=== PATIENT | male | born 1975 | race Caucasian/White ===

== ENCOUNTER 2016-12-16 19:49 | Emergency (ER) | payer MEDICAID ==
[~2016-12-16] VITALS: Ht 177.8 cm; Wt 97.5 kg
[~2016-12-16 19:49] MED LIST: ALPR0.5T PO; ATEN50TA; BUTA1CAP17 PO; CEFU250T PO; CETI10TA17; CIPR500T78 PO; CYCL10TA9 PO; DOXY100C2 PO; DOXY100T2 PO; FLUT9.9S NS; GUAI5LIQ5 PO; HYDR-3812 PO; HYDR-3816 PO; HYOS0.1283 SL; LISI10TA2 PO; LORA10TA76 PO; METH4TAB PO; METH500T PO; METR500T PO; NAPR500T PO; ONDA4TAB11 PO; PANT40TA2 PO; PRD20T PO; RT-ALBUINH IH; TOPI50TA13; TRAM-42 PO; TRAM50TA2 PO; norflex PO
--- OUTSIDE RECORDS SUMMARY | 2016-12-16 19:55 | XMS REPORT | Continuity of Care Document ---
Author Author [facility] Organization [facility] Address Unknown Phone Unavailable Care Team Providers Care Line Appliance Assembler Name Role Phone Carly Patterson PCP [phone] Source Comments Some departments are not documenting in the electronic medical record. If you do not see the information that you expected, contact Release of Information in the Health Information Management department at [phone] for further assistance in locating additional records.[facility] Active Allergies and Adverse Reactions Allergen Noted Date Severity Reactions Comments Biaxin 04/19/2016 Low VOMITING Keppra 04/19/2016 Low SEE COMMENTS Hypertension and passing out Morphine 04/19/2016 Medium HIVES Sulfa (Sulfonamide 04/19/2016 Low VOMITING Antibiotics) Current Medications Prescription Sig. Disp. Refills Start End Date Status Date PROAIR HFA 90 Inhale 2 Puffs by mouth 02/04/20 Active mcg/actuation inhaler every 6 hours as needed. 16 ALPRAZolam (XANAX) 0.5 mg Take 0.5 mg by mouth 04/08/20 Active tablet daily as needed. 16 atenolol (TENORMIN) 50 mg Take 50 mg by mouth at 03/19/20 Active tablet bedtime daily. 16 cyclobenzaprine Take 10 mg by mouth at 04/05/20 Active (FLEXERIL) 10 mg tablet bedtime as needed. 16 ibuprofen (MOTRIN) 800 mg Take 800 mg by mouth 02/11/20 Active tablet daily as needed. 16 lisinopril (PRINIVIL; Take 10 mg by mouth 04/05/20 Active ZESTRIL) 20 mg tablet daily. 16 topiramate (TOPAMAX) 50 Take 100 mg by mouth 03/19/20 Active mg tablet twice daily. 16 oxyCODONE-acetaminophen(+ Take 1 Tab by mouth three Active ) (PERCOCET; ENDOCET) times daily as needed 7.5-325 mg tablet fluticasone (FLONASE) 50 Apply 1 [place] to each Active mcg/actuation nasal spray nostril as directed daily as needed. Active Problems Problem Noted Date Nonepileptic episode (HCC) 06/21/2016 Convulsions (HCC) 06/21/2016 Most Recent Encounters Date Type Specialty Providers Description 10/11/2016 Hospital Radiology Titus Jimenez MD Canceled (Error) Encounter 10/11/2016 Ancillary Pain Management Titus Jimenez MD Lumbar radiculopathy Orders (Primary Dx) 10/08/2016 Telephone Anesthesia Pain Titus Jimenez MD Post Procedure 10/04/2016 Hospital Radiology Titus Jimenez MD Encounter 10/04/2016 Procedure visit Anesthesia Pain Titus Jimenez MD Spondylosis of cervical region without myelopathy or radiculopathy (Primary Dx); Degeneration of cervical intervertebral disc 10/04/2016 Ancillary Radiology Titus Jimenez MD Cervical radiculopathy Orders (Primary Dx) 10/04/2016 Ancillary Pain Management Titus Jimenez MD Orders Social History Tobacco Use Types Packs/Day Years Used Date Current Every Day Smoker Tobacco Cessation: Ready to Quit: Yes; Counseling Given: No Comments: Last Filed Vital Signs Vital Sign Reading Time Taken Blood Pressure 128/80 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 Pulse 69 10/04/2016 10:36 AM 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 Temperature 36.5 C (97.7 F) 10/04/2016 10:36 AM 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 Respiratory Rate 18 10/04/2016 10:36 AM 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 Height 1.778 m (5' 10") 10/04/2016 10:36 AM 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
[2016-12-16] MEDS ORDERED: IBUP-1780 (20:09)
[2016-12-16 20:26] LABS: BILIRUBIN,URINE NEGATIVE (NEGATIVE); KETONES,URINE NEGATIVE (NEGATIVE); LEUKOCYTE ESTERASE ,URINE NEGATIVE (NEGATIVE); NITRITE,URINE NEGATIVE (NEGATIVE); PH,URINE 7 (5-9); PROTEIN,URINE NEGATIVE (NEGATIVE); UROBILINOGEN,URINE NORMAL (NORMAL)
[2016-12-16 20:35] LABS: WBC,URINE RARE /HPF
[2016-12-16 21:18] LABS: BASOPHILS % (AUTO) 0 % (0-10); EOSINOPHILS # (AUTO) 0.2 10^3/uL (0.0-0.3); EOSINOPHILS % (AUTO) 3 % (0-10); LYMPHOCYTES # (AUTO) 2.2 X 10^3 (1.0-4.0); LYMPHOCYTES % (AUTO) 30 % (12-44); MEAN CORPUSCULAR HEMOGLOBIN 32 PG (25-34); MEAN CORPUSCULAR HGB CONC 36 G/DL (32-36); MEAN CORPUSCULAR VOLUME 90 FL (80-99); MEAN PLATELET VOLUME 11.4 FL (7.4-10.4); MONOCYTES # (AUTO) 0.5 X 10^3 (0.0-1.0); MONOCYTES % (AUTO) 7 % (0-12); NEUTROPHILS # (AUTO) 4.4 X 10^3 (1.8-7.8); NEUTROPHILS % (AUTO) 60 % (42-75); PLATELET COUNT 170 10^3/uL (130-400); RED CELL DISTRIBUTION WIDTH 13.2 % (10.0-14.5); WHITE BLOOD COUNT 7.3 10^3/uL (4.3-11.0)
[2016-12-16 21:29] LABS: ALANINE AMINOTRANSFERASE 20 U/L (0-55); ALBUMIN 3.9 G/DL (3.2-4.5); ANION GAP 10 MMOL/L (5-14); ASPARTATE AMINO TRANSFERASE 15 U/L (5-34); BILIRUBIN,TOTAL 0.3 MG/DL (0.1-1.0); BLOOD UREA NITROGEN 17 MG/DL (7-18); BUN/CREATININE RATIO 16; CALCIUM 8.7 MG/DL (8.5-10.1); CARBON DIOXIDE 18 MMOL/L (21-32); CHLORIDE 112 MMOL/L (98-107); CREATININE SERUM 1.09 MG/DL (0.60-1.30); GFR ESTIMATED > 60; GLUCOSE 101 MG/DL (70-105); LIPASE 10 U/L (8-78); POTASSIUM 3.5 MMOL/L (3.6-5.0); SODIUM 140 MMOL/L (135-145); TOTAL PROTEIN 6.9 G/DL (6.4-8.2)
[2016-12-16] MEDS ORDERED: LIDOCAINE 2% VISCOUS 15 ML UDC PO ONE (21:30)
[2016-12-16] MEDS ORDERED: ONDANSETRON 4 MG/2 ML (SDV) Z0FRAN IVP ONE (21:30)
[2016-12-16] MEDS ORDERED: ANTACID SUSP 30 ML UDC (MYLANTA) PO ONE (21:30)
[2016-12-16] MEDS ORDERED: KETOROLAC 30 MG/ML VIAL IVP ONE (22:15)
--- NOTE | 2016-12-16 22:46 | ED Abdominal Pain ---
General Chief Complaint: Abdominal/GI Problems Stated Complaint: ABD PAIN Nursing Triage Note: States he has had an upper resp illness for the last week. States yesterday he began having left flank pain and luq abd pain to epigastric area. States he has had one episode of vomiting tonight. Denies diarrhea or fever. NO issues urinating Sepsis Screen: No Definite Risk Source of Information: Patient Exam Limitations: No Limitations History of Present Illness Time Seen By Provider: 20:05 Initial Comments This 41-year-old man presents to the emergency room with left flank pain, nausea , vomiting, and upper respiratory symptoms including cough and congestion. The abdominal symptoms started yesterday. The URI symptoms have been present for several days. He has some discomfort with inspiration. Last meal was at 18: 00. He continues to smoke. Allergies and Home Medications Allergies Coded Allergies: Sulfa (Sulfonamide Antibiotics) (Unverified Allergy, Unknown, 12/16/16) clarithromycin (Unverified Allergy, Unknown, 12/16/16) levetiracetam (Unverified Allergy, Unknown, 12/16/16) morphine (Unverified Allergy, Unknown, 12/16/16) Home Medications Alprazolam 0.5 Mg Tablet 0.5 MG PO TID (Reported) Atenolol 50 Mg Tablet #30 (Reported) Cetirizine HCl 10 Mg Tablet #30 (Reported) Doxycycline Hyclate 100 Mg Capsule #20 100 MG PO BID Prescribed by: FRED PENG on 05/26/16 2331 Fluticasone Propionate 9.9 Ml [place].susp Unknown Dose NS DAILY PRN PRN PRN ( Reported) Hydrocodone/Acetaminophen 1 Each Tablet 1 EACH PO BID PRN PRN PAIN (Reported) Ibuprofen 800 Mg Tablet #90 (Reported) Lisinopril 10 Mg Tablet 20 MG PO DAILY (Reported) Loratadine 10 Mg Tablet 10 MG PO DAILY (Reported) Methylprednisolone 4 Mg Tab.ds.pk #1 4 MG PO UD Prescribed by: TERRANCE JAEGER on 08/04/162042 Naproxen 500 Mg Tablet #20 500 MG PO BID Prescribed by: HAJA FLOR on 02/05/16 2251 Topiramate 50 Mg Tablet #60 (Reported) Review of Systems Constitutional: no symptoms reported EENTM: See HPI Respiratory: See HPI Cardiovascular: No Symptoms Reported Gastrointestinal: See HPI Genitourinary: No Symptoms Reported Musculoskeletal: no symptoms reported Skin: no symptoms reported Psychiatric/Neurological: No Symptoms Reported Endocrine: No Symptoms Reported Past Fhfbsum-Gzthlb-Njkukc Hx Patient Social History Alcohol Use: Denies Use Recreational Drug Use: No Smoking Status: Current Everyday Smoker Recent Foreign Travel: No Contact w/Someone Who Travel: No Recent Infectious Disease Expo: No Recent Hopitalizations: No Physical Abuse Screen: No Sexual Abuse: No Immunizations Up To Date Tetanus Booster (TDap): Unknown Seasonal Allergies Seasonal Allergies: No Surgeries HX Surgeries: Yes (LUMBAR SPINAL FUSION 2006, LUMBAR LAMINECTOMY AND DISCECTOMY) Surgeries: Gallbladder, Orthopedic (laminectomy) Respiratory Hx Respiratory Disorders: Yes (tobaccoism) Respiratory Disorders: Pneumonia Cardiovascular Hx Cardiac Disorders: Yes Cardiac Disorders: Hypertension Neurological Hx Neurological Disorders: Yes Neurological Disorders: Seizure Disorder Reproductive System Hx Reproductive Disorders: No Genitourinary Hx Genitourinary Disorders: Yes (URINARY INCONTINENCE SINCE BACK SURGERY IN 2006. RENAL COLIC) Genitourinary Disorders: Kidney Stones Gastrointestinal Hx Gastrointestinal Disorders: Yes (INCONTINENT OF STOOL SINCE BACK SURGERY) Gastrointestinal Disorders: Colitis, Diverticulosis Musculoskeletal Hx Musculoskeletal Disorders: Yes (chronic neck pain) Musculoskeletal Disorders: Degenerate Disk Disease, Arthritis, Chronic Back Pain Endocrine Hx Endocrine Disorders: No HEENT HX ENT Disorders: No Cancer Hx Cancer: No Psychosocial Hx Psychiatric Problems: Yes Behavioral Health Disorders: Anxiety Integumentary HX Skin/Integumentary Disorder: No Blood Transfusions Hx Blood Disorders: No Adverse Reaction to a Blood Tr: No Physical Exam Vital Signs VS - Last 72 Hours, by Label 12/16/16 12/16/16 20:00 23:05 Temp 97.5 98.0 Pulse 87 80 Resp 18 18 B/P 139/80 Pulse Ox 97 99 Capillary Refill : Less Than 3 Seconds General Appearance: WD/WN no apparent distress HEENT: PERRL/EOMI normal ENT inspection pharynx normal Neck: normal inspection Respiratory: lungs clear normal breath sounds no respiratory distress no accessory muscle use Cardiovascular: regular rate, rhythm no edema no murmur Gastrointestinal: normal bowel sounds soft tenderness (left upper quadrant) Extremities: normal inspection no pedal edema 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 no motor/sensory deficits alert normal mood/affect oriented x 3 Skin: normal color warm/dry Progress/Results/Core Measures Results/Orders Lab Results Laboratory Tests Test 12/16/16 19:57 1/19/17 20:25 Range/Units Urine Bacteria NEGATIVE /HPF Urine Bilirubin NEGATIVE NEGATIVE Urine Casts NONE /LPF Urine Clarity CLEAR Urine Color YELLOW Urine Crystals NONE /LPF Urine Culture Indicated NO Urine Glucose (UA) NEGATIVE NEGATIVE Urine Ketones NEGATIVE NEGATIVE Urine Leukocyte Esterase NEGATIVE NEGATIVE Urine Mucus NEGATIVE /LPF Urine Nitrite NEGATIVE NEGATIVE Urine Protein NEGATIVE NEGATIVE Urine RBC RARE /HPF Urine RBC (Auto) NEGATIVE NEGATIVE Urine Specific [place] 1.010 L 1.016-1.022 Urine Urobilinogen NORMAL NORMAL MG/DL Urine WBC RARE /HPF Urine pH 7 5-9 Alanine Aminotransferase (ALT/SGPT) 20 0-55 U/L Albumin 3.9 3.2-4.5 G/DL Alkaline Phosphatase 116 40-136 U/L Anion Gap 10 5-14 MMOL/L Aspartate Amino Transf (AST/SGOT) 15 5-34 U/L BUN/Creatinine Ratio 16 Basophils # (Auto) 0.0 0.0-0.1 10^3/uL Basophils (%) (Auto) 0 0-10 % Blood Urea Nitrogen 17 7-18 MG/DL C-Reactive Protein High Sensitivity 0.18 0.00-0.50 MG/DL Calcium Level 8.7 8.5-10.1 MG/DL Carbon Dioxide Level 18 L 21-32 MMOL/L Chloride Level 112 H 98-107 MMOL/L Creatinine 1.09 0.60-1.30 MG/DL Eosinophils # (Auto) 0.2 0.0-0.3 10^3/uL Eosinophils (%) (Auto) 3 0-10 % Estimat Glomerular Filtration Rate > 60 Glucose Level 101 70-105 MG/DL Hematocrit 45 40-54 % Hemoglobin 16.2 13.3-17.7 G/DL Lipase 10 8-78 U/L Lymphocytes # (Auto) 2.2 1.0-4.0 X 10^3 Lymphocytes (%) (Auto) 30 12-44 % Mean Corpuscular Hemoglobin 32 25-34 PG Mean Corpuscular Hemoglobin Concent 36 32-36 G/DL Mean Corpuscular Volume 90 80-99 FL Mean Platelet Volume 11.4 H 7.4-10.4 FL Monocytes # (Auto) 0.5 0.0-1.0 X 10^3 Monocytes (%) (Auto) 7 0-12 % Neutrophils # (Auto) 4.4 1.8-7.8 X 10^3 Neutrophils (%) (Auto) 60 42-75 % Platelet Count 170 130-400 10^3/uL Potassium Level 3.5 L 3.6-5.0 MMOL/L Red Blood Count 5.00 4.35-5.85 10^6/uL Red Cell Distribution Width 13.2 10.0-14.5 % Sodium Level 140 135-145 MMOL/L Total Bilirubin 0.3 0.1-1.0 MG/DL Total Protein 6.9 6.4-8.2 G/DL White Blood Count 7.3 4.3-11.0 10^3/uL My Orders Orders-FRED CAT MD Ua Culture If Indicated (12/16/16 20:04) Cbc With Automated Diff (12/16/16 21:11) Comprehensive Metabolic Panel (12/16/16 21:11) Lipase (12/16/16 21:11) Saline Lock/Iv-Start (12/16/16 21:11) Lidocaine 2% Viscous 15 Ml (Xylocaine Vi (12/16/16 21:30) Antacid Suspension (Mylanta Suspension (12/16/16 21:30) Ondansetron Injection (Zofran Injectio (12/16/16 21:30) Hs C Reactive Protein (12/16/16 21:53) Chest Pa/Lat (2 View) (12/16/16 22:11) Abdomen/Kub 1view (12/16/16 22:11) Ketorolac Injection (Toradol Injection) (12/16/16 22:15) Rx-Ondansetron Po (Rx-Zofran Po) (12/16/16 22:57) Medications Given in ED Current Medications Medications Dose Ordered Sig/Teri Route Start Time Stop Time Status Last Admin Dose Admin Al Hydrox/Mg Hydrox/Simethicone 30 ml ONCE ONCE PO 12/16/16 21:30 12/16/16 21:31 DC 12/16/16 21:46 30 ML Ketorolac Tromethamine 30 mg ONCE ONCE IVP 12/16/16 22:15 12/16/16 22:16 DC 12/16/16 22:19 30 MG Lidocaine HCl 15 ml ONCE ONCE PO 12/16/16 21:30 12/16/16 21:31 DC 12/16/16 21:46 15 ML Ondansetron HCl 8 mg ONCE ONCE IVP 12/16/16 21:30 12/16/16 21:31 DC 12/16/16 21:46 8 MG Vital Signs/I&O Vital Sign - Last 12Hours 12/16/16 12/16/16 20:00 23:05 Temp 97.5 98.0 Pulse 87 80 Resp 18 18 B/P 139/80 Pulse Ox 97 99 Blood Pressure Mean: 99 Progress Note : Progress Note Patient had mild improvement in pain after GI cocktail. X-rays of the chest and abdomen revealed no significant pathology. There is moderate amount of stool found on the abdominal x-ray. Constipation is within consideration. Patient was further treated with Toradol and dismissed home with a take-home packet of Zofran. Diagnostic Imaging Diagonstic Imaging: Xray Plain Films/CT/US/NM/MRI: chest Comments Two-view chest x-ray viewed by me and compared with prior. Report not yet available. No acute abnormalities when compared with prior. There are chronic findings that are unchanged from 2015. Diagonstic Imaging: Xray Plain Films/CT/US/NM/MRI: abdomen, pelvis Comments Abdominal x-ray viewed by me. Report not yet available. There is a moderate amount of stool in the colon. No other acute abnormalities appreciated. Departure Impression Impression: Primary Impression: Left upper quadrant pain Additional Impression: Nausea and vomiting Qualified Code: R11.2 - Nausea with vomiting, unspecified Disposition: 01 HOME, SELF-CARE Condition: Improved Departure-Patient Inst. Decision time for Depature: 22:46 Referrals: [facility] (PCP/Family) Primary Care Physician Patient Instructions: Acute Abdomen (Belly Pain), Adult (DC) Add. Discharge Instructions: Clear liquid diet until nausea and vomiting and pain improved. You may dissolve Zofran under the tongue every 4 hours as needed for nausea. You may take ibuprofen up to 800 mg every 8 hours as needed for pain. Add Tylenol to 1000 mg every 6 hours as needed for additional pain relief. I would recommend continuing with a clear liquid diet and telemetry produce a good bowel movement. You may use MiraLAX or generic polyethylene glycol one capful dissolved in 8 ounces of water or juice once or twice daily to treat constipation if needed. You may also benefit from temporary antacid medication such as omeprazole 20 mg daily or Pepcid (famotidine) 20 mg twice daily. Return to care if symptoms worsen. Follow-up with your primary care provider. All discharge instructions reviewed with patient and/or family. Voiced understanding. FRED CAT MD Dec 16, 2016 22:46
[2016-12-16] MEDS ORDERED: RX-ONDANSETRON 4 MG ODT (ZOFRAN) PPK #4 SL STA (22:57)
[2016-12-16 23:05] VITALS: BP 141/77
--- NOTE | 2016-12-17 07:59 | Diagnostic Imaging Report ---
INDICATION: Epigastric pain. FINDINGS: The lungs appear clear. The heart size is normal. No effusion or pneumothorax. The mediastinum and evelin appear unremarkable. Mild opacity near the cardiac apex is similar to 11/27/2015, and is likely related to prominent pericardial fat pad. IMPRESSION: No acute process. Dictated by: Dictated on workstation # [id number]
--- NOTE | 2016-12-17 08:01 | Diagnostic Imaging Report ---
Supine view of the abdomen. INDICATION: Epigastric pain. FINDINGS: There are small/ moderate amounts of fecal material in the colon. No dilated bowel loops. Surgical clips in the upper right abdomen seen and posterior fusion hardware is noted along L5-S1 with suggestion of disc cage at this level. No definite urinary tract stone identified. IMPRESSION: No definite abnormality. Dictated by: Dictated on workstation # [id number]
== END 2016-12-16 23:06 | disposition home or self-care (01) ==
LOC: EDUNIT# 19:49 → ER 19:51
DX: R10.12 Left upper quadrant pain (principal); R11.2 Nausea with vomiting, unspecified; I10 Essential (primary) hypertension; G40.909 Epilepsy, unspecified, not intractable, without status epilepticus; F17.210 Nicotine dependence, cigarettes, uncomplicated; Z98.1 Arthrodesis status; Z79.899 Other long term (current) drug therapy
CPT/HCPCS: 36415; 71020; 74000; 80053; 81000; 83690; 85025; 86141; 96374; 96375

== ENCOUNTER 2017-01-09 17:41 | Emergency (ER) | payer MEDICAID ==
[~2017-01-09] VITALS: Ht 177.8 cm; Wt 97.5 kg
[~2017-01-09 17:41] MED LIST changes: +IBUP-1780
--- OUTSIDE RECORDS SUMMARY | 2017-01-09 17:47 | XMS REPORT | Continuity of Care Document ---
Author Author [facility] Organization [facility] Address Unknown Phone Unavailable Care Team Providers Care Line And Frame Poler Name Role Phone Carly Patterson PCP [phone] Source Comments Some departments are not documenting in the electronic medical record. If you do not see the information that you expected, contact Release of Information in the Health Information Management department at [phone] for further assistance in locating additional records.[facility] Active Allergies and Adverse Reactions Allergen [...] mg tablet fluticasone (FLONASE) 50 Apply 1 [place] to each Active mcg/actuation nasal spray nostril as directed daily as needed. 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 Pulse 69 10/04/2016 10:36 AM CUTTER 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
--- NOTE | 2017-01-09 17:56 | ED Upper Extremity ---
General Chief Complaint: Laceration Stated Complaint: L FINGER LAC Source: patient Exam Limitations: no limitations History of Present Illness Time seen by provider: 17:53 Initial Comments Accidentally, patient stabbed himself to the base of the left middle finger using a butter knife to open a chicken breast package at home. Tetanus is not up-to-date Onset: just prior to arrival Severity: moderate Pain/Injury Location: left 3rd finger Method of Injury: unknown Modifying Factors: Improves With Movement Allergies and Home Medications Allergies Coded Allergies: Sulfa (Sulfonamide Antibiotics) (Unverified Allergy, Unknown, 12/16/16) clarithromycin (Unverified Allergy, Unknown, 12/16/16) levetiracetam (Unverified Allergy, Unknown, 12/16/16) morphine (Unverified Allergy, Unknown, 12/16/16) Home Medications Alprazolam 0.5 Mg Tablet 0.5 MG PO TID (Reported) Atenolol 50 Mg Tablet #30 (Reported) Cetirizine HCl 10 Mg Tablet #30 (Reported) Doxycycline Hyclate 100 Mg Capsule #20 100 MG PO BID Prescribed by: FRED PENG on 05/26/16 2331 Fluticasone Propionate 9.9 Ml [place].susp Unknown Dose NS DAILY PRN PRN PRN ( Reported) Hydrocodone/Acetaminophen 1 Each Tablet 1 EACH PO BID PRN PRN PAIN (Reported) Ibuprofen 800 Mg Tablet #90 (Reported) Lisinopril 10 Mg Tablet 20 MG PO DAILY (Reported) Loratadine 10 Mg Tablet 10 MG PO DAILY (Reported) Methylprednisolone 4 Mg Tab.ds.pk #1 4 MG PO UD Prescribed by: TERRANCE JAEGER on 08/04/16 2043 Naproxen 500 Mg Tablet #20 500 MG PO BID Prescribed by: HAJA FLOR on 02/05/16 2251 Topiramate 50 Mg Tablet #60 (Reported) Constitutional: see HPI EENTM: see HPI Respiratory: no symptoms reported Cardiovascular: no symptoms reported Genitourinary: no symptoms reported Musculoskeletal: no symptoms reported Skin: see HPI Psychiatric/Neurological: No Symptoms Reported Past Bdbvftk-Kesbja-Ftesqe Hx Patient Social History Alcohol Use: Denies Use Recreational Drug Use: No Smoking Status: Current Everyday Smoker 2nd Hand Smoke Exposure: Yes Recent Foreign Travel: No Contact w/Someone Who Travel: No Recent Hopitalizations: No Immunizations Up To Date Tetanus Booster (TDap): Unknown Seasonal Allergies Seasonal Allergies: No Surgeries HX Surgeries: Yes (LUMBAR SPINAL FUSION 2007, LUMBAR LAMINECTOMY AND DISCECTOMY) Surgeries: Gallbladder, Orthopedic Respiratory Hx Respiratory Disorders: Yes (tobaccoism) Respiratory Disorders: Pneumonia Cardiovascular Hx Cardiac Disorders: Yes Cardiac Disorders: Hypertension Neurological Hx Neurological Disorders: Yes Neurological Disorders: Seizure Disorder Reproductive System Hx Reproductive Disorders: No Genitourinary Hx Genitourinary Disorders: Yes (URINARY INCONTINENCE SINCE BACK SURGERY IN 2006. RENAL COLIC) Genitourinary Disorders: Kidney Stones Gastrointestinal Hx Gastrointestinal Disorders: Yes (INCONTINENT OF STOOL SINCE BACK SURGERY) Gastrointestinal Disorders: Colitis, Diverticulosis Musculoskeletal Hx Musculoskeletal Disorders: Yes (chronic neck pain) Musculoskeletal Disorders: Degenerate Disk Disease, Arthritis, Chronic Back Pain Endocrine Hx Endocrine Disorders: No HEENT HX ENT Disorders: No Cancer Hx Cancer: No Psychosocial Hx Psychiatric Problems: Yes Behavioral Health Disorders: Anxiety Integumentary HX Skin/Integumentary Disorder: No Blood Transfusions Hx Blood Disorders: No Adverse Reaction to a Blood Tr: No Physical Exam Vital Signs Vital Sign - Last 12Hours 01/09/17 17:50 Temp 98.0 Pulse 84 Resp 18 B/P 135/76 Pulse Ox 99 O2 Delivery Room Air Capillary Refill : General Appearance: WD/WN no apparent distress HEENT: PERRL/EOMI normal ENT inspection Neck: non-tender full range of motion Respiratory: no respiratory distress no accessory muscle use Gastrointestinal: normal bowel sounds non tender soft Shoulder: normal inspection non-tender Elbow/Forearm: normal inspection, non-tender, Right, Left Hand: Left, laceration (laceration to the base of the left middle finger palmar surface ulnar side. No evidence of flexor tendon injury as he is able to fully flex and extend the middle finger.) Neurologic/Tendon: normal sensation Neurologic/Psychiatric: alert normal mood/affect oriented x 3 Skin: normal color warm/dry Laceration Repair : Wound Location: Upper Extremities Wound Length (cm): 1 Wound's Depth, Shape: linear Wound Explored: clean Irrigated w/ Saline (ccs): 50 Betadine Prep?: Yes Anesthesia: 1% Lidocaine Volume Anesthetic (ccs): 2 Suture: Ethlion Suture Size: 5-0 Number of Sutures: 5 Layer Closure?: 1 Number Deep Layer Sutures: 0 Progress Area anesthetized with 2 mL of plain 2 percent lidocaine without epinephrine. Wound then scrubbed with waxing/saline solution then irrigated with 50 mL of the same. 4 simple interrupted sutures size 5-0 Ethilon were placed. Progress/Results/Core Measures Results/Orders My Orders Orders-TERRANCE JAEGER APRN Dipht,Pertuss(Acell),Tet Adult (Boostrix (01/09/17 18:00) Cephalexin Capsule (Keflex Capsule) (01/09/17 18:00) Lidocaine 2% Injection 20 Ml (Xylocaine (01/09/17 18:00) Medications Given in ED Current Medications Medications Dose Ordered Sig/Teri Route Start Time Stop Time Status Last Admin Dose Admin Cephalexin HCl 500 mg ONCE ONCE PO 01/09/17 18:00 01/09/17 18:01 DC 01/09/17 18:01 500 MG Diphtheria/ Tetanus/Acell Pertussis 0.5 ml ONCE ONCE IM 01/09/17 18:00 01/09/17 18:01 DC 01/09/17 18:00 0.5 ML Lidocaine HCl 2 ml ONCE ONCE INJ 01/09/17 18:00 01/09/17 18:01 DC 01/09/17 18:01 2 ML Vital Signs/I&O Vital Sign - Last 12Hours 01/09/17 01/09/17 01/09/17 17:50 18:00 18:01 Temp 98.0 98.0 98.0 Pulse 84 Resp 18 B/P 135/76 Pulse Ox 99 O2 Delivery Room Air Departure Impression Impression: Primary Impression: Hand laceration Qualified Code: S61.412A - Laceration without foreign body of left hand, initial encounter Disposition: HOME, SELF-CARE Condition: Stable Departure-Patient Inst. Decision time for Depature: 17:55 Referrals: [facility] (PCP/Family) Primary Care Physician Patient Instructions: Laceration Repair With Stitches (DC) Add. Discharge Instructions: 1. Keep the dressing on today. You may remove it tomorrow and place a simple Band-Aid over this. Alternatively, you may leave the Band-Aid off as long as this will be kept clean 2. Return to the emergency room in 7 days to have the stitches removed 3. Do not soak the hand in water such as a dish sink or bathtub or hot tub until stitches have been removed. However, starting tomorrow you may shower and let water run over this gently. All discharge instructions reviewed with patient and/or family. Voiced understanding. TERRANCE JAEGER APRN Jan 09, 2017 17:56
[2017-01-09] MEDS ORDERED: TETANUS,DIPTH,PERTUSS P/F (BOOSTRIX) 0.5 ML VIAL IM ONE (18:00)
[2017-01-09] MEDS ORDERED: LIDOCAINE 2% 20 ML (XYLOCAINE) VIAL INJ ONE (18:00)
[2017-01-09] MEDS ORDERED: CEPHALEXIN 250 MG (KEFLEX) CAP PO ONE (18:00)
[2017-01-09 18:38] VITALS: BP 135/76
== END 2017-01-09 18:38 | disposition home or self-care (01) ==
LOC: EDUNIT# 17:41 → ER 17:42
DX: S61.213A Laceration without foreign body of left middle finger without damage to nail, initial encounter (principal); Z23 Encounter for immunization; I10 Essential (primary) hypertension; F17.210 Nicotine dependence, cigarettes, uncomplicated; Z79.899 Other long term (current) drug therapy; W26.0XXA Contact with knife, initial encounter; Y93.G1 Activity, food preparation and clean up; Y92.010 Kitchen of single-family (private) house as the place of occurrence of the external cause; Y99.8 Other external cause status
CPT/HCPCS: 12001; 90471; 90715

== ENCOUNTER 2017-01-12 09:45 | Emergency (ER) | payer MEDICAID ==
[~2017-01-12] VITALS: Ht 177.8 cm; Wt 96.2 kg
--- NOTE | 2017-01-12 11:27 | ED Neck-Back Pain/Injury ---
General Chief Complaint: Head/Cervical Problems Stated Complaint: NECK PAIN Nursing Triage Note: PT CO OF NECK PAIN ON R SIDE Nursing Sepsis Screen: No Definite Risk Source of Information: Patient, Family Exam Limitations: No Limitations History of Present Illness Time Seen by Provider: 11:21 Initial Comments The patient is a 41-year-old white male who has had cervical disc problems for some time. He reports that he awakened this morning with pain in the neck and also along the medial border of the right scapula. He has not experienced that before. He has some tingling in his fingertips on occasion as well. He states that previously he was told that he had disc bulging at C5 6 and C6 7. He has no apparent reinjury issue. He reports that about one year ago he saw a commodity management specialist in [place] and ultimately had some nerve root injections. Location: [facility] Timing/Duration: 4-6 Hours Severity: Mild, Moderate Pain/Injury Location: Back, Neck Method of Injury: Unknown Allergies and Home Medications Allergies Coded Allergies: Sulfa (Sulfonamide Antibiotics) (Unverified Allergy, Unknown, 12/16/16) clarithromycin (Unverified Allergy, Unknown, 12/16/16) levetiracetam (Unverified Allergy, Unknown, 12/16/16) morphine (Unverified Allergy, Unknown, 12/16/16) Home Medications Alprazolam 0.5 Mg Tablet 0.5 MG PO TID (Reported) Atenolol 50 Mg Tablet #30 (Reported) Cetirizine HCl 10 Mg Tablet #30 (Reported) Doxycycline Hyclate 100 Mg Capsule #20 100 MG PO BID Prescribed by: FRED PENG on 05/26/16 2331 Fluticasone Propionate 9.9 Ml [place].susp Unknown Dose NS DAILY PRN PRN PRN ( Reported) Hydrocodone/Acetaminophen 1 Each Tablet 1 EACH PO BID PRN PRN PAIN (Reported) Ibuprofen 800 Mg Tablet #90 (Reported) Lisinopril 10 Mg Tablet 20 MG PO DAILY (Reported) Loratadine 10 Mg Tablet 10 MG PO DAILY (Reported) Methylprednisolone 4 Mg Tab.ds.pk #1 4 MG PO UD Prescribed by: TERRANCE JAEGER on 08/04/162042 Naproxen 500 Mg Tablet #20 500 MG PO BID Prescribed by: HAJA FLOR on 02/05/16 2251 Topiramate 50 Mg Tablet #60 (Reported) Constitutional: see HPI EENTM: no symptoms reported Respiratory: no symptoms reported Cardiovascular: no symptoms reported Gastrointestinal: no symptoms reported Genitourinary: no symptoms reported Musculoskeletal: no symptoms reported Skin: no symptoms reported Psychiatric/Neurological: No Symptoms Reported Past Uganhcf-Lljyvi-Gbxudl Hx Patient Social History Alcohol Use: Denies Use Recreational Drug Use: No Smoking Status: Current Everyday Smoker 2nd Hand Smoke Exposure: Yes Recent Foreign Travel: No Contact w/Someone Who Travel: No Recent Infectious Disease Expo: No Recent Hopitalizations: No Immunizations Up To Date Tetanus Booster (TDap): Unknown Seasonal Allergies Seasonal Allergies: No Surgeries HX Surgeries: Yes (LUMBAR SPINAL FUSION 2006, LUMBAR LAMINECTOMY AND DISCECTOMY) Surgeries: Gallbladder, Orthopedic Respiratory Hx Respiratory Disorders: Yes (tobaccoism) Respiratory Disorders: Pneumonia Cardiovascular Hx Cardiac Disorders: Yes Cardiac Disorders: Hypertension Neurological Hx Neurological Disorders: Yes Neurological Disorders: Seizure Disorder Reproductive System Hx Reproductive Disorders: No Genitourinary Hx Genitourinary Disorders: Yes (URINARY INCONTINENCE SINCE BACK SURGERY IN 2006. RENAL COLIC) Genitourinary Disorders: Kidney Stones Gastrointestinal Hx Gastrointestinal Disorders: Yes (INCONTINENT OF STOOL SINCE BACK SURGERY) Gastrointestinal Disorders: Colitis, Diverticulosis Musculoskeletal Hx Musculoskeletal Disorders: Yes (chronic neck pain) Musculoskeletal Disorders: Degenerate Disk Disease, Arthritis, Chronic Back Pain Endocrine Hx Endocrine Disorders: No HEENT HX ENT Disorders: No Cancer Hx Cancer: No Psychosocial Hx Psychiatric Problems: Yes Behavioral Health Disorders: Anxiety Integumentary HX Skin/Integumentary Disorder: No Blood Transfusions Hx Blood Disorders: No Adverse Reaction to a Blood Tr: No Physical Exam Vital Signs Vital Sign - Last 12Hours 01/12/17 09:50 Temp 97.0 Pulse 64 Resp 18 B/P 130/85 Pulse Ox 99 Capillary Refill : Less Than 3 Seconds General Appearance: No Apparent Distress WD/WN HEENT: Normal ENT Inspection Neck: Full Range of Motion Normal Inspection Non Tender Supple Cardiovascular: Regular Rate, Rhythm No Edema No Gallop No JVD No Murmur Normal Peripheral Pulses Respiratory: Chest Non Tender Lungs Clear Normal Breath Sounds No Accessory Muscle Use No Respiratory Distress Accessory Muscle Use Extremity: Normal Capillary Refill Normal Inspection Normal Range of Motion Non Tender No Calf Tenderness No Pedal Edema Calf Tenderness Comments There is some pain to rotation of the neck. There is no pain to palpation. 3D Modeler is 2+ and equal bilaterally. Triceps and biceps are 2+ and equally bilaterally. There is considerable pain to palpation along the medial border of the right scapula. There is no winging. Laceration Repair : Suture Size: 5-0 Progress/Results/Core Measures Results/Orders Vital Signs/I&O Vital Sign - Last 12Hours 01/12/17 09:50 Temp 97.0 Pulse 64 Resp 18 B/P 130/85 Pulse Ox 99 Blood Pressure Mean: 100 Departure Impression Impression: Primary Impression: Cervical neck pain with evidence of disc disease Disposition: HOME, SELF-CARE Condition: Stable/Unchanged Departure-Patient Inst. Referrals: [facility] (PCP/Family) Primary Care Physician Patient Instructions: Chronic Neck Pain (DC) Add. Discharge Instructions: All discharge instructions reviewed with patient and/or family. Voiced understanding. Make contact with your provider for any necessary additional diagnostic studies such as MRI. Consider a second appointment at the spine clinic for CHARLES CARRERA MD Jan 12, 2017 11:26
[2017-01-12 11:30] VITALS: BP 130/85
== END 2017-01-12 11:35 | disposition home or self-care (01) ==
LOC: EDUNIT# 09:45 → ER 09:47
DX: M50.30 Other cervical disc degeneration, unspecified cervical region (principal); I10 Essential (primary) hypertension; F17.210 Nicotine dependence, cigarettes, uncomplicated; Z79.899 Other long term (current) drug therapy
CPT/HCPCS: 99282

== ENCOUNTER 2017-01-15 18:45 | Emergency (ER) | payer MEDICAID ==
[~2017-01-15] VITALS: Ht 177.8 cm; Wt 96.2 kg
--- OUTSIDE RECORDS SUMMARY | 2017-01-15 18:50 | XMS REPORT | Continuity of Care Document ---
Author Author [facility] Organization [facility] Address Unknown Phone Unavailable Care Team Providers Care [employer] Driver Name Role Phone Carly Patterson PCP [phone] Source Comments Some departments are not documenting in the electronic medical record. If you do not see the information that you expected, contact Release of Information in the Health Information Management department at [phone] for further assistance in locating additional records.[facility] Active Allergies and Adverse Reactions Allergen [...] mg tablet fluticasone (FLONASE) 50 Apply 1 [place] to each Active mcg/actuation nasal spray nostril as directed daily as needed. Active Problems Problem Noted Date Nonepileptic episode ([facility]) 06/21/2016 Convulsions ([facility]) 06/21/2016 Social History Tobacco Use Types Packs/Day Years Used Date Current Every Day Smoker Tobacco Cessation: Ready to Quit: Yes; Counseling Given: No Comments: Last Filed Vital Signs Vital Sign Reading Time Taken Blood Pressure 128/80 10/04/2016 11:35 AM SLASHER HAND Pulse 69 10/04/2016 10:36 AM SLASHER HAND Temperature 36.5 C (97.7 F) 10/04/2016 10:36 AM SLASHER HAND Respiratory Rate 18 10/04/2016 10:36 AM SLASHER HAND Height 1.778 m (5' 10") 10/04/2016 10:36 AM SLASHER HAND Weight 98.431 kg (217 lb) 10/04/2016 10:36 AM SLASHER HAND Body Mass Index 31.14 10/04/2016 10:36 AM SLASHER HAND Oxygen Saturation 100% 10/04/2016 11:35 AM SLASHER HAND Plan of Care Health Maintenance Due Date Last Done Comments Physical (Comprehensive) 1984 Exam Pertussis Vaccine 1988 Tetanus Vaccine 1994 Influenza Vaccine 07/29/2016 Results from Last 3 Months Not on file
[2017-01-15 19:24] VITALS: BP 140/62
== END 2017-01-15 19:25 | disposition home or self-care (01) ==
LOC: EDUNIT# 18:45 → ER 18:46
DX: S61.211D Laceration without foreign body of left index finger without damage to nail, subsequent encounter (principal)

== ENCOUNTER 2017-04-21 19:19 | Emergency (ER) | payer OTHER, MEDICAID ==
[~2017-04-21] VITALS: Ht 177.8 cm; Wt 97.5 kg
[2017-04-21] MEDS ORDERED: NS IV 1000 ML 1,000 ML IV ONE (19:37)
--- NOTE | 2017-04-21 19:46 | ED General ---
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, AND ACCIDENTALLY TOUCHED A PRONG THAT HAD BROKEN OFF IN ELECTRICAL SOCKET, AND GOT A SHOCK TO HIS RIGHT MIDDLE FINGER WAS A NORMAL 120 V OUTLET DID NOT KNOCK HIM BACK OR HAVE LOSS OF CONSCIOUSNESS, JUST "BUZZED" HIM C/O PAIN AND TINGLING TO RIGHT MIDDLE FINGER AND HAND, RADIATING TO ANTERIOR FOREARM C/O HEADACHE NO MOTOR DEFICITS NO CHEST PAIN, PALPITATIONS OR SHORTNESS OF BREATH HAS NOT TAKEN ANYTHING FOR PAIN JUST TOLD HIS BOSS, WHO SENT HIM HERE MULTIPLE ER VISITS-MOST FOR VARIOUS PAIN COMPLAINTS PCP: [facility] Allergies and Home Medications Allergies Coded Allergies: Sulfa (Sulfonamide Antibiotics) (Unverified Allergy, Unknown, 12/16/16) clarithromycin (Unverified Allergy, Unknown, 12/16/16) levetiracetam (Unverified Allergy, Unknown, 12/16/16) morphine (Unverified Allergy, Unknown, 12/16/16) Home Medications Alprazolam 0.5 Mg Tablet, 0.5 MG PO TID, (Reported) Atenolol 50 Mg Tablet, #30 (Reported) Ibuprofen 800 Mg Tablet, #90 (Reported) Lisinopril 10 Mg Tablet, 20 MG PO DAILY, (Reported) Loratadine 10 Mg Tablet, 10 MG PO DAILY, (Reported) Oxycodone HCl/Acetaminophen 1 Each Tablet, #84 (Reported) Topiramate 50 Mg Tablet, #60 (Reported) Constitutional: no symptoms reported EENTM: no symptoms reported Respiratory: no symptoms reported Cardiovascular: no symptoms reported Gastrointestinal: no symptoms reported Genitourinary: no symptoms reported Musculoskeletal: see HPI Skin: no symptoms reported Psychiatric/Neurological: See HPI, Headache, Numbness, Paresthesia, Tingling Hematologic/Lymphatic: No Symptoms Reported Immunological/Allergic: no symptoms reported Past Aabslcv-Umywgv-Ipptnu Hx Patient Social History Alcohol Use: Denies Use Recreational Drug Use: No Smoking Status: Current Everyday Smoker (1/2 PPD) Type Used: Cigarettes 2nd Hand Smoke Exposure: Yes Recent Foreign Travel: No Contact w/Someone Who Travel: No Recent Hopitalizations: No Immunizations Up To Date Tetanus Booster (TDap): Unknown Seasonal Allergies Seasonal Allergies: No Surgeries HX Surgeries: Yes (LUMBAR SPINAL FUSION 2006, LUMBAR LAMINECTOMY AND DISCECTOMY; EXPLORATORY LAP--THOUGHT TOOK HIS APPENDIX, BUT LATER CT SCANS SHOW HE STILL HAS APPENDIX?) Surgeries: Abdominal, Gallbladder, Orthopedic Respiratory Hx Respiratory Disorders: Yes (tobaccoism) Respiratory Disorders: Pneumonia, COPD Cardiovascular Hx Cardiac Disorders: Yes Cardiac Disorders: High Cholesterol, Hypertension Neurological Hx Neurological Disorders: Yes Neurological Disorders: Seizure Disorder Reproductive System Hx Reproductive Disorders: No Genitourinary Hx Genitourinary Disorders: Yes (URINARY INCONTINENCE SINCE BACK SURGERY IN 2006. RENAL COLIC) Genitourinary Disorders: Kidney Stones, Neurogenic Bladder Gastrointestinal Hx Gastrointestinal Disorders: Yes (INCONTINENT OF STOOL SINCE BACK SURGERY) Gastrointestinal Disorders: Colitis, Gastroesophageal Reflux, Diverticulosis Musculoskeletal Hx Musculoskeletal Disorders: Yes (chronic neck pain) Musculoskeletal Disorders: Degenerate Disk Disease, Arthritis, Chronic Back Pain Endocrine Hx Endocrine Disorders: No HEENT HX ENT Disorders: No Cancer Hx Cancer: No Psychosocial Hx Psychiatric Problems: Yes Behavioral Health Disorders: Anxiety Integumentary HX Skin/Integumentary Disorder: No Blood Transfusions Hx Blood Disorders: No Adverse Reaction to a Blood Tr: No Physical Exam Vital Signs Vital Sign - Last 12Hours 04/21/ 19:25 Temp 98.4 Pulse 74 Resp 20 B/P (MAP) 126/84 Pulse Ox 96 O2 Delivery Room Air Capillary Refill : General Appearance: WD/WN HEENT: PERRL/EOMI Neck: Normal Inspection Respiratory: Normal Breath Sounds, No Accessory Muscle Use, No Respiratory Distress Cardiovascular: Regular Rate, Rhythm, No Edema, No JVD, No Murmur, Normal Peripheral Pulses Gastrointestinal: Normal Bowel Sounds, No Organomegaly, No Pulsatile Mass, Non Tender, Soft Extremity: Normal Capillary Refill, Normal Inspection, Normal Range of Motion, Non Tender, No Calf Tenderness, No Pedal Edema Neurologic/Psychiatric: Alert, Oriented x3, No Motor/Sensory Deficits, Normal Mood/Affect, abap developer II-XII Norm as Tested, Other (DTR'S PRESENT BUT MINIMAL IN LEGS ) Skin: Normal Color, Warm/Dry, Tattoos/Piercings (MULTIPLE TATTOOS), Other (NO EXTERNAL EVIDENCE OF TRAUMA) Laceration Repair : Suture Size: 5-0 Progress/Results/Core Measures Results/Orders Lab Results Laboratory Tests Test 04/21/17 19:37 Range/Units White Blood Count 7.3 4.3-11.0 10^3/uL Red Blood Count 5.30 4.35-5.85 10^6/uL Hemoglobin 17.1 13.3-17.7 G/DL Hematocrit 49 40-54 % Mean Corpuscular Volume 92 80-99 FL Mean Corpuscular Hemoglobin 32 25-34 PG Mean Corpuscular Hemoglobin Concent 35 32-36 G/DL Red Cell Distribution Width 13.0 10.0-14.5 % Platelet Count 173 130-400 10^3/uL Mean Platelet Volume 11.3 H 7.4-10.4 FL Neutrophils (%) (Auto) 69 42-75 % Lymphocytes (%) (Auto) 21 12-44 % Monocytes (%) (Auto) 8 0-12 % Eosinophils (%) (Auto) 2 0-10 % Basophils (%) (Auto) 0 0-10 % Neutrophils # (Auto) 5.0 1.8-7.8 X 10^3 Lymphocytes # (Auto) 1.5 1.0-4.0 X 10^3 Monocytes # (Auto) 0.6 0.0-1.0 X 10^3 Eosinophils # (Auto) 0.2 0.0-0.3 10^3/uL Basophils # (Auto) 0.0 0.0-0.1 10^3/uL Sodium Level 138 135-145 MMOL/L Potassium Level 3.7 3.6-5.0 MMOL/L Chloride Level 111 H 98-107 MMOL/L Carbon Dioxide Level 18 L 21-32 MMOL/L Anion Gap 9 5-14 MMOL/L Blood Urea Nitrogen 25 H 7-18 MG/DL Creatinine 0.98 0.60-1.30 MG/DL Estimat Glomerular Filtration Rate > 60 BUN/Creatinine Ratio 26 Glucose Level 88 70-105 MG/DL Calcium Level 9.4 8.5-10.1 MG/DL Total Bilirubin 0.5 0.1-1.0 MG/DL Aspartate Amino Transf (AST/SGOT) 13 5-34 U/L Alanine Aminotransferase (ALT/SGPT) 13 0-55 U/L Alkaline Phosphatase 96 40-136 U/L Total Creatine Kinase 45 30-200 U/L Troponin I < 0.30 <0.30 NG/ML Total Protein 7.6 6.4-8.2 G/DL Albumin 4.3 3.2-4.5 G/DL My Orders Orders - BHAVYA ESCOBAR DO Ekg Tracing (04/21/17 19:37) Monitor-Rhythm Ecg Trace Only (04/21/17 19:37) Cbc With Automated Diff (04/21/17 19:37) Comprehensive Metabolic Panel (04/21/17 19:37) Creatine Kinase (04/21/17 19:37) Troponin I (04/21/17 19:37) Saline Lock/Iv-Start (04/21/17 19:37) Ns Iv 1000 Ml (Sodium Chloride 0.9%) (04/21/17 19:37) Medications Given in ED Current Medications Medications Dose Ordered Sig/Teri Route Start Time Stop Time Status Last Admin Dose Admin Sodium Chloride 1,000 ml @ 0 mls/hr Q0M ONCE IV 04/21/17 19:37 04/21/17 19:38 DC 04/21/17 19:46 999 MLS/HR Vital Signs/I&O Vital Sign - Last 12Hours 04/21/17 19:25 Temp 98.4 Pulse 74 Resp 20 B/P (MAP) 126/84 Pulse Ox 96 O2 Delivery Room Air ECG Initial ECG Impression Time: 19:43 Initial ECG Rate: 67 Initial ECG Rhythm: Normal Sinus Initial ECG Comparisson: Unchanged Departure Impression Impression: Primary Impression: MINOR ELECTRIC SHOCK TO RIGHT MIDDLE FINGER Disposition: 01 HOME, SELF-CARE Condition: Stable Departure-Patient Inst. Referrals: [facility] (PCP/Family) Primary Care Physician Patient Instructions: Electrical Shock (DC) Add. Discharge Instructions: LOTS OF FLUIDS TAKE YOUR HOME MEDICATIONS FOR PAIN NEEDED FOLLOW UP WITH YOUR DR NEEDED All discharge instructions reviewed with patient and/or family. Voiced understanding. BHAVYA ESCOBAR DO April 21, 2017 19:45
[2017-04-21 20:02] LABS: BASOPHILS % (AUTO) 0 % (0-10); EOSINOPHILS # (AUTO) 0.2 10^3/uL (0.0-0.3); EOSINOPHILS % (AUTO) 2 % (0-10); LYMPHOCYTES # (AUTO) 1.5 X 10^3 (1.0-4.0); LYMPHOCYTES % (AUTO) 21 % (12-44); MEAN CORPUSCULAR HEMOGLOBIN 32 PG (25-34); MEAN CORPUSCULAR HGB CONC 35 G/DL (32-36); MEAN CORPUSCULAR VOLUME 92 FL (80-99); MEAN PLATELET VOLUME 11.3 FL (7.4-10.4); MONOCYTES # (AUTO) 0.6 X 10^3 (0.0-1.0); MONOCYTES % (AUTO) 8 % (0-12); NEUTROPHILS % (AUTO) 69 % (42-75); PLATELET COUNT 173 10^3/uL (130-400); WHITE BLOOD COUNT 7.3 10^3/uL (4.3-11.0)
[2017-04-21] MEDS ORDERED: OXYC-464 (20:05)
[2017-04-21 20:44] LABS: ALANINE AMINOTRANSFERASE 13 U/L (0-55); ALBUMIN 4.3 G/DL (3.2-4.5); ANION GAP 9 MMOL/L (5-14); ASPARTATE AMINO TRANSFERASE 13 U/L (5-34); BILIRUBIN,TOTAL 0.5 MG/DL (0.1-1.0); BLOOD UREA NITROGEN 25 MG/DL (7-18); BUN/CREATININE RATIO 26; CALCIUM 9.4 MG/DL (8.5-10.1); CARBON DIOXIDE 18 MMOL/L (21-32); CHLORIDE 111 MMOL/L (98-107); CREATINE KINASE 45 U/L (30-200); CREATININE SERUM 0.98 MG/DL (0.60-1.30); GFR ESTIMATED > 60; GLUCOSE 88 MG/DL (70-105); POTASSIUM 3.7 MMOL/L (3.6-5.0); SODIUM 138 MMOL/L (135-145); TOTAL PROTEIN 7.6 G/DL (6.4-8.2)
[2017-04-21 20:46] LABS: TROPONIN I < 0.30 NG/ML (<0.30)
[2017-04-21 21:16] VITALS: BP 116/69
== END 2017-04-21 21:16 | disposition home or self-care (01) ==
LOC: EDUNIT# 19:19 → ER 19:24
DX: T75.4XXA Electrocution, initial encounter (principal); I10 Essential (primary) hypertension; J44.9 Chronic obstructive pulmonary disease, unspecified; G40.909 Epilepsy, unspecified, not intractable, without status epilepticus; F17.210 Nicotine dependence, cigarettes, uncomplicated; Z79.899 Other long term (current) drug therapy
CPT/HCPCS: 36415; 80053; 82550; 84484; 85025; 93005; 93041

== ENCOUNTER 2017-04-24 01:09 | Emergency (ER) | payer MEDICAID, OTHER ==
[~2017-04-24] VITALS: Ht 177.8 cm; Wt 97.5 kg
[~2017-04-24 01:09] MED LIST changes: +OXYC-464
--- NOTE | 2017-04-24 02:08 | ED General ---
General Chief Complaint: Lower Extremity Stated Complaint: R ANKLE CALF PAIN Nursing Triage Note: Pt c/o right calf pain/tingling that began 1 week ago. No f/u with PCP. No injury. Nursing Sepsis Screen: No Definite Risk Source of Information: Patient Exam Limitations: No Limitations History of Present Illness Time Seen by Provider: 01:38 Initial Comments This 42 -year-old man presents with complaints of paresthesias and pain in the right calf 1 week. 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 He denies any injury. He had one brief episode of shortness of breath while walking across the parking lot today but otherwise denies any shortness of air or chest pain. He has not been taking any medications for his symptoms. There is no tachycardia or hypoxia. Allergies and Home Medications Allergies Coded Allergies: Sulfa (Sulfonamide Antibiotics) (Unverified Allergy, Unknown, 12/16/16) clarithromycin (Unverified Allergy, Unknown, 12/16/16) levetiracetam (Unverified Allergy, Unknown, 12/16/16) morphine (Unverified Allergy, Unknown, 12/16/16) Home Medications Alprazolam 0.5 Mg Tablet, 0.5 MG PO TID, (Reported) Atenolol 50 Mg Tablet, #30 (Reported) Ibuprofen 800 Mg Tablet, #90 (Reported) Lisinopril 10 Mg Tablet, 20 MG PO DAILY, (Reported) Oxycodone HCl/Acetaminophen 1 Each Tablet, #84 (Reported) Topiramate 50 Mg Tablet, #60 (Reported) Constitutional: no symptoms reported EENTM: no symptoms reported Respiratory: see HPI Cardiovascular: no symptoms reported Gastrointestinal: no symptoms reported Genitourinary: no symptoms reported Musculoskeletal: see HPI Skin: no symptoms reported Psychiatric/Neurological: See HPI Past Kmpxcqv-Obpwaj-Nyaolt Hx Patient Social History Alcohol Use: Denies Use Recreational Drug Use: No Smoking Status: Current Everyday Smoker Type Used: Cigarettes 2nd Hand Smoke Exposure: Yes Recent Foreign Travel: No Contact w/Someone Who Travel: No Recent Infectious Disease Expo: No Recent Hopitalizations: No Immunizations Up To Date Tetanus Booster (TDap): Less than 5yrs Seasonal Allergies Seasonal Allergies: No Surgeries HX Surgeries: Yes Surgeries: Abdominal, Gallbladder, Orthopedic Respiratory Hx Respiratory Disorders: Yes (tobaccoism) Respiratory Disorders: Pneumonia, COPD Cardiovascular Hx Cardiac Disorders: Yes Cardiac Disorders: High Cholesterol, Hypertension Neurological Hx Neurological Disorders: Yes Neurological Disorders: Seizure Disorder Reproductive System Hx Reproductive Disorders: No Genitourinary Hx Genitourinary Disorders: Yes (URINARY INCONTINENCE SINCE BACK SURGERY IN 2006. RENAL COLIC) Genitourinary Disorders: Kidney Stones, Neurogenic Bladder Gastrointestinal Hx Gastrointestinal Disorders: Yes (INCONTINENT OF STOOL SINCE BACK SURGERY) Gastrointestinal Disorders: Colitis, Gastroesophageal Reflux, Diverticulosis Musculoskeletal Hx Musculoskeletal Disorders: Yes (chronic neck pain) Musculoskeletal Disorders: Degenerate Disk Disease, Arthritis, Chronic Back Pain Endocrine Hx Endocrine Disorders: No HEENT HX ENT Disorders: No Cancer Hx Cancer: No Psychosocial Hx Psychiatric Problems: Yes Behavioral Health Disorders: Anxiety Integumentary HX Skin/Integumentary Disorder: No Blood Transfusions Hx Blood Disorders: No Adverse Reaction to a Blood Tr: No Physical Exam Vital Signs Vital Sign - Last 12Hours 04/24/17 01:19 Pulse 66 Resp 18 B/P (MAP) 130/86 Pulse Ox 99 O2 Delivery Room Air Capillary Refill : Less Than 3 Seconds General Appearance: No Apparent Distress, WD/WN HEENT: Normal ENT Inspection Neck: Normal Inspection Respiratory: Lungs Clear, Normal Breath Sounds, No Accessory Muscle Use, No Respiratory Distress Cardiovascular: Regular Rate, Rhythm, No Edema, No Murmur Extremity: Normal Inspection, No Pedal Edema, Other (Minor right sided calf tenderness with no heat, erythema, or swelling. Strong pedal pulse. 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 No evidence of DVT. Departure Impression Impression: Primary Impression: Right calf pain Disposition: 01 HOME, SELF-CARE Condition: Critical Departure-Patient Inst. Decision time for Depature: 02:07 Referrals: [facility] (PCP/Family) Primary Care Physician Patient Instructions: NO INSTRUCTIONS GIVEN Add. Discharge Instructions: Stretch your calves frequently while at work. Increase your ibuprofen usage to 800 mg 3 times daily through the weekend. Follow-up with your primary care provider early next week if not improving. Return to the ER if symptoms worsen. All discharge instructions reviewed with patient and/or family. Voiced understanding. FRED CAT MD April 24, 2017 02:08
[2017-04-24 02:25] VITALS: BP 128/78
--- NOTE | 2017-04-24 06:54 | Diagnostic Imaging Report ---
PROCEDURE: US right lower extremity venous. TECHNIQUE: Multiple real-time grayscale images were obtained over the right lower extremity in various projections. Additional duplex Doppler and color Doppler images were also obtained. Findings: The right common femoral, femoral and popliteal veins are patent without evidence of DVT. Visualized proximal aspects of the greater saphenous, deep femoral, posterior tibial and peroneal veins are also patent. All of the evaluated deep venous structures demonstrate normal compressibility and waveform augmentation where applicable. Impression: No right lower extremity deep venous thrombosis (DVT). Findings are in agreement with the preliminary report. Dictated by: Dictated on workstation # [id number]
== END 2017-04-24 02:25 | disposition home or self-care (01) ==
LOC: EDUNIT# 01:09 → ER 01:12
DX: M79.661 Pain in right lower leg (principal); I10 Essential (primary) hypertension; J44.9 Chronic obstructive pulmonary disease, unspecified; F17.210 Nicotine dependence, cigarettes, uncomplicated
CPT/HCPCS: 99283

== ENCOUNTER 2017-05-16 23:07 | Emergency (ER) | payer MEDICAID ==
[~2017-05-16] VITALS: Ht 177.8 cm; Wt 95.3 kg
[~2017-05-16 23:07] MED LIST changes: -ATEN50TA; +ATEN50TA PO; -IBUP-1780; +IBUP-1780 PO; -OXYC-464; +OXYC-464 PO; -TOPI50TA13; +TOPI50TA13 PO
[2017-05-16] MEDS ORDERED: LISI-552 PO (23:53)
[2017-05-16] MEDS ORDERED: ALPR0.254 PO (23:53)
[2017-05-17] MEDS ORDERED: NS 100 ML (IVPB) BAG IV ONE
[2017-05-17] MEDS ORDERED: IOHEXOL 350 MG/ML 100 ML (OMNIPAQUE 350) VIAL IV ONE
[2017-05-17 00:15] LABS: BASOPHILS % (AUTO) 0 % (0-10); EOSINOPHILS # (AUTO) 0.3 10^3/uL (0.0-0.3); EOSINOPHILS % (AUTO) 3 % (0-10); LYMPHOCYTES # (AUTO) 2.4 X 10^3 (1.0-4.0); LYMPHOCYTES % (AUTO) 31 % (12-44); MEAN CORPUSCULAR HEMOGLOBIN 32 PG (25-34); MEAN CORPUSCULAR HGB CONC 34 G/DL (32-36); MEAN CORPUSCULAR VOLUME 93 FL (80-99); MEAN PLATELET VOLUME 11.4 FL (7.4-10.4); MONOCYTES # (AUTO) 0.9 X 10^3 (0.0-1.0); MONOCYTES % (AUTO) 12 % (0-12); NEUTROPHILS # (AUTO) 4.3 X 10^3 (1.8-7.8); NEUTROPHILS % (AUTO) 54 % (42-75); PLATELET COUNT 159 10^3/uL (130-400); RED BLOOD COUNT 5.15 10^6/uL (4.35-5.85); RED CELL DISTRIBUTION WIDTH 13.2 % (10.0-14.5)
[2017-05-17 00:20] LABS: BILIRUBIN,URINE NEGATIVE (NEGATIVE); KETONES,URINE NEGATIVE (NEGATIVE); LEUKOCYTE ESTERASE ,URINE NEGATIVE (NEGATIVE); NITRITE,URINE NEGATIVE (NEGATIVE); PH,URINE 8 (5-9); PROTEIN,URINE NEGATIVE (NEGATIVE); UROBILINOGEN,URINE 1 MG/DL (NORMAL)
[2017-05-17 00:29] LABS: SQUAMOUS EPITHELIAL CELL,UR 0-2 /HPF
[2017-05-17 00:29] LABS: ALANINE AMINOTRANSFERASE 20 U/L (0-55); AMYLASE 46 U/L (25-125); ANION GAP 10 MMOL/L (5-14); ASPARTATE AMINO TRANSFERASE 16 U/L (5-34); BILIRUBIN,TOTAL 0.3 MG/DL (0.1-1.0); BLOOD UREA NITROGEN 24 MG/DL (7-18); BUN/CREATININE RATIO 21 (0-20); CALCIUM 9.2 MG/DL (8.5-10.1); CARBON DIOXIDE 17 MMOL/L (21-32); CHLORIDE 114 MMOL/L (98-107); CREATININE SERUM 1.13 MG/DL (0.60-1.30); GFR ESTIMATED > 60; GLUCOSE 91 MG/DL (70-105); HEMOLYSIS 19 (-100-29); ICTERUS 0.6 (-100-1.9); LIPASE 15 U/L (8-78); LIPEMIA 41 (-100-49); POTASSIUM 3.8 MMOL/L (3.6-5.0); SODIUM 141 MMOL/L (135-145); TOTAL PROTEIN 7.3 GM/DL (6.4-8.2)
[2017-05-17] MEDS ORDERED: ONDANSETRON 4 MG/2 ML (SDV) Z0FRAN IVP ONE (01:15)
[2017-05-17] MEDS ORDERED: RX-ONDANSETRON 4 MG ODT (ZOFRAN) PPK #4 PO STA (01:37)
[2017-05-17] MEDS ORDERED: RX-HYOSCYAMINE 0.125 MG SL (LEVSIN) PPK#6 SL STA (01:37)
[2017-05-17] MEDS ORDERED: LACT1CAP8 PO (01:41)
[2017-05-17] MEDS ORDERED: ONDA8TAB9 PO (01:41)
[2017-05-17] MEDS ORDERED: HYOS0.1283 SL (01:41)
[2017-05-17] MEDS ORDERED: CIPR-225 PO (01:41)
[2017-05-17] MEDS ORDERED: METR500T PO (01:41)
--- NOTE | 2017-05-17 01:41 | ED Abdominal Pain ---
General Chief Complaint: Abdominal/GI Problems Stated Complaint: ABD PAIN Nursing Triage Note: Abd pain developed yesterday that is worsening. Nothing reported to make it better or that worsens it. Pt has some nausea. Pt has incont of bladder since back surgery in his hx. Sepsis Screen: No Definite Risk Allergies and Home Medications Allergies Coded Allergies: Sulfa (Sulfonamide Antibiotics) (Unverified Allergy, Unknown, 12/16/16) clarithromycin (Unverified Allergy, Unknown, 12/16/16) levetiracetam (Unverified Allergy, Unknown, 12/16/16) morphine (Unverified Allergy, Unknown, 12/16/16) Home Medications Alprazolam 0.25 Mg Tablet, 0.25 MG PO BID, (Reported) Atenolol 50 Mg Tablet, 50 MG PO HS, #30 (Reported) Ibuprofen 800 Mg Tablet, 800 MG PO Q8H, #90 (Reported) Lisinopril 20 Mg Tablet, 20 MG PO DAILY, (Reported) Oxycodone HCl/Acetaminophen 1 Each Tablet, 1 TAB PO Q8H PRN for PAIN-MILD TO MODERATE, #84 (Reported) Topiramate 50 Mg Tablet, 100 MG PO BID, #60 (Reported) Past Msasckw-Dpelzj-Muxexz Hx Patient Social History Alcohol Use: Denies Use Recreational Drug Use: No Type Used: Cigarettes 2nd Hand Smoke Exposure: Yes Recent Foreign Travel: No Contact w/Someone Who Travel: No Recent Infectious Disease Expo: No Recent Hopitalizations: No Immunizations Up To Date Tetanus Booster (TDap): Less than 5yrs Seasonal Allergies Seasonal Allergies: No Surgeries HX Surgeries: Yes Surgeries: Abdominal, Gallbladder, Orthopedic Respiratory Hx Respiratory Disorders: Yes (tobaccoism) Respiratory Disorders: Pneumonia, COPD Cardiovascular Hx Cardiac Disorders: Yes Cardiac Disorders: High Cholesterol, Hypertension Neurological Hx Neurological Disorders: Yes Neurological Disorders: Seizure Disorder Reproductive System Hx Reproductive Disorders: No Genitourinary Hx Genitourinary Disorders: Yes (URINARY INCONTINENCE SINCE BACK SURGERY IN 2006. RENAL COLIC) Genitourinary Disorders: Kidney Stones, Neurogenic Bladder Gastrointestinal Hx Gastrointestinal Disorders: Yes (INCONTINENT OF STOOL SINCE BACK SURGERY) Gastrointestinal Disorders: Colitis, Gastroesophageal Reflux, Diverticulosis Musculoskeletal Hx Musculoskeletal Disorders: Yes (chronic neck pain) Musculoskeletal Disorders: Degenerate Disk Disease, Arthritis, Chronic Back Pain Endocrine Hx Endocrine Disorders: No HEENT HX ENT Disorders: No Cancer Hx Cancer: No Psychosocial Hx Psychiatric Problems: Yes Behavioral Health Disorders: Anxiety Integumentary HX Skin/Integumentary Disorder: No Blood Transfusions Hx Blood Disorders: No Adverse Reaction to a Blood Tr: No Physical Exam Vital Signs VS - Last 72 Hours, by Label 05/16/17 23:41 Temp 98.2 Pulse 75 Resp 20 B/P (MAP) 146/90 Pulse Ox 98 O2 Delivery Room Air Capillary Refill : Less Than 3 Seconds Laceration Repair : Suture Size: 5-0 Progress/Results/Core Measures Results/Orders Lab Results Laboratory Tests Test 05/16/17 23:57 05/17/17 00:13 Range/Units White Blood Count 8.0 4.3-11.0 10^3/uL Red Blood Count 5.15 4.35-5.85 10^6/uL Hemoglobin 16.2 13.3-17.7 G/DL Hematocrit 48 40-54 % Mean Corpuscular Volume 93 80-99 FL Mean Corpuscular Hemoglobin 32 25-34 PG Mean Corpuscular Hemoglobin Concent 34 32-36 G/DL Red Cell Distribution Width 13.2 10.0-14.5 % Platelet Count 159 130-400 10^3/uL Mean Platelet Volume 11.4 H 7.4-10.4 FL Neutrophils (%) (Auto) 54 42-75 % Lymphocytes (%) (Auto) 31 12-44 % Monocytes (%) (Auto) 12 0-12 % Eosinophils (%) (Auto) 3 0-10 % Basophils (%) (Auto) 0 0-10 % Neutrophils # (Auto) 4.3 1.8-7.8 X 10^3 Lymphocytes # (Auto) 2.4 1.0-4.0 X 10^3 Monocytes # (Auto) 0.9 0.0-1.0 X 10^3 Eosinophils # (Auto) 0.3 0.0-0.3 10^3/uL Basophils # (Auto) 0.0 0.0-0.1 10^3/uL Sodium Level 141 135-145 MMOL/L Potassium Level 3.8 3.6-5.0 MMOL/L Chloride Level 114 H 98-107 MMOL/L Carbon Dioxide Level 17 L 21-32 MMOL/L Anion Gap 10 5-14 MMOL/L Blood Urea Nitrogen 24 H 7-18 MG/DL Creatinine 1.13 0.60-1.30 MG/DL Estimat Glomerular Filtration Rate > 60 BUN/Creatinine Ratio 21 H 0-20 Glucose Level 91 70-105 MG/DL Calcium Level 9.2 8.5-10.1 MG/DL Total Bilirubin 0.3 0.1-1.0 MG/DL Aspartate Amino Transf (AST/SGOT) 16 5-34 U/L Alanine Aminotransferase (ALT/SGPT) 20 0-55 U/L Alkaline Phosphatase 113 40-136 U/L Total Protein 7.3 6.4-8.2 GM/DL Albumin 4.0 3.2-4.5 GM/DL Amylase Level 46 25-125 U/L Lipase 15 8-78 U/L Urine Color YELLOW Urine Clarity CLEAR Urine pH 8 5-9 Urine Specific [place] 1.015 L 1.016-1.022 Urine Protein NEGATIVE NEGATIVE Urine Glucose (UA) NEGATIVE NEGATIVE Urine Ketones NEGATIVE NEGATIVE Urine Nitrite NEGATIVE NEGATIVE Urine Bilirubin NEGATIVE NEGATIVE Urine Urobilinogen 1 NORMAL MG/DL Urine Leukocyte Esterase NEGATIVE NEGATIVE Urine RBC (Auto) 2+ H NEGATIVE Urine RBC 2-5 H /HPF Urine WBC NONE /HPF Urine Squamous Epithelial Cells 0-2 /HPF Urine Crystals NONE /LPF Urine Amorphous Sediment MOD ROSELINE PHOSPHATE H /LPF Urine Bacteria TRACE /HPF Urine Casts PRESENT /LPF Urine Granular Casts 2-5 H /LPF Urine Mucus NEGATIVE /LPF Urine Culture Indicated NO My Orders Orders - BHAVYA ESCOBAR DO Saline Lock/Iv-Start (05/16/17 23:48) Amylase (05/16/17 23:48) Cbc With Automated Diff (05/16/17 23:48) Comprehensive Metabolic Panel (05/16/17 23:48) Lipase (05/16/17 23:48) Ua Culture If Indicated (05/16/17 23:48) Iohexol Injection (Omnipaque 350 Mg/Ml 1 (05/17/17 00:00) Ns (Ivpb) (Sodium Chloride 0.9% Ivpb Bag (05/17/17 00:00) Ct Abd/Pelv W (Appendicitis) (05/17/17 00:01) Acute Abd Series (05/17/17 00:01) Ondansetron Injection (Zofran Injectio (05/17/17 01:15) Rx-Hyoscyamine Tab (Rx-Levsin Sl) (05/17/17 01:37) Rx-Ondansetron Po (Rx-Zofran Po) (05/17/17 01:37) Levofloxacin Tablet (Levaquin Tablet) (05/17/17 01:45) Metronidazole Tablet (Flagyl Tablet) (05/17/17 01:45) Ketorolac Injection (Toradol Injection) (05/17/17 01:45) Medications Given in ED Current Medications Medications Dose Ordered Sig/Teri Route Start Time Stop Time Status Last Admin Dose Admin Iohexol 100 ml ONCE ONCE IV 05/17/17 00:00 05/17/17 00:01 UNV 05/17/17 00:25 100 ML Ondansetron HCl 4 mg ONCE ONCE IVP 05/17/17 01:15 05/17/17 01:16 DC 05/17/17 01:13 4 MG Sodium Chloride 80 ml ONCE ONCE IV 05/17/17 00:00 05/17/17 00:01 UNV 05/17/17 00:25 80 ML Vital Signs/I&O Vital Sign - Last 12Hours 05/16/17 23:41 Temp 98.2 Pulse 75 Resp 20 B/P (MAP) 146/90 Pulse Ox 98 O2 Delivery Room Air Blood Pressure Mean: 108 Departure Impression Impression: Primary Impression: Abdominal pain Additional Impression: Microscopic hematuria Disposition: HOME, SELF-CARE Condition: Stable Departure-Patient Inst. Referrals: [facility] (PCP/Family) Primary Care Physician Patient Instructions: Acute Abdomen (Belly Pain), Adult (DC), Blood in the Urine (Hematuria), Adult (DC) Add. Discharge Instructions: CLEAR LIQUIDS--WATER, BROTH, JELLO, GATORADE NO FOOD UNTIL YOU ARE RECHECKED AND CLEARED BY YOUR DR FOLLOW UP WITH YOUR DR IN 2-3 DAYS FOR FURTHER CARE All discharge instructions reviewed with patient and/or family. Voiced understanding. Scripts Ondansetron (Zofran Odt) 8 Mg Tab.rapdis 8 MG PO Q4H for Nausea/Vomiting, #14 TAB Prov: BHAVYA ESCOBAR DO 05/17/17 Hyoscyamine Sulfate (Levsin-Sl) 0.125 Mg Tab.subl 1-2 TAB SL Q4H for Abdominal Pain, #10 TAB Prov: BHAVYA ESCOBAR K DO 05/17/17 Metronidazole (Flagyl) 500 Mg Tablet 500 MG PO QID for FOR INFECTION, #40 TAB Prov: BHAVYA ESCOBAR DO 05/17/17 Ciprofloxacin HCl (Cipro) 500 Mg Tablet 500 MG PO BID, #20 TAB Prov: BHAVYA ESCOBAR DO 05/17/17 Lactobacillus Acidophilus (Acidophilus) 1 Each Capsule 2 EACH PO QID, #80 CAP Prov: BHAVYA ESCOBAR DO 05/17/17 BHAVYA ESCOBAR DO May 17, 2017 01:41
[2017-05-17] MEDS ORDERED: metroNIDAZOLE 500 MG (FLAGYL) TAB PO ONE (01:45)
[2017-05-17] MEDS ORDERED: KETOROLAC 30 MG/ML VIAL IVP ONE (01:45)
[2017-05-17] MEDS ORDERED: LEVOFLOXACIN 500 MG TAB (LEVAQUIN) PO ONE (01:45)
[2017-05-17] MEDS ORDERED: KETOROLAC 60 MG/2 ML VIAL IM ONE ×2 (02:05→02:15)
[2017-05-17 02:20] VITALS: BP 156/89
--- NOTE | 2017-05-17 07:13 | Diagnostic Imaging Report ---
INDICATION: Nausea FINDINGS: No focal consolidation, failure, effusion or pneumothorax. Bowel gas pattern unremarkable. No pneumatosis or free air. No pathological fecal loading. IMPRESSION: No acute finding. Dictated by: Dictated on workstation # [id number]
--- NOTE | 2017-05-17 08:35 | Diagnostic Imaging Report ---
PROCEDURE: CT abdomen and pelvis with contrast, rule out appendicitis. TECHNIQUE: Multiple contiguous axial images were obtained through the abdomen and pelvis after the administration of intravenous contrast. INDICATION: Midline lower abdominal pain accompanied by nausea. Exam compared to 03/14/2016. There is lack of distention of the mid to lower third of the sigmoid colon. Its wall is mildly thickened. This may merely reflect its incomplete distention. Inflammatory changes however could not be confidently excluded. Apparent previous appendectomy. There is no ascites, abscess, hematoma or other fluid collection. There are no findings of a bowel obstruction or fecal impaction. The liver, spleen, adrenals, pancreas and biliary ducts unremarkable post cholecystectomy. The spleen, adrenals and pancreas unremarkable. The unobstructed kidneys appeared normal. No mesenteric or retroperitoneal adenopathy. IMPRESSION: No obstructive features or convincing evidence for an acute inflammatory process. Suggestion of some thickening of the cruz of the mid to distal sigmoid colon may merely reflect its lack of distention. However mild inflammatory change could not be excluded. No obstruction, perforation or abscess. Unobstructed urinary tracts. Previous appendectomy otherwise negative. I agree with the preliminary. Dictated by: Dictated on workstation # [id number]
--- OUTSIDE RECORDS SUMMARY | 2017-05-19 13:53 | XMS REPORT | Continuity of Care Document ---
Author Author [facility] Organization [facility] Address Unknown Phone Unavailable Care Team Providers Care Fiberglass Product Tester Name Role Phone Carly Patterson PCP [phone] Source Comments Some departments are not documenting in the electronic medical record. If you do not see the information that you expected, contact Release of Information in the Health Information Management department at [phone] for further assistance in locating additional records.[facility] Active Allergies and Adverse Reactions Allergen [...] mg tablet fluticasone (FLONASE) 50 Apply 1 [place] to each Active mcg/actuation nasal spray nostril as directed daily as needed. Active Problems Problem Noted Date Nonepileptic episode ([facility]) 06/21/2016 Convulsions ([facility]) 06/21/2016 Social History Tobacco Use Types Packs/Day Years Used Date Current Every Day Smoker Tobacco Cessation: Ready to Quit: Yes; Counseling Given: No Comments: Last Filed Vital Signs Vital Sign Reading Time Taken Blood Pressure 128/80 10/04/2016 11:35 AM [employer] Pulse 69 10/04/2016 10:36 AM [employer] Temperature 36.5 C (97.7 F) 10/04/2016 10:36 AM [employer] Respiratory Rate 18 10/04/2016 10:36 AM [employer] MECH[employer] Height 1.778 m (5' 10") 10/04/2016 10:36 AM [employer] Weight 98.431 kg (217 lb) 10/04/2016 10:36 AM [employer] Body Mass Index 31.14 10/04/2016 10:36 AM [employer] Oxygen Saturation 100% 10/04/2016 11:35 AM [employer]CH[employer] Plan of Care Health Maintenance Due Date Last Done Comments Physical (Comprehensive) 1984 Exam Pertussis Vaccine 1988 Tetanus Vaccine 1994 Influenza Vaccine 07/29/2017 Results from Last 3 Months Not on file
--- OUTSIDE RECORDS SUMMARY | 2017-05-19 13:57 | XMS REPORT | Continuity of Care Document ---
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 automated test strip (mass/volume) 1 mg/dL NORMAL Urine leukocyte esterase detection by dipstick NEGATIVE NEGATIVE Automated urine sediment erythrocyte count by microscopy (number/high power field) [HPF] NRG Automated urine sediment leukocyte count by microscopy (number/high power field ) NONE NRG Bacteria detection in urine sediment by light microscopy TRACE NRG Squamous epithelial cells detection in urine sediment by light microscopy 0-2 NRG Crystals detection in urine sediment by light microscopy NONE NRG Casts detection in urine sediment by light microscopy PRESENT NRG Mucus detection in urine sediment by light microscopy NEGATIVE NRG Complete urinalysis with reflex to culture NO NRG Amorphous sediment detection in urine sediment by light microscopy MOD ROSELINE PHOSPHATE NRG Granular casts detection in urine sediment by light microscopy 2-5 NRG Encounters ACCT No. Visit Date/Time Discharge Status Pt. Type Provider Facility Loc./Unit Complaint [id number] 05/16/2017 23:09:00 2016 02:20:00 DIS Emergency BHAVYA ESCOBAR DO [facility] ER ABD PAIN [id number] 04/24/2017 01:12:00 2016 02:25:00 DIS Emergency EMORY BYRD, FRED Blackman [facility] ER R ANKLE CALF PAIN [id number] 04/21/2017 19:24:00 2016 21:16:00 DIS Emergency BHAVYA ESCOBAR DO [facility] ER SHOCKED [id number] 04/19/2017 13:30:00 2016 13:30:00 CAN Preadmit DENA WOO DO [facility] PREOP DYSPHAGIA [id number] 01/15/2017 18:46:00 2016 19:25:00 DIS Emergency FRED CAT MD [facility] ER STITCHES REMOVAL [id number] 01/12/2017 09:47:00 2016 11:35:00 DIS Emergency DEANDRE BYRD, CHARLES Deshpande [facility] ER NECK PAIN [id number] 01/09/2017 17:42:00 2016 18:38:00 DIS Emergency TERRANCE JAEGER APRN [facility] ER L FINGER LAC [id number] 12/16/2016 19:51:00 2016 23:06:00 DIS Emergency FRED CAT MD [facility] ER ABD PAIN [id number] 10/05/2016 15:34:00 2015 17:05:00 DIS Emergency FRED CAT MD [facility] ER R LEG CALF PAIN [id number] 08/04/2016 20:21:00 2015 20:55:00 DIS Emergency TERRANCE JAEGER APRN [facility] ER HEAD ACHE AND JAW PAIN [id number] 05/26/2016 21:43:00 2015 23:50:00 DIS Emergency FRED CAT MD [facility] ER TESTICULAR PAIN [id number] 04/06/2016 12:56:00 2015 13:50:00 DIS Outpatient ROBYN VALLE [facility] REHAB PAIN IN LUMBAR SPINE [id number] 03/14/2016 19:59:00 2015 22:10:00 DIS Emergency TERRANCE JAEGER APRN [facility] ER ABD PAIN BLOOD IN STOOL [id number] 02/10/2016 18:13:00 2015 20:11:00 DIS Emergency TERRANCE JAEGER DRAFTER ASSISTANT [facility] ER L SHOULDER/ARM PAIN [id number] 02/05/2016 19:53:00 2015 23:12:00 DIS Emergency HAJA CHAPA [facility] ER NECK,BACK PAIN [id number] 01/28/2016 15:56:00 2015 18:32:00 DIS Emergency TERRANCE JAEGER DRAFTER ASSISTANT [facility] ER STOMACH PAIN;SHOULDER AND NECK PAIN [id number] 12/25/2015 08:23:00 2015 14:04:00 DIS Outpatient KURTIS SOTO DRAFTER ASSISTANT [facility] RAD DJYuki L/SP [id number] 11/26/2015 23:58:00 2014 01:55:00 DIS Emergency FRED CAT MD [facility] ER HIGH BLOOD PRESSURE [id number] 11/07/2015 21:15:00 2014 23:33:00 DIS Emergency SABRINA RAYMUNDO MD [facility] ER HIGH BLOOD PRESSURE [id number] 10/31/2015 21:21:00 2014 23:58:00 DIS Emergency BHAVYA ESCOBAR DO [facility] ER CP [id number] 10/06/2015 11:09:00 2014 13:17:00 DIS Emergency TERRANCE JAEGER DRAFTER ASSISTANT [facility] ER NECK/SHOULDER PAIN [id number] 09/09/2015 11:51:00 2014 14:45:00 DIS Emergency HAJA CHAPA [facility] ER FEVER/COUGH [id number] 08/31/2015 23:17:00 2014 00:37:00 DIS Emergency MIKI PAZ MD [facility] ER MIGRAINE [id number] 08/23/2015 12:20:00 2014 14:56:00 DIS Emergency HAJA CHAPA [facility] ER STOMACH/BACK PAIN [id number] 08/22/2015 14:36:00 2014 23:59:59 CLS Outpatient KURTIS SOTO DRAFTER ASSISTANT [facility] RAD LUMBAGO [id number] 08/11/2015 15:59:00 2014 18:54:00 DIS Emergency HAJA CHAPA [facility] ER HEADACHE,NECK PAIN,NAUSEA [id number] 07/30/2015 11:19:00 2014 23:59:59 CLS Outpatient KURTIS SOTO DRAFTER ASSISTANT [facility] RAD NODULE OF RT LOWER NECK [id number] 07/25/2015 22:42:00 2014 23:47:00 DIS Emergency SABRINA RAYMUNDO MD [facility] ER R FOOT INJ-DROPPED FRIG ON FOOT [id number] 07/20/2015 05:21:00 2014 07:00:00 DIS Emergency SABRINA RAYMUNDO MD [facility] ER LIGHTHEADED,NECK PAIN [id number] 07/18/2015 17:25:00 2014 20:58:00 DIS Emergency LUZ DOBHAVYA K [facility] ER FELL, BACK PAIN [id number] 06/30/2015 21:56:00 2014 00:35:00 DIS Emergency FRED CAT MD [facility] ER L SIDE WAIST PAIN [id number] 06/02/2015 21:56:00 2014 00:55:00 DIS Emergency SABRINA RAYMUNDO MD [facility] ER ABD PAIN [id number] 04/05/2015 14:27:00 2014 17:39:00 DIS Emergency HAJA CHAPA [facility] ER ABDOMINAL KIDNEY PAIN [id number] 04/21/2017 13:45:00 PEN Preadmit DENA WOO DO [facility] ENDO DYSPHAGIA
--- OUTSIDE RECORDS SUMMARY | 2017-05-19 13:58 | XMS REPORT | Continuity of Care Document ---
Author Author [facility] Organization [facility] Address Unknown Phone Unavailable Allergies Active Description Code Type Severity Reaction Onset Reported/Identified Relationship to Patient Clinical Status Yes clarithromycin [id number] Drug Allergy Unknown N/A 12/16/2016 Yes levetiracetam [id number] Drug Allergy Unknown N/A 12/16/2016 Yes morphine [id number] Drug Allergy Unknown N/A 12/16/2016 Yes Sulfa (Sulfonamide Antibiotics) [id number] Drug Allergy Unknown N/A 12/16/2016 Medications Problems [...] STRUCK BY OBJ/PERSON NEC 08/11/2015 KURTIS SOTO HOOKER UP Ot 784.2 08/11/2015 HAJA CHAPA Ot 307.81 TENSION HEADACHE 08/11/2015 HAJA CHAPA Ot 784.0 HEADACHE 08/21/2015 KURTIS SOTO APRN Ot 784.2 08/23/2015 HAJA CHAPA Ot 724.5 BACKACHE NOS 08/23/2015 HAJA CHAPA Ot 789.09 ABDOMINAL PAIN, OTHER SPECIFIED SITE 09/01/2015 JACKSON BYRD, MIKI Qiu Ot G40.909 EPILEPSY, UNSP, NOT INTRACTABLE, WITHOUT 09/01/2015 MIKI PAZ MD Ot R51 HEADACHE 09/04/2015 KURTIS SOTO HOOKER UP Ot 721.8 09/04/2015 KURTIS SOTO APRN Ot [...] MUSC/FASC/TEND AT LDR/UP ARM 10/06/2015 TERRANCE JAEGER HOOKER UP Ot X58.XXXA EXPOSURE TO OTHER SPECIFIED FACTORS, INI 10/06/2015 TERRANCE JAEGER HOOKER UP Ot Y99.8 OTHER EXTERNAL CAUSE STATUS 10/31/2015 BHAVYA ESCOBAR DO Ot F17.210 NICOTINE DEPENDENCE, CIGARETTES, UNCOMPL 10/31/2015 LUZBHAVYA Crews DO Ot I10 ESSENTIAL (PRIMARY) HYPERTENSION 10/31/2015 BHAVYA ESCOBAR DO Ot J98.4 OTHER DISORDERS OF LUNG 10/31/2015 LUZ BHAVYA ZENG Ot R07.89 OTHER CHEST PAIN 11/01/2015 KURTIS SOTO HOOKER UP Ot 784.2 11/01/2015 KURTIS SOTO HOOKER UP Ot 721.8 11/01/2015 KURTIS SOTO HOOKER UP Ot 724.02 11/07/2015 SABRINA RAYMUNDO MD Ot I10 ESSENTIAL (PRIMARY) HYPERTENSION 11/07/2015 SABRINA RAYMUNDO MD Ot Z79.899 OTHER CORRECTION (CURRENT) DRUG THERAPY 11/27/2015 EMORY BYRD, FRED Blackman Ot F17.210 NICOTINE DEPENDENCE, CIGARETTES, UNCOMPL 11/27/2015 FRED CAT MD Ot F41.9 ANXIETY DISORDER, UNSPECIFIED 11/27/2015 FRED CAT MD Ot I10 ESSENTIAL (PRIMARY) HYPERTENSION 11/27/2015 FRED CAT MD Ot R07.89 OTHER CHEST PAIN 11/27/2015 FRED CAT MD Ot R42 DIZZINESS AND GIDDINESS 11/27/2015 FRED CAT MD Ot Z79.899 OTHER CORRECTION (CURRENT) DRUG THERAPY 12/25/2015 KURTIS SOTO HOOKER UP Ot 784.2 12/25/2015 KURTIS SOTO HOOKER UP Ot 721.8 12/25/2015 KURTIS SOTO HOOKER UP Ot 724.02 12/25/2015 KURTIS SOTO HOOKER UP Ot M47.816 SPONDYLOSIS W/O MYELOPATHY OR RADICULOPA 01/16/2016 KURTIS SOTO HOOKER UP Ot 784.2 01/16/2016 BRITTANYKURTIS HOOKER UP Ot 721.8 01/16/2016 KURTIS SOTO HOOKER UP Ot 724.02 01/28/2016 ROBYN VALLE BRAKE REPAIR SUPERVISOR Ot M54.5 01/28/2016 TERRANCE JAEGER APRN Ot F17.210 NICOTINE DEPENDENCE, CIGARETTES, UNCOMPL 01/28/2016 TERRANCE JAEGER HOOKER UP Ot K52.9 NONINFECTIVE GASTROENTERITIS AND COLITIS 01/28/2016 TERRANCE JAEGER HOOKER UP Ot R10.30 LOWER ABDOMINAL PAIN, UNSPECIFIED 01/28/2016 TERRANCE JAEGER HOOKER UP Ot S46.912A STRAIN UNSP MUSC/FASC/TEND AT SHLDR/UP A 02/05/2016 HAJA CHAPA Ot F17.210 NICOTINE DEPENDENCE, CIGARETTES, UNCOMPL 02/05/2016 HAJA CHAPA Ot M50.32 OTHER CERVICAL DISC DEGENERATION, MID- CE 02/06/2016 HAJA CHAPA Ot F17.210 02/06/2016 HAJA CHAPA Ot M50.32 02/10/2016 TERRANCE JAEGER APRN Ot M54.12 RADICULOPATHY, CERVICAL REGION 02/10/2016 TERRANCE JAEGER HOOKER UP Ot Z98.1 ARTHRODESIS STATUS 02/11/2016 TERRANCE JAEGER HOOKER UP Ot M54.12 02/11/2016 TERRANCE JAEGER APRN Ot Z98.1 02/24/2016 ROBYN VALLE BRAKE REPAIR SUPERVISOR Ot M54.5 03/03/2016 TERRANCE JAEGER APRN Ot M54.12 03/03/2016 TERRANCE JAEGER HOOKER UP Ot Z98.1 2016 ROBYN VALLE BRAKE REPAIR SUPERVISOR Ot M54.5 LOW BACK PAIN 03/14/2016 TERRANCE JAEGER APRN Ot F17.210 NICOTINE DEPENDENCE, CIGARETTES, UNCOMPL 03/14/2016 TERRANCE JAEGER HOOKER UP Ot R10.33 PERIUMBILICAL PAIN 03/16/2016 TERRANCE JAEGER HOOKER UP Ot F17.210 NICOTINE DEPENDENCE, CIGARETTES, UNCOMPL 03/16/2016 TERRANCE JAEGER HOOKER UP Ot R10.33 PERIUMBILICAL PAIN 03/23/2016 VALLEROBYN GO Lazarus BRAKE REPAIR SUPERVISOR Ot M54.5 LOW BACK PAIN 04/15/2016 ROBYN VALLE BRAKE REPAIR SUPERVISOR Ot M54.5 LOW BACK PAIN 05/26/2016 EMORY [...] SPECIFIED DISORDERS OF PENIS 08/04/2016 TERRANCE JAEGER HOOKER UP Ot I10 ESSENTIAL (PRIMARY) HYPERTENSION 08/04/2016 TERRANCE JAEGER HOOKER UP Ot M26.62 ARTHRALGIA OF TEMPOROMANDIBULAR JOINT 08/04/2016 TERRANCE JAEGER HOOKER UP Ot R68.84 JAW PAIN 08/04/2016 TERRANCE JAEGER HOOKER UP Ot Z79.899 OTHER FIREFIGHTER MARINE (CURRENT) DRUG THERAPY 08/06/2016 TERRANCE JAEGER HOOKER UP Ot I10 ESSENTIAL (PRIMARY) HYPERTENSION 08/06/2016 TERRANCE JAEGER HOOKER UP Ot M26.62 ARTHRALGIA OF TEMPOROMANDIBULAR JOINT 08/06/2016 TERRANCE JAEGER HOOKER UP Ot R68.84 JAW PAIN 08/06/2016 TERRANCE JAEGER HOOKER UP Ot Z79.899 OTHER FIREFIGHTER MARINE (CURRENT) DRUG THERAPY 10/05/2016 KURTIS SOTO HOOKER UP Ot 784.2 SWELLING IN HEAD NECK 10/05/2016 KURTIS SOTO HOOKER UP Ot 721.8 SPINAL DISORDERS NEC 10/05/2016 KURTIS SOTO HOOKER UP Ot 724.02 SPINAL STENOSIS, LUMBAR REG, W/OUT NEURO 10/05/2016 FRED CAT MD Ot F17.210 NICOTINE DEPENDENCE, CIGARETTES, UNCOMPL 10/05/2016 FRED CAT MD T Ot I10 ESSENTIAL (PRIMARY) HYPERTENSION 10/05/2016 FRED CAT MD T Ot M79.661 PAIN IN RIGHT LOWER LEG 10/05/2016 FRED CAT MD T Ot Z79.899 OTHER FIREFIGHTER MARINE (CURRENT) DRUG THERAPY 12/16/2016 FRED CAT MD Ot F17.210 NICOTINE DEPENDENCE, CIGARETTES, UNCOMPL 12/16/2016 FRED CAT MD Ot G40.909 EPILEPSY, UNSP, NOT INTRACTABLE, WITHOUT 12/16/2016 FRED CAT MD Ot I10 ESSENTIAL (PRIMARY) HYPERTENSION 12/16/2016 FRED CAT MD Ot R10.12 LEFT UPPER QUADRANT PAIN 12/16/2016 FRED CAT MD T Ot R11.2 NAUSEA WITH VOMITING, UNSPECIFIED 12/16/2016 FRED CAT MD Ot Z79.899 OTHER CORRECTION (CURRENT) DRUG THERAPY 12/16/2016 FRED CAT MD [...] 12/17/2016 FRED CAT MD Ot Z79.899 OTHER CORRECTION (CURRENT) DRUG THERAPY 12/17/2016 FRED CAT MD T Ot Z98.1 ARTHRODESIS STATUS 01/09/2017 TERRANCE JAEGER APRN Ot F17.210 NICOTINE DEPENDENCE, CIGARETTES, UNCOMPL 01/09/2017 TERRANCE JAEGER HOOKER UP Ot I10 ESSENTIAL (PRIMARY) HYPERTENSION 01/09/2017 TERRANCE [...] 01/09/2017 TERRANCE JAEGER APRN Ot Z79.899 OTHER FIREFIGHTER MARINE (CURRENT) DRUG THERAPY 01/10/2017 TERRANCE JAEGER APRN [...] 01/10/2017 TERRANCE JAEGER APRN Ot Z79.899 OTHER FIREFIGHTER MARINE (CURRENT) DRUG THERAPY 01/12/2017 KURTIS SOTO HOOKER UP Ot 784.2 SWELLING IN HEAD NECK 01/12/2017 KURTIS SOTO HOOKER UP Ot 721.8 SPINAL DISORDERS NEC 01/12/2017 KURTIS SOTO HOOKER UP Ot 724.02 SPINAL STENOSIS, LUMBAR REG, W/OUT NEURO 01/12/2017 CHARLES CARRERA MD Ot F17.210 NICOTINE DEPENDENCE, CIGARETTES, UNCOMPL 01/12/2017 CHARLES CARRERA MD Ot I10 ESSENTIAL (PRIMARY) HYPERTENSION 01/12/2017 CHARLES CARRERA MD Ot M50.30 OTHER CERVICAL DISC DEGENERATION, UNSP C 01/12/2017 CHARLES CARRERA MD Ot M54.2 CERVICALGIA 01/12/2017 CHARLES CARRERA MD Ot Z79.899 OTHER FIREFIGHTER MARINE (CURRENT) DRUG THERAPY 01/13/2017 CHARLES CARRERA MD Ot F17.210 NICOTINE DEPENDENCE, CIGARETTES, UNCOMPL 01/13/2017 CHARLES CARRERA MD Ot I10 ESSENTIAL (PRIMARY) HYPERTENSION 01/13/2017 CHARLES CARRERA MD Ot M50.30 OTHER CERVICAL DISC DEGENERATION, UNSP C 01/13/2017 CHARLES CARRERA MD Ot M54.2 CERVICALGIA 01/13/2017 CHARLES CARRERA MD Ot Z79.899 OTHER CORRECTION (CURRENT) DRUG THERAPY 01/15/2017 EMORY BYRD, FRED Blackman Ot S61.211D LACERATION W/O FB OF L IDX FNGR W/ O SAM 01/18/2017 FRED CAT MD Ot S61.211D LACERATION W/O FB OF L IDX FNGR W/ O SAM 04/20/2017 KURTIS SOTO HOOKER UP Ot 784.2 SWELLING IN HEAD NECK 04/20/2017 KURTIS SOTO HOOKER UP Ot 721.8 SPINAL DISORDERS NEC 04/20/2017 KURTIS SOTO HOOKER UP Ot 724.02 SPINAL STENOSIS, LUMBAR REG, W/OUT NEURO 04/21/2017 KURTIS SOTO HOOKER UP Ot 784.2 SWELLING IN HEAD NECK 04/21/2017 KURTIS SOTO HOOKER UP Ot 721.8 SPINAL DISORDERS NEC 04/21/2017 KURTIS SOTO HOOKER UP Ot 724.02 SPINAL STENOSIS, LUMBAR REG, W/OUT [...] 04/21/2017 BHAVYA ESCOBAR DO Ot Z79.899 OTHER CORRECTION (CURRENT) DRUG THERAPY 04/21/2017 KURTIS SOTO HOOKER UP Ot 784.2 SWELLING IN HEAD NECK 04/21/2017 KURTIS SOTO HOOKER UP Ot 721.8 SPINAL DISORDERS NEC 04/21/2017 KURTIS SOTO HOOKER UP Ot 724.02 SPINAL STENOSIS, LUMBAR REG, W/OUT NEURO 04/22/2017 KURTIS SOTO HOOKER UP Ot 784.2 SWELLING IN HEAD NECK 04/22/2017 KURTIS SOTO HOOKER UP Ot 721.8 SPINAL DISORDERS NEC 04/22/2017 KURTIS SOTO HOOKER UP Ot 724.02 SPINAL STENOSIS, LUMBAR REG, W/OUT NEURO 04/22/2017 KURTIS SOTO HOOKER UP Ot 784.2 SWELLING IN HEAD NECK 04/22/2017 KURTIS SOTO HOOKER UP Ot 721.8 SPINAL DISORDERS NEC 04/22/2017 KURTIS SOTO HOOKER UP Ot 724.02 SPINAL STENOSIS, LUMBAR REG, W/OUT [...] Status Pt. Type Provider Facility Loc./Unit Complaint [id number] 05/16/2017 23:09:00 2016 02:20:00 DIS Emergency BHAVYA ESCOBAR DO [facility] ER ABD PAIN [id number] 04/24/2017 01:12:00 2016 02:25:00 DIS Emergency EMORY BYRD, FRED Blackman [facility] ER R ANKLE CALF PAIN [id number] 04/21/2017 19:24:00 2016 21:16:00 DIS Emergency BHAVYA ESCOBAR DO [facility] ER SHOCKED [id number] 04/19/2017 13:30:00 2016 13:30:00 CAN Preadmit DENA WOO DO [facility] PREOP DYSPHAGIA [id number] 01/15/2017 18:46:00 2016 19:25:00 DIS Emergency FRED CAT MD [facility] ER STITCHES REMOVAL [id number] 01/12/2017 09:47:00 2016 11:35:00 DIS Emergency DEANDRE BYRD, CHARLES Deshpande [facility] ER NECK PAIN [id number] 01/09/2017 17:42:00 2016 18:38:00 DIS Emergency TERRANCE JAEGER APRN [facility] ER L FINGER LAC [id number] 12/16/2016 19:51:00 2016 23:06:00 DIS Emergency FRED CAT MD [facility] ER ABD PAIN [id number] 10/05/2016 15:34:00 2015 17:05:00 DIS Emergency FRED CAT MD [facility] ER R LEG CALF PAIN [id number] 08/04/2016 20:21:00 2015 20:55:00 DIS Emergency TERRANCE JAEGER APRN [facility] ER HEAD ACHE AND JAW PAIN [id number] 05/26/2016 21:43:00 2015 23:50:00 DIS Emergency FRED CAT MD [facility] ER TESTICULAR PAIN [id number] 04/06/2016 12:56:00 2015 13:50:00 DIS Outpatient ROBYN VALLE [facility] REHAB PAIN IN LUMBAR SPINE [id number] 03/14/2016 19:59:00 2015 22:10:00 DIS Emergency TERRANCE JAEGER APRN [facility] ER ABD PAIN BLOOD IN STOOL [id number] 02/10/2016 18:13:00 2015 20:11:00 DIS Emergency TERRANCE JAEGER HOOKER UP [facility] ER L SHOULDER/ARM PAIN [id number] 02/05/2016 19:53:00 2015 23:12:00 DIS Emergency HAJA CHAPA [facility] ER NECK,BACK PAIN [id number] 01/28/2016 15:56:00 2015 18:32:00 DIS Emergency TERRANCE JAEGER HOOKER UP [facility] ER STOMACH PAIN;SHOULDER AND NECK PAIN [id number] 12/25/2015 08:23:00 2015 14:04:00 DIS Outpatient KURTIS SOTO HOOKER UP [facility] RAD DJYuki L/SP [id number] 11/26/2015 23:58:00 2014 01:55:00 DIS Emergency FRED CAT MD [facility] ER HIGH BLOOD PRESSURE [id number] 11/07/2015 21:15:00 2014 23:33:00 DIS Emergency SABRINA RAYMUNDO MD [facility] ER HIGH BLOOD PRESSURE [id number] 10/31/2015 21:21:00 2014 23:58:00 DIS Emergency BHAVYA ESCOBAR DO [facility] ER CP [id number] 10/06/2015 11:09:00 2014 13:17:00 DIS Emergency TERRANCE JAEGER HOOKER UP [facility] ER NECK/SHOULDER PAIN [id number] 09/09/2015 11:51:00 2014 14:45:00 DIS Emergency HAJA CHAPA [facility] ER FEVER/COUGH [id number] 08/31/2015 23:17:00 2014 00:37:00 DIS Emergency MIKI PAZ MD [facility] ER MIGRAINE [id number] 08/23/2015 12:20:00 2014 14:56:00 DIS Emergency HAJA CHAPA [facility] ER STOMACH/BACK PAIN [id number] 08/22/2015 14:36:00 2014 23:59:59 CLS Outpatient KURTIS SOTO HOOKER UP [facility] RAD LUMBAGO [id number] 08/11/2015 15:59:00 2014 18:54:00 DIS Emergency HAJA CHAPA [facility] ER HEADACHE,NECK PAIN,NAUSEA [id number] 07/30/2015 11:19:00 2014 23:59:59 CLS Outpatient KURTIS SOTO HOOKER UP [facility] RAD NODULE OF RT LOWER NECK [id number] 07/25/2015 22:42:00 2014 23:47:00 DIS Emergency SABRINA RAYMUNDO MD [facility] ER R FOOT INJ-DROPPED FRIG ON FOOT [id number] 07/20/2015 05:21:00 2014 07:00:00 DIS Emergency SABRINA RAYMUNDO MD [facility] ER LIGHTHEADED,NECK PAIN [id number] 07/18/2015 17:25:00 2014 20:58:00 DIS Emergency LUZ DOBHAVYA K [facility] ER FELL, BACK PAIN [id number] 06/30/2015 21:56:00 2014 00:35:00 DIS Emergency FRED CAT MD [facility] ER L SIDE WAIST PAIN [id number] 06/02/2015 21:56:00 2014 00:55:00 DIS Emergency ASBRINA RAYMUNDO MD [facility] ER ABD PAIN [id number] 04/05/2015 14:27:00 2014 17:39:00 DIS Emergency HAJA CHAPA [facility] ER ABDOMINAL KIDNEY PAIN [id number] 04/21/2017 13:45:00 PEN Preadmit DENA WOO DO [facility] ENDO DYSPHAGIA
== END 2017-05-17 02:20 | disposition home or self-care (01) ==
LOC: EDUNIT# 23:07 → ER 23:09
DX: R31.21 Asymptomatic microscopic hematuria (principal); R10.9 Unspecified abdominal pain; J44.9 Chronic obstructive pulmonary disease, unspecified; I10 Essential (primary) hypertension; F41.9 Anxiety disorder, unspecified; E78.00 Pure hypercholesterolemia, unspecified; G43.909 Migraine, unspecified, not intractable, without status migrainosus; F17.210 Nicotine dependence, cigarettes, uncomplicated; Z87.442 Personal history of urinary calculi; Z87.19 Personal history of other diseases of the digestive system
CPT/HCPCS: 36415; 51701; 74022; 74177; 80053; 81000; 82150; 83690; 85025

== ENCOUNTER 2017-06-02 18:49 | Emergency (ER) | payer MEDICAID ==
[~2017-06-02] VITALS: Ht 177.8 cm; Wt 95.3 kg
[~2017-06-02 18:49] MED LIST changes: +ALPR0.254 PO; +CIPR-225 PO; +LACT1CAP8 PO; +LISI-552 PO; +ONDA8TAB9 PO
[2017-06-02] MEDS ORDERED: BUDE10.2 (19:08)
[2017-06-02] MEDS ORDERED: RT-ALBUINH (19:08)
[2017-06-02] MEDS ORDERED: PRD20T (19:08)
--- NOTE | 2017-06-02 19:20 | ED GI ---
General Chief Complaint: Abdominal/GI Problems Stated Complaint: ABD PAIN Nursing Triage Note: c/o diarrhea x 3 days, denies taking medication for it or seeing pcp Sepsis Screen: No Definite Risk History of Present Illness Time Seen By Provider: 19:20 Initial Comments Evaluation for abdominal pain and diarrhea 3 days. Patient reports 3-4 episodes of diarrhea today. He has been eating normal mils and increasing his fluid intake. His last meal was approximately 2 hours included fried chicken strips and italian fries. Timing/Duration: 3-4 Days Severity/Quality: Mild Location: Generalized Abdomen Radiation: No Radiation Activities at Onset: None Modifying Factors: Improves With Defecating, Improves With Resting Associated Symptoms: Denies Symptoms He also reports a rash in his groin and lower abdomen. Allergies and Home Medications Allergies Coded Allergies: Sulfa (Sulfonamide Antibiotics) (Unverified Allergy, Unknown, 12/16/16) clarithromycin (Unverified Allergy, Unknown, 12/16/16) levetiracetam (Unverified Allergy, Unknown, 12/16/16) morphine (Unverified Allergy, Unknown, 12/16/16) Home Medications Albuterol Sulfate 1 Puff Puff, #85 (Reported) Alprazolam 0.25 Mg Tablet, 0.25 MG PO BID, (Reported) Atenolol 50 Mg Tablet, 50 MG PO HS, #30 (Reported) Budesonide/Formoterol Fumarate 10.2 Gm Hfa.aer.ad, #102 (Reported) Diphenoxylate HCl/Atropine 1 Each Tablet, 1 EACH PO Q4H PRN for DIARRHEA, #8 Ref 0 Prescribed by: LAMAR ANSARI on 06/02/172124 Ibuprofen 800 Mg Tablet, 800 MG PO Q8H, #90 (Reported) Lisinopril 20 Mg Tablet, 20 MG PO DAILY, (Reported) Oxycodone HCl/Acetaminophen 1 Each Tablet, 1 TAB PO Q8H PRN for PAIN-MILD TO MODERATE, #84 (Reported) Prednisone 20 Mg Tab, #10 (Reported) Topiramate 50 Mg Tablet, 100 MG PO BID, #60 (Reported) Review of Systems Constitutional: no symptoms reported, see HPI EENTM: No Symptoms Reported, See HPI Respiratory: No Symptoms Reported Cardiovascular: No Symptoms Reported, See HPI Gastrointestinal: See HPI, Diarrhea Genitourinary: No Symptoms Reported, See HPI Musculoskeletal: no symptoms reported, see HPI Skin: see HPI, rash (bilateral groin and upper legs, with pruritus) Psychiatric/Neurological: No Symptoms Reported, See HPI Endocrine: No Symptoms Reported, See HPI Hematologic/Lymphatic: No Symptoms Reported, See HPI All Other Systems Reviewed Negative Unless Noted: Yes Past Jhbdzzc-Vtqezz-Mfzald Hx Patient Social History Alcohol Use: Denies Use Recreational Drug Use: No Smoking Status: Current Everyday Smoker Type Used: Cigarettes 2nd Hand Smoke Exposure: Yes Recent Foreign Travel: No Contact w/Someone Who Travel: No Recent Infectious Disease Expo: No Recent Hopitalizations: No Immunizations Up To Date Tetanus Booster (TDap): Less than 5yrs Seasonal Allergies Seasonal Allergies: No Surgeries HX Surgeries: Yes (BACK SURGERY) Surgeries: Abdominal, Appendectomy, Gallbladder, Orthopedic Respiratory Hx Respiratory Disorders: Yes (tobaccoism) Respiratory Disorders: Pneumonia, COPD Cardiovascular Hx Cardiac Disorders: Yes Cardiac Disorders: High Cholesterol, Hypertension Neurological Hx Neurological Disorders: Yes (BACK SURGERY WITH NERVE DAMAGE--BOWEL/BLADDER INCONTINENCE. ) Neurological Disorders: Seizure Disorder Reproductive System Hx Reproductive Disorders: No Genitourinary Hx Genitourinary Disorders: Yes (URINARY INCONTINENCE SINCE BACK SURGERY IN 2006. RENAL COLIC) Genitourinary Disorders: Kidney Stones, Neurogenic Bladder Gastrointestinal Hx Gastrointestinal Disorders: Yes (INCONTINENT OF STOOL SINCE BACK SURGERY) Gastrointestinal Disorders: Colitis, Gastroesophageal Reflux, Diverticulosis Musculoskeletal Hx Musculoskeletal Disorders: Yes (CHRONIC NECK PAIN) Musculoskeletal Disorders: Degenerate Disk Disease, Arthritis, Chronic Back Pain Endocrine Hx Endocrine Disorders: No HEENT HX ENT Disorders: No Cancer Hx Cancer: No Psychosocial Hx Psychiatric Problems: Yes Behavioral Health Disorders: Anxiety Integumentary HX Skin/Integumentary Disorder: No Blood Transfusions Hx Blood Disorders: No Adverse Reaction to a Blood Tr: No Reviewed Nursing Assessment Reviewed/Agree w Nursing PMH: Yes Physical Exam Vital Signs VS - Last 72 Hours, by Label 06/02/17 06/02/17 06/02/17 19:00 21:10 21:31 Temp 98.8 98.8 Pulse 74 98 Resp 18 18 B/P (MAP) 145/98 Pulse Ox 99 99 O2 Delivery Room Air Capillary Refill : Less Than 3 Seconds General Appearance: WD/WN, no apparent distress HEENT: PERRL/EOMI, normal ENT inspection, TMs normal, pharynx normal Neck: non-tender, full range of motion, supple, normal inspection Respiratory: chest non-tender, lungs clear, normal breath sounds Cardiovascular: normal peripheral pulses, regular rate, rhythm Gastrointestinal: normal bowel sounds, non tender, soft, No distended, No guarding, No rebound Extremities: normal range of motion, non-tender, normal inspection, normal capillary refill Back: normal inspection, no CVA tenderness, no vertebral tenderness Skin: normal color, warm/dry, other (insect bites noted to bilateral groins and upper legs, trace erythema and mild puritus. ) Lymphatic: no adenopathy Laceration Repair : Suture Size: 5-0 Progress/Results/Core Measures Results/Orders Lab Results Laboratory Tests Test 06/02/17 19:37 06/02/17 19:50 Range/Units White Blood Count 7.4 4.3-11.0 10^3/uL Red Blood Count 4.95 4.35-5.85 10^6/uL Hemoglobin 16.0 13.3-17.7 G/DL Hematocrit 46 40-54 % Mean Corpuscular Volume 92 80-99 FL Mean Corpuscular Hemoglobin 32 25-34 PG Mean Corpuscular Hemoglobin Concent 35 32-36 G/DL Red Cell Distribution Width 13.5 10.0-14.5 % Platelet Count 170 130-400 10^3/uL Mean Platelet Volume 10.7 H 7.4-10.4 FL Neutrophils (%) (Auto) 60 42-75 % Lymphocytes (%) (Auto) 21 12-44 % Monocytes (%) (Auto) 15 H 0-12 % Eosinophils (%) (Auto) 4 0-10 % Basophils (%) (Auto) 0 0-10 % Neutrophils # (Auto) 4.5 1.8-7.8 X 10^3 Lymphocytes # (Auto) 1.6 1.0-4.0 X 10^3 Monocytes # (Auto) 1.1 H 0.0-1.0 X 10^3 Eosinophils # (Auto) 0.3 0.0-0.3 10^3/uL Basophils # (Auto) 0.0 0.0-0.1 10^3/uL Sodium Level 141 135-145 MMOL/L Potassium Level 3.3 L 3.6-5.0 MMOL/L Chloride Level 111 H 98-107 MMOL/L Carbon Dioxide Level 21 21-32 MMOL/L Anion Gap 9 5-14 MMOL/L Blood Urea Nitrogen 18 7-18 MG/DL Creatinine 1.05 0.60-1.30 MG/DL Estimat Glomerular Filtration Rate > 60 BUN/Creatinine Ratio 17 Glucose Level 96 70-105 MG/DL Calcium Level 9.1 8.5-10.1 MG/DL Total Bilirubin 0.5 0.1-1.0 MG/DL Aspartate Amino Transf (AST/SGOT) 13 5-34 U/L Alanine Aminotransferase (ALT/SGPT) 15 0-55 U/L Alkaline Phosphatase 109 40-136 U/L Total Protein 6.8 6.4-8.2 GM/DL Albumin 3.9 3.2-4.5 GM/DL Urine Color YELLOW Urine Clarity CLEAR Urine pH 7 5-9 Urine Specific [place] 1.005 L 1.016-1.022 Urine Protein NEGATIVE NEGATIVE Urine Glucose (UA) NEGATIVE NEGATIVE Urine Ketones NEGATIVE NEGATIVE Urine Nitrite NEGATIVE NEGATIVE Urine Bilirubin NEGATIVE NEGATIVE Urine Urobilinogen NORMAL NORMAL MG/DL Urine Leukocyte Esterase NEGATIVE NEGATIVE Urine RBC (Auto) NEGATIVE NEGATIVE Urine RBC NONE /HPF Urine WBC RARE /HPF Urine Crystals NONE /LPF Urine Bacteria NEGATIVE /HPF Urine Casts NONE /LPF Urine Mucus NEGATIVE /LPF Urine Culture Indicated NO My Orders Orders - LAMAR ANSARI Cbc With Automated Diff (06/02/17 19:32) Comprehensive Metabolic Panel (06/02/17 19:32) Ua Culture If Indicated (06/02/17 19:32) Diphenoxylate/Atropine Tablet (Lomotil T (06/02/17 19:45) Hyoscyamine Sl Tablet (Levsin Sl Tablet) (06/02/17 21:00) Acetaminophen Tablet/Caplet (Tylenol T (06/02/17 21:00) Diphenhydramine Injection (Benadryl Inje (06/02/17 21:30) Rx-Diphenoxylate/Atropine (Rx-Lomotil 2. (06/02/17 21:25) Rx-Diphenoxylate/Atropine (Rx-Lomotil 2. (06/02/17 21:22) Diphenhydramine Injection (Benadryl Inje (06/02/17 21:22) Medications Given in ED Current Medications Medications Dose Ordered Sig/Teri Route Start Time Stop Time Status Last Admin Dose Admin Diphenhydramine HCl 50 mg ONCE ONCE IM 06/02/17 21:30 06/02/17 21:31 DC 06/02/17 21:30 50 MG Hyoscyamine Sulfate 0.125 mg ONCE ONCE SL 06/02/17 21:00 06/02/17 21:01 DC 06/02/17 21:10 0.125 MG Vital Signs/I&O Vital Sign - Last 12Hours 06/02/17 06/02/17 06/02/17 19:00 21:10 21:31 Temp 98.8 98.8 Pulse 74 98 Resp 18 18 B/P (MAP) 145/98 Pulse Ox 99 99 O2 Delivery Room Air Blood Pressure Mean: 114 Departure Impression Impression: Primary Impression: Diarrhea Qualified Codes: R19.7 - Diarrhea, unspecified Additional Impressions: Abdominal pain Qualified Codes: R10.84 - Generalized abdominal pain Insect bite Qualified Codes: W57.XXXA - Bitten or stung by nonvenomous insect and other nonvenomous arthropods, initial encounter Disposition: HOME, SELF-CARE Condition: Stable Departure-Patient Inst. Decision time for Depature: 22:30 Referrals: [facility] (PCP/Family) Primary Care Physician Patient Instructions: Diarrhea in Adolescents and Adults Add. Discharge Instructions: There liquids diet for 4 hours. He 1 cup of yogurt daily. Probiotics 1 pill daily. Apply calamine lotion or hydrocortisone cream to the insect bites. Benadryl 25 mg every 8 hours. Use the Lomotil prescription for continued diarrhea. Return to emergency department for increased abdominal pain, fever, difficulty breathing, or new problems. All discharge instructions reviewed with patient and/or family. Voiced understanding. Scripts Diphenoxylate HCl/Atropine (Lomotil 2.5-0.025 mg Tablet) 1 Each Tablet 1 EACH PO Q4H Y for DIARRHEA, #8 TAB 0 Refills Prov: LAMAR ANSARI 06/02/17 LAMAR ANSARI Jun 02, 2017 19:20
[2017-06-02] MEDS: DIPHENOXYLATE/ATROPINE 2.5MG/0.025MG (LOMOTIL) TAB PO SCH (19:43)
[2017-06-02 19:50] LABS: BASOPHILS % (AUTO) 0 % (0-10); EOSINOPHILS # (AUTO) 0.3 10^3/uL (0.0-0.3); EOSINOPHILS % (AUTO) 4 % (0-10); LYMPHOCYTES # (AUTO) 1.6 X 10^3 (1.0-4.0); LYMPHOCYTES % (AUTO) 21 % (12-44); MEAN CORPUSCULAR HEMOGLOBIN 32 PG (25-34); MEAN CORPUSCULAR HGB CONC 35 G/DL (32-36); MEAN CORPUSCULAR VOLUME 92 FL (80-99); MEAN PLATELET VOLUME 10.7 FL (7.4-10.4); MONOCYTES # (AUTO) 1.1 X 10^3 (0.0-1.0); MONOCYTES % (AUTO) 15 % (0-12); NEUTROPHILS # (AUTO) 4.5 X 10^3 (1.8-7.8); NEUTROPHILS % (AUTO) 60 % (42-75); PLATELET COUNT 170 10^3/uL (130-400); RED BLOOD COUNT 4.95 10^6/uL (4.35-5.85); RED CELL DISTRIBUTION WIDTH 13.5 % (10.0-14.5); WHITE BLOOD COUNT 7.4 10^3/uL (4.3-11.0)
[2017-06-02 20:06] LABS: ALANINE AMINOTRANSFERASE 15 U/L (0-55); ALBUMIN 3.9 GM/DL (3.2-4.5); ANION GAP 9 MMOL/L (5-14); ASPARTATE AMINO TRANSFERASE 13 U/L (5-34); BILIRUBIN,TOTAL 0.5 MG/DL (0.1-1.0); BLOOD UREA NITROGEN 18 MG/DL (7-18); BUN/CREATININE RATIO 17; CALCIUM 9.1 MG/DL (8.5-10.1); CARBON DIOXIDE 21 MMOL/L (21-32); CHLORIDE 111 MMOL/L (98-107); CREATININE SERUM 1.05 MG/DL (0.60-1.30); GFR ESTIMATED > 60; GLUCOSE 96 MG/DL (70-105); POTASSIUM 3.3 MMOL/L (3.6-5.0); SODIUM 141 MMOL/L (135-145); TOTAL PROTEIN 6.8 GM/DL (6.4-8.2)
[2017-06-02 20:11] LABS: BILIRUBIN,URINE NEGATIVE (NEGATIVE); KETONES,URINE NEGATIVE (NEGATIVE); LEUKOCYTE ESTERASE ,URINE NEGATIVE (NEGATIVE); NITRITE,URINE NEGATIVE (NEGATIVE); PH,URINE 7 (5-9); PROTEIN,URINE NEGATIVE (NEGATIVE); UROBILINOGEN,URINE NORMAL (NORMAL)
[2017-06-02 20:12] LABS: WBC,URINE RARE /HPF
[2017-06-02] MEDS: ACETAMINOPHEN 325 MG TABLET/CAPLET (TYLENOL) PO STA (21:10)
[2017-06-02] MEDS: HYOSCYAMINE 0.125 MG (LEVSIN) TAB SL ONE (21:10)
[2017-06-02] MEDS ORDERED: diphenhydrAMINE 50 MG/ML INJ (BENADRYL) ONE (21:22)
[2017-06-02] MEDS ORDERED: DIPH1TAB PO (21:25)
[2017-06-02] MEDS: diphenhydrAMINE 50 MG/ML INJ (BENADRYL) IM ONE (21:30)
[2017-06-02] MEDS: RX-DIPHENO./ATROP. 2.5/0.25 MG (LOMOTIL) TAB PPK#4 PO STA (21:30)
[2017-06-02 21:31] VITALS: BP 142/89
[2017-06-02] MEDS: RX-DIPHENO./ATROP. 2.5/0.25 MG (LOMOTIL) TAB PPK#4 PO ONE (21:31)
== END 2017-06-02 21:31 | disposition home or self-care (01) ==
LOC: EDUNIT# 18:49 → ER 18:50
DX: S30.861A Insect bite (nonvenomous) of abdominal wall, initial encounter (principal); S70.361A Insect bite (nonvenomous), right thigh, initial encounter; S70.362A Insect bite (nonvenomous), left thigh, initial encounter; R19.7 Diarrhea, unspecified; R10.84 Generalized abdominal pain; F41.9 Anxiety disorder, unspecified; M47.9 Spondylosis, unspecified; K21.9 Gastro-esophageal reflux disease without esophagitis; G40.909 Epilepsy, unspecified, not intractable, without status epilepticus; E78.00 Pure hypercholesterolemia, unspecified; I10 Essential (primary) hypertension; J44.9 Chronic obstructive pulmonary disease, unspecified; Z87.442 Personal history of urinary calculi; Z90.49 Acquired absence of other specified parts of digestive tract; W57.XXXA Bitten or stung by nonvenomous insect and other nonvenomous arthropods, initial encounter
CPT/HCPCS: 36415; 80053; 81000; 85025; 96372; 99284

== ENCOUNTER 2017-06-24 05:50 | Outpatient (CLI) | payer MEDICAID ==
[~2017-06-24] VITALS: Ht 177.8 cm; Wt 95.3 kg
[~2017-06-24 05:50] MED LIST changes: +BUDE10.2 IH; +DIPH1TAB PO; +PRD20T
== END 2017-06-24 12:40 ==
LOC: PREOP 05:50
PROVIDERS: ATTEND Surgery
DX: Z01.818 Encounter for other preprocedural examination (principal); Z12.11 Encounter for screening for malignant neoplasm of colon; R13.10 Dysphagia, unspecified; Z86.010 Personal history of colon polyps

== ENCOUNTER 2017-06-28 12:04 | Observation (INO) | payer MEDICAID ==
[2017-06-28] VITALS (9 sets, daily range): BP systolic 99–134; BP diastolic 55–86
[~2017-06-28] VITALS: Ht 177.8 cm; Wt 95.3 kg
[2017-06-28] MEDS ORDERED: LACTATED RINGERS 1,000 ML IV STA (12:10)
[2017-06-28] MEDS ORDERED: HURRICAINE EXT TUBE (BENZOCAINE) XX ONE (12:45)
[2017-06-28] MEDS ORDERED: PROPOFOL INJECTION 50 ML IV ONE ×2 (12:55→14:04)
[2017-06-28] MEDS ORDERED: MIDAZOLAM 2 MG/2 ML (VERSED) VIAL ONE ×2 (12:56→15:10)
--- NOTE | 2017-06-28 13:20 | Progress Note-Pre Operative ---
Pre-Operative Progress Note H&P Reviewed The H&P was reviewed, patient examined and no changes noted. Date Seen by Provider: Jun 28, 2017 Time Seen by Provider: 13:20 Date H&P Reviewed: Jun 28, 2017 Time H&P Reviewed: 13:20 Pre-Operative Diagnosis: dysphagia, hx colon polyps DENA WOO DO Jun 28, 2017 13:20
[2017-06-28] MEDS ORDERED: PHENYLEPHRINE INJ 10 MG/ML (NEO-SYNEPHRINE 1%) ONE (14:24)
[2017-06-28] MEDS ORDERED: PANT40TA2 PO (14:43)
[2017-06-28] MEDS ORDERED: MEBE100T12 PO (14:50)
--- NOTE | 2017-06-28 14:55 | Discharge Inst-Simple/Standard ---
Discharge Inst-Standard Discharge Medications New, Converted or Re-Newed RX: RX on Chart Patient Instructions/Follow Up Plan of Care/Instructions/FU: Take medication as directed. Follow up with PCP to have family/ current house hold members treated for Pinworms/hookworm as soon as possible Follow up with Dr. Brown in 2-3 weeks. Follow up with PCP as soon as possible to discuss seizures. No driving or operating heavy machinery till cleared by PCP. Activity as Tolerated: No (NO driving or operating heavy machinery till cleared by PCP.) Discharge Diet: No Restrictions SANDRA BARRIENTOS APRN Jun 28, 2017 14:55
[2017-06-28] MEDS ORDERED: LACTATED RINGERS 1,000 ML IV ONE (15:06)
[2017-06-28] MEDS: LACTATED RINGERS 1,000 ML IV SCH (15:10)
[2017-06-28] MEDS ORDERED: MIDAZOLAM 5 MG/5 ML (VERSED) VIAL ONE (15:11)
--- NOTE | 2017-06-28 15:35 | Progress Note-Post Operative ---
Post-Operative Progess Note Surgeon (s)/Layer Out Plate Glass (s) Surgeon DENA WOO DO Layer Out Plate Glass: na Pre-Operative Diagnosis dysphagia, hx colon polyps Post-Operative Diagnosis gastritis, colonic parasite Procedure & Operative Findings Date of Procedure 06/28/17 Procedure Performed/Findings egd c biopsies, colonoscopy Anesthesia Type per glazier metal furniture Estimated Blood Loss Estimated blood loss (mL): minimal Specimens/Packing Specimens Removed colonic parasite DENA WOO DO Jun 28, 2017 15:35
--- NOTE | 2017-06-28 15:42 | History & Physical-Surgical ---
History of Present Illness History of Present Illness Reason for visit/HPI Patient came in outpatient for EGD and Colonoscopy. He developed post procedural seizure during recovery. He was noted to have had 2 seizures and was given versed to control seizure. Dr. Woo admitted patient to ICU for seizure precaution. Dr. Villarreal was contacted for Pulmonary and ICU management. Dr. Pan was contacted for Medical management. Date of Admission 06/28/17 Time Seen by Provider: 15:30 I consulted on this patient on 06/28/17 15:36 Attending Physician Dena Woo DO Admitting Physician [place],[facility] Consult Allergies and Home Medications Allergies Coded Allergies: Sulfa (Sulfonamide Antibiotics) (Verified Allergy, Unknown, 06/28/17) clarithromycin (Verified Allergy, Unknown, 06/28/17) levetiracetam (Verified Allergy, Unknown, 06/28/17) morphine (Verified Allergy, Unknown, 06/28/17) Home Medications Albuterol Sulfate 1 Puff Puff, 2 PUFF IH Q4H PRN for SHORTNESS OF BREATH, ( Reported) Alprazolam 0.25 Mg Tablet, 0.25 MG PO BID, (Reported) Atenolol 50 Mg Tablet, 50 MG PO HS, (Reported) Budesonide/Formoterol Fumarate 10.2 Gm Hfa.aer.ad, 2 PUFF IH BID PRN for SHORTNESS OF BREATH, (Reported) Ibuprofen 800 Mg Tablet, 800 MG PO Q8H PRN for PAIN-MILD, (Reported) Lisinopril 20 Mg Tablet, 20 MG PO DAILY, (Reported) Mebendazole 100 Mg Tab.chew, 100 MG PO BID, #6 Ref 1 march repeat prescription in 3 weeks. Prescribed by: SANDRA ANDERSON on 06/28/17 1450 Oxycodone HCl/Acetaminophen 1 Each Tablet, 1 TAB PO Q8H PRN for PAIN-MODERATE, ( Reported) Pantoprazole Sodium 40 Mg Tablet.dr, 40 MG PO DAILY, #60 Ref 3 Prescribed by: SANDRA ANDERSON on 06/28/17 1443 Topiramate 50 Mg Tablet, 100 MG PO BID, (Reported) TAKES 2 (50MG) TABLETS Past Vlmsitk-Mcdlsd-Vmjzmc Hx Patient Social History Alcohol Use: Denies Use Recreational Drug Use: No Smoking Status: Current Everyday Smoker Type Used: Cigarettes 2nd Hand Smoke Exposure: Yes Recent Foreign Travel: No Contact w/Someone Who Travel: No Recent Infectious Disease Expo: No Recent Hopitalizations: No Immunizations Up To Date Tetanus Booster (TDap): Less than 5yrs Seasonal Allergies Seasonal Allergies: Yes Surgeries HX Surgeries: Yes (BACK SURGERY) Surgeries: Abdominal, Appendectomy, Gallbladder, Orthopedic, Vasectomy Respiratory Hx Respiratory Disorders: Yes Respiratory Disorders: COPD Cardiovascular Hx Cardiac Disorders: Yes Cardiac Disorders: High Cholesterol, Hypertension Neurological Hx Neurological Disorders: Yes (BACK SURGERY WITH NERVE DAMAGE--BOWEL/BLADDER INCONTINENCE. ) Neurological Disorders: Seizure Disorder Reproductive System Hx Reproductive Disorders: No Genitourinary Hx Genitourinary Disorders: Yes (URINARY INCONTINENCE SINCE BACK SURGERY IN 2006. RENAL COLIC) Genitourinary Disorders: Kidney Stones, Neurogenic Bladder Gastrointestinal Hx Gastrointestinal Disorders: Yes (Incontinent of stool from back surgery) Gastrointestinal Disorders: Colitis, Gastroesophageal Reflux, Diverticulosis, Polyps Musculoskeletal Hx Musculoskeletal Disorders: Yes (CHRONIC NECK PAIN) Musculoskeletal Disorders: Degenerate Disk Disease, Arthritis, Chronic Back Pain Endocrine Hx Endocrine Disorders: No HEENT HX ENT Disorders: No Cancer Hx Cancer: No Psychosocial Hx Psychiatric Problems: Yes Behavioral Health Disorders: Anxiety Integumentary HX Skin/Integumentary Disorder: No Blood Transfusions Hx Blood Disorders: No Adverse Reaction to a Blood Tr: No Family Medical History Significant Family History: No Pertinent Family Hx Constitutional: no symptoms reported EENTM: no symptoms reported Respiratory: no symptoms reported Cardiovascular: no symptoms reported Gastrointestinal: no symptoms reported Genitourinary: no symptoms reported Musculoskeletal: no symptoms reported Skin: no symptoms reported Psychiatric/Neurological: Seizure (Post procedural seizure) Physical Exam Vital Signs Vital Sign - Last 12Hours 06/28/17 15:11 Temp 97.6 Capillary Refill : General Appearance: No Apparent Distress, Other (seizures- post procedures) Neck: Normal Inspection, Non Tender Respiratory: No Accessory Muscle Use, No Respiratory Distress Cardiovascular: Regular Rate, Rhythm Gastrointestinal: Non Tender, Soft Extremity: Non Tender, No Calf Tenderness, No Pedal Edema Neurologic/Psychiatric: Alert, Oriented x3 Skin: Normal Color, Warm/Dry Assessment/Plan Assessment/Plan Assessment/Plan Post Procedural Seizures- ICU for seizure precaution. Dr. Villarreal Consulted for ICU and pulmonology and Dr. Pan consulted for medical management NPO. IV NS 125ml/hr Gastritis. Patient to be treated out patient with Protonix 40 mg PO Pin worm infection. Mebendazole 100mg bid x 3 day. We will continue to monitor patient for now. Stephanie- Patient with history of seizures post procedures per family. Patient post procedure having 2 seizures first seizure lasting around 5 minutes. Was able to get seizure controlled with 5mg Versed. Patient post-ictal. Not able to answer any questions. discussed with Dr. Pan and Dr. Villarreal. Admitting to ICU. Patient vss stable general laying in be, not answering any questions. heart reg lungs nonlabored abdomen soft no organomegaly ext no signs of deformity assessment and plan as above SANDRA BARRIENTOS APRN Jun 28, 2017 3:42 pm DENA WOO DO Jun 28, 2017 4:42 pm
[2017-06-28] MEDS ORDERED: HURRICAINE EXT TUBE (BENZOCAINE) ONE (15:43)
[2017-06-28] MEDS ORDERED: MIDAZOLAM 5 MG/5 ML (VERSED) VIAL IVP ONE (15:45)
[2017-06-28] MEDS ORDERED: MIDAZOLAM 2 MG/2 ML (VERSED) VIAL IM ONE (15:45)
--- NOTE | 2017-06-28 15:49 | Progress Note-Standard ---
Standard Progress Note Progress Notes/Assess & Plan Date Seen by Provider: Jun 28, 2017 Time Seen by Provider: 15:05 Progress/Assessment & Plan Called to ENDO for patient having an apparent seizure. Upon arrival to the endo suite, pt was sedate, eyes rolled up and not responding to painful or verbal stimuli. Airway intact. O2 sat 99% on 2l/NC. Approx. 5 min after arrival patient started having another seizure. 5mg Versed given. Airway maintained. Seizure stopped. Transported to ICU with full monitors and oxygen at 2l/NC. Report to FLOORWORKER LASTING by Endo RN. Care Assumed by FLOORWORKER LASTING. VSS. GIORGI GROVES CRNA Jun 28, 2017 15:49
--- NOTE | 2017-06-28 17:01 | History & Physicial (CHS) ---
SOUTH BRASHER MED STUDENT 06/28/17 5:01pm: HPI History of Present Illness: Patient is a 42 year old male with history of epilepsy who was admitted to the ICU after he experienced a seizure during recovery from an EGD and colonoscopy. Patient has a life long history of seizures for which he takes Topiramate. Patient had not taken Topiramate since 2 days prior to the procedure. His states that the seizures have never been under control and are nocturnal [place] Mal in nature. He sees a neurologist in [place] on a regular basis. Patient is alert and aware of his surroundings and also aware of his condition. Source: patient, spouse Date seen by provider: Jun 28, 2017 Time Seen by Provider: 16:45 Attending Physician Malorie Pan MD PCP [facility] Consult Date of Admission Jun 28, 2017 at 13:50 Home Medications Home Medications Reviewed patient Home Medication Reconciliation Form Allergies Coded Allergies: Sulfa (Sulfonamide Antibiotics) (Verified Allergy, Unknown, 06/28/17) clarithromycin (Verified Allergy, Unknown, 06/28/17) levetiracetam (Verified Allergy, Unknown, 06/28/17) morphine (Verified Allergy, Unknown, 06/28/17) FTH-Vparwj-Mvpllo Hx Patient Social History Marrital Status: Alcohol Use: Denies Use Recreational Drug Use: No Smoking Status: Current Everyday Smoker Type Used: Cigarettes 2nd Hand Smoke Exposure: Yes Recent Foreign Travel: No Contact w/other who traveled: No Recent Hopitalizations: No Recent Infectious Disease Expo: No Immunizations Up To Date Tetanus Booster (TDap): Less than 5yrs Past Medical History PMHx: Epilepsy Urinary incontinence Surg Hx: cholecystecomy appendectomy Back Surgery Family Medical History Significant Family History: No Pertinent Family Hx Review of Systems (CHC) Constitutional: no symptoms reported EENTM: no symptoms reported Respiratory: no symptoms reported Cardiovascular: no symptoms reported Gastrointestinal: no symptoms reported Genitourinary: incontinence Musculoskeletal: no symptoms reported Skin: no symptoms reported Psychiatric/Neurological: See HPI, Seizure Physical Exam-(CHC) Physical Exam Vital Signs VS - Last 72 Hours, by Label 06/28/17 15:11 Temp 97.6 Capillary Refill : General Appearance: no apparent distress Eyes: Bilateral Eye Normal Inspection Respiratory: lungs clear, normal breath sounds, no respiratory distress Cardiovascular: regular rate, rhythm, no edema, no murmur 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 MALORIE PAN MD 06/28/17 9:36pm: Home Medications Allergies Coded Allergies: Sulfa (Sulfonamide Antibiotics) (Verified Allergy, Unknown, 06/28/17) clarithromycin (Verified Allergy, Unknown, 06/28/17) levetiracetam (Verified Allergy, Unknown, 06/28/17) morphine (Verified Allergy, Unknown, 06/28/17) Physical Exam-(CHC) Physical Exam Vital Signs VS - Last 72 Hours, by Label 06/28/17 06/28/17 06/28/17 06/28/17 15:11 15:45 15:45 16:45 Temp 97.6 97.3 97.3 Pulse 57 57 56 Resp 10 10 16 B/P (MAP) 99/55 99/55 101/60 Pulse Ox 100 100 98 O2 Delivery Room Air Room Air Room Air 06/28/17 06/28/17 06/28/17 06/28/17 17:45 18:00 19:00 19:00 Pulse 57 62 73 73 Resp 7 15 35 B/P (MAP) 121/80 117/75 123/83 Pulse Ox 100 99 O2 Delivery Room Air Room Air Room Air 06/28/17 06/28/17 20:00 20:56 Temp 97.3 Pulse 93 Resp 20 B/P (MAP) 126/86 O2 Delivery Room Air HEENT: PERRL/EOMI Gastrointestinal: normal bowel sounds, non tender, soft Neurologic/Psychiatric: No motor weakness Skin: normal color, warm/dry Supervisory-Addendum Brief Supervisory Addendum Patient seen and examined with TD Brasher, agree with documentation unless otherwise noted. Suspect seizure due to missing medications in combination with benzodiazepine being metabolized out of system post-procedure. He notes he has tried "every" seizure medication and specifically endorses using depakote and Keppra and has never had good seizure control, has seizures at least once per week. He sees Neurology approximately every 6 months and they did recently increase his topiramate dose about a month ago. SOU[employer] BRASHER STUDENT Jun 28, 2017 5:01 pm MALORIE PAN MD Jun 28, 2017 9:36 pm
[2017-06-28] MEDS: NS IV 1000 ML 1,000 ML IV SCH ×2 (17:41→18:37)
[2017-06-28] MEDS: toPIRamate 100 MG (TOPAMAX) TAB PO SCH (20:56)
[2017-06-28] MEDS ORDERED: ACETAMINOPHEN 500 MG TAB (TYLENOL) PO PRN (21:00)
[2017-06-28 22:07] LABS: BASOPHILS % (AUTO) 0 % (0-10); EOSINOPHILS # (AUTO) 0.2 10^3/uL (0.0-0.3); EOSINOPHILS % (AUTO) 2 % (0-10); LYMPHOCYTES # (AUTO) 1.4 X 10^3 (1.0-4.0); LYMPHOCYTES % (AUTO) 18 % (12-44); MEAN CORPUSCULAR HEMOGLOBIN 32 PG (25-34); MEAN CORPUSCULAR HGB CONC 35 G/DL (32-36); MEAN CORPUSCULAR VOLUME 92 FL (80-99); MEAN PLATELET VOLUME 10.4 FL (7.4-10.4); MONOCYTES # (AUTO) 0.9 X 10^3 (0.0-1.0); MONOCYTES % (AUTO) 12 % (0-12); NEUTROPHILS % (AUTO) 67 % (42-75); PLATELET COUNT 176 10^3/uL (130-400); RED BLOOD COUNT 5.21 10^6/uL (4.35-5.85); WHITE BLOOD COUNT 7.5 10^3/uL (4.3-11.0)
[2017-06-28 22:29] LABS: ALANINE AMINOTRANSFERASE 15 U/L (0-55); ALBUMIN 3.8 GM/DL (3.2-4.5); ANION GAP 10 MMOL/L (5-14); ASPARTATE AMINO TRANSFERASE 11 U/L (5-34); BILIRUBIN,TOTAL 0.7 MG/DL (0.1-1.0); BLOOD UREA NITROGEN 14 MG/DL (7-18); BUN/CREATININE RATIO 13; CARBON DIOXIDE 21 MMOL/L (21-32); CHLORIDE 110 MMOL/L (98-107); CREATININE SERUM 1.09 MG/DL (0.60-1.30); GFR ESTIMATED > 60; GLUCOSE 77 MG/DL (70-105); POTASSIUM 3.2 MMOL/L (3.6-5.0); SODIUM 141 MMOL/L (135-145); TOTAL PROTEIN 6.8 GM/DL (6.4-8.2)
[2017-06-28] MEDS: LORazepam INJ 2 MG/ML (ATIVAN) VIAL IVP PRN (23:54)
[2017-06-29] VITALS: BP 99/58
[2017-06-29] MEDS: POTASSIUM CL 10MEQ/50ML IVPB 50 ML IV SCH ×4 (00:37→03:55)
[2017-06-29 01:00] VITALS: BP 109/75
[2017-06-29] MEDS: LORazepam INJ 2 MG/ML (ATIVAN) VIAL IVP PRN (02:45)
[2017-06-29] MEDS: NS IV 1000 ML 1,000 ML IV SCH (02:46)
[2017-06-29 03:00] VITALS: BP 100/59
[2017-06-29 04:21] LABS: BASOPHILS % (AUTO) 0 % (0-10); EOSINOPHILS # (AUTO) 0.2 10^3/uL (0.0-0.3); EOSINOPHILS % (AUTO) 4 % (0-10); LYMPHOCYTES # (AUTO) 1.6 X 10^3 (1.0-4.0); LYMPHOCYTES % (AUTO) 25 % (12-44); MEAN CORPUSCULAR HEMOGLOBIN 31 PG (25-34); MEAN CORPUSCULAR HGB CONC 34 G/DL (32-36); MEAN CORPUSCULAR VOLUME 92 FL (80-99); MEAN PLATELET VOLUME 10.7 FL (7.4-10.4); MONOCYTES # (AUTO) 0.7 X 10^3 (0.0-1.0); MONOCYTES % (AUTO) 11 % (0-12); NEUTROPHILS # (AUTO) 3.8 X 10^3 (1.8-7.8); NEUTROPHILS % (AUTO) 61 % (42-75); PLATELET COUNT 170 10^3/uL (130-400); RED BLOOD COUNT 4.96 10^6/uL (4.35-5.85); WHITE BLOOD COUNT 6.3 10^3/uL (4.3-11.0)
[2017-06-29 04:47] LABS: ALANINE AMINOTRANSFERASE 13 U/L (0-55); ALBUMIN 3.4 GM/DL (3.2-4.5); ANION GAP 9 MMOL/L (5-14); ASPARTATE AMINO TRANSFERASE 10 U/L (5-34); BILIRUBIN,TOTAL 0.4 MG/DL (0.1-1.0); BLOOD UREA NITROGEN 16 MG/DL (7-18); BUN/CREATININE RATIO 15; CALCIUM 8.7 MG/DL (8.5-10.1); CARBON DIOXIDE 19 MMOL/L (21-32); CHLORIDE 114 MMOL/L (98-107); CREATININE SERUM 1.05 MG/DL (0.60-1.30); GFR ESTIMATED > 60; GLUCOSE 108 MG/DL (70-105); PHOSPHORUS 2.8 MG/DL (2.3-4.7); POTASSIUM 3.8 MMOL/L (3.6-5.0); SODIUM 142 MMOL/L (135-145); TOTAL PROTEIN 5.9 GM/DL (6.4-8.2)
[2017-06-29 04:54] LABS: DIGOXIN < 0.30 NG/ML (0.80-2.00)
[2017-06-29] MEDS ORDERED: KCL 20 MEQ TAB (K-DUR) PO SCH (06:00)
[2017-06-29] MEDS ORDERED: POTASSIUM CL 10MEQ/50ML IVPB 50 ML IV SCH (06:00)
[2017-06-29] MEDS ORDERED: MAGNESIUM 1 GM/100 ML IVPB 100 ML IV SCH (06:00)
[2017-06-29] MEDS: LACTATED RINGERS 1,000 ML IV SCH (08:13)
[2017-06-29] MEDS: toPIRamate 100 MG (TOPAMAX) TAB PO SCH (08:13)
--- NOTE | 2017-06-29 09:10 | Progress Note ---
Subjective Date Seen by Provider: Jun 29, 2017 Time Seen by Provider: 08:25 Subjective/Events-last exam Patient resting in bed. Even respirations. No distress. Patient shaking in bed. SO reports he has been doing that for several years. She reports that his shaking was normal for him. Objective Exam Vital Signs Date Time Temp Pulse Resp B/P (MAP) Pulse Ox O2 Delivery O2 Flow Rate FiO2 06/29/17 08:00 90 97 Room Air 06/29/17 07:00 97 96 Room Air 06/29/17 06:00 83 93 Room Air 06/29/17 05:00 84 97 Room Air 06/29/17 04:00 75 20 94 Room Air 06/29/17 03:00 93 25 100/59 95 Room Air 06/29/17 02:00 75 17 92 Room Air 06/29/17 01:00 107 06/29/17 01:00 107 12 109/75 95 Room Air 06/29/17 00:00 110 15 99/58 94 Room Air 06/28/17 23:00 107 16 109/72 Room Air 06/28/17 22:00 90 18 130/84 Room Air 06/28/17 21:00 101 12 134/85 Room Air 06/28/17 20:56 97.3 06/28/17 20:00 93 20 126/86 Room Air 06/28/17 19:00 73 35 123/83 99 Room Air 06/28/17 19:00 73 06/28/17 18:00 62 15 117/75 Room Air 06/28/17 17:45 57 7 121/80 100 Room Air 06/28/17 16:45 56 16 101/60 98 Room Air 06/28/17 15:45 97.3 57 10 99/55 100 Room Air 06/28/17 15:45 97.3 57 10 99/55 100 Room Air 06/28/17 15:11 97.6 I & O 06/29/17 07:00 Intake Total 1940 ml Output Total 1 ml Balance 1939 ml Capillary Refill : General Appearance: No Apparent Distress, Other (seizures- post procedures) Neck: Normal Inspection, Non Tender Respiratory: No Accessory Muscle Use, No Respiratory Distress Cardiovascular: Regular Rate, Rhythm Gastrointestinal: normal bowel sounds, non tender, soft Extremity: Non Tender, No Calf Tenderness, No Pedal Edema Neurologic/Psychiatric: Alert, Oriented x3 Skin: Normal Color, Warm/Dry Results Lab Laboratory Tests Test 06/28/17 22:00 06/29/17 04:07 Range/Units White Blood Count 7.5 6.3 4.3-11.0 10^3/uL Red Blood Count 5.21 4.96 4.35-5.85 10^6/uL Hemoglobin 16.6 15.4 13.3-17.7 G/DL Hematocrit 48 46 40-54 % Mean Corpuscular Volume 92 92 80-99 FL Mean Corpuscular Hemoglobin 32 31 25-34 PG Mean Corpuscular Hemoglobin Concent 35 34 32-36 G/DL Red Cell Distribution Width 13.0 13.0 10.0-14.5 % Platelet Count 176 170 130-400 10^3/uL Mean Platelet Volume 10.4 10.7 H 7.4-10.4 FL Neutrophils (%) (Auto) 67 61 42-75 % Lymphocytes (%) (Auto) 18 25 12-44 % Monocytes (%) (Auto) 12 11 0-12 % Eosinophils (%) (Auto) 2 4 0-10 % Basophils (%) (Auto) 0 0 0-10 % Neutrophils # (Auto) 5.0 3.8 1.8-7.8 X 10^3 Lymphocytes # (Auto) 1.4 1.6 1.0-4.0 X 10^3 Monocytes # (Auto) 0.9 0.7 0.0-1.0 X 10^3 Eosinophils # (Auto) 0.2 0.2 0.0-0.3 10^3/uL Basophils # (Auto) 0.0 0.0 0.0-0.1 10^3/uL Sodium Level 141 142 135-145 MMOL/L Potassium Level 3.2 L 3.8 3.6-5.0 MMOL/L Chloride Level 110 H 114 H 98-107 MMOL/L Carbon Dioxide Level 21 19 L 21-32 MMOL/L Anion Gap 10 9 5-14 MMOL/L Blood Urea Nitrogen 14 16 7-18 MG/DL Creatinine 1.09 1.05 0.60-1.30 MG/DL Estimat Glomerular Filtration Rate > 60 > 60 BUN/Creatinine Ratio 13 15 Glucose Level 77 108 H 70-105 MG/DL Calcium Level 9.0 8.7 8.5-10.1 MG/DL Total Bilirubin 0.7 0.4 0.1-1.0 MG/DL Aspartate Amino Transf (AST/SGOT) 11 10 5-34 U/L Alanine Aminotransferase (ALT/SGPT) 15 13 0-55 U/L Alkaline Phosphatase 108 102 40-136 U/L Total Protein 6.8 5.9 L 6.4-8.2 GM/DL Albumin 3.8 3.4 3.2-4.5 GM/DL Phosphorus Level 2.8 2.3-4.7 MG/DL Magnesium Level 2.0 1.8-2.4 MG/DL Digoxin Level < 0.30 L 0.80-2.00 NG/ML Laboratory Tests 06/28/17 22:00: White Blood Count 7.5, Red Blood Count 5.21, Hemoglobin 16.6, Hematocrit 48, Mean Corpuscular Volume 92, Mean Corpuscular Hemoglobin 32, Mean Corpuscular Hemoglobin Concent 35, Red Cell Distribution Width 13.0, Platelet Count 176, Mean Platelet Volume 10.4, Neutrophils (%) (Auto) 67, Lymphocytes (%) (Auto) 18 , Monocytes (%) (Auto) 12, Eosinophils (%) (Auto) 2, Basophils (%) (Auto) 0, Neutrophils # (Auto) 5.0, Lymphocytes # (Auto) 1.4, Monocytes # (Auto) 0.9, Eosinophils # (Auto) 0.2, Basophils # (Auto) 0.0, Sodium Level 141, Potassium Level 3.2L, Chloride Level 110H, Carbon Dioxide Level 21, Anion Gap 10, Blood Urea Nitrogen 14, Creatinine 1.09, Estimat Glomerular Filtration Rate > 60, BUN/ Creatinine Ratio 13, Glucose Level 77, Calcium Level 9.0, Total Bilirubin 0.7, Aspartate Amino Transf (AST/SGOT) 11, Alanine Aminotransferase (ALT/SGPT) 15, Alkaline Phosphatase 108, Total Protein 6.8, Albumin 3.8 06/29/17 04:07: White Blood Count 6.3, Red Blood Count 4.96, Hemoglobin 15.4, Hematocrit 46, Mean Corpuscular Volume 92, Mean Corpuscular Hemoglobin 31, Mean Corpuscular Hemoglobin Concent 34, Red Cell Distribution Width 13.0, Platelet Count 170, Mean Platelet Volume 10.7H, Neutrophils (%) (Auto) 61, Lymphocytes (%) (Auto) 25 , Monocytes (%) (Auto) 11, Eosinophils (%) (Auto) 4, Basophils (%) (Auto) 0, Neutrophils # (Auto) 3.8, Lymphocytes # (Auto) 1.6, Monocytes # (Auto) 0.7, Eosinophils # (Auto) 0.2, Basophils # (Auto) 0.0, Sodium Level 142, Potassium Level 3.8, Chloride Level 114H, Carbon Dioxide Level 19L, Anion Gap 9, Blood Urea Nitrogen 16, Creatinine 1.05, Estimat Glomerular Filtration Rate > 60, BUN/ Creatinine Ratio 15, Glucose Level 108H, Calcium Level 8.7, Total Bilirubin 0.4 , Aspartate Amino Transf (AST/SGOT) 10, Alanine Aminotransferase (ALT/SGPT) 13, Alkaline Phosphatase 102, Total Protein 5.9L, Albumin 3.4, Phosphorus Level 2.8 , Magnesium Level 2.0, Digoxin Level < 0.30L Assessment/Plan Assessment/Plan Assessment/Plan 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 Follow up with Dr. Pan in 1 week Gastritis. Patient to be treated out patient with Protonix 40 mg PO Pin worm infection. Mebendazole 100mg bid x 3 day. Follow up with Dr. Brown in 2 weeks Stephanie- Patient states feeling okay but just slightly off. He is alert and oriented. Patient with family at bedside. No seizure overnight, but just slightly shaky. Denies n/v fever sweats chills shortness of breath or chest pain. Wanting to go home. General no acute distress heart reg lungs nonlabored abdomen soft nontender no organomegaly ext nontender alert and oriented to person place time assessment and plan as above discussed with him and his that need follow up with pcp within 1 week, and would likely need neurology follow up. Diagnosis/Problems Diagnosis/Problems (1) Post procedural seizure Assessment & Plan: Restart Topiramate and observe overnight. Clinical Quality Measures DVT/VTE Risk/Contraindication: Risk Factor Score Per Nursin RFS Level Per Nursing on Admit: 3=High SANDRA BARRIENTOS APRN Jun 29, 2017 9:10 am DENA BROWN DO Jun 29, 2017 9:43 am
[2017-06-29] MEDS ORDERED: DIAZEPAM 2 MG (VALIUM) TAB PO ONE (09:43)
[2017-06-29 10:15] VITALS: BP 100/59
--- NOTE | 2017-06-29 10:41 | OPERATIVE REPORT ---
PROCEDURE PHYSICIAN: DENA WOO DATE OF PROCEDURE: 06/28/2017 PREOPERATIVE DIAGNOSIS: Dysphagia, history of colon polyps. POSTOPERATIVE DIAGNOSES: 1. Gastritis. 2. Colonic parasite. PROCEDURE: 1. EGD with biopsies. 2. Colonoscopy. ANESTHESIA: Per HEATING OPERATORS ENGINEER. SURGEON: Stephanie. ESTIMATED BLOOD LOSS: None. COMPLICATIONS: Postoperative seizure. SPECIMEN: Colonic parasite. INDICATIONS: The patient is a 42-year-old male who has a history of colon polyps and been having some dysphagia recently. He understands the risks and benefits of EGD and colonoscopy. He wished to proceed with the procedure. Consent was signed on chart. PROCEDURE: The patient was taken to the endoscopy suite, placed in left lateral recumbent position. Timeout was performed. The scope was then inserted in the mouth, down the esophagus, stomach and into the duodenum without difficulty. There were no polyps, masses, ulcerations within the duodenum. The scope was slowly retracted back into the stomach which was further insufflated . Some slight erythematous changes present; one in the antrum. Biopsy of antrum was obtained. The scope was then also retroflexed noting no other pathology. The scope was returned its normal position slowly withdrawn in the distal esophagus, which had no polyps, masses or ulcerations. The scope was slowly retracted back until removed noting no other pathology. COLONOSCOPY: Digital rectal exam was performed. There were no palpable polyps, masses, or ulcerations. The scope was inserted in the rectum and within the rectal area a small parasite present appears to be a pinworm possibly. This was suctioned up and sent for specimen. The scope was then continued to be advanced all way to the cecum with minimal difficulty. Prep was adequate with irrigation and suction. The scope was then slowly retracted back. There were no polyps, masses ulceration in the cecum, ascending, transverse, descending, sigmoid colon and rectum. Once in the rectum, the scope was also retroflexed noting no other pathology. The scope was returned to its normal position slowly withdrawn until completely removed. The patient was treated with mebendazole 100 mg p.o. b.i.d. for 3 days. The patient will also be started on Protonix 40 mg daily. The patient was also recommended to have family call the primary care provider to be treated as well with the mebendazole. Postoperative the patient had two seizures. The patient is being admitted to the ICU for continued observation and treatment. Dr. Pan and Dr. Villarreal were both contacted. The patient was placed on seizure precautions. The patient is being admitted for seizure post procedure for medical management. Job ID: [id number] Dictated Date: 06/28/2017 15:35:25 Senior Program Analyst Date: 06/29/2017 10:29:15 / mino
== END 2017-06-29 10:15 | disposition home or self-care (01) ==
LOC: ENDO 12:04 → ICU 13:50 → ENPENDDIS 06-29 11:00
PROVIDERS: ADMIT Surgery; ATTEND Family Medicine
DX: G40.909 Epilepsy, unspecified, not intractable, without status epilepticus (principal); K29.70 Gastritis, unspecified, without bleeding; B80 Enterobiasis; E78.00 Pure hypercholesterolemia, unspecified; I10 Essential (primary) hypertension; N31.9 Neuromuscular dysfunction of bladder, unspecified; F41.9 Anxiety disorder, unspecified; F17.210 Nicotine dependence, cigarettes, uncomplicated; Z79.899 Other long term (current) drug therapy; Z86.010 Personal history of colon polyps
CPT/HCPCS: 36415; 80053; 80162; 83735; 84100; 85025; 87081; 88305; 99211; G0378

== ENCOUNTER 2018-06-20 17:20 | Emergency (ER) | payer MEDICAID ==
[~2018-06-20] VITALS: Ht 177.8 cm; Wt 88.5 kg
[~2018-06-20 17:20] MED LIST changes: +ACHD5005 PO; -HYDR-3812 PO; +MEBE100T12 PO; +NAPR-1071 PO; -NAPR500T PO
--- OUTSIDE RECORDS SUMMARY | 2018-06-20 17:26 | XMS REPORT ---
Author Author [facility] Medical Staff Organization [facility] Address [address] [place], [place] [address] Phone [phone] Summary purpose CCDA Sent to [facility] Chief Complaint and Reason for Visit Admit Diagnosis 1 right sided groin pain Problem list No authorized problems tracked for continuity of care are available for this visit. Encounters No authorized problems tracked for encounter diagnoses are available for this visit. Medications No medications recorded for this patient visit Allergies, adverse reactions, alerts No allergy information is available for this patient. Immunizations No immunizations recorded for this patient visit Relevant diagnostic tests and/or laboratory data No authorized results are available for this patient visit History of procedures Procedure Code Code Type Description Date Performed Performing Physician 71971 CPT-4 COMPREHEN METABOLIC PANEL 07-28-2017 JEYSON KAHN 89237 CPT-4 COMPLETE CBC W/AUTO DIFF WBC 07-28-2017 JEYSON KAHN J1885 CPT-4 KETOROLAC TROMETHAMINE INJ 07-28-2017 JEYSON KAHN J7030 CPT-4 INFUSION, NS, 1000 CC 07-28-2017 JEYSON KAHN 14936 CPT-4 CT ABD & PELVIS W/O CONTRAST 07-28-2017 JEYSON KAHN 07434 CPT-4 URINALYSIS, AUTO W/SCOPE 07-28-2017 JEYSON KAHN 91600 CPT-4 DRUG TEST PRSMV DIR OPT OBS 07-28-2017 JEYSON KAHN 96219 CPT-4 US EXAM, SCROTUM 07-28-2017 JEYSON KAHN J0696 CPT-4 CEFTRIAXONE SODIUM INJECTION 07-28-2017 JEYSON KAHN J7050 CPT-4 NS SOLUTION 250 CC INFUSION 07-28-2017 JEYSON KAHN 11343 CPT-4 THER/PROPH/DIAG IV INF, INIT 07-28-2017 JEYSON KAHN 57612 CPT-4 EMERGENCY DEPT VISIT 07-28-2017 JEYSON KAHN 43462 CPT-4 TX/PRO/DX INJ NEW DRUG ADDON 07-28-2017 JEYSON KAHN 66746 CPT-4 CHYLMD TRACH, DNA, AMP PROBE 07-28-2017 JEYSON KAHN 89997 CPT-4 N.GONORRHOEAE, DNA, AMP PROB 07-28-2017 JEYSON KAHN Functional status No functional or cognitive status observations are available for this visit. Vital signs No authorized vital signs are available for this visit. Social history No Social History or smoking status observations were recorded for this visit. ( Unknown if ever smoked.) Treatment Plan No treatment plan text is available for this visit. Hospital discharge instructions No discharge instruction text is available for this visit.
--- OUTSIDE RECORDS SUMMARY | 2018-06-20 17:26 | XMS REPORT ---
Author Author [facility] Medical Staff Organization [facility] Address [address] [id number] Phone [phone] Care Team Providers Care Registered Associate Name Role Phone JEYSON ALEGRIA PP [phone] Summary purpose CCDA Sent to [facility] Chief Complaint and Reason for Visit No authorized Reason for Visit (Admitting Diagnosis) is available for this visit. Problem list No authorized problems tracked for [...] Code Type Description Date Performed Performing Physician 40119 CPT-4 EMERGENCY DEPT VISIT 08-11-2017 JEAN MARIE HAYES Functional status No functional or cognitive status [...]
--- OUTSIDE RECORDS SUMMARY | 2018-06-20 17:26 | XMS REPORT ---
Author Author [facility] Medical Staff Organization [facility] Address [address] [place] [id number] Phone [phone] Care Team Providers Care Licensing Court Magistrate Name Role Phone FEMI NOÉ JEYSON PP [phone] Summary purpose CCDA Sent to [facility] Chief Complaint and Reason for Visit Admit Diagnosis 1 neck pain Problem list No authorized problems tracked [...] Code Type Description Date Performed Performing Physician 35136 CPT-4 X-RAY EXAM OF NECK SPINE 08-23-2017 JEYSON KAHN 84936 CPT-4 EMERGENCY DEPT VISIT 08-23-2017 JEYSON KAHN Functional status No functional or [...]
--- OUTSIDE RECORDS SUMMARY | 2018-06-20 17:26 | XMS REPORT | Clinical Summary ---
Author Author [facility] Organization [facility] Address Unknown Phone Unavailable Care Team Providers Care Java Jsf Developer Name Role Phone PattersonCarly renee NOÉ PCP Melissa López MD Unavailable Ashley Grant MD Unavailable Aguila Gray RN Unavailable Unavailable Source Comments Some departments are not documenting in the electronic medical record. If you do not see the information that you expected, contact Release of Information in the Health Information Management department at [phone] for further assistance in locating additional records.[facility] Allergies Active Allergy Reactions Severity Noted Date Comments Clarithromycin VOMITING Low 04/19/2016 Levetiracetam SEE COMMENTS Low 04/19/2016 Hypertension and passing out Morphine HIVES Medium 04/19/2016 Sulfa (Sulfonamide VOMITING Low 04/19/2016 Antibiotics) Current Medications Prescription Sig. Disp. Refills [...] mg tablet fluticasone (FLONASE) 50 Apply 1 Bigler to each Active mcg/actuation nasal spray nostril as directed daily as needed. Active Problems Problem Noted Date Nonepileptic episode ([facility]) 06/21/2016 Convulsions ([facility]) 06/21/2016 Family History Relation Name Status Comments Father Mother Social History Tobacco Use Types Packs/Day Years Used Date Current Every Day Smoker Tobacco Cessation: Ready to Quit: Yes; Counseling Given: No Sex Assigned at Date Recorded Not on file Last Filed Vital Signs Vital Sign Reading Time Taken Blood Pressure 128/80 10/04/2016 11:35 AM [employer] Pulse 69 10/04/2016 10:36 AM [employer] [employer] Temperature 36.5 C (97.7 F) 10/04/2016 10:36 AM [employer] [employer] Respiratory Rate 18 10/04/2016 10:36 AM [employer] [employer] Oxygen Saturation 100% 10/04/2016 11:35 AM MANA[facility] [employer] Inhaled Oxygen - - Concentration Weight 98.4 kg (217 lb) 10/04/2016 10:36 AM MANA[facility] [employer] Height 177.8 cm (5' 10") 10/04/2016 10:36 AM MANA[facility] [employer] Body Mass Index 31.14 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
--- OUTSIDE RECORDS SUMMARY | 2018-06-20 17:26 | XMS REPORT ---
Author Author [facility] Medical Staff Organization [facility] Address [address] [place] [id number] Phone [phone] Summary purpose CCDA Sent to [facility] Chief Complaint and Reason for Visit No [...] Code Type Description Date Performed Performing Physician 50121 CPT-4 EMERGENCY DEPT VISIT 07-28-2017 JEYSON KAHN Functional status No functional [...]
--- OUTSIDE RECORDS SUMMARY | 2018-06-20 17:27 | XMS REPORT ---
Author Author ANN GARY Organization [facility] [place] Address [address] [place] [address] Care Team Providers Care Gear Nicker Name Role Phone GARYVALERIANO HaywoodELE Unavailable PROBLEMS Type Condition ICD9-CM Code CNC82-CZ Code Onset Dates Condition Status SNOMED Code Problem Anxiety F41.9 Active 80359656 Problem Epilepsy G40.909 Active 78743109 Problem 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 Active 246143512 Problem Dyslipidemia (high LDL; low HDL) E78.5 Active 328227585 Problem COPD (chronic obstructive pulmonary disease) J44.9 Active 36799319 Problem HTN (hypertension) I10 Active 76778267 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 452244144 Problem Tobacco abuse counseling Z71.6 Active 044200630 Problem Protrusion of cervical intervertebral disc M50.20 Active 901221041 Problem Chronic pain G89.29 Active 04752477 Problem Tobacco abuse Z72.0 Active 460917989 Problem Overweight (BMI 25.0-29.9) E66.3 Active 826522894 ALLERGIES No Information ENCOUNTERS Encounter Location Date Diagnosis [facility] [place] [address] [place] [address] 06583- 8504 March, Adverse effect of drug, subsequent encounter T88.7XXD ; HTN (hypertension) I10 ; Dyslipidemia (high LDL; low HDL) E78.5 ; Chronic pain G89.29 ; Anxiety F41.9 and 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 [facility] [place] [address] [place] [address] 74635- 9399 March, 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 [facility] [place] [address] [place] [address] 15805- 9869 March, [facility] [place] [id number] [place] [address] 98160- 4371 Feb, [place] [id number] [place] [address] 26975- 4952 Feb, HTN (hypertension) I10 ; COPD (chronic obstructive pulmonary disease) J44.9 ; Overweight (BMI 25.0-29.9) E66.3 and Epilepsy G40.909 [place] [address] 91279- 3035 Feb, HTN (hypertension) I10 ; COPD (chronic obstructive pulmonary disease) J44.9 ; Anxiety F41.9 ; Overweight (BMI 25.0-29.9) E66.3 ; Epilepsy G40.909 ; 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 ; Protrusion of cervical intervertebral disc M50.20 ; Tobacco abuse counseling Z71.6 and Tobacco abuse Z72.0 [place] [address] 33930- 5657 Feb, Chronic pain G89.29 [place] [address] 93427- 9116 Jan, Chronic pain G89.29 [place] [address] 52481- 5264 Dec, Epilepsy G40.909 [place] [address] 02388- 7976 05 Dec, 2017 Chronic pain G89.29 [place] [address] 83598- 6274 Nov, [place] [address] [id number] [place] [address] 72917- 2582 Nov, Anxiety F41.9 [place] [address] 55678- 0319 Oct, HTN (hypertension) I10 ; COPD (chronic obstructive pulmonary disease) J44.9 ; Epilepsy G40.909 ; Chronic pain G89.29 ; Anxiety F41.9 ; Overweight (BMI 25.0-29.9) E66.3 ; Tobacco abuse Z72.0 ; Tobacco abuse counseling Z71.6 ; High risk medication use Z79.899 and Controlled substance agreement signed Z79.899 [place] [address] 71277- 1059 Oct, 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 [place] [address] 84011- 5041 Oct, 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 [place] [address] 88619- 3468 Sep, [place] [address] 775602- 1614 Sep, [place] [address] 64736- 1621 Aug, 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 [place] [address] 56736- 3818 Jul, 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 and Anxiety F41.9 [place] [address] 59438- 2806 Jun, 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 and Anxiety F41.9 [place] [address] 75116- 8471 Jun, 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 [facility] [address] 22834 -5612 Jun, Acute swimmers ear of right side H60.331 [place] [address] 68594- 9061 Jun, 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 and Anxiety F41.9 [place] [address] 34956- 3441 May, 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 and Anxiety F41.9 [facility] [id number] [place] [address] 42982 -5525 May, COPD exacerbation J44.1 [place] [address] 62073- 2918 May, 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 [facility] [place] [address] 49499- 1297 Apr, [facility] [place] [address] 68419- 1607 Apr, [place] [address] 02925- 3487 Apr, 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 and Anxiety F41.9 [place] [address] 51918- 0364 March, Anxiety F41.9 and 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 [place] [address] 35154- 0171 March, HTN (hypertension) I10 ; Anxiety F41.9 ; 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 ; 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 ; Neck pain M54.2 ; Globus sensation F45.8 and COPD (chronic obstructive pulmonary disease) J44.9 [place] [id number] [place] [address] 19038- 5742 Feb, [facility] [place] [address] 55369- 2634 Feb, HTN (hypertension) I10 [facility] [address] 77843 -1888 13 Feb, 2017 Acute nasopharyngitis (common cold) J00 [facility] [place] [address] 01179- 5023 11 Feb, 2017 Anxiety F41.9 and 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 [facility] [place] [address] 99783- 3820 04 Feb, 2017 Bronchitis J40 [facility] [place] [id number] [place] [address] 75916- 2161 13 Jan, 2017 Anxiety F41.9 and 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 [facility] [place] [address] 58086- 8703 09 Jan, 2017 Anxiety F41.9 [facility] [address] 97140 -3029 20 Dec, 2016 Viral pharyngitis J02.9 [facility] [place] [address] 57765- 1665 15 Dec, 2016 HTN (hypertension) I10 [facility] [place] [address] 59393- 2764 14 Dec, 2016 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 and HTN (hypertension) I10 [facility] [address] 51172 -3107 10 Dec, 2016 Abscess L02.91 [place] [address] 31629- 6069 08 Dec, 2016 Anxiety F41.9 and 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 [place] [address] 74700- 7743 Nov, Incontinence R32 [place] [address] 77672- 0796 Nov, Anxiety F41.9 and 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 [place] [address] 72685- 5913 Nov, Incontinence R32 [place] [address] 78227- 5366 09 Nov, 2016 Excessive thirst R63.1 [place] [address] 43845- 1047 05 Ramsey, 2017 Excessive thirst R63.1 [place] [address] [id number] [place] [address] 70177- 5143 Nov, HTN (hypertension) I10 ; Anxiety F41.9 ; COPD (chronic obstructive pulmonary disease) J44.9 ; 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 ; Epilepsy G40.909 ; 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 ; Neck pain M54.2 ; Other viral agents as the cause of diseases classified elsewhere B97.89 ; Acute upper respiratory infection, unspecified J06.9 ; Chronic intractable headache, unspecified headache type R51 and Hypercholesterolemia E78.00 [place] [address] 11851- 6098 Oct, [place] [address] 19233- 4282 Oct, [place] [address] 76951- 3721 Sep, [place] [address] 31202- 7356 Sep, [facility] [address] [place] [id number] [place] [address] 77714 -1283 Sep, Cough R05 ; Wheezing R06.2 ; Oropharyngeal dysphagia R13.12 and Exposure to strep throat Z20.818 [place] [id number] [place] [address] 95419- 9754 Sep, [place] [address] 53526- 6211 Sep, [place] [address] [id number] [place] [address] 85212- 2881 Aug, [place] [address] 76202- 6993 Aug, [place] [address] [id number] [place] [address] 13289- 0772 16 Jul, 2016 [facility] [address] [place] [address] -8277 14 Jul, 2016 Bronchitis J40 [place] [address] 35477- 3903 06 Jul, 2016 [place] [address] 07241- 4592 Jun, HTN (hypertension) I10 ; Anxiety F41.9 ; Epilepsy G40.909 ; COPD (chronic obstructive pulmonary disease) J44.9 ; 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 and 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 [place] [address] [id number] [place] [address] 93657- 4095 Jun, [place] [address] 04120- 9986 Jun, HTN (hypertension) I10 ; Anxiety F41.9 ; Epilepsy G40.909 ; COPD (chronic obstructive pulmonary disease) J44.9 ; 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 and 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 [place] [address] 28258- 1758 May, [place] [address] 79769- 0139 Apr, Anxiety disorder, unspecified F41.9 and Shoulder pain, left M25.512 [place] [address] [id number] [place] [address] 62206- 0942 March, Anxiety disorder, unspecified F41.9 and Degenerative joint disease (DJD) of lumbar spine M47.816 [place] [address] [place] [id number] [place] [address] 99156- 6962 March, Sore throat in the morning J02.9 [place] [address] [id number] [place] [address] 58558- 1565 14 Feb, 2016 [facility] [id number] [place] [address] 56925 -1695 Feb, Right foot injury, initial encounter S99.921A and Oral nayan B37.0 [facility] [place] [address] 34287- 7333 05 Feb, 2016 [place] [address] 96391- 0090 Jan, HTN (hypertension) I10 ; COPD (chronic obstructive pulmonary disease) J44.9 ; Chronic pain G89.29 and Epilepsy G40.909 [facility] [address] 43204 -6746 Jan, Sore throat J02.9 and Thrush B37.0 [place] [address] 52259- 5712 16 Jan, 2016 Chronic pain G89.29 ; HTN (hypertension) I10 ; Anxiety F41.9 ; 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 ; Protrusion of cervical intervertebral disc M50.20 and Shoulder pain, left M25.512 [place] [address] 05224- 5560 Jan, [place] [address] 25077- 3254 Jan, [place] [address] 57498- 8180 Jan, HTN (hypertension) I10 ; Anxiety F41.9 ; COPD (chronic obstructive pulmonary disease) J44.9 ; 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 ; Incontinence R32 ; Epilepsy G40.909 ; 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 and Neck pain M54.2 [place] [address] 30213- 1615 Jan, Anxiety F41.9 [place] [address] 41455- 9732 Dec, HTN (hypertension) I10 ; Epilepsy G40.909 and 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 [place] [address] 10407- 9233 Dec, [facility] [place] [address] [address]- 4347 Dec, Anxiety F41.9 ; HTN (hypertension) I10 ; COPD (chronic obstructive pulmonary disease) J44.9 ; 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 and Incontinence R32 [facility] [place] [address] [address]- 4640 Dec, [id number] [address] Dec [facility] [place] [id number] [place] [address] 17210- 6843 Nov, [facility] [place] [id number] [place] [address] 14715- 2090 Nov, [facility] [place] [id number] [place] [address] 63827- 8218 Nov, [facility] [address] [place] [address] 92934 -1632 Nov, Pharyngitis J02.9 and Allergic rhinitis J30.9 [facility] [place] [id number] [place] [address] 68818- 4121 Nov, Degenerative joint disease (DJD) of lumbar spine M47.816 ; Cervicalgia M54.2 ; Lumbago 724.2 and Lumbago of lumbar region with sciatica M54.5 [place] [address] [place] [address] 18944- 7385 Nov, Degenerative joint disease (DJD) of lumbar spine M47.816 [facility] [place] [id number] [place] [address] 77902- 5585 Oct, Generalized anxiety disorder F41.1 [facility] [place] [address] [place] [address] 55098- 0151 Oct, Cervicalgia M54.2 ; Degenerative joint disease (DJD) of lumbar spine M47.816 and Hypertension I10 [facility] [place] [id number] [place] [address] 57428- 0497 Oct, [facility] [id number] [place] [address] 91197 -4862 Oct, Essential (primary) hypertension I10 [facility] [place] [id number] [place] [address] 21981- 7781 Oct, [facility] [place] [id number] [place] [address] 31790- 3287 Sep, Allergic rhinitis J30.9 ; Generalized anxiety disorder F41.1 and Shoulder pain, left M25.512 [facility] [place] [id number] [place] [address] 25383- 7594 Sep, [facility] [place] [id number] [place] [address] 09213- 5681 Aug, Cough R05 [facility] [place] [id number] [place] [address] 64773- 2211 Aug, Generalized anxiety disorder F41.1 [facility] [place] [id number] [place] [address] 69499- 9194 Aug, Cough R05 [facility] [place] [id number] [place] [address] 39447- 3443 Aug, [facility] [place] [id number] [place] [address] 44812- 9485 Aug, [facility] [place] [id number] [place] [address] 92278- 3923 Aug, Lumbago of lumbar region with sciatica M54.5 [facility] [place] [id number] [place] [address] 02725- 2189 Jul, Lumbago 724.2 [facility] [place] [id number] [place] [address] 54646- 2044 Jul, [facility] [place] [address] [address]- 3614 16 Jul, 2015 Anxiety 300.00 and Hypertension 401.9 [facility] [place] [address] [address]- 7315 11 Jul, 2015 Generalized anxiety disorder 300.02 [facility] [place] [address] [address]- 4715 09 Jul, 2015 Nodule of neck 784.2 [place] [id number] [place] [address] 18090- 5210 Jun, Nodule of neck 784.2 [place] [address] [place] [address] 94895- 1498 Jun, [place] [address] [place] [address] 59807- 8136 Jun, Routine adult health maintenance V70.0 [place] [address] [place] [address] 77027- 8859 Jun, Routine adult health maintenance V70.0 ; Anxiety 300.00 ; Epilepsy 345.90 ; Hypertension 401.9 and Urinary incontinence 788.30 IMMUNIZATIONS No Known Immunizations SOCIAL HISTORY Never Assessed REASON FOR VISIT Requesting refill. PLAN OF CARE VITAL SIGNS MEDICATIONS Medication Instructions Dosage Frequency Start Date End Date Duration Status Topamax 50 mg Orally Twice a day 2 tablet 12h 90 days Active RESULTS No Results PROCEDURES No Known procedures INSTRUCTIONS MEDICATIONS ADMINISTERED No Known Medications MEDICAL (GENERAL) HISTORY Type Description Date Medical History epilepsy Medical History hypertension Medical History anxiety Medical History bladder incontinence Medical History Pneumonia, unspecified organism Medical History slipped discs in back Medical History Pseudoseizures Medical History Incontinence Surgical History discectomy--L5-S1 2006 Surgical History laminectomy--L5-S1 2005 Surgical History spinal fusion--L5-S1 2006 Surgical History cholecystectomy 2008 Surgical History exploratory laparoscopy 2007 Hospitalization History Pneumonia 08/2015 Hospitalization History after colonscopy had seizures- ICU x2 days 06/2017
--- OUTSIDE RECORDS SUMMARY | 2018-06-20 17:27 | XMS REPORT ---
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 Name Role Phone GARYVALERIANO HaywoodELE Unavailable PROBLEMS Type Condition ICD9-CM Code PSU99-MQ Code Onset Dates Condition Status SNOMED Code Problem Anxiety F41.9 Active 61722900 Problem Epilepsy G40.909 Active 37585848 Problem 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 Active 868196799 Problem Dyslipidemia (high LDL; low HDL) E78.5 Active 286158349 Problem COPD (chronic obstructive pulmonary disease) J44.9 Active 50577590 Problem HTN (hypertension) I10 Active 50899282 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 453581844 Problem Tobacco abuse counseling Z71.6 Active 656680952 Problem Protrusion of cervical intervertebral disc M50.20 Active 402484393 Problem Chronic pain G89.29 Active 69502697 Problem Tobacco abuse Z72.0 Active 126568900 Problem Overweight (BMI 25.0-29.9) E66.3 Active 280541730 ALLERGIES No Information ENCOUNTERS Encounter Location Date Diagnosis [place] [id number] [place] [address] 03060- 6484 Jun, [facility] [address] [id number] [place] [address] 75004- 9261 May, Chronic pain G89.29 [facility] [id number] [place] [address] 98444- 0852 March, Adverse effect of drug, subsequent encounter T88.7XXD ; HTN (hypertension) I10 ; Dyslipidemia (high LDL; low HDL) E78.5 ; Chronic pain G89.29 ; Anxiety F41.9 and 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 [facility] [id number] [place] [address] 54944- 3077 March, 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 [facility] [id number] [place] [address] 89254- 3179 March, [facility] [id number] [place] [address] 38252- 7715 Feb, [facility] [id number] [place] [address] 92685- 8178 Feb, HTN (hypertension) I10 ; COPD (chronic obstructive pulmonary disease) J44.9 ; Overweight (BMI 25.0-29.9) E66.3 and Epilepsy G40.909 [facility] [id number] [place] [address] 09849- 7714 Feb, HTN (hypertension) I10 ; COPD (chronic obstructive pulmonary disease) J44.9 ; Anxiety F41.9 ; Overweight (BMI 25.0-29.9) E66.3 ; Epilepsy G40.909 ; 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 ; Protrusion of cervical intervertebral disc M50.20 ; Tobacco abuse counseling Z71.6 and Tobacco abuse Z72.0 [facility] [id number] [place] [address] 92849- 0642 Feb, Chronic pain G89.29 [facility] [id number] [place] [address] 07414- 4506 Jan, Chronic pain G89.29 [facility] [id number] [place] [address] 79760- 4026 Dec, Epilepsy G40.909 [facility] [id number] [place] [address] 01188- 7818 05 Dec, 2017 Chronic pain G89.29 [facility] [id number] [place] [address] 64784- 9453 Nov, [facility] [id number] [place] [address] 83599- 1665 Nov, Anxiety F41.9 [facility] [address] 04393- 1116 Oct, HTN (hypertension) I10 ; COPD (chronic obstructive pulmonary disease) J44.9 ; Epilepsy G40.909 ; Chronic pain G89.29 ; Anxiety F41.9 ; Overweight (BMI 25.0-29.9) E66.3 ; Tobacco abuse Z72.0 ; Tobacco abuse counseling Z71.6 ; High risk medication use Z79.899 and Controlled substance agreement signed Z79.899 [place] [address] 82501- 5980 Oct, 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 [place] [address] 15287- 1106 Oct, 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 [place] [address] 97173- 5547 Sep, [place] [address] 39001- 8048 Sep, [place] [address] 38432- 2584 Aug, 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 [place] [address] 10659- 5719 Jul, 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 and Anxiety F41.9 [place] [address] 90932- 6669 Jun, 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 and Anxiety F41.9 [place] [address] 94762- 9942 Jun, 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 [facility] [address] 11173 -9835 Jun, Acute swimmers ear of right side H60.331 [place] [address] 44353- 6902 Jun, 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 and Anxiety F41.9 [facility] [id number] [place] [address] 02975- 6304 May, 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 and Anxiety F41.9 [facility] [id number] [place] [address] 01557 -1748 May, COPD exacerbation J44.1 [facility] [address] 52343- 0226 May, 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 [place] [address] [id number] [place] [address] 35910- 8581 Apr, [place] [address] 54130- 7337 Apr, [place] [address] 86332- 3372 Apr, 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 and Anxiety F41.9 [facility] [id number] [place] [address] 02204- 7723 March, Anxiety F41.9 and 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 [place] [address] [id number] [place] [address] 27862- 7345 March, HTN (hypertension) I10 ; Anxiety F41.9 ; 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 ; 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 ; Neck pain M54.2 ; Globus sensation F45.8 and COPD (chronic obstructive pulmonary disease) J44.9 [facility] [id number] [place] [address] 71240- 3010 Feb, [facility] [address] 56695- 0619 Feb, HTN (hypertension) I10 [facility] [id number] [place] [address] 36650 -3549 Feb, Acute nasopharyngitis (common cold) J00 [facility] [address] 10276- 4582 11 Feb, 2017 Anxiety F41.9 and 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 [facility] [address] 23556- 0164 04 Feb, 2017 Bronchitis J40 [facility] [address] 18728- 5911 13 Jan, 2017 Anxiety F41.9 and 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 [place] [address] 70332- 4373 09 Jan, 2017 Anxiety F41.9 [facility] [address] 38702 -8100 20 Dec, 2016 Viral pharyngitis J02.9 [place] [address] 16351- 2114 15 Dec, 2016 HTN (hypertension) I10 [facility] [address] 25664- 2707 14 Dec, 2016 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 and HTN (hypertension) I10 [facility] [address] 48870 -8037 10 Dec, 2016 Abscess L02.91 [place] [address] 12054- 5812 08 Dec, 2016 Anxiety F41.9 and 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 [facility] [address] 00577- 3983 16 Nov, 2016 Incontinence R32 [place] [address] 25563- 1944 Nov, Anxiety F41.9 and 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 [facility] [address] 32452- 3855 Nov, Incontinence R32 [place] [address] [id number] [place] [address] 26376- 1499 Nov, Excessive thirst R63.1 [facility] [address] 13283- 1974 Nov, Excessive thirst R63.1 [place] [address] [id number] [place] [address] 64027- 2134 Nov, HTN (hypertension) I10 ; Anxiety F41.9 ; COPD (chronic obstructive pulmonary disease) J44.9 ; 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 ; Epilepsy G40.909 ; 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 ; Neck pain M54.2 ; Other viral agents as the cause of diseases classified elsewhere B97.89 ; Acute upper respiratory infection, unspecified J06.9 ; Chronic intractable headache, unspecified headache type R51 and Hypercholesterolemia E78.00 [place] [address] [id number] [place] [address] 31528- 2287 Oct, [facility] [address] 40262- 3941 Oct, [place] [address] 21815- 7402 Sep, [place] [address] [id number] [place] [address] 84782- 1829 Sep, [facility] [id number] [place] [address] 42313 -1626 Sep, Cough R05 ; Wheezing R06.2 ; Oropharyngeal dysphagia R13.12 and Exposure to strep throat Z20.818 [facility] [address] [id number] [place] [address] 54329- 1360 Sep, [facility] [address] [id number] [place] [address] 71622- 3911 Sep, [facility] [address] [id number] [place] [address] 33397- 7340 Aug, [facility] [address] [id number] [place] [address] 74345- 3379 18 Aug, 2016 [facility] [id number] [place] [address] 22819- 4312 16 Jul, 2016 [facility] [id number] [place] [address] 43937 -0981 14 Jul, 2016 Bronchitis J40 [place] [address] 12691- 4022 06 Jul, 2016 [facility] [address] [id number] [place] [address] 06151- 4480 Jun, HTN (hypertension) I10 ; Anxiety F41.9 ; Epilepsy G40.909 ; COPD (chronic obstructive pulmonary disease) J44.9 ; 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 and 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 [place] [address] [id number] [place] [address] 56332- 6265 Jun, [place] [address] [place] [id number] [place] [address] 15905- 1788 Jun, HTN (hypertension) I10 ; Anxiety F41.9 ; Epilepsy G40.909 ; COPD (chronic obstructive pulmonary disease) J44.9 ; 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 and 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 [place] [address] [id number] [place] [address] 10947- 7904 May, [place] [address] [id number] [place] [address] 57550- 6953 Apr, Anxiety disorder, unspecified F41.9 and Shoulder pain, left M25.512 [place] [address] [id number] [place] [address] 21361- 3183 March, Anxiety disorder, unspecified F41.9 and Degenerative joint disease (DJD) of lumbar spine M47.816 [place] [address] [id number] [place] [address] 94730- 7632 March, Sore throat in the morning J02.9 [place] [address] [id number] [place] [address] 15923- 0123 14 Feb, 2016 [facility] [place] [address] 22533 -2460 13 Feb, 2016 Right foot injury, initial encounter S99.921A and Oral nayan B37.0 [place] [address] 16368- 6156 05 Feb, 2016 [place] [address] 45314- 0200 22 Jan, 2016 HTN (hypertension) I10 ; COPD (chronic obstructive pulmonary disease) J44.9 ; Chronic pain G89.29 and Epilepsy G40.909 [facility] [place] [address] 15769 -1978 Jan, Sore throat J02.9 and Thrush B37.0 [place] [address] 57549- 7692 16 Jan, 2016 Chronic pain G89.29 ; HTN (hypertension) I10 ; Anxiety F41.9 ; 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 ; Protrusion of cervical intervertebral disc M50.20 and Shoulder pain, left M25.512 [place] [address] [place] [id number] [place] [address] 57006- 2449 15 Jan, 2016 [place] [address] 03732- 2603 Jan, [place] [address] 47792- 4444 09 Jan, 2016 HTN (hypertension) I10 ; Anxiety F41.9 ; COPD (chronic obstructive pulmonary disease) J44.9 ; 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 ; Incontinence R32 ; Epilepsy G40.909 ; 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 and Neck pain M54.2 [place] [address] [id number] [place] [address] 72772- 5645 Jan, Anxiety F41.9 [place] [address] [place] [address] 89073- 2503 24 Dec, 2015 HTN (hypertension) I10 ; Epilepsy G40.909 and 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 [facility] [id number] [place] [address] 07229- 8567 18 Dec, 2015 [facility] [id number] [place] [address] 77765- 7463 Dec, Anxiety F41.9 ; HTN (hypertension) I10 ; COPD (chronic obstructive pulmonary disease) J44.9 ; 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 and Incontinence R32 [place] [address] [place] [id number] [place] [address] 33428- 4981 Dec, [place] [id number] [address] Dec [facility] [id number] [place] [address] 13453- 1349 Nov, [facility] [id number] [place] [address] 00920- 8663 Nov, [place] [address] [id number] [place] [address] 50363- 6063 Nov, [facility] [id number] [place] [address] 88352 -7407 Nov, Pharyngitis J02.9 and Allergic rhinitis J30.9 [facility] [address] [place] [address] 59993- 8594 Nov, Degenerative joint disease (DJD) of lumbar spine M47.816 ; Cervicalgia M54.2 ; Lumbago 724.2 and Lumbago of lumbar region with sciatica M54.5 [facility] [address] [place] [address] 23866- 6196 06 Nov, 2015 Degenerative joint disease (DJD) of lumbar spine M47.816 [facility] [address] [place] [id number] [place] [address] 57963- 4978 Oct, Generalized anxiety disorder F41.1 [facility] [id number] [place] [address] 94262- 3477 Oct, Cervicalgia M54.2 ; Degenerative joint disease (DJD) of lumbar spine M47.816 and Hypertension I10 [facility] [id number] [place] [address] 36282- 5520 Oct, [facility] [address] 28350 -6355 Oct, Essential (primary) hypertension I10 [facility] [address] 81089- 6007 Oct, [facility] [id number] [place] [address] 43462- 0059 Sep, Allergic rhinitis J30.9 ; Generalized anxiety disorder F41.1 and Shoulder pain, left M25.512 [facility] [id number] [place] [address] 71965- 1266 Sep, [facility] [address] 46320- 5127 Aug, Cough R05 [facility] [id number] [place] [address] 21193- 5878 Aug, Generalized anxiety disorder F41.1 [facility] [id number] [place] [address] 25402- 0592 Aug, Cough R05 [facility] [id number] [place] [address] 56280- 2301 Aug, [facility] [address] 31143- 0786 Aug, [facility] [id number] [place] [address] 72096- 9041 Aug, Lumbago of lumbar region with sciatica M54.5 [facility] [address] [place] [address]- 6048 Jul, Lumbago 724.2 [place] [id number] [place] [address] 22590- 5799 Jul, [facility] [id number] [place] [address] 60450- 5677 16 Jul, 2015 Anxiety 300.00 and Hypertension 401.9 [place] [address] [id number] [place] [address] 68690- 5663 11 Jul, 2015 Generalized anxiety disorder 300.02 [place] [address] [id number] [place] [address] 02721- 3866 09 Jul, 2015 Nodule of neck 784.2 [place] [address] [id number] [place] [address] 73417- 6693 Jun, Nodule of neck 784.2 [place] [address] [place] [id number] [place] [address] 92435- 0654 Jun, [place] [address] [id number] [place] [address] 31585- 7863 Jun, Routine adult health maintenance V70.0 [place] [id number] [place] [address] 68038- 7649 Jun, Routine adult health maintenance V70.0 ; Anxiety 300.00 ; Epilepsy 345.90 ; Hypertension 401.9 and Urinary incontinence 788.30 IMMUNIZATIONS No Known Immunizations SOCIAL HISTORY Never Assessed REASON FOR VISIT Controlled Med Refill PLAN OF CARE VITAL SIGNS MEDICATIONS Medication Instructions Dosage Frequency Start Date End Date Duration Status Oxycodone-Acetaminophen 7.5-325 MG Orally 2 times a day 1 tablet as needed 12h Jan, 28 days Active RESULTS No Results PROCEDURES No Known procedures INSTRUCTIONS MEDICATIONS ADMINISTERED No Known Medications MEDICAL (GENERAL) HISTORY Type Description Date Medical History epilepsy Medical History hypertension Medical History anxiety Medical History bladder incontinence Medical History Pneumonia, unspecified organism Medical History slipped discs in back Medical History Pseudoseizures Medical History Incontinence Surgical History discectomy--L5-S1 2005 Surgical History laminectomy--L5-S1 2005 Surgical History spinal fusion--L5-S1 2007 Surgical History cholecystectomy 2008 Surgical History exploratory laparoscopy 2007 Hospitalization History Pneumonia 08/2015 Hospitalization History after colonscopy had seizures- ICU x2 days 06/2017
--- OUTSIDE RECORDS SUMMARY | 2018-06-20 17:27 | XMS REPORT ---
Author Author GARYVALERIANO HaywoodELE Organization [facility] Address [address] [place] [address] Care Team Providers Care Supervisor [employer] Name Role Phone GARYANN Haywood Unavailable PROBLEMS Type Condition ICD9-CM Code IFM03-WH Code Onset Dates Condition Status SNOMED Code Problem Anxiety F41.9 Active 46443686 Problem Epilepsy G40.909 Active 75106863 Problem 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 Active 171537349 Problem Dyslipidemia (high LDL; low HDL) E78.5 Active 693375118 Problem COPD (chronic obstructive pulmonary disease) J44.9 Active 57584932 Problem HTN (hypertension) I10 Active 96656007 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 celexa ed Non Drug Allergy Oct, Active lyrica unknown Non Drug Allergy Oct, Active ENCOUNTERS Encounter Location Date Diagnosis [facility] [address] [facility] [id number] [address] March, Adverse effect of drug, subsequent encounter T88.7XXD ; HTN (hypertension) I10 ; Dyslipidemia (high LDL; low HDL) E78.5 ; Chronic pain G89.29 ; Anxiety F41.9 and 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 [facility] [address] [place] [id number] [place] [address]66[address] 9497 March, 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 [facility] [address] [address] March, [facility] [address] [address] Feb, [facility] [address] [address] Feb, HTN (hypertension) I10 ; COPD (chronic obstructive pulmonary disease) J44.9 ; Overweight (BMI 25.0-29.9) E66.3 and Epilepsy G40.909 [place] [address] [address] Feb, HTN (hypertension) I10 ; COPD (chronic obstructive pulmonary disease) J44.9 ; Anxiety F41.9 ; Overweight (BMI 25.0-29.9) E66.3 ; Epilepsy G40.909 ; 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 ; Protrusion of cervical intervertebral disc M50.20 ; Tobacco abuse counseling Z71.6 and Tobacco abuse Z72.0 [facility] [address] [address] Feb, Chronic pain G89.29 [facility] [id number] [place] [address]44- 9697 Jan, Chronic pain G89.29 [facility] [address] [id number] [place] [address] 93023- 9396 Dec, Epilepsy G40.909 [facility] [id number] [place] [address] 43346- 7791 05 Dec, 2017 Chronic pain G89.29 [facility] [address] 24[address]- [address] Nov, [facility] [address] 25[address]- 2404 Nov, Anxiety F41.9 [facility] [address] 00[address]- 4863 Oct, HTN (hypertension) I10 ; COPD (chronic obstructive pulmonary disease) J44.9 ; Epilepsy G40.909 ; Chronic pain G89.29 ; Anxiety F41.9 ; Overweight (BMI 25.0-29.9) E66.3 ; Tobacco abuse Z72.0 ; Tobacco abuse counseling Z71.6 ; High risk medication use Z79.899 and Controlled substance agreement signed Z79.899 [place] [address] [address] Oct, 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 [place] [address] 36340- 3274 Oct, 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 [place] [address] 18738- 4193 Sep, [place] [address] [address]76- 2690 Sep, [place] [address] 54558- 8907 Aug, 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 [place] [address] 52554- 0464 Jul, 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 and Anxiety F41.9 [place] [address] 35588- 9842 Jun, 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 and Anxiety F41.9 [place] [address] 16062- 8836 Jun, 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 [facility] [address] [address]27[address] 09 Jun, 2017 Acute swimmers ear of right side H60.331 [place] [address] 67254- 9626 Jun, 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 and Anxiety F41.9 [facility] [id number] [place] [address] 58849- 4371 May, 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 and Anxiety F41.9 [facility] [id number] [place] [address]32 May, COPD exacerbation J44.1 [facility] [address] 0[address]28- 5759 May, 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 [place] [address] 49831- 3843 Apr, [place] [address] 01010- 5601 Apr, [place] [address] 60038- 0210 Apr, 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 and Anxiety F41.9 [place] [address] [place] [id number] [place] [address] 14244- 0427 March, Anxiety F41.9 and 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 [place] [address] [place] [id number] [place] [address] 13462- 2882 March, HTN (hypertension) I10 ; Anxiety F41.9 ; 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 ; 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 ; Neck pain M54.2 ; Globus sensation F45.8 and COPD (chronic obstructive pulmonary disease) J44.9 [place] [id number] [place] [address] 01265- 3551 Feb, [place] [address] 38327- 2426 Feb, HTN (hypertension) I10 [facility] [id number] [place] [address] 01496 [address]0709 Feb, Acute nasopharyngitis (common cold) J00 [facility] [id number] [place] [address] 28708- 8397 11 Feb, 2017 Anxiety F41.9 and 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 [place] [address] 97904- 7035 04 Feb, 2017 Bronchitis J40 [facility] [address] 099[address]- 8968 13 Jan, 2017 Anxiety F41.9 and 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 [place] [address] 53539- 3467 09 Jan, 2017 Anxiety F41.9 [facility] [address] [address] 20 Dec, 2016 Viral pharyngitis J02.9 [place] [address] 35853- 3115 15 Dec, 2016 HTN (hypertension) I10 [place] [address] 23159- 1195 14 Dec, 2016 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 and HTN (hypertension) I10 [facility] [address] [address] 10 Dec, 2016 Abscess L02.91 [place] [address] 64256- 2803 08 Dec, 2016 Anxiety F41.9 and 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 [place] [address] 78852- 3059 16 Nov, 2016 Incontinence R32 [place] [address] 45696- 5549 11 Nov, 2016 Anxiety F41.9 and 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 [place] [address] 62432- 3705 Nov, Incontinence R32 [facility] [address] 50877- 1468 Nov, Excessive thirst R63.1 [place] [address] 44503- 0526 Nov, Excessive thirst R63.1 [place] [address] 92852- 1299 Nov, HTN (hypertension) I10 ; Anxiety F41.9 ; COPD (chronic obstructive pulmonary disease) J44.9 ; 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 ; Epilepsy G40.909 ; 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 ; Neck pain M54.2 ; Other viral agents as the cause of diseases classified elsewhere B97.89 ; Acute upper respiratory infection, unspecified J06.9 ; Chronic intractable headache, unspecified headache type R51 and Hypercholesterolemia E78.00 [place] [address] 49290- 2379 Oct, [facility] [address] 45637- 5876 Oct, [place] [address] 10128- 4335 Sep, [facility] [address] 8[address]41- 9913 Sep, [facility] [address] 01207 [address] Sep, Cough R05 ; Wheezing R06.2 ; Oropharyngeal dysphagia R13.12 and Exposure to strep throat Z20.818 [facility] [address] 11295- 7664 Sep, [facility] [address] 88308- 7579 Sep, [facility] [address] 89322- 1167 Aug, [facility] [address] [place] [id number] [place] [address] 00769- 7626 Aug, [facility] [address] [place] [id number] [place] [address] 77855- 6688 16 Jul, 2016 [facility] [id number] [place] [address] 15091 -5039 14 Jul, 2016 Bronchitis J40 [facility] [address] 93864- 2637 06 Jul, 2016 [place] [address] [id number] [place] [address] 49709- 4664 Jun, HTN (hypertension) I10 ; Anxiety F41.9 ; Epilepsy G40.909 ; COPD (chronic obstructive pulmonary disease) J44.9 ; 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 and 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 [place] [id number] [place] [address] 25656- 5377 Jun, [place] [id number] [place] [address] 00948- 6648 Jun, HTN (hypertension) I10 ; Anxiety F41.9 ; Epilepsy G40.909 ; COPD (chronic obstructive pulmonary disease) J44.9 ; 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 and 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 [place] [id number] [place] [address] 00631- 2159 May, [place] [id number] [place] [address] 49492- 0066 Apr, Anxiety disorder, unspecified F41.9 and Shoulder pain, left M25.512 [place] [address] 78561- 5087 March, Anxiety disorder, unspecified F41.9 and Degenerative joint disease (DJD) of lumbar spine M47.816 [place] [id number] [place] [address] 52207- 3044 March, Sore throat in the morning J02.9 [place] [address] 56335- 6422 Feb, [facility] [place] [address] [address]26[address] -7835 Feb, Right foot injury, initial encounter S99.921A and Oral nayan B37.0 [place] [address] 82933- 8718 Feb, [place] [address] 81747- 5050 Jan, HTN (hypertension) I10 ; COPD (chronic obstructive pulmonary disease) J44.9 ; Chronic pain G89.29 and Epilepsy G40.909 [facility] [place] [address] 27522 -7964 Jan, Sore throat J02.9 and Thrush B37.0 [place] [address] 83043- 9471 Jan, Chronic pain G89.29 ; HTN (hypertension) I10 ; Anxiety F41.9 ; 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 ; Protrusion of cervical intervertebral disc M50.20 and Shoulder pain, left M25.512 [place] [address] 06514- 6056 Jan, [place] [address] 88144- 7209 Jan, [place] [address] 84111- 9275 Jan, HTN (hypertension) I10 ; Anxiety F41.9 ; COPD (chronic obstructive pulmonary disease) J44.9 ; 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 ; Incontinence R32 ; Epilepsy G40.909 ; 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 and Neck pain M54.2 [place] [address] 39538- 0752 Jan, Anxiety F41.9 [facility] [address] [place] [address] 07230- 2754 24 Dec, 2015 HTN (hypertension) I10 ; Epilepsy G40.909 and 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 [facility] [id number] [place] [address] 86942- 6951 18 Dec, 2015 [facility] [address] 15314- 0313 Dec, Anxiety F41.9 ; HTN (hypertension) I10 ; COPD (chronic obstructive pulmonary disease) J44.9 ; 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 and Incontinence R32 [place] [id number] [place] [address] 98372- 3501 Dec, [address] [address] Dec [facility] [id number] [place] [address] 43120- 5775 Nov, [facility] [id number] [place] [address] 04982- 6402 Nov, [place] [id number] [place] [address] 76216- 4853 Nov, [facility] [id number] [place] [address] 45154 -2877 Nov, Pharyngitis J02.9 and Allergic rhinitis J30.9 [facility] [address] [id number] [place] [address] 19767- 7383 12 Nov, 2015 Degenerative joint disease (DJD) of lumbar spine M47.816 ; Cervicalgia M54.2 ; Lumbago 724.2 and Lumbago of lumbar region with sciatica M54.5 [facility] [id number] [place] [address] 49695- 9571 Nov, Degenerative joint disease (DJD) of lumbar spine M47.816 [facility] [id number] [place] [address] 06591- 7337 Oct, Generalized anxiety disorder F41.1 [facility] [address] 95809- 5602 Oct, Cervicalgia M54.2 ; Degenerative joint disease (DJD) of lumbar spine M47.816 and Hypertension I10 [facility] [address] 43538- 0705 Oct, [facility] [id number] [place] [address] 12612 -8548 Oct, Essential (primary) hypertension I10 [facility] [address] 88265- 4819 Oct, [facility] [address] 23209- 8382 Sep, Allergic rhinitis J30.9 ; Generalized anxiety disorder F41.1 and Shoulder pain, left M25.512 [facility] [id number] [place] [address] 56144- 9025 Sep, [facility] [address] 79158- 4599 Aug, Cough R05 [facility] [address] [id number] [place] [address] 86824- 0871 Aug, Generalized anxiety disorder F41.1 [facility] [id number] [place] [address] 36546- 0149 Aug, Cough R05 [facility] [id number] [place] [address] 56097- 8963 Aug, [facility] [address] 74540- 2669 Aug, [facility] [id number] [place] [address] 02235- 1176 Aug, Lumbago of lumbar region with sciatica M54.5 [facility] [address] [place] [address] 68597- 9898 Jul, Lumbago 724.2 [place] [id number] [place] [address] 11454- 0380 Jul, [facility] [address] 91817- 7032 16 Jul, 2015 Anxiety 300.00 and Hypertension 401.9 [place] [address] 15149- 2255 11 Jul, 2015 Generalized anxiety disorder 300.02 [place] [address] 370756- 8826 09 Jul, 2015 Nodule of neck 784.2 [place] [address] 22787- 0752 Jun, Nodule of neck 784.2 [place] [address] 40200- 3391 Jun, [place] [address] 04458- 9247 Jun, Routine adult health maintenance V70.0 [place] [address] [id number] [place] [address] 34977- 1240 Jun, Routine adult health maintenance V70.0 ; Anxiety 300.00 ; Epilepsy 345.90 ; Hypertension 401.9 and Urinary incontinence 788.30 IMMUNIZATIONS No Known Immunizations SOCIAL HISTORY Never Assessed REASON FOR VISIT Transition of Care., States he has a PCP in [place] who is managing all medications except oxycodone and xanax. States his current PCP does not prescribe oxycodone or xanax. -JERRY Sanders PLAN OF CARE Activity Details Follow Up 3 Months Reason:CHM VITAL SIGNS Height 70 in 2017-11-25 Weight 203.8 lbs 2017-11-25 Temperature 98 degrees Fahrenheit 2017-11-25 Heart Rate 86 bpm 2017-11-25 Respiratory Rate 18 2017-11-25 BMI 29.24 kg/m2 2017-11-25 Blood pressure systolic 110 mmHg 2017-11-25 Blood pressure diastolic 70 mmHg 2017-11-25 MEDICATIONS Medication Instructions Dosage Frequency Start Date End Date Duration Status Albuterol Sulfate HFA cfc free 90 mcg/inh Inhalation every 4 hrs 2 puffs as needed 4h 16 Sep, 2015 30 days Active Lisinopril 20 mg Orally Once a day TAKE ONE TABLET BY MOUTH ONCE DAILY 24h 90 days Active Atenolol 50 mg Orally Once a day TAKE ONE TABLET BY MOUTH ONCE DAILY AT NIGHT 24h 90 days Active Xanax 0.25 MG Orally Twice a day take 1 tab bid for one week then one tab daily for three days then stop 12h 17 days Active Topamax 50 mg Orally Twice a day 2 tablet 12h 90 days Active Oxycodone-Acetaminophen 7.5-325 MG Orally 2 times a day 1 tablet as needed 12h 19 Oct, 2017 Nov, 28 days Active Cortisporin 3.5-32617-8 Otic Three times a day 4 drops into affected ear 8h Jun, 07 days Not-Taking Ibuprofen 800 MG TAKE ONE TABLET BY MOUTH THREE TIMES DAILY 30 Active Paxil 20 mg Orally Once a day 1 tablet in the morning 24h Oct, 30 day(s) Active RESULTS Name Result Date Reference Range [employer]ITOX 2017-11-25 PROCEDURES Procedure Date Ordered Result Body Site No Charge Nov 25, 2017 INSTRUCTIONS MEDICATIONS ADMINISTERED No Known Medications MEDICAL (GENERAL) HISTORY Type Description Date Medical History epilepsy Medical History hypertension Medical History anxiety Medical History bladder incontinence Medical History Pneumonia, unspecified organism Medical History slipped discs in back Medical History Pseudoseizures Medical History Incontinence Surgical History discectomy--L5-S1 2005 Surgical History laminectomy--L5-S1 2005 Surgical History spinal fusion--L5-S1 2006 Surgical History cholecystectomy 2009 Surgical History exploratory laparoscopy 2007 Hospitalization History Pneumonia 08/2015 Hospitalization History after colonscopy had seizures- ICU x2 days 06/2017
--- OUTSIDE RECORDS SUMMARY | 2018-06-20 17:28 | XMS REPORT ---
Author Author ROBYN VALLE Organization [facility] Address [address] [place] [address] Care Team Providers Care Laborer Mine Name Role Phone ZULLY VALLENETTE Unavailable PROBLEMS Type Condition ICD9-CM Code FRY14-IN Code Onset Dates Condition Status SNOMED Code 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 657644083 Problem Neck pain M54.2 Active 06587384 Problem Epilepsy G40.909 Active 61526304 Problem Globus sensation F45.8 Active 24152897 Problem Excessive thirst R63.1 Active 48170973 Problem Protrusion of cervical intervertebral disc M50.20 Active 659701163 Problem Shoulder pain, left M25.512 Active 69696749 Problem Oropharyngeal dysphagia R13.12 Active 58585533 Problem Chronic pain G89.29 Active 64832278 Problem 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 Active 797044528 Problem COPD (chronic obstructive pulmonary disease) J44.9 Active 39624054 Problem Anxiety F41.9 Active 39752470 Problem Incontinence R32 Active 01832834 Problem HTN (hypertension) I10 Active 18868493 ALLERGIES Unknown Allergies SOCIAL HISTORY No smoking Hx information available PLAN OF CARE VITAL SIGNS MEDICATIONS Medication Instructions Dosage Frequency Start Date End Date Duration Status Atenolol 50 mg Orally Once a day at night MUST KEEP APPT 11/12/16 FOR REFILL 1 tablet Dec, 30 days Active Lisinopril 20 mg Orally Once a day TAKE ONE TABLET BY MOUTH ONCE DAILY 24h 30 Active RESULTS No Results PROCEDURES No Known procedures IMMUNIZATIONS No Known Immunizations
--- OUTSIDE RECORDS SUMMARY | 2018-06-20 17:28 | XMS REPORT ---
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 639586152 Problem Neck pain M54.2 Active 38513148 Problem Epilepsy G40.909 Active 08829880 Problem Globus sensation F45.8 Active 13706583 Problem Excessive thirst R63.1 Active 43070997 Problem Protrusion of cervical intervertebral disc M50.20 Active 401582819 Problem Shoulder pain, left M25.512 Active 59898219 Problem Oropharyngeal dysphagia R13.12 Active 90453108 Problem Chronic pain G89.29 Active 26120384 Problem 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 Active 574427864 Problem COPD (chronic obstructive pulmonary disease) J44.9 Active 02496541 Problem Anxiety F41.9 Active 21927958 Problem Incontinence R32 Active 12403522 Problem HTN (hypertension) I10 Active 95555653 ALLERGIES Unknown Allergies SOCIAL HISTORY No smoking Hx information available PLAN OF CARE VITAL SIGNS MEDICATIONS Medication Instructions Dosage Frequency Start Date End Date Duration Status Xanax 0.25 MG Orally Twice a day NEEDED 1 tablet Sep, 28 days Active Oxycodone-Acetaminophen 7.5-325 MG TAKE ONE TABLET BY MOUTH THREE TIMES DAILY NEEDED Sep, 28 Active RESULTS No Results PROCEDURES No Known procedures IMMUNIZATIONS No Known Immunizations
--- OUTSIDE RECORDS SUMMARY | 2018-06-20 17:28 | XMS REPORT ---
Author Author KELLIE AUGUSTIN Organization [facility] Address [address] [place] [address] Care Team Providers Care Insole Beveler Name Role Phone KELLIE AUGUSTIN Unavailable PROBLEMS Type Condition ICD9-CM Code RFL15-CX Code Onset Dates Condition Status SNOMED Code Problem Epilepsy G40.909 Active 45174657 Problem Neck pain M54.2 Active 89535963 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 374173872 Problem Globus sensation F45.8 Active 00989171 Problem Excessive thirst R63.1 Active 73324314 Problem Chronic pain G89.29 Active 20207499 Problem Shoulder pain, left M25.512 Active 30385918 Problem Oropharyngeal dysphagia R13.12 Active 67928351 Problem Protrusion of cervical intervertebral disc M50.20 Active 123886685 Problem COPD (chronic obstructive pulmonary disease) J44.9 Active 02463183 Problem HTN (hypertension) I10 Active 35982080 Problem Anxiety F41.9 Active 28545369 Problem Incontinence R32 Active 93438508 Problem 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 Active 197329303 ALLERGIES Substance Reaction Event Type Date Status Sulfamethoxazole-Trimethoprim nausea Drug Allergy Dec, Active Morphine Sulfate hives Drug Allergy Dec, Active Keppra elevated blood pressure Drug Allergy Dec, Active Biaxin nausea Drug Allergy Dec, Active ssi meds i.e. celexa ed Non Drug Allergy Dec, Active lyrica unknown Non Drug Allergy Dec, Active SOCIAL HISTORY Never Assessed PLAN OF CARE Activity Details Follow Up prn Reason: VITAL SIGNS Height 70 in 2017-01-17 Weight 213.4 lbs 2017-01-17 Temperature 97.7 degrees Fahrenheit 2017-01-17 Heart Rate 72 bpm 2017-01-17 Respiratory Rate 20 2017-01-17 BMI 30.62 kg/m2 2017-01-17 Blood pressure systolic 126 mmHg 2017-01-17 Blood pressure diastolic 80 mmHg 2017-01-17 MEDICATIONS Medication Instructions Dosage Frequency Start Date End Date Duration Status Topamax 50 mg Orally Twice a day 1 tablet 12h Dec, Active Albuterol Sulfate HFA 108 (90 Base) MCG/ACT Inhalation every 4 hrs 2 puffs as needed 4h 16 Sep, 2015 Active Symbicort 160-4.5 MCG/ACT Inhalation Twice a day 2 puffs 12h 21 Sep, 2016 Active Atenolol 50 mg Orally Once a day at night MUST KEEP APPT 11/12/16 FOR REFILL 1 tablet Dec, 30 days Active Ibuprofen 800 MG Orally Three times a day 1 tablet 8h 30 Active Xanax 0.25 MG Orally Twice a day NEEDED 1 tablet Sep, 28 days Active Doxycycline Hyclate 100 MG Orally every 12 hrs 1 capsule 12h Dec, Dec, 10 days Active Oxycodone-Acetaminophen 7.5-325 MG Orally 3 times a day 1 tablet 8h 14 Dec 28 days Active Lisinopril 20 mg Orally Once a day TAKE ONE TABLET BY MOUTH ONCE DAILY 24h 30 Active RESULTS No Results PROCEDURES No Known procedures IMMUNIZATIONS No Known Immunizations MEDICAL (GENERAL) HISTORY Type Description Date Medical History epilepsy Medical History hypertension Medical History anxiety Medical History bladder incontinence Medical History Pneumonia, unspecified organism Surgical History discectomy--L5-S1 2005 Surgical History laminectomy--L5-S1 2005 Surgical History spinal fusion--L5-S1 2006 Surgical History cholecystectomy 2008 Surgical History exploratory laparoscopy 2007 Hospitalization History Pneumonia 08/2015 Hospitalization History after colonscopy had seizures- ICU x2 days 06/2017
--- OUTSIDE RECORDS SUMMARY | 2018-06-20 17:28 | XMS REPORT ---
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 413897003 Problem Globus sensation F45.8 Active 30288671 Problem Excessive thirst R63.1 Active 85207007 Problem Chronic pain G89.29 Active 93119564 Problem Shoulder pain, left M25.512 Active 71717894 Problem Oropharyngeal dysphagia R13.12 Active 66161476 Problem Protrusion of cervical intervertebral disc M50.20 Active 479735576 Problem COPD (chronic obstructive pulmonary disease) J44.9 Active 43575366 Problem HTN (hypertension) I10 Active 72431562 Problem Anxiety F41.9 Active 46296651 Problem Incontinence R32 Active 39280639 Problem 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 Active 282755274 ALLERGIES Substance Reaction Event Type Date Status Sulfamethoxazole-Trimethoprim nausea Drug Allergy Nov, Active Morphine Sulfate hives Drug Allergy Nov, Active Keppra elevated blood pressure Drug Allergy Nov, Active Biaxin nausea Drug Allergy Nov, Active ssi meds i.e. celexa ed Non Drug Allergy Nov, Active gabapenting/llyrica unknown Non Drug Allergy Nov, Active SOCIAL HISTORY No smoking Hx information available PLAN OF CARE Activity Details Follow Up 3 Months Reason: VITAL SIGNS Height 70 in 2016-12-01 Weight 215 lbs 2016-12-01 Temperature 98.1 degrees Fahrenheit 2016-12-01 Heart Rate 80 bpm 2016-12-01 Respiratory Rate 22 2016-12-01 BMI 30.85 kg/m2 2016-12-01 Blood pressure systolic 130 mmHg 2016-12-01 Blood pressure diastolic 90 mmHg 2016-12-01 MEDICATIONS Medication Instructions Dosage Frequency Start Date End Date Duration Status Topamax 50 mg Orally Twice a day 1 tablet 12h Dec, Active Atenolol 50 mg Orally Once a day at night MUST KEEP APPT 11/12/16 FOR REFILL 1 tablet Dec, 30 days Active Symbicort 160-4.5 MCG/ACT Inhalation Twice a day 2 puffs 12h Sep, Active Ibuprofen 800 MG Orally Three times a day 1 tablet 8h 30 Active Albuterol Sulfate HFA 108 (90 Base) MCG/ACT Inhalation every 4 hrs 2 puffs as needed 4h Sep, Active Cyclobenzaprine HCl 10 MG TAKE ONE TABLET BY MOUTH ONCE DAILY BEFORE BED NEEDED 30 Active Xanax 0.25 MG Orally Twice a day NEEDED 1 tablet 30 Sep, 2016 Active Oxycodone-Acetaminophen 7.5-325 MG TAKE ONE TABLET BY MOUTH THREE TIMES DAILY NEEDED Sep, 28 Active Lisinopril 20 mg Orally Once a day TAKE ONE TABLET BY MOUTH ONCE DAILY 24h 30 Active RESULTS Name Result Date Reference Range CBC 2016-12-01 WBC 6.0 3.4-10.8 RBC 5.02 4.14-5.80 Hemoglobin 16.0 12.6-17.7 Hematocrit 46.5 37.5-51.0 MCV 93 79-97 MCH 31.9 26.6-33.0 MCHC 34.4 31.5-35.7 RDW 13.8 12.3-15.4 Platelets 207 150-379 Neutrophils 56 Lymphs 30 Monocytes 10 Eos 4 Basos 0 Immature Cells Neutrophils (Absolute) 3.3 1.4-7.0 Lymphs (Absolute) 1.8 0.7-3.1 Monocytes(Absolute) 0.6 0.1-0.9 Eos (Absolute) 0.3 0.0-0.4 Baso (Absolute) 0.0 0.0-0.2 Immature Granulocytes 0 Immature Grans (Abs) 0.0 0.0-0.1 NRBC Hematology Comments: LIPID PANEL 2016-12-01 Cholesterol, Total 166 100-199 Triglycerides 191 0-149 HDL Cholesterol 25 >39 VLDL Cholesterol Shahbaz 38 5-40 LDL Cholesterol Calc 103 0-99 CMP 2016-12-01 Glucose, Serum 43 65-99 BUN 18 6-20 Creatinine, Serum 1.03 0.76-1.27 eGFR If NonAfricn Am 91 >59 eGFR If Africn Am 105 >59 BUN/Creatinine Ratio 17 8-19 Sodium, Serum 142 134-144 Potassium, Serum 4.1 3.5-5.2 Chloride, Serum 107 96-106 Carbon Dioxide, Total 19 18-29 Calcium, Serum 8.9 8.7-10.2 Protein, Total, Serum 6.7 6.0-8.5 Albumin, Serum 3.8 3.5-5.5 Globulin, Total 2.9 1.5-4.5 A/G Ratio 1.3 1.1-2.5 Bilirubin, Total <0.2 0.0-1.2 Alkaline Phosphatase, S 129 39-117 AST (SGOT) 13 0-40 ALT (SGPT) 19 0-44 AMERITOX 2016-12-01 PROCEDURES Procedure Date Ordered Related Diagnosis Body Site LAB [facility] Dec 01, 2016 Office Visit, Est Pt., Level 4 Dec 01, 2016 VENIPUNCT, ROUTINE* Dec 01, 2016 No Charge Dec 01, 2016 IMMUNIZATIONS No Known Immunizations
--- OUTSIDE RECORDS SUMMARY | 2018-06-20 17:28 | XMS REPORT ---
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 394679492 Problem Globus sensation F45.8 Active 15049859 Problem Excessive thirst R63.1 Active 75698207 Problem Chronic pain G89.29 Active 66984884 Problem Shoulder pain, left M25.512 Active 76483381 Problem Oropharyngeal dysphagia R13.12 Active 04509774 Problem Protrusion of cervical intervertebral disc M50.20 Active 281954163 Problem COPD (chronic obstructive pulmonary disease) J44.9 Active 99647383 Problem HTN (hypertension) I10 Active 49505363 Problem Anxiety F41.9 Active 23797595 Problem Incontinence R32 Active 03968228 Problem 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 Active 585191206 ALLERGIES Unknown Allergies SOCIAL HISTORY No smoking Hx information available PLAN OF CARE VITAL SIGNS MEDICATIONS Unknown Medications RESULTS No Results PROCEDURES No Known procedures IMMUNIZATIONS No Known Immunizations
--- OUTSIDE RECORDS SUMMARY | 2018-06-20 17:28 | XMS REPORT ---
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 435492002 Problem Globus sensation F45.8 Active 69496971 Problem Excessive thirst R63.1 Active 82704829 Problem Chronic pain G89.29 Active 18474355 Problem Shoulder pain, left M25.512 Active 24687833 Problem Oropharyngeal dysphagia R13.12 Active 52442824 Problem Protrusion of cervical intervertebral disc M50.20 Active 850924437 Problem COPD (chronic obstructive pulmonary disease) J44.9 Active 56895204 Problem HTN (hypertension) I10 Active 47778788 Problem Anxiety F41.9 Active 45951167 Problem Incontinence R32 Active 58080090 Problem 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 Active 879716494 ALLERGIES Substance Reaction Event Type Date Status Sulfamethoxazole-Trimethoprim nausea Drug Allergy March, Active Morphine Sulfate hives Drug Allergy March, Active Keppra elevated blood pressure Drug Allergy March, Active Biaxin nausea Drug Allergy March, Active ssi meds i.e. celexa ed Non Drug Allergy March, Active lyrica unknown Non Drug Allergy March, Active SOCIAL HISTORY Never Assessed PLAN OF CARE Activity Details Follow Up 3 Months Reason:htn VITAL SIGNS Height 70 in 2017-03-29 Weight 209.1 lbs 2017-03-29 Temperature 98.1 degrees Fahrenheit 2017-03-29 Heart Rate 68 bpm 2017-03-29 Respiratory Rate 20 2017-03-29 BMI 30.00 kg/m2 2017-03-29 Blood pressure systolic 120 mmHg 2017-03-29 Blood pressure diastolic 71 mmHg 2017-03-29 MEDICATIONS Medication Instructions Dosage Frequency Start Date End Date Duration Status Oxycodone-Acetaminophen 7.5-325 MG Orally 3 times a day 1 tablet 8h Feb Active Atenolol 50 mg Orally Once a day at night MUST KEEP APPT 11/12/16 FOR REFILL 1 tablet Dec, Active Topamax 50 mg Orally Twice a day 1 tablet 12h Dec, Active Albuterol Sulfate HFA 108 (90 Base) MCG/ACT Inhalation every 4 hrs 2 puffs as needed 4h 16 Sep, 2015 Active Xanax 0.25 MG Orally Twice a day NEEDED 1 tablet Sep, Active Lisinopril 20 mg Orally Once a day TAKE ONE TABLET BY MOUTH ONCE DAILY 24h 30 Active Symbicort 160-4.5 MCG/ACT Inhalation Twice a day 2 puffs 12h Sep, Active Ibuprofen 800 MG Orally Three times a day 1 tablet 8h Active RESULTS No Results PROCEDURES No Known procedures IMMUNIZATIONS No Known Immunizations MEDICAL (GENERAL) HISTORY Type Description Date Medical History epilepsy Medical History hypertension Medical History anxiety Medical History bladder incontinence Medical History Pneumonia, unspecified organism Surgical History discectomy--L5-S1 2006 Surgical History laminectomy--L5-S1 2005 Surgical History spinal fusion--L5-S1 2007 Surgical History cholecystectomy 2008 Surgical History exploratory laparoscopy 2008 Hospitalization History Pneumonia 08/2015 Hospitalization History after colonscopy had seizures- ICU x2 days 06/2017
--- OUTSIDE RECORDS SUMMARY | 2018-06-20 17:28 | XMS REPORT ---
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 455703766 Problem Globus sensation F45.8 Active 51933264 Problem Excessive thirst R63.1 Active 81390274 Problem Chronic pain G89.29 Active 93585840 Problem Shoulder pain, left M25.512 Active 00350401 Problem Oropharyngeal dysphagia R13.12 Active 76929699 Problem Protrusion of cervical intervertebral disc M50.20 Active 053135925 Problem COPD (chronic obstructive pulmonary disease) J44.9 Active 15862023 Problem HTN (hypertension) I10 Active 83983650 Problem Anxiety F41.9 Active 76376566 Problem Incontinence R32 Active 59893970 Problem 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 Active 043977897 ALLERGIES No Information SOCIAL HISTORY Never Assessed PLAN OF CARE VITAL SIGNS MEDICATIONS Medication Instructions Dosage Frequency Start Date End Date Duration Status Atenolol 50 mg Orally Once a day at night MUST KEEP APPT 11/12/16 FOR REFILL 1 tablet Dec, 30 days Active RESULTS No Results PROCEDURES No Known procedures IMMUNIZATIONS No Known Immunizations MEDICAL (GENERAL) HISTORY Type Description Date Medical History epilepsy Medical History hypertension Medical History anxiety Medical History bladder incontinence Medical History Pneumonia, unspecified organism Surgical History discectomy--L5-S1 2006 Surgical History laminectomy--L5-S1 2006 Surgical History spinal fusion--L5-S1 2007 Surgical History cholecystectomy 2009 Surgical History exploratory laparoscopy 2008 Hospitalization History Pneumonia 08/2015 Hospitalization History after colonscopy had seizures- ICU x2 days 06/2017
--- OUTSIDE RECORDS SUMMARY | 2018-06-20 17:29 | XMS REPORT ---
Author Author ROBYN VALLE Organization 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 247104019 Problem Globus sensation F45.8 Active 11037771 Problem Excessive thirst R63.1 Active 87312979 Problem Chronic pain G89.29 Active 94846886 Problem Shoulder pain, left M25.512 Active 30213591 Problem Oropharyngeal dysphagia R13.12 Active 35458658 Problem Protrusion of cervical intervertebral disc M50.20 Active 624260328 Problem COPD (chronic obstructive pulmonary disease) J44.9 Active 56748620 Problem HTN (hypertension) I10 Active 05509642 Problem Anxiety F41.9 Active 83777198 Problem Incontinence R32 Active 89267406 Problem 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 Active 494708704 ALLERGIES Unknown Allergies SOCIAL HISTORY No smoking Hx information available PLAN OF CARE VITAL SIGNS MEDICATIONS Unknown Medications RESULTS Name Result Date Reference Range A1C 2016-12-06 Hemoglobin A1c 5.5 4.8-5.6 GLUCOSE MENA 2 HOUR 2016-12-06 Glucose, Fasting 96 65-91 Glucose, 1 hour TNP Glucose, 2 hour 67 65-152 PROCEDURES Procedure Date Ordered Related Diagnosis Body Site GLYCATED HEMOGLOBIN TEST Dec 06, 2016 LAB NOT BILLED BY [facility] Dec 06, 2016 VENIPUNCT, ROUTINE* Dec 06, 2016 IMMUNIZATIONS No Known Immunizations
--- OUTSIDE RECORDS SUMMARY | 2018-06-20 17:29 | XMS REPORT ---
Author Author DARVIN PRAKASH [facility] Address [address] [place] [address] Care Team Providers Care Windows Application Packager Name Role Phone DARVIN PRAKASH Unavailable PROBLEMS Type Condition ICD9-CM Code ZNN31-FP Code Onset Dates Condition Status SNOMED Code Problem Anxiety F41.9 Active 14240260 Problem Epilepsy G40.909 Active 18817382 Problem 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 Active 883335878 Problem Dyslipidemia (high LDL; low HDL) E78.5 Active 284062204 Problem COPD (chronic obstructive pulmonary disease) J44.9 Active 41269958 Problem HTN (hypertension) I10 Active 46551551 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29 ; Anxiety F41.9 and 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 [facility] [id number] [place] [address] 58863- 6874 March, 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 [facility] [id number] [place] [address] 87255- 0608 March, [facility] [id number] [place] [address] 08476- 4259 Feb, [facility] [id number] [place] [address] 98023- 9446 Feb, HTN (hypertension) I10 ; COPD (chronic obstructive pulmonary disease) J44.9 ; Overweight (BMI 25.0-29.9) E66.3 and Epilepsy G40.909 [facility] [address] 59786- 3655 Feb, HTN (hypertension) I10 ; COPD (chronic obstructive pulmonary disease) J44.9 ; Anxiety F41.9 ; Overweight (BMI 25.0-29.9) E66.3 ; Epilepsy G40.909 ; 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 ; Protrusion of cervical intervertebral disc M50.20 ; Tobacco abuse counseling Z71.6 and Tobacco abuse Z72.0 [facility] [address] 31459- 4616 Feb, Chronic pain G89.29 [facility] [address] 17220- 3304 Jan, Chronic pain G89.29 [facility] [address] 88805- 3483 Dec, Epilepsy G40.909 [facility] [address] 96466- 2155 05 Dec, 2017 Chronic pain G89.29 [facility] [address] 34976- 9210 Nov, [facility] [id number] [place] [address] 21676- 2797 Nov, Anxiety F41.9 [facility] [address] 01283- 7666 Oct, HTN (hypertension) I10 ; COPD (chronic obstructive pulmonary disease) J44.9 ; Epilepsy G40.909 ; Chronic pain G89.29 ; Anxiety F41.9 ; Overweight (BMI 25.0-29.9) E66.3 ; Tobacco abuse Z72.0 ; Tobacco abuse counseling Z71.6 ; High risk medication use Z79.899 and Controlled substance agreement signed Z79.899 [facility] [address] 74753- 9790 Oct, 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 [facility] [address] 20536- 1544 Oct, 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 [facility] [address] 07899- 5882 Sep, [facility] [address] 652139- 4974 Sep, [facility] [address] 88585- 5763 Aug, 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 [facility] [address] 18998- 1652 Jul, 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 and Anxiety F41.9 [facility] [address] 08157- 2194 Jun, 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 and Anxiety F41.9 [facility] [address] 21225- 3494 Jun, 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 [facility] [address] 40425 -0096 Jun, Acute swimmers ear of right side H60.331 [place] [address] 95661- 0341 Jun, 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 and Anxiety F41.9 [facility] [address] 03198- 2054 May, 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 and Anxiety F41.9 [facility] [id number] [place] [address] 11272 -8469 May, COPD exacerbation J44.1 [facility] [address] 07117- 7045 May, 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 [facility] [address] 05388- 2674 Apr, [facility] [address] 36891- 3786 Apr, [place] [address] 13079- 1241 Apr, 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 and Anxiety F41.9 [facility] [address] 23159- 2937 March, Anxiety F41.9 and 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 [facility] [address] 01398- 8655 March, HTN (hypertension) I10 ; Anxiety F41.9 ; 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 ; 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 ; Neck pain M54.2 ; Globus sensation F45.8 and COPD (chronic obstructive pulmonary disease) J44.9 [facility] [id number] [place] [address] 90553- 1866 Feb, [facility] [address] 24393- 3455 Feb, HTN (hypertension) I10 [facility] [address] 05869 -3576 13 Feb, 2017 Acute nasopharyngitis (common cold) J00 [facility] [address] 54505- 1063 11 Feb, 2017 Anxiety F41.9 and 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 [facility] [address] 12554- 7089 04 Feb, 2017 Bronchitis J40 [facility] [id number] [place] [address] 83605- 8948 13 Jan, 2017 Anxiety F41.9 and 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 [facility] [address] 57847- 9185 09 Jan, 2017 Anxiety F41.9 [facility] [address] 34339 -6929 20 Dec, 2016 Viral pharyngitis J02.9 [facility] [address] 89276- 1250 15 Dec, 2016 HTN (hypertension) I10 [facility] [address] 75410- 4560 14 Dec, 2016 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 and HTN (hypertension) I10 [facility] [address] 51894 -7307 10 Dec, 2016 Abscess L02.91 [facility] [place] [address] 59264- 0579 08 Dec, 2016 Anxiety F41.9 and 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 [facility] [address] 65753- 7428 Nov, Incontinence R32 [facility] [address] 45261- 4582 Nov, Anxiety F41.9 and 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 [facility] [address] 69922- 6718 Nov, Incontinence R32 [facility] [address] 41084- 8795 09 Nov, 2016 Excessive thirst R63.1 [facility] [address] 26760- 6920 05 Ramsey, 2017 Excessive thirst R63.1 [facility] [id number] [place] [address] 57721- 2833 Nov, HTN (hypertension) I10 ; Anxiety F41.9 ; COPD (chronic obstructive pulmonary disease) J44.9 ; 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 ; Epilepsy G40.909 ; 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 ; Neck pain M54.2 ; Other viral agents as the cause of diseases classified elsewhere B97.89 ; Acute upper respiratory infection, unspecified J06.9 ; Chronic intractable headache, unspecified headache type R51 and Hypercholesterolemia E78.00 [facility] [place] [address] 08715- 7914 Oct, [facility] [place] [address] 91223- 5231 Oct, [facility] [place] [address] 72430- 5940 Sep, [place] [address] 06859- 8237 Sep, [facility] [address] [place] [id number] [place] [address] 75287 -2437 Sep, Cough R05 ; Wheezing R06.2 ; Oropharyngeal dysphagia R13.12 and Exposure to strep throat Z20.818 [place] [id number] [place] [address] 44224- 2881 Sep, [facility] [address] 70095- 1292 Sep, [facility] [id number] [place] [address] 18814- 8872 Aug, [facility] [address] 81507- 5071 Aug, [facility] [id number] [place] [address] 75462- 2274 16 Jul, 2016 [facility] [address] [place] [address] -8884 14 Jul, 2016 Bronchitis J40 [place] [address] 06941- 0363 06 Jul, 2016 [place] [address] 89726- 5382 Jun, HTN (hypertension) I10 ; Anxiety F41.9 ; Epilepsy G40.909 ; COPD (chronic obstructive pulmonary disease) J44.9 ; 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 and 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 [facility] [id number] [place] [address] 37612- 1036 Jun, [facility] [address] 71311- 0409 Jun, HTN (hypertension) I10 ; Anxiety F41.9 ; Epilepsy G40.909 ; COPD (chronic obstructive pulmonary disease) J44.9 ; 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 and 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 [facility] [place] [address] 17633- 9810 May, [place] [address] 95970- 7505 Apr, Anxiety disorder, unspecified F41.9 and Shoulder pain, left M25.512 [facility] [id number] [place] [address] 86854- 0429 March, Anxiety disorder, unspecified F41.9 and Degenerative joint disease (DJD) of lumbar spine M47.816 [facility] [id number] [place] [address] 72952- 3200 March, Sore throat in the morning J02.9 [facility] [id number] [place] [address] 37626- 0302 14 Feb, 2016 [facility] [id number] [place] [address] 84161 -2703 Feb, Right foot injury, initial encounter S99.921A and Oral nayan B37.0 [facility] [address] 82892- 7201 05 Feb, 2016 [place] [address] 04152- 1270 Jan, HTN (hypertension) I10 ; COPD (chronic obstructive pulmonary disease) J44.9 ; Chronic pain G89.29 and Epilepsy G40.909 [facility] [address] 14262 -5301 Jan, Sore throat J02.9 and Thrush B37.0 [place] [address] 65139- 2201 16 Jan, 2016 Chronic pain G89.29 ; HTN (hypertension) I10 ; Anxiety F41.9 ; 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 ; Protrusion of cervical intervertebral disc M50.20 and Shoulder pain, left M25.512 [place] [address] 90508- 7817 Jan, [place] [address] 08830- 3809 Jan, [place] [address] 05459- 1807 Jan, HTN (hypertension) I10 ; Anxiety F41.9 ; COPD (chronic obstructive pulmonary disease) J44.9 ; 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 ; Incontinence R32 ; Epilepsy G40.909 ; 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 and Neck pain M54.2 [place] [address] 78281- 4167 Jan, Anxiety F41.9 [place] [address] 23606- 3119 Dec, HTN (hypertension) I10 ; Epilepsy G40.909 and 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 [place] [address] 44480- 0380 Dec, [facility] [address] [address]- 7617 Dec, Anxiety F41.9 ; HTN (hypertension) I10 ; COPD (chronic obstructive pulmonary disease) J44.9 ; 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 and Incontinence R32 [facility] [address] [address]- 3133 Dec, [address] [id number] [address] Dec [facility] [id number] [place] [address] 55630- 6835 Nov, [facility] [id number] [place] [address] 64107- 6366 Nov, [facility] [id number] [place] [address] 57699- 4596 Nov, [facility] [id number] [place] [address] 37015 -7777 Nov, Pharyngitis J02.9 and Allergic rhinitis J30.9 [facility] [id number] [place] [address] 04649- 4308 Nov, Degenerative joint disease (DJD) of lumbar spine M47.816 ; Cervicalgia M54.2 ; Lumbago 724.2 and Lumbago of lumbar region with sciatica M54.5 [facility] [place] [address] [place] [address] 20446- 3602 Nov, Degenerative joint disease (DJD) of lumbar spine M47.816 [facility] [id number] [place] [address] 64102- 1533 Oct, Generalized anxiety disorder F41.1 [facility] [address] [place] [address] 43661- 0000 Oct, Cervicalgia M54.2 ; Degenerative joint disease (DJD) of lumbar spine M47.816 and Hypertension I10 [facility] [id number] [place] [address] 69428- 3903 Oct, [facility] [id number] [place] [address] 98387 -2321 Oct, Essential (primary) hypertension I10 [facility] [id number] [place] [address] 25737- 9341 Oct, [facility] [id number] [place] [address] 94124- 3121 Sep, Allergic rhinitis J30.9 ; Generalized anxiety disorder F41.1 and Shoulder pain, left M25.512 [facility] [id number] [place] [address] 17567- 6855 Sep, [facility] [id number] [place] [address] 96313- 4374 Aug, Cough R05 [facility] [id number] [place] [address] 59300- 8204 Aug, Generalized anxiety disorder F41.1 [facility] [id number] [place] [address] 48477- 5446 Aug, Cough R05 [facility] [id number] [place] [address] 80770- 8642 Aug, [facility] [id number] [place] [address] 23062- 0426 Aug, [facility] [id number] [place] [address] 02125- 2324 Aug, Lumbago of lumbar region with sciatica M54.5 [facility] [id number] [place] [address] 81945- 6251 Jul, Lumbago 724.2 [facility] [id number] [place] [address] 59322- 4835 Jul, [facility] [id number] [address]- 2784 16 Jul, 2015 Anxiety 300.00 and Hypertension 401.9 [facility] [address] [address]- 5217 11 Jul, 2015 Generalized anxiety disorder 300.02 [facility] [address] [address]- 4213 09 Jul, 2015 Nodule of neck 784.2 [place] [place] [id number] [place] [address] 20602- 2167 Jun, Nodule of neck 784.2 [place] [id number] [place] [address] 97879- 1523 Jun, [place] [id number] [place] [address] 62752- 1040 Jun, Routine adult health maintenance V70.0 [place] [id number] [place] [address] 58514- 0133 Jun, Routine adult health maintenance V70.0 ; Anxiety 300.00 ; Epilepsy 345.90 ; Hypertension 401.9 and Urinary incontinence 788.30 IMMUNIZATIONS No Known Immunizations SOCIAL HISTORY Never Assessed REASON FOR VISIT Alprazolam and Oxycodone 11/15 PLAN OF CARE VITAL SIGNS MEDICATIONS Medication Instructions Dosage Frequency Start Date End Date Duration Status Xanax 0.25 MG Orally Twice a day 1 tablet 12h 28 Active Oxycodone-Acetaminophen 7.5-325 MG Orally 3 times a day 1 tablet as needed 8h Oct, 28 days Active RESULTS No Results PROCEDURES [...]
--- OUTSIDE RECORDS SUMMARY | 2018-06-20 17:30 | XMS REPORT ---
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 789621837 Problem Globus sensation F45.8 Active 97663845 Problem Excessive thirst R63.1 Active 93766944 Problem Chronic pain G89.29 Active 94372754 Problem Shoulder pain, left M25.512 Active 86791838 Problem Oropharyngeal dysphagia R13.12 Active 02394815 Problem Protrusion of cervical intervertebral disc M50.20 Active 906868364 Problem COPD (chronic obstructive pulmonary disease) J44.9 Active 35603800 Problem HTN (hypertension) I10 Active 41906874 Problem Anxiety F41.9 Active 03175046 Problem Incontinence R32 Active 66644341 Problem 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 Active 043188906 ALLERGIES No Information ENCOUNTERS Encounter Location Date Diagnosis [facility] [id number] [place] [address] 37629- 2379 Feb, [facility] [address] [place] [address] 56207- 4191 Jan, Chronic pain G89.29 [facility] [address] [place] [address] 63189- 9443 Dec, Epilepsy G40.909 [facility] [id number] [address] 05 Dec, 2017 Chronic pain G89.29 [facility] [id number] [place] [address] 86698- 1723 Nov, [facility] [id number] [place] [address] 93125- 6164 Nov, Anxiety F41.9 [facility] [id number] [place] [address] 45124- 5882 Oct, HTN (hypertension) I10 ; COPD (chronic obstructive pulmonary disease) J44.9 ; Epilepsy G40.909 ; Chronic pain G89.29 ; Anxiety F41.9 ; Overweight (BMI 25.0-29.9) E66.3 ; Tobacco abuse Z72.0 ; Tobacco abuse counseling Z71.6 ; High risk medication use Z79.899 and Controlled substance agreement signed Z79.899 [facility] [id number] [place] [address] 22707- 3757 Oct, 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 [place] [address] 29041- 3814 Oct, 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 [facility] [address] 45991- 2287 Sep, [facility] [address] 71054- 1129 Sep, [facility] [id number] [place] [address] 27155- 2833 Aug, 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 [facility] [address] 10114- 7461 Jul, 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 and Anxiety F41.9 [facility] [address] 77636- 4174 Jun, 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 and Anxiety F41.9 [facility] [id number] [place] [address] 84653- 4536 Jun, 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 [facility] [id number] [place] [address] 39638 -3569 Jun, Acute swimmers ear of right side H60.331 [place] [address] 78052- 7850 Jun, 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 and Anxiety F41.9 [facility] [address] 46071- 8804 May, 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 and Anxiety F41.9 [facility] [address] 07214 -8214 May, COPD exacerbation J44.1 [place] [address] 84859- 5381 May, 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 [place] [address] 84947- 0102 Apr, [place] [address] 96627- 9591 Apr, [place] [address] 26337- 1310 Apr, 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 and Anxiety F41.9 [place] [address] 96046- 6691 March, Anxiety F41.9 and 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 [place] [address] 94876- 3600 March, HTN (hypertension) I10 ; Anxiety F41.9 ; 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 ; 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 ; Neck pain M54.2 ; Globus sensation F45.8 and COPD (chronic obstructive pulmonary disease) J44.9 [facility] [id number] [place] [address] 40642- 1456 Feb, [facility] [address] 27172- 8241 17 Feb, 2017 HTN (hypertension) I10 [facility] [address] 84702 -6705 13 Feb, 2017 Acute nasopharyngitis (common cold) J00 [facility] [address] 16971- 2670 11 Feb, 2017 Anxiety F41.9 and 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 [facility] [address] 07043- 3879 04 Feb, 2017 Bronchitis J40 [place] [address] 98308- 9431 13 Jan, 2017 Anxiety F41.9 and 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 [place] [address] 59352- 3227 09 Jan, 2017 Anxiety F41.9 [facility] [address] 34941 -0187 20 Dec, 2016 Viral pharyngitis J02.9 [facility] [address] 48383- 9607 15 Dec, 2016 HTN (hypertension) I10 [facility] [address] 24620- 9933 14 Dec, 2016 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 and HTN (hypertension) I10 [facility] [address] 62330 -6468 10 Dec, 2016 Abscess L02.91 [facility] [address] 08718- 8919 08 Dec, 2016 Anxiety F41.9 and 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 [facility] [address] 49641- 1901 16 Nov, 2016 Incontinence R32 [facility] [address] 65630- 3930 Nov, Anxiety F41.9 and 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 [place] [address] 22801- 0581 Nov, Incontinence R32 [facility] [address] 88977- 2112 Nov, Excessive thirst R63.1 [place] [address] 86567- 8364 Nov, Excessive thirst R63.1 [place] [address] 36267- 3623 Nov, HTN (hypertension) I10 ; Anxiety F41.9 ; COPD (chronic obstructive pulmonary disease) J44.9 ; 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 ; Epilepsy G40.909 ; 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 ; Neck pain M54.2 ; Other viral agents as the cause of diseases classified elsewhere B97.89 ; Acute upper respiratory infection, unspecified J06.9 ; Chronic intractable headache, unspecified headache type R51 and Hypercholesterolemia E78.00 [place] [address] 27747- 7347 Oct, [facility] [address] 23723- 7742 Oct, [place] [id number] [place] [address] 27873- 0981 Sep, [facility] [address] 57227- 8686 Sep, [facility] [address] 36539 -3353 Sep, Cough R05 ; Wheezing R06.2 ; Oropharyngeal dysphagia R13.12 and Exposure to strep throat Z20.818 [place] [address] 08066- 4856 Sep, [place] [address] [place] [address]- 8124 Sep, [facility] [address] [place] [address] 51711- 9089 Aug, [facility] [address] [place] [address] 97552- 1071 Aug, [facility] [address] [place] [address] 63466- 0691 16 Jul, 2016 [facility] [address] [place] [address] 98087 -7720 14 Jul, 2016 Bronchitis J40 [facility] [id number] [place] [address] 76097- 8936 Jul, [facility] [id number] [place] [address] 03341- 9803 Jun, HTN (hypertension) I10 ; Anxiety F41.9 ; Epilepsy G40.909 ; COPD (chronic obstructive pulmonary disease) J44.9 ; 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 and 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 [facility] [id number] [place] [address] 33974- 7497 Jun, [facility] [id number] [place] [address] 01789- 6671 Jun, HTN (hypertension) I10 ; Anxiety F41.9 ; Epilepsy G40.909 ; COPD (chronic obstructive pulmonary disease) J44.9 ; 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 and 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 [facility] [address] [place] [address] 66849- 5824 May, [facility] [id number] [place] [address] 17271- 9027 Apr, Anxiety disorder, unspecified F41.9 and Shoulder pain, left M25.512 [facility] [id number] [place] [address] 28339- 6213 March, Anxiety disorder, unspecified F41.9 and Degenerative joint disease (DJD) of lumbar spine M47.816 [place] [id number] [place] [address] 56665- 9960 March, Sore throat in the morning J02.9 [place] [address] 76559- 8142 Feb, [facility] [place] [address] 57947 -8752 Feb, Right foot injury, initial encounter S99.921A and Oral nayan B37.0 [place] [address] 32191- 4889 Feb, [place] [address] 29230- 7561 Jan, HTN (hypertension) I10 ; COPD (chronic obstructive pulmonary disease) J44.9 ; Chronic pain G89.29 and Epilepsy G40.909 [facility] [place] [id number] [place] [address] 36155 -7333 Jan, Sore throat J02.9 and Thrush B37.0 [place] [address] 68528- 3944 16 Jan, 2016 Chronic pain G89.29 ; HTN (hypertension) I10 ; Anxiety F41.9 ; 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 ; Protrusion of cervical intervertebral disc M50.20 and Shoulder pain, left M25.512 [place] [id number] [place] [address] 78128- 3539 15 Jan, 2016 [place] [address] 75245- 1725 Jan, [place] [address] 37602- 7341 Jan, HTN (hypertension) I10 ; Anxiety F41.9 ; COPD (chronic obstructive pulmonary disease) J44.9 ; 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 ; Incontinence R32 ; Epilepsy G40.909 ; 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 and Neck pain M54.2 [place] [id number] [place] [address] 63883- 2954 09 Jan, 2016 Anxiety F41.9 [place] [id number] [place] [address] 33127- 5897 24 Dec, 2015 HTN (hypertension) I10 ; Epilepsy G40.909 and 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 [place] [id number] [place] [address] 47359- 7722 18 Dec, 2015 [place] [address] 15955- 6308 Dec, Anxiety F41.9 ; HTN (hypertension) I10 ; COPD (chronic obstructive pulmonary disease) J44.9 ; 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 and Incontinence R32 [place] [id number] [place] [address] 09962- 4552 Dec, [address] [id number] [place] [address] Dec [facility] [id number] [place] [address] 53887- 5052 Nov, [place] [id number] [place] [address] 44963- 8416 Nov, [facility] [id number] [place] [address] 67359- 9719 Nov, [facility] [address] [place] [address] 87240 -8357 Nov, Pharyngitis J02.9 and Allergic rhinitis J30.9 [place] [id number] [place] [address] 91866- 9074 12 Nov, 2015 Degenerative joint disease (DJD) of lumbar spine M47.816 ; Cervicalgia M54.2 ; Lumbago 724.2 and Lumbago of lumbar region with sciatica M54.5 [place] [address] [place] [address] 91091- 6295 Nov, Degenerative joint disease (DJD) of lumbar spine M47.816 [facility] [id number] [place] [address] 68834- 3506 Oct, Generalized anxiety disorder F41.1 [facility] [id number] [place] [address] 20475- 5780 Oct, Cervicalgia M54.2 ; Degenerative joint disease (DJD) of lumbar spine M47.816 and Hypertension I10 [facility] [id number] [place] [address] 60509- 9455 Oct, [facility] [id number] [place] [address] 88637 -6207 Oct, Essential (primary) hypertension I10 [facility] [address] 55909- 8363 Oct, [facility] [id number] [place] [address] 36656- 2677 Sep, Allergic rhinitis J30.9 ; Generalized anxiety disorder F41.1 and Shoulder pain, left M25.512 [facility] [id number] [place] [address] 24748- 0869 Sep, [facility] [id number] [place] [address] 62731- 1811 Aug, Cough R05 [facility] [id number] [place] [address] 34056- 6474 Aug, Generalized anxiety disorder F41.1 [facility] [id number] [place] [address] 92503- 1017 Aug, Cough R05 [facility] [id number] [place] [address] 37685- 3001 Aug, [facility] [id number] [place] [address] 25231- 0143 Aug, [facility] [address] [place] [address] 37602- 0539 Aug, Lumbago of lumbar region with sciatica M54.5 [facility] [address] [place] [address] 34037- 0434 Jul, Lumbago 724.2 [place] [id number] [place] [address] 88785- 8949 Jul, [place] [id number] [place] [address] 40425- 3199 16 Jul, 2015 Anxiety 300.00 and Hypertension 401.9 [place] [id number] [place] [address] 26594- 8906 Jul, Generalized anxiety disorder 300.02 [place] [id number] [place] [address] 57135- 0924 Jul, Nodule of neck 784.2 [place] [id number] [place] [address] 73385- 3883 Jun, Nodule of neck 784.2 [place] [id number] [place] [address] 84066- 2724 Jun, [place] [id number] [place] [address] 11151- 6935 Jun, Routine adult health maintenance V70.0 [place] [id number] [place] [address] 27513- 7582 Jun, Routine adult health maintenance V70.0 ; Anxiety 300.00 ; Epilepsy 345.90 ; Hypertension 401.9 and Urinary incontinence 788.30 IMMUNIZATIONS No Known Immunizations SOCIAL HISTORY Never Assessed REASON FOR VISIT Controlled Med Refill 05/31/2017 PLAN OF CARE VITAL SIGNS MEDICATIONS Medication Instructions Dosage Frequency Start Date End Date Duration Status Oxycodone-Acetaminophen 7.5-325 MG Orally 3 times a day 1 tablet 8h May 28 days Active RESULTS No Results PROCEDURES No Known procedures INSTRUCTIONS MEDICATIONS ADMINISTERED No Known Medications MEDICAL (GENERAL) HISTORY Type Description Date Medical History epilepsy Medical History hypertension Medical History anxiety Medical History bladder incontinence Medical History Pneumonia, unspecified organism Medical History slipped discs in back Surgical History discectomy--L5-S1 2006 Surgical History laminectomy--L5-S1 2005 Surgical History spinal fusion--L5-S1 2006 Surgical History cholecystectomy 2008 Surgical History exploratory laparoscopy 2007 Hospitalization History Pneumonia 08/2015 Hospitalization History after colonscopy had seizures- ICU x2 days 06/2017
--- OUTSIDE RECORDS SUMMARY | 2018-06-20 17:30 | XMS REPORT ---
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 654336489 Problem Globus sensation F45.8 Active 19872740 Problem Excessive thirst R63.1 Active 37127997 Problem Chronic pain G89.29 Active 88513758 Problem Shoulder pain, left M25.512 Active 79213143 Problem Oropharyngeal dysphagia R13.12 Active 51921065 Problem Protrusion of cervical intervertebral disc M50.20 Active 828970951 Problem COPD (chronic obstructive pulmonary disease) J44.9 Active 50893500 Problem HTN (hypertension) I10 Active 79531461 Problem Anxiety F41.9 Active 25760360 Problem Incontinence R32 Active 86932919 Problem 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 Active 027721455 ALLERGIES Substance Reaction Event Type Date Status Sulfamethoxazole-Trimethoprim nausea Drug Allergy Dec, Active Morphine Sulfate hives Drug Allergy Dec, Active Keppra elevated blood pressure Drug Allergy Dec, Active Biaxin nausea Drug Allergy Dec, Active ssi meds i.e. celexa ed Non Drug Allergy Dec, Active gabapenting/llyrica unknown Non Drug Allergy Dec, Active SOCIAL HISTORY Never Assessed PLAN OF CARE Activity Details Follow Up prn Reason: VITAL SIGNS Height 70 in 2017-01-07 Weight 212.0 lbs 2017-01-07 Temperature 98.8 degrees Fahrenheit 2017-01-07 Heart Rate 78 bpm 2017-01-07 Respiratory Rate 20 2017-01-07 BMI 30.42 kg/m2 2017-01-07 Blood pressure systolic 130 mmHg 2017-01-07 Blood pressure diastolic 90 mmHg 2017-01-07 MEDICATIONS Medication Instructions Dosage Frequency Start Date End Date Duration Status Atenolol 50 mg Orally Once a day at night MUST KEEP APPT 11/12/16 FOR REFILL 1 tablet Dec, 30 days Active Topamax 50 mg Orally Twice a day 1 tablet 12h 24 Dec, 2015 Active Symbicort 160-4.5 MCG/ACT Inhalation Twice a day 2 puffs 12h 21 Sep, 2016 Active Ibuprofen 800 MG Orally Three times a day 1 tablet 8h 30 Active Lisinopril 20 mg Orally Once a day TAKE ONE TABLET BY MOUTH ONCE DAILY 24h 30 Active Albuterol Sulfate HFA 108 (90 Base) MCG/ACT Inhalation every 4 hrs 2 puffs as needed 4h 16 Sep, 2015 Active Xanax 0.25 MG Orally Twice a day NEEDED 1 tablet 30 Sep, 2016 28 days Active Doxycycline Hyclate 100 MG Orally every 12 hrs 1 capsule 12h Dec, Dec, 10 days Active Oxycodone-Acetaminophen 7.5-325 MG Orally 3 times a day 1 tablet 8h Nov 28 days Active Cyclobenzaprine HCl 10 MG TAKE ONE TABLET BY MOUTH ONCE DAILY BEFORE BED NEEDED 30 Active RESULTS No Results PROCEDURES No [...]
--- OUTSIDE RECORDS SUMMARY | 2018-06-20 17:31 | XMS REPORT ---
Author Author DARVIN PRAKASH [facility] Address [address] [place] [address] Care Team Providers Care Nutritional Assistant Name Role Phone DARVIN PRAKASH Unavailable PROBLEMS Type Condition ICD9-CM Code XDU02-[place] Code Onset Dates Condition Status SNOMED Code Problem HTN (hypertension) I10 Active 10823496 Problem 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 Active 751729041 Problem Anxiety F41.9 Active 86743862 Problem COPD (chronic obstructive pulmonary disease) J44.9 Active 54239101 Problem Tobacco abuse counseling Z71.6 Active 370533488 Problem Tobacco abuse Z72.0 Active 187891871 Problem Protrusion of cervical intervertebral disc M50.20 Active 194581891 Problem Epilepsy G40.909 Active 79902136 Problem Overweight (BMI 25.0-29.9) E66.3 Active 332639332 Problem Chronic pain G89.29 Active 59513736 ALLERGIES No Information ENCOUNTERS Encounter Location Date Diagnosis [place] [address] [address] Feb, HTN (hypertension) I10 ; COPD (chronic obstructive pulmonary disease) J44.9 ; Overweight (BMI 25.0-29.9) E66.3 and Epilepsy G40.[address] [place] [id number] [place] [address] 88541- 4780 Feb, HTN (hypertension) I10 ; COPD (chronic obstructive pulmonary disease) J44.9 ; Anxiety F41.9 ; Overweight (BMI 25.0-29.9) E66.3 ; Epilepsy G40.909 ; 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 ; Protrusion of cervical intervertebral disc M50.20 ; Tobacco abuse counseling Z71.6 and Tobacco abuse Z72.0 [place] [address] 35687- 6608 Feb, Chronic pain G89.29 [facility] [address] [place] [id number] [place] [address] 96639- 7972 Jan, Chronic pain G89.29 [facility] [address] [place] [id number] [place] [address] 07046- 2171 28 Dec, 2017 Epilepsy G40.909 [facility] [address] [place] [id number] [place] [address] 15264- 6760 05 Dec, 2017 Chronic pain G89.29 [facility] [address] [place] [id number] [place] [address] 56947- 6154 Nov, [facility] [address] 84769- 3704 Nov, Anxiety F41.9 [place] [address] [place] [id number] [place] [address] 81641- 6780 Oct, HTN (hypertension) I10 ; COPD (chronic obstructive pulmonary disease) J44.9 ; Epilepsy G40.909 ; Chronic pain G89.29 ; Anxiety F41.9 ; Overweight (BMI 25.0-29.9) E66.3 ; Tobacco abuse Z72.0 ; Tobacco abuse counseling Z71.6 ; High risk medication use Z79.899 and Controlled substance agreement signed Z79.899 [place] [address] [place] [id number] [place] [address] 30542- 2857 Oct, 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 [place] [address] [place] [id number] [place] [address] 82260- 9172 Oct, 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 [place] [address] [place] [id number] [place] [address] 97302- 8026 Sep, [place] [address] 45755- 4168 Sep, [facility] [address] [place] [id number] [place] [address] 40529- 2302 Aug, 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 [place] [address] 53367- 6389 Jul, 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 and Anxiety F41.9 [place] [address] 89673- 8131 Jun, 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 and Anxiety F41.9 [facility] [address] 77335- 6513 Jun, 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 [facility] [address] 87712 -3218 Jun, Acute swimmers ear of right side H60.331 [place] [address] 81662- 8181 Jun, 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 and Anxiety F41.9 [place] [address] 36271- 7647 May, 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 and Anxiety F41.9 [facility] [address] 59286 -1612 May, COPD exacerbation J44.1 [place] [address] 17954- 6510 May, 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 [place] [address] 56233- 8108 Apr, [place] [address] 57083- 9820 Apr, [place] [address] 11157- 0201 Apr, 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 and Anxiety F41.9 [facility] [address] 92479- 7041 March, Anxiety F41.9 and 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 [place] [address] 41577- 4633 March, HTN (hypertension) I10 ; Anxiety F41.9 ; 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 ; 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 ; Neck pain M54.2 ; Globus sensation F45.8 and COPD (chronic obstructive pulmonary disease) J44.9 [place] [address] 02460- 6002 Feb, [place] [address] 89454- 7079 Feb, HTN (hypertension) I10 [facility] [place] [address] 64723 -7831 Feb, Acute nasopharyngitis (common cold) J00 [place] [address] 17172- 2050 Feb, Anxiety F41.9 and 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 [place] [address] 66243- 3398 Feb, Bronchitis J40 [place] [address] 99047- 5519 Jan, Anxiety F41.9 and 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 [place] [address] 84991- 3995 Jan, Anxiety F41.9 [facility] [address] 19348 -9927 20 Dec, 2016 Viral pharyngitis J02.9 [place] [address] 84391- 9057 15 Dec, 2016 HTN (hypertension) I10 [place] [address] 85036- 4501 14 Dec, 2016 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 and HTN (hypertension) I10 [facility] [address] [place] [id number] [place] [address] 01832 -2043 10 Dec, 2016 Abscess L02.91 [place] [address] 46311- 7360 08 Dec, 2016 Anxiety F41.9 and 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 [place] [address] 56921- 1038 Nov, Incontinence R32 [place] [address] 90980- 0597 Nov, Anxiety F41.9 and 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 [place] [address] 50769- 7980 Nov, Incontinence R32 [place] [address] 80908- 0628 Nov, Excessive thirst R63.1 [place] [address] 33899- 8190 Nov, Excessive thirst R63.1 [place] [address] 35977- 2555 Nov, HTN (hypertension) I10 ; Anxiety F41.9 ; COPD (chronic obstructive pulmonary disease) J44.9 ; 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 ; Epilepsy G40.909 ; 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 ; Neck pain M54.2 ; Other viral agents as the cause of diseases classified elsewhere B97.89 ; Acute upper respiratory infection, unspecified J06.9 ; Chronic intractable headache, unspecified headache type R51 and Hypercholesterolemia E78.00 [place] [address] [place] [id number] [place] [address] 86962- 9470 Oct, [place] [address] 88009- 2987 Oct, [facility] [address] 28058- 4320 Sep, [facility] [address] [place] [id number] [place] [address] 48282- 3130 Sep, [facility] [address] 34692 -3995 Sep, Cough R05 ; Wheezing R06.2 ; Oropharyngeal dysphagia R13.12 and Exposure to strep throat Z20.818 [facility] [address] 49390- 0833 Sep, [facility] [address] 76993- 9685 Sep, [facility] [address] 29640- 7139 Aug, [facility] [address] 91248- 4788 Aug, [facility] [address] 71326- 9616 16 Jul, 2016 [facility] [address] [place] [id number] [place] [address] 24761 -0284 14 Jul, 2016 Bronchitis J40 [facility] [address] 31493- 1846 06 Jul, 2016 [facility] [address] [place] [id number] [place] [address] 68667- 1513 Jun, HTN (hypertension) I10 ; Anxiety F41.9 ; Epilepsy G40.909 ; COPD (chronic obstructive pulmonary disease) J44.9 ; 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 and 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 [facility] [address] 52116- 2879 Jun, [facility] [address] [place] [id number] [place] [address] 03743- 9431 Jun, HTN (hypertension) I10 ; Anxiety F41.9 ; Epilepsy G40.909 ; COPD (chronic obstructive pulmonary disease) J44.9 ; 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 and 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 [place] [address] 45836- 3540 May, [place] [address] 31544- 3301 Apr, Anxiety disorder, unspecified F41.9 and Shoulder pain, left M25.512 [place] [address] 45895- 3596 March, Anxiety disorder, unspecified F41.9 and Degenerative joint disease (DJD) of lumbar spine M47.816 [place] [address] 87230- 2708 March, Sore throat in the morning J02.9 [place] [address] 81678- 2716 Feb, [facility] [place] [address] 61184 -8404 Feb, Right foot injury, initial encounter S99.921A and Oral nayan B37.0 [place] [address] 32050- 3659 Feb, [place] [address] 70828- 6681 Jan, HTN (hypertension) I10 ; COPD (chronic obstructive pulmonary disease) J44.9 ; Chronic pain G89.29 and Epilepsy G40.909 [facility] [address] [place] [address] 38837 -6319 Jan, Sore throat J02.9 and Thrush B37.0 [place] [address] 29876- 6283 16 Jan, 2016 Chronic pain G89.29 ; HTN (hypertension) I10 ; Anxiety F41.9 ; 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 ; Protrusion of cervical intervertebral disc M50.20 and Shoulder pain, left M25.512 [facility] [id number] [place] [address] 84578- 2124 Jan, [facility] [address] [place] [id number] [place] [address] 03115- 6478 Jan, [facility] [address] [place] [id number] [place] [address] 00520- 5282 Jan, HTN (hypertension) I10 ; Anxiety F41.9 ; COPD (chronic obstructive pulmonary disease) J44.9 ; 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 ; Incontinence R32 ; Epilepsy G40.909 ; 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 and Neck pain M54.2 [place] [address] [place] [id number] [place] [address] 00252- 7109 Jan, Anxiety F41.9 [place] [address] [place] [id number] [place] [address] 79180- 6593 Dec, HTN (hypertension) I10 ; Epilepsy G40.909 and 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 [place] [id number] [place] [address] 52599- 0107 Dec, [facility] [address] [place] [id number] [place] [address] 77346- 0235 Dec, Anxiety F41.9 ; HTN (hypertension) I10 ; COPD (chronic obstructive pulmonary disease) J44.9 ; 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 and Incontinence R32 [facility] [id number] [place] [address] 35852- 3205 Dec, [facility] [address] [id number] [place] [address] Dec [facility] [id number] [place] [address] 38199- 9044 Nov, [facility] [id number] [place] [address] 58477- 2174 Nov, [facility] [address] [place] [address]- 2673 15 Nov, 2015 [facility] [address] [place] [id number] [place] [address] 87860 -8551 Nov, Pharyngitis J02.9 and Allergic rhinitis J30.9 [facility] [address] [place] [id number] [place] [address] 87005- 3372 Nov, Degenerative joint disease (DJD) of lumbar spine M47.816 ; Cervicalgia M54.2 ; Lumbago 724.2 and Lumbago of lumbar region with sciatica M54.5 [place] [address] 92320- 6735 Nov, Degenerative joint disease (DJD) of lumbar spine M47.816 [place] [address] 88371- 9752 Oct, Generalized anxiety disorder F41.1 [place] [address] 41955- 9982 Oct, Cervicalgia M54.2 ; Degenerative joint disease (DJD) of lumbar spine M47.816 and Hypertension I10 [place] [address] 61027- 8449 14 Oct, 2015 [facility] [address] [place] [id number] [place] [address] 31914 -8656 Oct, Essential (primary) hypertension I10 [facility] [address] [place] [id number] [place] [address] 24887- 3275 Oct, [facility] [address] [place] [id number] [place] [address] 34114- 8557 Sep, Allergic rhinitis J30.9 ; Generalized anxiety disorder F41.1 and Shoulder pain, left M25.512 [facility] [address] 84478- 2933 Sep, [facility] [address] 08508- 2977 Aug, Cough R05 [facility] [id number] [place] [address] 90606- 6439 Aug, Generalized anxiety disorder F41.1 [facility] [address] [place] [id number] [place] [address] 08486- 8691 Aug, Cough R05 [facility] [address] [place] [id number] [place] [address] 99683- 5931 Aug, [facility] [address] [place] [id number] [place] [address] 64520- 6530 Aug, [facility] [address] 51666- 5158 Aug, Lumbago of lumbar region with sciatica M54.5 [facility] [address] [place] [id number] [place] [address] 19502- 1585 Jul, Lumbago 724.2 [facility] [address] [place] [id number] [place] [address] 98245- 7662 Jul, [facility] [address] [place] [id number] [place] [address] 89106- 4548 16 Jul, 2015 Anxiety 300.00 and Hypertension 401.9 [facility] [address] [place] [id number] [place] [address] 97293- 8043 11 Jul, 2014 Generalized anxiety disorder 300.02 [facility] [address] [place] [id number] [place] [address] 59827- 7330 09 Jul, 2015 Nodule of neck 784.2 [facility] [address] [place] [address] 20797- 7792 Jun, Nodule of neck 784.2 [facility] [address] [place] [id number] [place] [address] 25315- 3899 Jun, [facility] [address] [place] [id number] [place] [address] 82859- 6589 Jun, Routine adult health maintenance V70.0 [facility] [address] [facility] [id number] [address]- 3713 Jun, Routine adult health maintenance V70.0 ; Anxiety 300.00 ; Epilepsy 345.90 ; Hypertension 401.9 and Urinary incontinence 788.30 IMMUNIZATIONS No Known Immunizations SOCIAL HISTORY Never Assessed REASON FOR VISIT Oxycodone- 07/26 PLAN OF CARE VITAL SIGNS MEDICATIONS Medication Instructions Dosage Frequency Start Date End Date Duration Status Oxycodone-Acetaminophen 7.5-325 MG Orally 3 times a day 1 tablet 8h 29 Jun 28 days Active Xanax 0.25 MG Orally Twice a day 1 tablet 12h Sep, 28 days Active RESULTS No Results PROCEDURES [...]
--- OUTSIDE RECORDS SUMMARY | 2018-06-20 17:31 | XMS REPORT ---
Author Author DARVIN PRAKASH [facility] Address [address] [place] [address] Care Team Providers Care Supercharge Repair Supervisor Name Role Phone DARVIN PRAKASH Unavailable PROBLEMS Type Condition ICD9-CM Code TSV46-ML Code Onset Dates Condition Status SNOMED Code Problem Anxiety F41.9 Active 11698016 Problem Epilepsy G40.909 Active 07924605 Problem 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 Active 875741706 Problem Dyslipidemia (high LDL; low HDL) E78.5 Active 296041214 Problem COPD (chronic obstructive pulmonary disease) J44.9 Active 62488233 Problem HTN (hypertension) I10 Active 44308831 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 417037459 Problem Tobacco abuse counseling Z71.6 Active 541125937 Problem Protrusion of cervical intervertebral disc M50.20 Active 155836178 Problem Chronic pain G89.29 Active 48586728 Problem Tobacco abuse Z72.0 Active 920468231 Problem Overweight (BMI 25.0-29.9) E66.3 Active 381896830 ALLERGIES No Information ENCOUNTERS Encounter Location Date Diagnosis [facility] [id number] [place] [address] 52258- 4780 March, Adverse effect of drug, subsequent encounter T88.7XXD ; HTN (hypertension) I10 ; Dyslipidemia (high LDL; low HDL) E78.5 ; Chronic pain G89.29 ; Anxiety F41.9 and 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 [facility] [address] [place] [address] 87611- 7663 March, 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 [facility] [address] [place] [address] 73301- 6233 March, [facility] [id number] [place] [address] 17191- 1042 Feb, [place] [id number] [place] [address] 42823- 4140 Feb, HTN (hypertension) I10 ; COPD (chronic obstructive pulmonary disease) J44.9 ; Overweight (BMI 25.0-29.9) E66.3 and Epilepsy G40.909 [place] [address] 94629- 0449 Feb, HTN (hypertension) I10 ; COPD (chronic obstructive pulmonary disease) J44.9 ; Anxiety F41.9 ; Overweight (BMI 25.0-29.9) E66.3 ; Epilepsy G40.909 ; 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 ; Protrusion of cervical intervertebral disc M50.20 ; Tobacco abuse counseling Z71.6 and Tobacco abuse Z72.0 [place] [address] 22135- 4256 Feb, Chronic pain G89.29 [place] [address] 97991- 4150 Jan, Chronic pain G89.29 [place] [address] 60918- 1349 Dec, Epilepsy G40.909 [place] [address] 72043- 5808 05 Dec, 2017 Chronic pain G89.29 [place] [address] 04095- 8179 Nov, [place] [address] [id number] [place] [address] 24726- 7397 Nov, Anxiety F41.9 [place] [address] 96999- 5569 Oct, HTN (hypertension) I10 ; COPD (chronic obstructive pulmonary disease) J44.9 ; Epilepsy G40.909 ; Chronic pain G89.29 ; Anxiety F41.9 ; Overweight (BMI 25.0-29.9) E66.3 ; Tobacco abuse Z72.0 ; Tobacco abuse counseling Z71.6 ; High risk medication use Z79.899 and Controlled substance agreement signed Z79.899 [place] [address] 01639- 2053 Oct, 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 [place] [address] 05269- 6341 Oct, 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 [place] [address] 09609- 9146 Sep, [place] [address] 479704- 5543 Sep, [place] [address] 09288- 7575 Aug, 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 [place] [address] 80537- 8829 Jul, 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 and Anxiety F41.9 [place] [address] 56636- 5574 Jun, 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 and Anxiety F41.9 [place] [address] 61817- 9427 Jun, 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 [facility] [address] 89968 -7292 Jun, Acute swimmers ear of right side H60.331 [place] [address] 20251- 1103 Jun, 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 and Anxiety F41.9 [place] [address] 57659- 5921 May, 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 and Anxiety F41.9 [facility] [id number] [place] [address] 13543 -9718 May, COPD exacerbation J44.1 [place] [address] 60369- 2914 May, 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 [facility] [address] 07153- 9246 Apr, [facility] [address] 76814- 7113 Apr, [place] [address] 31145- 0963 Apr, 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 and Anxiety F41.9 [place] [address] 22394- 0965 March, Anxiety F41.9 and 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 [place] [address] 89231- 9438 March, HTN (hypertension) I10 ; Anxiety F41.9 ; 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 ; 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 ; Neck pain M54.2 ; Globus sensation F45.8 and COPD (chronic obstructive pulmonary disease) J44.9 [place] [address] [id number] [place] [address] 73012- 7413 Feb, [facility] [address] 77631- 5082 Feb, HTN (hypertension) I10 [facility] [address] 24538 -6000 13 Feb, 2017 Acute nasopharyngitis (common cold) J00 [facility] [address] 90989- 7790 11 Feb, 2017 Anxiety F41.9 and 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 [facility] [address] 28598- 7750 04 Feb, 2017 Bronchitis J40 [facility] [id number] [place] [address] 15492- 6270 13 Jan, 2017 Anxiety F41.9 and 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 [facility] [address] 79061- 6235 09 Jan, 2017 Anxiety F41.9 [facility] [address] 07325 -9934 20 Dec, 2016 Viral pharyngitis J02.9 [facility] [address] 60712- 9329 15 Dec, 2016 HTN (hypertension) I10 [facility] [address] 22050- 4109 14 Dec, 2016 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 and HTN (hypertension) I10 [facility] [address] 87124 -2828 10 Dec, 2016 Abscess L02.91 [place] [address] 60197- 0981 08 Dec, 2016 Anxiety F41.9 and 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 [place] [address] 07213- 7994 Nov, Incontinence R32 [place] [address] 51391- 0366 Nov, Anxiety F41.9 and 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 [place] [address] 96498- 1460 Nov, Incontinence R32 [place] [address] 68067- 0955 09 Nov, 2016 Excessive thirst R63.1 [place] [address] 76316- 5982 05 Ramsey, 2017 Excessive thirst R63.1 [place] [address] [address] [id number] [place] [address] 24024- 6151 Nov, HTN (hypertension) I10 ; Anxiety F41.9 ; COPD (chronic obstructive pulmonary disease) J44.9 ; 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 ; Epilepsy G40.909 ; 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 ; Neck pain M54.2 ; Other viral agents as the cause of diseases classified elsewhere B97.89 ; Acute upper respiratory infection, unspecified J06.9 ; Chronic intractable headache, unspecified headache type R51 and Hypercholesterolemia E78.00 [place] [address] 34817- 7574 Oct, [place] [address] 87784- 1026 Oct, [place] [address] 15227- 2075 Sep, [place] [address] 57322- 7226 Sep, [facility] [address] [place] [id number] [place] [address] 25534 -0166 Sep, Cough R05 ; Wheezing R06.2 ; Oropharyngeal dysphagia R13.12 and Exposure to strep throat Z20.818 [place] [id number] [place] [address] 69000- 4271 Sep, [place] [address] 49119- 7710 Sep, [place] [address] [place] [id number] [place] [address] 80871- 1170 Aug, [place] [address] 81371- 0394 Aug, [place] [address] [place] [id number] [place] [address] 09633- 4843 16 Jul, 2016 [facility] [address] [place] [address]7 14 Jul, 2016 Bronchitis J40 [place] [address] 37288- 7017 06 Jul, 2016 [place] [address] 70594- 8950 Jun, HTN (hypertension) I10 ; Anxiety F41.9 ; Epilepsy G40.909 ; COPD (chronic obstructive pulmonary disease) J44.9 ; 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 and 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 [place] [address] [address] [id number] [place] [address] 42621- 7196 Jun, [place] [address] 60954- 4478 Jun, HTN (hypertension) I10 ; Anxiety F41.9 ; Epilepsy G40.909 ; COPD (chronic obstructive pulmonary disease) J44.9 ; 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 and 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 [place] [address] 91123- 9385 May, [place] [address] 70915- 0396 Apr, Anxiety disorder, unspecified F41.9 and Shoulder pain, left M25.512 [place] [address] [id number] [place] [address] 05424- 7897 March, Anxiety disorder, unspecified F41.9 and Degenerative joint disease (DJD) of lumbar spine M47.816 [place] [address] [address] [id number] [place] [address] 51605- 8139 March, Sore throat in the morning J02.9 [place] [address] [place] [id number] [place] [address] 82518- 6095 14 Feb, 2016 [facility] [id number] [place] [address] 86130 -2868 Feb, Right foot injury, initial encounter S99.921A and Oral nayan B37.0 [facility] [address] 14135- 4524 05 Feb, 2016 [place] [address] 50711- 4087 Jan, HTN (hypertension) I10 ; COPD (chronic obstructive pulmonary disease) J44.9 ; Chronic pain G89.29 and Epilepsy G40.909 [facility] [address] 00750 -5121 Jan, Sore throat J02.9 and Thrush B37.0 [place] [address] 10626- 5729 16 Jan, 2016 Chronic pain G89.29 ; HTN (hypertension) I10 ; Anxiety F41.9 ; 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 ; Protrusion of cervical intervertebral disc M50.20 and Shoulder pain, left M25.512 [place] [address] 16721- 0579 Jan, [place] [address] 70215- 7082 Jan, [place] [address] 99583- 5304 Jan, HTN (hypertension) I10 ; Anxiety F41.9 ; COPD (chronic obstructive pulmonary disease) J44.9 ; 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 ; Incontinence R32 ; Epilepsy G40.909 ; 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 and Neck pain M54.2 [place] [address] 31333- 2910 Jan, Anxiety F41.9 [place] [address] 09695- 5342 Dec, HTN (hypertension) I10 ; Epilepsy G40.909 and 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 [place] [address] 29201- 4845 Dec, [facility] [address] [address]- 9867 Dec, Anxiety F41.9 ; HTN (hypertension) I10 ; COPD (chronic obstructive pulmonary disease) J44.9 ; 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 and Incontinence R32 [facility] [address] [address] 9930 Dec, [id number] [place] [address] Dec [facility] [id number] [place] [address] 86849- 4898 Nov, [facility] [address] [id number] [place] [address] 93338- 8530 Nov, [facility] [id number] [place] [address] 69383- 8184 Nov, [facility] [address] [place] [address] 71579 -7201 Nov, Pharyngitis J02.9 and Allergic rhinitis J30.9 [facility] [address] [id number] [place] [address] 27942- 7024 Nov, Degenerative joint disease (DJD) of lumbar spine M47.816 ; Cervicalgia M54.2 ; Lumbago 724.2 and Lumbago of lumbar region with sciatica M54.5 [place] [address] [place] [address] 28237- 0532 Nov, Degenerative joint disease (DJD) of lumbar spine M47.816 [facility] [id number] [place] [address] 87539- 1098 Oct, Generalized anxiety disorder F41.1 [facility] [address] [place] [address] 75771- 6574 Oct, Cervicalgia M54.2 ; Degenerative joint disease (DJD) of lumbar spine M47.816 and Hypertension I10 [facility] [id number] [place] [address] 47950- 4526 Oct, [facility] [id number] [place] [address] 93573 -9167 Oct, Essential (primary) hypertension I10 [facility] [id number] [place] [address] 88047- 3307 Oct, [facility] [id number] [place] [address] 18289- 8598 Sep, Allergic rhinitis J30.9 ; Generalized anxiety disorder F41.1 and Shoulder pain, left M25.512 [facility] [id number] [place] [address] 88364- 1333 Sep, [facility] [id number] [place] [address] 32961- 8569 Aug, Cough R05 [facility] [id number] [place] [address] 95483- 5609 Aug, Generalized anxiety disorder F41.1 [facility] [id number] [place] [address] 91666- 8891 Aug, Cough R05 [facility] [id number] [place] [address] 22578- 1894 Aug, [facility] [id number] [place] [address] 19580- 5555 Aug, [facility] [id number] [place] [address] 73005- 1751 Aug, Lumbago of lumbar region with sciatica M54.5 [facility] [id number] [place] [address] 86610- 5944 Jul, Lumbago 724.2 [facility] [id number] [place] [address] 71358- 6002 Jul, [facility] [id number] [address]- 9941 16 Jul, 2015 Anxiety 300.00 and Hypertension 401.9 [facility] [address] [address]- 5737 11 Jul, 2015 Generalized anxiety disorder 300.02 [facility] [address] [address]- 7908 09 Jul, 2015 Nodule of neck 784.2 [place] [address] [id number] [place] [address] 13468- 8982 Jun, Nodule of neck 784.2 [place] [address] [place] [address] 03595- 7892 Jun, [place] [address] [place] [address] 46990- 1288 Jun, Routine adult health maintenance V70.0 [place] [address] [place] [address] 41437- 7460 Jun, Routine adult health maintenance V70.0 ; Anxiety 300.00 ; Epilepsy 345.90 ; Hypertension 401.9 and Urinary incontinence 788.30 IMMUNIZATIONS No Known Immunizations SOCIAL HISTORY Never Assessed REASON FOR VISIT Percocet PLAN OF CARE VITAL SIGNS MEDICATIONS Medication Instructions Dosage Frequency Start Date End Date Duration Status Oxycodone-Acetaminophen 7.5-325 MG Orally 3 times a day 1 tablet as needed 8h Oct, Nov, 28 days Active Ibuprofen 800 MG TAKE ONE TABLET BY MOUTH THREE TIMES DAILY 30 Active RESULTS No Results PROCEDURES No [...]
--- OUTSIDE RECORDS SUMMARY | 2018-06-20 17:31 | XMS REPORT ---
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 951563854 Problem Globus sensation F45.8 Active 03273048 Problem Excessive thirst R63.1 Active 67525877 Problem Chronic pain G89.29 Active 58222428 Problem Shoulder pain, left M25.512 Active 72118820 Problem Oropharyngeal dysphagia R13.12 Active 83936700 Problem Protrusion of cervical intervertebral disc M50.20 Active 846493581 Problem COPD (chronic obstructive pulmonary disease) J44.9 Active 38014874 Problem HTN (hypertension) I10 Active 04718453 Problem Anxiety F41.9 Active 94926169 Problem Incontinence R32 Active 08579404 Problem 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
--- OUTSIDE RECORDS SUMMARY | 2018-06-20 17:31 | XMS REPORT ---
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 098718261 Problem Globus sensation F45.8 Active 78482811 Problem Excessive thirst R63.1 Active 41666730 Problem Chronic pain G89.29 Active 02855136 Problem Shoulder pain, left M25.512 Active 83285460 Problem Oropharyngeal dysphagia R13.12 Active 66517980 Problem Protrusion of cervical intervertebral disc M50.20 Active 540342680 Problem COPD (chronic obstructive pulmonary disease) J44.9 Active 96407905 Problem HTN (hypertension) I10 Active 28801895 Problem Anxiety F41.9 Active 84399022 Problem Incontinence R32 Active 61588213 Problem 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 Active 481980772 ALLERGIES Unknown Allergies SOCIAL HISTORY No smoking Hx information available PLAN OF CARE VITAL SIGNS MEDICATIONS Unknown Medications RESULTS Name Result Date Reference Range UA LONG DIP (IN HOUSE) Lot # Exp date Clarity Color Odor GLU JACKSON KET SG BLO pH Protein URO NIT ANDERS Lot # Exp date PROCEDURES Procedure Date Ordered Related Diagnosis Body Site URINALYSIS, AUTO, W/O SCOPE Dec 08, 2016 IMMUNIZATIONS No Known Immunizations
--- OUTSIDE RECORDS SUMMARY | 2018-06-20 17:31 | XMS REPORT ---
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 195099451 Problem Globus sensation F45.8 Active 43790769 Problem Excessive thirst R63.1 Active 25592814 Problem Chronic pain G89.29 Active 57423864 Problem Shoulder pain, left M25.512 Active 25882125 Problem Oropharyngeal dysphagia R13.12 Active 64801213 Problem Protrusion of cervical intervertebral disc M50.20 Active 281284392 Problem COPD (chronic obstructive pulmonary disease) J44.9 Active 42218307 Problem HTN (hypertension) I10 Active 32885120 Problem Anxiety F41.9 Active 17274169 Problem Incontinence R32 Active 64391391 Problem 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
--- OUTSIDE RECORDS SUMMARY | 2018-06-20 17:32 | XMS REPORT ---
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 649387603 Problem Globus sensation F45.8 Active 77466725 Problem Excessive thirst R63.1 Active 54029915 Problem Chronic pain G89.29 Active 92302641 Problem Shoulder pain, left M25.512 Active 04654781 Problem Oropharyngeal dysphagia R13.12 Active 68403596 Problem Protrusion of cervical intervertebral disc M50.20 Active 965010622 Problem COPD (chronic obstructive pulmonary disease) J44.9 Active 11615782 Problem HTN (hypertension) I10 Active 98106653 Problem Anxiety F41.9 Active 38465635 Problem Incontinence R32 Active 07567872 Problem 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 Active 939133800 ALLERGIES No Information SOCIAL HISTORY Never Assessed PLAN OF CARE VITAL SIGNS MEDICATIONS Medication Instructions Dosage Frequency Start Date End Date Duration Status Xanax 0.25 MG Orally Twice a day NEEDED 1 tablet Sep, 05 days Active RESULTS No Results PROCEDURES No [...]
--- OUTSIDE RECORDS SUMMARY | 2018-06-20 17:32 | XMS REPORT ---
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 763447251 Problem Globus sensation F45.8 Active 84005789 Problem Excessive thirst R63.1 Active 28002804 Problem Chronic pain G89.29 Active 30382023 Problem Shoulder pain, left M25.512 Active 44133795 Problem Oropharyngeal dysphagia R13.12 Active 86771441 Problem Protrusion of cervical intervertebral disc M50.20 Active 309695811 Problem COPD (chronic obstructive pulmonary disease) J44.9 Active 76901928 Problem HTN (hypertension) I10 Active 49610584 Problem Anxiety F41.9 Active 39938432 Problem Incontinence R32 Active 83961258 Problem 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 Active 370435257 ALLERGIES No Information SOCIAL HISTORY Never Assessed PLAN OF CARE VITAL SIGNS MEDICATIONS Medication Instructions Dosage Frequency Start Date End Date Duration Status Oxycodone-Acetaminophen 7.5-325 MG Orally 3 times a day 1 tablet 8h 12 Nov 28 days Active Xanax 0.25 MG Orally [...]
--- OUTSIDE RECORDS SUMMARY | 2018-06-20 17:32 | XMS REPORT ---
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 493125470 Problem Globus sensation F45.8 Active 12958751 Problem Excessive thirst R63.1 Active 94656635 Problem Chronic pain G89.29 Active 41802201 Problem Shoulder pain, left M25.512 Active 12448232 Problem Oropharyngeal dysphagia R13.12 Active 74076466 Problem Protrusion of cervical intervertebral disc M50.20 Active 512152764 Problem COPD (chronic obstructive pulmonary disease) J44.9 Active 87316092 Problem HTN (hypertension) I10 Active 83847083 Problem Anxiety F41.9 Active 41269214 Problem Incontinence R32 Active 52577802 Problem 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
--- OUTSIDE RECORDS SUMMARY | 2018-06-20 17:32 | XMS REPORT ---
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 029687562 Problem Globus sensation F45.8 Active 92766470 Problem Excessive thirst R63.1 Active 97404161 Problem Chronic pain G89.29 Active 41707966 Problem Shoulder pain, left M25.512 Active 40205053 Problem Oropharyngeal dysphagia R13.12 Active 01419835 Problem Protrusion of cervical intervertebral disc M50.20 Active 320281173 Problem COPD (chronic obstructive pulmonary disease) J44.9 Active 44011601 Problem HTN (hypertension) I10 Active 41883467 Problem Anxiety F41.9 Active 83969468 Problem Incontinence R32 Active 09932725 Problem 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
--- OUTSIDE RECORDS SUMMARY | 2018-06-20 17:32 | XMS REPORT ---
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 946708647 Problem Globus sensation F45.8 Active 85227575 Problem Excessive thirst R63.1 Active 43746863 Problem Chronic pain G89.29 Active 87987372 Problem Shoulder pain, left M25.512 Active 14995975 Problem Oropharyngeal dysphagia R13.12 Active 55678699 Problem Protrusion of cervical intervertebral disc M50.20 Active 481614787 Problem COPD (chronic obstructive pulmonary disease) J44.9 Active 50111106 Problem HTN (hypertension) I10 Active 46710267 Problem Anxiety F41.9 Active 51278065 Problem Incontinence R32 Active 13948045 Problem 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 Active 682455824 ALLERGIES No Information ENCOUNTERS Encounter Location Date Diagnosis [facility] [id number] [place] [address] 89472- 5433 Feb, [facility] [address] [place] [place] [id number] [place] [address] 39346- 5272 Jan, Chronic pain G89.29 [facility] [id number] [place] [address] 45529- 8904 Dec, Epilepsy G40.909 [facility] [id number] [place] [address] 81948- 8339 05 Dec, 2017 Chronic pain G89.29 [facility] [id number] [place] [address] 73646- 0435 Nov, [facility] [address] 76903- 2294 Nov, Anxiety F41.9 [place] [address] 70767- 4284 Oct, HTN (hypertension) I10 ; COPD (chronic obstructive pulmonary disease) J44.9 ; Epilepsy G40.909 ; Chronic pain G89.29 ; Anxiety F41.9 ; Overweight (BMI 25.0-29.9) E66.3 ; Tobacco abuse Z72.0 ; Tobacco abuse counseling Z71.6 ; High risk medication use Z79.899 and Controlled substance agreement signed Z79.899 [place] [address] 17631- 3619 Oct, 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 [place] [address] 82229- 4282 Oct, 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 [place] [address] 33237- 9475 Sep, [place] [address] 15805- 7994 Sep, [facility] [address] 00378- 7931 Aug, 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 [place] [address] 62530- 4816 Jul, 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 and Anxiety F41.9 [place] [address] 90168- 3505 Jun, 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 and Anxiety F41.9 [place] [address] 51448- 9296 Jun, 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 [facility] [address] 33124 -9960 Jun, Acute swimmers ear of right side H60.331 [facility] [id number] [place] [address] 27624- 0970 Jun, 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 and Anxiety F41.9 [facility] [id number] [place] [address] 63285- 5570 May, 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 and Anxiety F41.9 [facility] [address] 53337 -2375 May, COPD exacerbation J44.1 [facility] [address] 56990- 2074 May, 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 [facility] [id number] [place] [address] 38871- 9498 Apr, [facility] [address] 96890- 2868 Apr, [facility] [id number] [place] [address] 79052- 2654 Apr, 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 and Anxiety F41.9 [facility] [id number] [place] [address] 68208- 1751 March, Anxiety F41.9 and 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 [facility] [id number] [place] [address] 51450- 6382 March, HTN (hypertension) I10 ; Anxiety F41.9 ; 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 ; 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 ; Neck pain M54.2 ; Globus sensation F45.8 and COPD (chronic obstructive pulmonary disease) J44.9 [facility] [id number] [place] [address] 17842- 1480 Feb, [facility] [id number] [place] [address] 42169- 2027 Feb, HTN (hypertension) I10 [facility] [address] 36810 -9735 13 Feb, 2017 Acute nasopharyngitis (common cold) J00 [facility] [address] 65143- 2224 11 Feb, 2017 Anxiety F41.9 and Bulging lumbar disc M51.26 [facility] [address] 42273- 2596 04 Feb, 2017 Bronchitis J40 [place] [address] 90189- 8538 13 Jan, 2017 Anxiety F41.9 and Bulging lumbar disc M51.26 [place] [address] 29284- 8478 09 Jan, 2017 Anxiety F41.9 [facility] [address] 63336 -3512 20 Dec, 2016 Viral pharyngitis J02.9 [place] [address] 53594- 5202 15 Dec, 2016 HTN (hypertension) I10 [place] [address] 20857- 6287 14 Dec, 2016 Bulging lumbar disc M51.26 and HTN (hypertension) I10 [facility] [address] 43522 -7215 10 Dec, 2016 Abscess L02.91 [place] [address] 71890- 1500 08 Dec, 2016 Anxiety F41.9 and Bulging lumbar disc M51.26 [place] [address] 06229- 2702 16 Nov, 2016 Incontinence R32 [place] [address] 73376- 6010 11 Nov, 2016 Anxiety F41.9 and Bulging lumbar disc M51.26 [place] [address] [place] [id number] [place] [address] 76406- 0455 Nov, Incontinence R32 [place] [address] [place] [id number] [place] [address] 46450- 8000 Nov, Excessive thirst R63.1 [place] [address] 19949- 3394 Nov, Excessive thirst R63.1 [place] [address] 46389- 9788 Nov, HTN (hypertension) I10 ; Anxiety F41.9 ; COPD (chronic obstructive pulmonary disease) J44.9 ; Bulging lumbar disc M51.26 ; Epilepsy G40.909 ; 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 ; Neck pain M54.2 ; Other viral agents as the cause of diseases classified elsewhere B97.89 ; Acute upper respiratory infection, unspecified J06.9 ; Chronic intractable headache, unspecified headache type R51 and Hypercholesterolemia E78.00 [place] [address] 14154- 8251 Oct, [place] [address] 36741- 4067 Oct, [facility] [address] 19343- 8966 Sep, [facility] [address] 95321- 6672 Sep, [facility] [id number] [place] [address] 47962 -3191 Sep, Cough R05 ; Wheezing R06.2 ; Oropharyngeal dysphagia R13.12 and Exposure to strep throat Z20.818 [place] [address] [id number] [place] [address] 04598- 7471 Sep, [place] [address] 58857- 6096 Sep, [facility] [address] [address] 9212 Aug, [facility] [id number] [place] [address] 34699- 6583 18 Aug, 2016 [facility] [id number] [place] [address] 09055- 0969 16 Jul, 2016 [facility] [id number] [place] [address] 27316 -3614 14 Jul, 2016 Bronchitis J40 [facility] [id number] [place] [address] 70690- 5281 06 Jul, 2016 [facility] [id number] [place] [address] 36410- 4635 Jun, HTN (hypertension) I10 ; Anxiety F41.9 ; Epilepsy G40.909 ; COPD (chronic obstructive pulmonary disease) J44.9 ; 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 and Bulging lumbar disc M51.26 [facility] [id number] [place] [address] 51299- 4113 Jun, [facility] [id number] [place] [address] 58169- 9477 Jun, HTN (hypertension) I10 ; Anxiety F41.9 ; Epilepsy G40.909 ; COPD (chronic obstructive pulmonary disease) J44.9 ; 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 and Bulging lumbar disc M51.26 [facility] [address] [address]- 5[address] May, [facility] [id number] [place] [address] 75804- 6053 Apr, Anxiety disorder, unspecified F41.9 and Shoulder pain, left M25.512 [facility] [id number] [place] [address] 87943- 3806 March, Anxiety disorder, unspecified F41.9 and Degenerative joint disease (DJD) of lumbar spine M47.816 [place] [id number] [place] [address] 12104- 5184 March, Sore throat in the morning J02.9 [place] [id number] [place] [address] 40332- 8729 Feb, [facility] [place] [address] 53013 -9574 Feb, Right foot injury, initial encounter S99.921A and Oral nayan B37.0 [place] [address] 86463- 4368 Feb, [place] [address] 07991- 5752 Jan, HTN (hypertension) I10 ; COPD (chronic obstructive pulmonary disease) J44.9 ; Chronic pain G89.29 and Epilepsy G40.909 [facility] [place] [address] 73993 -7036 Jan, Sore throat J02.9 and Thrush B37.0 [place] [address] 19737- 5447 16 Jan, 2016 Chronic pain G89.29 ; HTN (hypertension) I10 ; Anxiety F41.9 ; Bulging lumbar disc M51.26 ; Protrusion of cervical intervertebral disc M50.20 and Shoulder pain, left M25.512 [place] [address] [id number] [place] [address] 38697- 0233 Jan, [place] [address] 51021- 6834 Jan, [place] [address] 63229- 0301 09 Jan, 2016 HTN (hypertension) I10 ; Anxiety F41.9 ; COPD (chronic obstructive pulmonary disease) J44.9 ; Bulging lumbar disc M51.26 ; Incontinence R32 ; Epilepsy G40.909 ; 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 and Neck pain M54.2 [place] [id number] [place] [address] 57570- 3099 Jan, Anxiety F41.9 [place] [address] [id number] [place] [address] 59454- 3343 24 Dec, 2015 HTN (hypertension) I10 ; Epilepsy G40.909 and 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 [place] [address] [id number] [place] [address] 56940- 3762 Dec, [place] [address] 78174- 9681 Dec, Anxiety F41.9 ; HTN (hypertension) I10 ; COPD (chronic obstructive pulmonary disease) J44.9 ; Bulging lumbar disc M51.26 and Incontinence R32 [place] [address] [id number] [place] [address] 48649- 7709 Dec, [address] [address] Dec [place] [address] [place] [id number] [place] [address] 00998- 1148 Nov, [place] [address] [place] [id number] [place] [address] 38218- 2286 Nov, [place] [address] [place] [id number] [place] [address] 41675- 2806 Nov, [facility] [id number] [place] [address] 14357 -2818 Nov, Pharyngitis J02.9 and Allergic rhinitis J30.9 [place] [address] 83075- 7596 Nov, Degenerative joint disease (DJD) of lumbar spine M47.816 ; Cervicalgia M54.2 ; Lumbago 724.2 and Lumbago of lumbar region with sciatica M54.5 [place] [address] [place] [address]- 0878 Nov, Degenerative joint disease (DJD) of lumbar spine M47.816 [facility] [address] 55213- 6040 Oct, Generalized anxiety disorder F41.1 [facility] [id number] [place] [address] 28371- 3652 Oct, Cervicalgia M54.2 ; Degenerative joint disease (DJD) of lumbar spine M47.816 and Hypertension I10 [facility] [id number] [place] [address] 71377- 7935 Oct, [facility] [id number] [place] [address] 52610 -4004 Oct, Essential (primary) hypertension I10 [facility] [address] [place] [id number] [place] [address] 72381- 8230 Oct, [facility] [id number] [place] [address] 64561- 6480 Sep, Allergic rhinitis J30.9 ; Generalized anxiety disorder F41.1 and Shoulder pain, left M25.512 [facility] [address] [place] [id number] [place] [address] 76433- 4086 Sep, [facility] [id number] [place] [address] 09534- 6972 Aug, Cough R05 [facility] [id number] [place] [address] 07118- 6325 Aug, Generalized anxiety disorder F41.1 [facility] [id number] [place] [address] 43559- 0017 Aug, Cough R05 [facility] [id number] [place] [address] 27688- 4921 Aug, [facility] [id number] [place] [address] 56050- 0211 Aug, [facility] [address] [id number] [place] [address] 67780- 8995 Aug, Lumbago of lumbar region with sciatica M54.5 [place] [address] [place] [id number] [place] [address] 53493- 6873 Jul, Lumbago 724.2 [place] [address] [place] [id number] [place] [address] 44308- 8480 Jul, [place] [address] 79967- 2405 16 Jul, 2015 Anxiety 300.00 and Hypertension 401.9 [place] [address] 32861- 9001 Jul, Generalized anxiety disorder 300.02 [place] [address] 53322- 1640 09 Jul, 2015 Nodule of neck 784.2 [place] [address] 40684- 5751 Jun, Nodule of neck 784.2 [place] [address] [place] [id number] [place] [address] 93282- 5112 Jun, [place] [address] [place] [id number] [place] [address] 87714- 8892 Jun, Routine adult health maintenance V70.0 [place] [address] 81493- 1324 Jun, Routine adult health maintenance V70.0 ; Anxiety 300.00 ; Epilepsy 345.90 ; Hypertension 401.9 and Urinary incontinence 788.30 IMMUNIZATIONS No Known Immunizations SOCIAL HISTORY Never Assessed REASON FOR VISIT PLAN OF CARE VITAL SIGNS MEDICATIONS Medication Instructions Dosage Frequency Start Date End Date Duration Status Elimite 5 % Externally Once a day 1 application to affected area 24h Apr 1 dose Active RESULTS No Results PROCEDURES No Known procedures INSTRUCTIONS MEDICATIONS ADMINISTERED No Known Medications MEDICAL (GENERAL) HISTORY Type Description Date Medical History epilepsy Medical History hypertension Medical History anxiety Medical History bladder incontinence Medical History Pneumonia, unspecified organism Medical History slipped discs in back Surgical History discectomy--L5-S1 2006 Surgical History laminectomy--L5-S1 2006 Surgical History spinal fusion--L5-S1 2006 Surgical History cholecystectomy 2008 Surgical History exploratory laparoscopy 2007 Hospitalization History Pneumonia 08/2015 Hospitalization History after colonscopy had seizures- ICU x2 days 06/2017
--- OUTSIDE RECORDS SUMMARY | 2018-06-20 17:33 | XMS REPORT | Clinical Summary ---
Author Author Yanci Jo Organization [facility], [facility] Address [address] [place] [address] Phone Care Team Providers Care Telegraph Operator Name Role Phone Yanci Jo Unavailable Conditions or Problems No information available. Medications No information available. Medications Administered No information available. Allergies, Adverse Reactions, Alerts No information available. Results Date Name Value Unit Range Flag Description Clinical Summary: Patient Portal Indicator PATPORTALPIN I This will be used to establish a PIN number for patients to register in the Patient Portal. Plan of Care Type Date Detail Appointment 10:30 AM NOÉ Saldaña, [address], [address], [place], [address], Referral Cervical spine, 4+ views Pending order Cervical spine, 4+ views Procedures No information available. Vital Signs No information available. Encounters No information available. Social History No information available.
--- OUTSIDE RECORDS SUMMARY | 2018-06-20 17:33 | XMS REPORT ---
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 113672657 Problem Globus sensation F45.8 Active 42893059 Problem Excessive thirst R63.1 Active 13080953 Problem Chronic pain G89.29 Active 74210522 Problem Shoulder pain, left M25.512 Active 45625483 Problem Oropharyngeal dysphagia R13.12 Active 12107443 Problem Protrusion of cervical intervertebral disc M50.20 Active 332606117 Problem COPD (chronic obstructive pulmonary disease) J44.9 Active 94808548 Problem HTN (hypertension) I10 Active 33694406 Problem Anxiety F41.9 Active 10488421 Problem Incontinence R32 Active 88471057 Problem Bulging lumbar disc M51.26 Active 691769151 ALLERGIES No Information ENCOUNTERS Encounter Location Date Diagnosis [facility] [id number] [place] [address] 31083- 6212 Feb, [facility] [address] [place] [address] 28141- 2211 Jan, Chronic pain G89.29 [facility] [address] [place] [address] 32763- 5699 Dec, Epilepsy G40.909 [facility] [id number], [place] [address] 05 Dec, 2017 Chronic pain G89.29 [facility] [id number] [place] [address] 63587- 8114 Nov, [facility] [id number] [place] [address] 60652- 6885 Nov, Anxiety F41.9 [facility] [id number] [place] [address] 00477- 1132 Oct, HTN (hypertension) I10 ; COPD (chronic obstructive pulmonary disease) J44.9 ; Epilepsy G40.909 ; Chronic pain G89.29 ; Anxiety F41.9 ; Overweight (BMI 25.0-29.9) E66.3 ; Tobacco abuse Z72.0 ; Tobacco abuse counseling Z71.6 ; High risk medication use Z79.899 and Controlled substance agreement signed Z79.899 [facility] [id number] [place] [address] 50301- 8684 Oct, Bulging lumbar disc M51.26 [place] [address] 31691- 4392 Oct, Bulging lumbar disc M51.26 [facility] [address] 31732- 4834 Sep, [facility] [address] 32132- 1845 Sep, [facility] [id number] [place] [address] 20506- 7733 Aug, Bulging lumbar disc M51.26 [facility] [address] 06621- 0454 Jul, Bulging lumbar disc M51.26 and Anxiety F41.9 [facility] [address] 35448- 5019 Jun, Bulging lumbar disc M51.26 and Anxiety F41.9 [facility] [id number] [place] [address] 72549- 4466 Jun, 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 [facility] [id number] [place] [address] 43407 -3389 Jun, Acute swimmers ear of right side H60.331 [place] [address] 72691- 5158 Jun, Bulging lumbar disc M51.26 and Anxiety F41.9 [facility] [address] 63808- 0355 May, Bulging lumbar disc M51.26 and Anxiety F41.9 [facility] [address] 18092 -0338 May, COPD exacerbation J44.1 [place] [address] 31806- 3844 May, Bulging lumbar disc M51.26 [place] [address] 22347- 6618 Apr, [place] [address] 88284- 3012 Apr, [place] [address] 44188- 5979 Apr, Bulging lumbar disc M51.26 and Anxiety F41.9 [place] [address] 60722- 4049 March, Anxiety F41.9 and Bulging lumbar disc M51.26 [place] [address] 52716- 3367 March, HTN (hypertension) I10 ; Anxiety F41.9 ; Bulging lumbar disc M51.26 ; 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 ; Neck pain M54.2 ; Globus sensation F45.8 and COPD (chronic obstructive pulmonary disease) J44.9 [facility] [id number] [place] [address] 36975- 1940 Feb, [facility] [address] 80625- 0602 17 Feb, 2017 HTN (hypertension) I10 [facility] [address] 96535 -9531 13 Feb, 2017 Acute nasopharyngitis (common cold) J00 [facility] [address] 78212- 6355 11 Feb, 2017 Anxiety F41.9 and Bulging lumbar disc M51.26 [facility] [address] 26044- 5309 04 Feb, 2017 Bronchitis J40 [place] [address] 00021- 3425 13 Jan, 2017 Anxiety F41.9 and Bulging lumbar disc M51.26 [place] [address] 26443- 3701 09 Jan, 2017 Anxiety F41.9 [facility] [address] 36651 -0865 20 Dec, 2016 Viral pharyngitis J02.9 [facility] [address] 05092- 1941 15 Dec, 2016 HTN (hypertension) I10 [facility] [address] 27731- 1696 14 Dec, 2016 Bulging lumbar disc M51.26 and HTN (hypertension) I10 [facility] [address] 34872 -5965 10 Dec, 2016 Abscess L02.91 [facility] [address] 49011- 3540 08 Dec, 2016 Anxiety F41.9 and Bulging lumbar disc M51.26 [facility] [address] 29177- 3135 16 Nov, 2016 Incontinence R32 [facility] [address] 64064- 2377 Nov, Anxiety F41.9 and Bulging lumbar disc M51.26 [place] [address] 58338- 2178 Nov, Incontinence R32 [facility] [address] 33231- 8575 Nov, Excessive thirst R63.1 [place] [address] 87853- 5101 Nov, Excessive thirst R63.1 [place] [address] 57179- 5400 Nov, HTN (hypertension) I10 ; Anxiety F41.9 ; COPD (chronic obstructive pulmonary disease) J44.9 ; Bulging lumbar disc M51.26 ; Epilepsy G40.909 ; 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 ; Neck pain M54.2 ; Other viral agents as the cause of diseases classified elsewhere B97.89 ; Acute upper respiratory infection, unspecified J06.9 ; Chronic intractable headache, unspecified headache type R51 and Hypercholesterolemia E78.00 [place] [address] 57769- 4250 Oct, [facility] [address] 08102- 8354 Oct, [place] [id number] [place] [address] 33993- 0826 Sep, [facility] [address] 27294- 2714 Sep, [facility] [address] 58216 -9228 Sep, Cough R05 ; Wheezing R06.2 ; Oropharyngeal dysphagia R13.12 and Exposure to strep throat Z20.818 [place] [address] 61906- 4198 Sep, [place] [address] [place] [address]- 8696 Sep, [facility] [address] [place] [address] 05649- 7423 Aug, [facility] [address] [place] [address] 66547- 3824 Aug, [facility] [address] [place] [address] 91087- 3280 16 Jul, 2016 [facility] [address] [place] [address] 62916 -1280 14 Jul, 2016 Bronchitis J40 [facility] [id number] [place] [address] 69888- 4837 Jul, [facility] [id number] [place] [address] 36872- 9194 Jun, HTN (hypertension) I10 ; Anxiety F41.9 ; Epilepsy G40.909 ; COPD (chronic obstructive pulmonary disease) J44.9 ; 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 and Bulging lumbar disc M51.26 [facility] [id number] [place] [address] 62256- 9565 Jun, [facility] [id number] [place] [address] 79546- 0798 Jun, HTN (hypertension) I10 ; Anxiety F41.9 ; Epilepsy G40.909 ; COPD (chronic obstructive pulmonary disease) J44.9 ; 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 and Bulging lumbar disc M51.26 [facility] [address] [place] [address] 05003- 6727 May, [facility] [id number] [place] [address] 12357- 4370 Apr, Anxiety disorder, unspecified F41.9 and Shoulder pain, left M25.512 [facility] [id number] [place] [address] 40107- 4308 March, Anxiety disorder, unspecified F41.9 and Degenerative joint disease (DJD) of lumbar spine M47.816 [place] [id number] [place] [address] 48175- 4139 March, Sore throat in the morning J02.9 [place] [address] 90068- 8618 Feb, [facility] [place] [address] 80690 -9106 Feb, Right foot injury, initial encounter S99.921A and Oral nayan B37.0 [place] [address] 95337- 0991 Feb, [place] [address] 91376- 1897 Jan, HTN (hypertension) I10 ; COPD (chronic obstructive pulmonary disease) J44.9 ; Chronic pain G89.29 and Epilepsy G40.909 [facility] [place] [id number] [place] [address] 12104 -0296 Jan, Sore throat J02.9 and Thrush B37.0 [place] [address] 57567- 4388 16 Jan, 2016 Chronic pain G89.29 ; HTN (hypertension) I10 ; Anxiety F41.9 ; Bulging lumbar disc M51.26 ; Protrusion of cervical intervertebral disc M50.20 and Shoulder pain, left M25.512 [place] [id number] [place] [address] 71718- 9283 15 Jan, 2016 [place] [address] 52218- 3053 Jan, [place] [address] 24153- 0522 Jan, HTN (hypertension) I10 ; Anxiety F41.9 ; COPD (chronic obstructive pulmonary disease) J44.9 ; Bulging lumbar disc M51.26 ; Incontinence R32 ; Epilepsy G40.909 ; 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 and Neck pain M54.2 [place] [id number] [place] [address] 21224- 8119 09 Jan, 2016 Anxiety F41.9 [place] [id number] [place] [address] 73786- 6127 24 Dec, 2015 HTN (hypertension) I10 ; Epilepsy G40.909 and 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 [place] [id number] [place] [address] 59328- 8488 18 Dec, 2015 [place] [address] 57978- 8297 Dec, Anxiety F41.9 ; HTN (hypertension) I10 ; COPD (chronic obstructive pulmonary disease) J44.9 ; Bulging lumbar disc M51.26 and Incontinence R32 [place] [id number] [place] [address] 21481- 8201 Dec, [id number] [place] [address] Dec [facility] [id number] [place] [address] 48901- 9783 Nov, [place] [id number] [place] [address] 49062- 2091 Nov, [facility] [id number] [place] [address] 78456- 7097 Nov, [facility] [address] [place] [address] 69467 -9249 Nov, Pharyngitis J02.9 and Allergic rhinitis J30.9 [place] [id number] [place] [address] 37315- 6811 12 Nov, 2015 Degenerative joint disease (DJD) of lumbar spine M47.816 ; Cervicalgia M54.2 ; Lumbago 724.2 and Lumbago of lumbar region with sciatica M54.5 [place] [address] [place] [address] 04753- 7507 Nov, Degenerative joint disease (DJD) of lumbar spine M47.816 [facility] [id number] [place] [address] 61570- 4944 Oct, Generalized anxiety disorder F41.1 [facility] [id number] [place] [address] 61825- 8395 Oct, Cervicalgia M54.2 ; Degenerative joint disease (DJD) of lumbar spine M47.816 and Hypertension I10 [facility] [id number] [place] [address] 25448- 8244 Oct, [facility] [id number] [place] [address] 28795 -6875 Oct, Essential (primary) hypertension I10 [facility] [address] 93662- 0716 Oct, [facility] [id number] [place] [address] 96084- 8698 Sep, Allergic rhinitis J30.9 ; Generalized anxiety disorder F41.1 and Shoulder pain, left M25.512 [facility] [id number] [place] [address] 57856- 1085 Sep, [facility] [id number] [place] [address] 72776- 2692 Aug, Cough R05 [facility] [id number] [place] [address] 43184- 9691 Aug, Generalized anxiety disorder F41.1 [facility] [id number] [place] [address] 56040- 8329 Aug, Cough R05 [facility] [id number] [place] [address] 04000- 1974 Aug, [facility] [id number] [place] [address] 59760- 8092 Aug, [facility] [address] [place] [address] 29151- 9630 Aug, Lumbago of lumbar region with sciatica M54.5 [facility] [address] [place] [address] 25947- 0123 Jul, Lumbago 724.2 [place] [id number] [place] [address] 89169- 4260 Jul, [place] [id number] [place] [address] 82725- 1596 16 Jul, 2015 Anxiety 300.00 and Hypertension 401.9 [place] [id number] [place] [address] 04306- 8236 Jul, Generalized anxiety disorder 300.02 [place] [id number] [place] [address] 21817- 1024 Jul, Nodule of neck 784.2 [place] [id number] [place] [address] 87995- 7208 Jun, Nodule of neck 784.2 [place] [id number] [place] [address] 72061- 8438 Jun, [place] [id number] [place] [address] 99220- 2279 Jun, Routine adult health maintenance V70.0 [place] [id number] [place] [address] 02215- 2420 Jun, Routine adult health maintenance V70.0 ; [...] 3 times a day 1 tablet 8h Jun 28 days Active RESULTS No Results PROCEDURES No Known procedures INSTRUCTIONS MEDICATIONS ADMINISTERED No Known Medications MEDICAL (GENERAL) HISTORY Type Description Date Medical History epilepsy Medical History hypertension Medical History anxiety Medical History bladder incontinence Medical History Pneumonia, unspecified organism Medical History slipped discs in back Surgical History discectomy--L5-S1 2005 Surgical History laminectomy--L5-S1 2005 Surgical History spinal fusion--L5-S1 2006 Surgical History cholecystectomy 2008 Surgical History exploratory laparoscopy 2007 Hospitalization History Pneumonia 08/2015 Hospitalization History after colonscopy had seizures- ICU x2 days 06/2017
--- OUTSIDE RECORDS SUMMARY | 2018-06-20 17:33 | XMS REPORT ---
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 330083271 Problem Globus sensation F45.8 Active 65838766 Problem Excessive thirst R63.1 Active 74793682 Problem Chronic pain G89.29 Active 97578521 Problem Shoulder pain, left M25.512 Active 20140978 Problem Oropharyngeal dysphagia R13.12 Active 79586904 Problem Protrusion of cervical intervertebral disc M50.20 Active 013977331 Problem COPD (chronic obstructive pulmonary disease) J44.9 Active 86041785 Problem HTN (hypertension) I10 Active 49016891 Problem Anxiety F41.9 Active 65227148 Problem Incontinence R32 Active 17793101 Problem Bulging lumbar disc M51.26 Active 851137889 ALLERGIES No Information SOCIAL HISTORY Never Assessed PLAN OF CARE VITAL SIGNS MEDICATIONS Medication Instructions Dosage Frequency Start Date End Date Duration Status Lisinopril 20 mg Orally Once a day TAKE ONE TABLET BY MOUTH ONCE DAILY 24h 30 Active Oxycodone-Acetaminophen 7.5-325 MG Orally 3 times a day 1 tablet 8h Dec 28 days Active RESULTS No Results PROCEDURES [...]
--- OUTSIDE RECORDS SUMMARY | 2018-06-20 17:34 | XMS REPORT | Clinical Summary ---
Author Author Yanci Jo Organization [facility] Address [address] [place] [address] Phone Care Team Providers Care Embossing Machine Operator Helper Name Role Phone Yanci Jo Unavailable Conditions or Problems Problem Name Problem Code Onset Date Status Entry Date Provider Comment Standard Description Annotate Other cervical disc degeneration, mid-cervical region, unspecified level 74950775 (SNOMED CT) Active Germaine Leap Degeneration of cervical intervertebral disc Cervical stenosis 57305468 (SNOMED CT) Active Germaine Leap Spinal stenosis in cervical region Cervicalgia 40141652 (SNOMED CT) Active Germaine Leap Neck pain Medications Medication Instructions Start Date Stop Date Generic Name NDC Provider IBUPROFEN 200 MG TABS IBUPROFEN 70839561858 NOÉ Saldaña PERCOCET 10-325 MG TABS OXYCODONE-ACETAMINOPHEN 63344091101 NOÉ Saldaña PAXIL 40 MG TABS PAROXETINE HCL 08464436582 NOÉ Saldaña LISINOPRIL 10 MG TABS LISINOPRIL 99580242270 NOÉ Saldaña ATENOLOL 25 MG TABS ATENOLOL 85415039148 NOÉ Saldaña TOPAMAX 100 MG TABS TOPIRAMATE 68972214236 NOÉ Saldaña Medications Administered No information available. Allergies, Adverse Reactions, Alerts Allergy Name Reaction Description Start Date Severity Status Provider MORPHINE Critical Active NOÉ Saldaña KEPRA Critical Active NOÉ Saldaña SULFA Critical Active NOÉ Saldaña BIAXIN Critical Active NOÉ Saldaña Results Date Name Value Unit Range Flag Description Office Visit: New Cervicalgia/pain films in hand [facility] ref by Dr Potter.. SMOK ADVICE yes Smoking cessation education (procedure) SMOK STATUS current every day smoker Tobacco smoking status NHIS CARD RSK GRP No cardiac risk group Clinical Summary: Patient Portal Indicator PATPORTALPIN I This will be used to establish a PIN number for patients to register in the Patient Portal. Plan of Care No information available. Procedures Code Procedure Name Date Entry Date CPT-74361 Cervical spine, 4+ views REF MD SEND LETTER TO REF MD CPT-1111F Discharge medications reconciled w/ current medication list CPT-G8730 Pain assessment documented as positive and f/u plan is documented CPT-1130F Back pain and function assessed CPT-2040F PE on initial visit for low back pain performed CPT-4248F counseled during the initial visit for back pain against bed rest > 4 days CPT-1111F Discharge medications reconciled w/ current medication list Vital Signs Date Name Value Unit Description BMI (Body Mass Index) 29.84 kg/m2 Body Mass Index [Ratio] Height 70 [in_us] height E&M - 8302-2 Weight Measured 208 [lb_av] weight E&M - 3141-9 Encounters Code Encounter Date Provider Facility CPT-52509 01529- New Level III NOÉ Saldaña [facility] Social History Concept Description Observation Name Observation Value Units Start Date Alcohol use ETOH USE No Current every day smoker SMOK STATUS current every day smoker Tobacco use and exposure SMOK ADVICE yes
--- OUTSIDE RECORDS SUMMARY | 2018-06-20 17:43 | XMS REPORT ---
Author Author [facility] Medical Staff Organization [facility] Address [address] [place] [id number] Phone [phone] Care Team Providers Care Automatic Folder Seamer Name Role Phone JEYSON ALEGRIA PP [phone] Summary purpose CCDA Sent to [facility] Chief Complaint and Reason for Visit Admit Diagnosis 1 upper lt side abd pain Problem list No authorized problems tracked [...] Code Type Description Date Performed Performing Physician 90411 CPT-4 ROUTINE VENIPUNCTURE 08-11-2017 JEAN MARIE HAYES 55522 CPT-4 COMPREHEN METABOLIC PANEL 08-11-2017 JEAN MARIE HAYES 63289 CPT-4 ASSAY OF AMYLASE 08-11-2017 JEAN MARIE HAYES 06794 CPT-4 ASSAY OF LIPASE 08-11-2017 JEAN MARIE HAYES 33571 CPT-4 URINALYSIS, AUTO W/SCOPE 08-11-2017 JEAN MARIE HAYES 43194 CPT-4 COMPLETE CBC W/AUTO DIFF WBC 08-11-2017 JEAN MARIE HAYES J1885 CPT-4 KETOROLAC TROMETHAMINE INJ 08-11-2017 JEAN MARIE HAYES 60502 CPT-4 EMERGENCY DEPT VISIT 08-11-2017 JEAN MARIE HAYES 24681 CPT-4 THER/PROPH/DIAG INJ, SC/IM 08-11-2017 JEAN MARIE HAYES Functional status No [...]
--- OUTSIDE RECORDS SUMMARY | 2018-06-20 17:43 | XMS REPORT ---
Author Author [facility] Medical Staff Organization [facility] Address [address] [place] [id number] Phone [phone] Care Team Providers Care Brake Lining Maker Name Role Phone ARISTIDES DOZIER MD PP [phone] JEYSON ALEGRIA PP [phone] Summary purpose CCDA Sent to [facility] Chief Complaint and Reason for [...] Code Type Description Date Performed Performing Physician 85266 CPT-4 NJX INTERLAMINAR CRV/THRC 09-08-2017 JEYSON KAHN J7030 CPT-4 INFUSION, NS, 1000 CC 09-08-2017 DARVIN GARCES Q9967 CPT-4 LOCM 300-399MG/ML IODINE,1ML 09-08-2017 DARVIN GARCES J1040 CPT-4 METHLPREDNISOLONE ACETATE 09-08-2017 DARVIN GARCES 70189 CPT-4 HYDRATION IV INFUSION, INIT 09-08-2017 JEYSON KAHN Functional status No functional or [...]
--- OUTSIDE RECORDS SUMMARY | 2018-06-20 17:43 | XMS REPORT ---
Author Author [facility] Medical Staff Organization [facility] Address [address] [place] [id number] Phone [phone] Care Team Providers Care Photographic Artist Name Role Phone ARISTIDES DOZIER MD PP [phone] Summary purpose CCDA Sent to [facility] Chief Complaint and Reason for Visit [...] Code Type Description Date Performed Performing Physician 75724 CPT-4 MRI NECK SPINE W/O DYE 09-05-2017 JEYSON KAHN Functional status No functional or [...]
--- OUTSIDE RECORDS SUMMARY | 2018-06-20 17:43 | XMS REPORT ---
Author Author [facility] Medical Staff Organization [facility] Address [address] [place] [address] Phone [phone] Care Team Providers Care Crematory Operator Name Role Phone ARISTIDES DOZIER MD PP [phone] Summary purpose CCDA Sent to [facility] Chief Complaint and Reason for Visit No [...] Code Type Description Date Performed Performing Physician 03068 CPT-4 X-RAY EXAM OF SHOULDER 08-31-2017 JEYSON KAHN Functional status No functional or [...]
--- OUTSIDE RECORDS SUMMARY | 2018-06-20 17:43 | XMS REPORT ---
Author Author [facility] Medical Staff Organization [facility] Address [phone] [id number] Phone [phone] Care Team Providers Care Electric Plater Name Role Phone JEYSON ALEGRIA PP [phone] Summary purpose CCDA Sent to [facility] Chief Complaint and Reason for Visit [...] Code Type Description Date Performed Performing Physician 30216 CPT-4 EMERGENCY DEPT VISIT 08-23-2017 JEYSON KAHN [...]
--- NOTE | 2018-06-20 18:09 | ED Abdominal Pain ---
General Chief Complaint: Abdominal/GI Problems Stated Complaint: ABD/BACK PAIN Nursing Triage Note: PT STATES ABD AND LT FLANK PAIN, DX WITH KIDNEY STONE A FEW WEEKS AGO BUT STATES HE PASSED IT. Sepsis Screen: No Definite Risk Source of Information: Patient Exam Limitations: No Limitations History of Present Illness Date Seen by Provider: Jun 20, 2018 Time Seen by Provider: 18:05 Initial Comments Patient is a 43-year-old male who presents to the emergency room with complaints of nausea, suprapubic abdominal pain that radiates to his left flank , no bowel movement for 4 days, burning with urination, and had a diagnosis of a kidney stone a few weeks ago but it did pass. Timing/Duration: 2-3 Days Severity/Quality: Burning Location: Flank (left flank), Suprapubic Radiation: No Radiation Activities at Onset: None Associated Symptoms: No Fever/Chills; Nausea/Vomiting; No Shortness of Air, No Swelling/Mass in Abdomen, No Weakness Allergies and Home Medications Allergies Coded Allergies: Sulfa (Sulfonamide Antibiotics) (Verified Allergy, Unknown, 06/28/17) clarithromycin (Verified Allergy, Unknown, 06/28/17) levetiracetam (Verified Allergy, Unknown, 06/28/17) morphine (Verified Allergy, Unknown, 06/28/17) Home Medications Albuterol Sulfate 1 Puff Puff, 2 PUFF IH Q4H PRN for SHORTNESS OF BREATH, ( Reported) Alprazolam 0.25 Mg Tablet, 0.25 MG PO BID, (Reported) Atenolol 50 Mg Tablet, 50 MG PO HS, (Reported) Budesonide/Formoterol Fumarate 10.2 Gm Hfa.aer.ad, 2 PUFF IH BID PRN for SHORTNESS OF BREATH, (Reported) Ibuprofen 800 Mg Tablet, 800 MG PO Q8H PRN for PAIN-MILD, (Reported) Lisinopril 20 Mg Tablet, 20 MG PO DAILY, (Reported) Mebendazole 100 Mg Tab.chew, 100 MG PO BID may repeat prescription in 3 weeks. Prescribed by: SANDRA ANDERSON on 06/28/17 1450 Oxycodone HCl/Acetaminophen 1 Each Tablet, 1 TAB PO Q8H PRN for PAIN-MODERATE, ( Reported) Pantoprazole Sodium 40 Mg Tablet.dr, 40 MG PO DAILY Prescribed by: SANDRA ANDERSON on 06/28/17 1443 Topiramate 50 Mg Tablet, 100 MG PO BID, (Reported) TAKES 2 (50MG) TABLETS Patient Home Medication List Home Medication List Reviewed: Yes Review of Systems Constitutional: see HPI; No chills, No diaphoresis Gastrointestinal: Abdominal Pain, Constipated; Denies Diarrhea; Nausea; Denies Poor Fluid Intake, Denies Rectal Bleeding, Denies Vomiting Genitourinary: See HPI, Burning; Denies Discharge, Denies Drainage, Denies Frequency; Flank Pain; Denies Incontinence, Denies Pain, Denies Urgency All Other Systems Reviewed Negative Unless Noted: Yes Past Ochapuo-Okpkpi-Bosxli Hx Past Med/Social Hx: Reviewed Nursing Past Med/Soc Hx Patient Social History Alcohol Use: Denies Use Recreational Drug Use: No Smoking Status: Current Everyday Smoker Type Used: Cigarettes 2nd Hand Smoke Exposure: Yes Recent Foreign Travel: No Contact w/Someone Who Travel: No Recent Infectious Disease Expo: No Recent Hopitalizations: No Immunizations Up To Date Tetanus Booster (TDap): Less than 5yrs Seasonal Allergies Seasonal Allergies: Yes Past Medical History Surgeries: Yes (BACK SURGERY) Abdominal, Appendectomy, Gallbladder, Orthopedic, Vasectomy Respiratory: Yes (tobaccoism) COPD Cardiac: Yes High Cholesterol, Hypertension Neurological: Yes (BACK SURGERY WITH NERVE DAMAGE--BOWEL/BLADDER INCONTINENCE. ) Seizure Disorder Reproductive Disorders: No Genitourinary: Yes (Incontinence urine from back surgery') Kidney Stones, Neurogenic Bladder Gastrointestinal: Yes (Incontinent of stool from back surgery) Colitis, Gastroesophageal Reflux, Diverticulosis, Polyps Musculoskeletal: Yes (CHRONIC NECK PAIN) Degenerate Disk Disease, Arthritis, Chronic Back Pain Endocrine: No HEENT: No Cancer: No Psychosocial: Yes Anxiety Integumentary: No Blood Disorders: No Adverse Reaction/Blood Tranf: No Family Medical History Reviewed Nursing Family Hx No Pertinent Family Hx Physical Exam Vital Signs Vital Signs - First Documented 06/20/18 17:38 Temp 99.3 Pulse 82 Resp 20 B/P (MAP) 134/75 (94) Pulse Ox 99 O2 Delivery Room Air Capillary Refill : Less Than 3 Seconds Height/Weight/BMI Height: 5'10.00" Weight: 195lbs. 0.0oz. 88.645183io; 30.1 BMI Method:Stated General Appearance: WD/WN, no apparent distress Respiratory: chest non-tender, lungs clear, normal breath sounds, no respiratory distress, no accessory muscle use Cardiovascular: regular rate, rhythm, no edema, no gallop, no JVD, no murmur Gastrointestinal: normal bowel sounds, soft, no organomegaly, no pulsatile mass , tenderness (tenderness to the suprapubic area.) Neurologic/Psychiatric: alert, normal mood/affect, oriented x 3 Procedures/Interventions Suture Size: 5-0 Progress/Results/Core Measures Results/Orders Lab Results Laboratory Tests Test 06/20/18 17:30 06/20/18 17:50 Range/Units Urine Color YELLOW Urine Clarity CLEAR Urine pH 8 5-9 Urine Specific [place] 1.015 L 1.016-1.022 Urine Protein 1+ H NEGATIVE Urine Glucose (UA) NEGATIVE NEGATIVE Urine Ketones NEGATIVE NEGATIVE Urine Nitrite NEGATIVE NEGATIVE Urine Bilirubin NEGATIVE NEGATIVE Urine Urobilinogen NORMAL NORMAL MG/DL Urine Leukocyte Esterase 1+ H NEGATIVE Urine RBC (Auto) NEGATIVE NEGATIVE Urine RBC NONE /HPF Urine WBC 0-2 /HPF Urine Crystals PRESENT H /LPF Urine Amorphous Sediment FEW ROSELINE PHOSPHATE H /LPF Urine Bacteria NONE /HPF Urine Casts NONE /LPF Urine Mucus NEGATIVE /LPF Urine Culture Indicated NO White Blood Count 6.6 4.3-11.0 10^3/uL Red Blood Count 4.87 4.35-5.85 10^6/uL Hemoglobin 16.1 13.3-17.7 G/DL Hematocrit 45 40-54 % Mean Corpuscular Volume 92 80-99 FL Mean Corpuscular Hemoglobin 33 25-34 PG Mean Corpuscular Hemoglobin Concent 36 32-36 G/DL Red Cell Distribution Width 13.7 10.0-14.5 % Platelet Count 167 130-400 10^3/uL Mean Platelet Volume 11.2 H 7.4-10.4 FL Neutrophils (%) (Auto) 59 42-75 % Lymphocytes (%) (Auto) 27 12-44 % Monocytes (%) (Auto) 10 0-12 % Eosinophils (%) (Auto) 4 0-10 % Basophils (%) (Auto) 0 0-10 % Neutrophils # (Auto) 3.9 1.8-7.8 X 10^3 Lymphocytes # (Auto) 1.8 1.0-4.0 X 10^3 Monocytes # (Auto) 0.7 0.0-1.0 X 10^3 Eosinophils # (Auto) 0.3 0.0-0.3 10^3/uL Basophils # (Auto) 0.0 0.0-0.1 10^3/uL Sodium Level 141 135-145 MMOL/L Potassium Level 4.0 3.6-5.0 MMOL/L Chloride Level 117 H 98-107 MMOL/L Carbon Dioxide Level 19 L 21-32 MMOL/L Anion Gap 5 5-14 MMOL/L Blood Urea Nitrogen 14 7-18 MG/DL Creatinine 0.90 0.60-1.30 MG/DL Estimat Glomerular Filtration Rate > 60 BUN/Creatinine Ratio 16 Glucose Level 95 70-105 MG/DL Calcium Level 9.1 8.5-10.1 MG/DL Total Bilirubin 0.4 0.1-1.0 MG/DL Aspartate Amino Transf (AST/SGOT) 12 5-34 U/L Alanine Aminotransferase (ALT/SGPT) 10 0-55 U/L Alkaline Phosphatase 86 40-136 U/L Total Protein 6.7 6.4-8.2 GM/DL Albumin 4.0 3.2-4.5 GM/DL Amylase Level 45 25-125 U/L Lipase 11 8-78 U/L My Orders Orders - DION MENEZES Comprehensive Metabolic Panel (06/20/18 18:03) Lipase (06/20/18 18:03) Amylase (06/20/18 18:03) Ua Culture If Indicated (06/20/18 18:03) Saline Lock/Iv-Start (06/20/18 18:03) Cbc With Automated Diff (06/20/18 18:03) Ns Iv 1000 Ml (Sodium Chloride 0.9%) (06/20/18 18:15) Ondansetron Injection (Zofran Injectio (06/20/18 18:15) Fentanyl Injection (Sublimaze Injection (06/20/18 18:15) Abdomen, Flat & Upright/Decub (06/20/18 18:34) Magnesium Citrate Oral Soln (Citrate Of (06/20/18 19:30) Medications Given in ED Vital Signs/I&O 06/20/18 06/20/18 06/20/18 17:38 18:16 19:37 Temp 99.3 99.3 Pulse 82 81 Resp 20 14 B/P (MAP) 134/75 (94) 112/71 Pulse Ox 99 98 O2 Delivery Room Air Room Air Blood Pressure Mean: 94 Progress Progress Note : Progress Note Patient was informed of abnormal lab values and x-ray results. He reports that he has had constipation in the past and magnesium titrate usually works. The patient was given 150ml in the emergency room and instructed to take daily stool softeners to prevent this further complication. He was also instructed that the cause of his constipation may be due to the narcotic pain medication that he uses daily. He agrees with plan for discharge, close follow-up with his primary care doctor, and return precautions. Departure Impression Primary Impression: Constipation Disposition: HOME, SELF-CARE Condition: Stable/Unchanged Departure-Patient Inst. Decision time for Depature: 19:24 Referrals: [facility] [place] Primary Care Physician Patient Instructions: Constipation, Adult (DC) Add. Discharge Instructions: Increase your fluid intake. You may use [id number] stool softeners (Colace , docusate sodium), laxatives, prunes or prune juice to aid in softening the stool and preventing further constipation. Follow-up with your primary care physician within 1 week for a recheck. Return back to the emergency room for any worsening pain, worsening symptoms, or any other concerns as needed. All discharge instructions reviewed with patient and/or family. Voiced understanding. DION MENEZES Jun 20, 2018 18:09
[2018-06-20 18:11] LABS: BASOPHILS % (AUTO) 0 % (0-10); EOSINOPHILS # (AUTO) 0.3 10^3/uL (0.0-0.3); EOSINOPHILS % (AUTO) 4 % (0-10); HEMATOCRIT 45 % (40-54); HEMOGLOBIN 16.1 G/DL (13.3-17.7); LYMPHOCYTES # (AUTO) 1.8 X 10^3 (1.0-4.0); LYMPHOCYTES % (AUTO) 27 % (12-44); MEAN CORPUSCULAR HEMOGLOBIN 33 PG (25-34); MEAN CORPUSCULAR HGB CONC 36 G/DL (32-36); MEAN CORPUSCULAR VOLUME 92 FL (80-99); MEAN PLATELET VOLUME 11.2 FL (7.4-10.4); MONOCYTES # (AUTO) 0.7 X 10^3 (0.0-1.0); MONOCYTES % (AUTO) 10 % (0-12); NEUTROPHILS # (AUTO) 3.9 X 10^3 (1.8-7.8); NEUTROPHILS % (AUTO) 59 % (42-75); PLATELET COUNT 167 10^3/uL (130-400); RED BLOOD COUNT 4.87 10^6/uL (4.35-5.85); RED CELL DISTRIBUTION WIDTH 13.7 % (10.0-14.5); WHITE BLOOD COUNT 6.6 10^3/uL (4.3-11.0)
[2018-06-20 18:14] LABS: BILIRUBIN,URINE NEGATIVE (NEGATIVE); CLARITY,URINE CLEAR; COLOR,URINE YELLOW; GLUCOSE, URINE (UA) NEGATIVE (NEGATIVE); KETONES,URINE NEGATIVE (NEGATIVE); LEUKOCYTE ESTERASE ,URINE 1+ (NEGATIVE); NITRITE,URINE NEGATIVE (NEGATIVE); PH,URINE 8 (5-9); PROTEIN,URINE 1+ (NEGATIVE); UROBILINOGEN,URINE NORMAL (NORMAL)
[2018-06-20] MEDS ORDERED: NS IV 1000 ML 1,000 ML IV SCH (18:15)
[2018-06-20] MEDS ORDERED: ONDANSETRON 4 MG/2 ML (SDV) Z0FRAN IVP ONE (18:15)
[2018-06-20] MEDS ORDERED: fentaNYL INJECTION 100 MCG/2 ML AMP IVP ONE (18:15)
[2018-06-20 18:21] LABS: AMORPHOUS SEDIMENT,UR FEW AMOR PHOSPHATE /LPF; WBC,URINE 0-2 /HPF
[2018-06-20 18:28] LABS: ALANINE AMINOTRANSFERASE 10 U/L (0-55); ALKALINE PHOSPHATASE 86 U/L (40-136); AMYLASE 45 U/L (25-125); BILIRUBIN,TOTAL 0.4 MG/DL (0.1-1.0); BUN/CREATININE RATIO 16; CALCIUM 9.1 MG/DL (8.5-10.1); CARBON DIOXIDE 19 MMOL/L (21-32); CHLORIDE 117 MMOL/L (98-107); GFR ESTIMATED > 60; GLUCOSE 95 MG/DL (70-105); LIPASE 11 U/L (8-78); SODIUM 141 MMOL/L (135-145); TOTAL PROTEIN 6.7 GM/DL (6.4-8.2)
--- NOTE | 2018-06-20 19:11 | Diagnostic Imaging Report ---
INDICATION: History of kidney stones, flank pain. COMPARISON: 05/17/17 CT abdomen and pelvis. FINDINGS: KUB and upright views of the abdomen demonstrate mild constipation without obstruction or ileus. Cholecystectomy clips are present. There has been prior lumbar fusion. There are no abnormal calcifications that would indicate renal calculi. There is no free air. IMPRESSION: 1. Mild constipation without obstruction or ileus. 2. No renal or ureteral calculi identified. Dictated by: Dictated on workstation # [id number]
[2018-06-20] MEDS ORDERED: MAGNESIUM CITRATE 300 ML BTL PO ONE (19:30)
[2018-06-20 19:37] VITALS: BP 112/71
== END 2018-06-20 19:37 | disposition home or self-care (01) ==
LOC: EDUNIT# 17:20 → ER 17:21
DX: K59.00 Constipation, unspecified (principal); J44.9 Chronic obstructive pulmonary disease, unspecified; E78.00 Pure hypercholesterolemia, unspecified; I10 Essential (primary) hypertension; F17.210 Nicotine dependence, cigarettes, uncomplicated; G40.909 Epilepsy, unspecified, not intractable, without status epilepticus; K21.9 Gastro-esophageal reflux disease without esophagitis; F41.9 Anxiety disorder, unspecified; Z87.442 Personal history of urinary calculi; Z88.2 Allergy status to sulfonamides; Z88.1 Allergy status to other antibiotic agents; Z88.5 Allergy status to narcotic agent; Z90.49 Acquired absence of other specified parts of digestive tract
CPT/HCPCS: 36415; 74019; 80053; 81000; 82150; 83690; 85025; 96374; 96375

== ENCOUNTER 2018-08-30 18:55 | Emergency (ER) | payer MEDICAID ==
--- OUTSIDE RECORDS SUMMARY | 2018-08-30 19:01 | XMS REPORT | Clinical Summary ---
Author Author [facility] Organization [facility] Address Unknown Phone Unavailable Care Team Providers Care Surgical Technician Name Role Phone PattersonCarly renee NOÉ PCP Melissa López MD Unavailable Ashley Grnat MD Unavailable Aguila Gray RN Unavailable Unavailable Source Comments Some departments are not documenting in the electronic medical record. If you do not see the information that you expected, contact Release of Information in the Health Information Management department at [phone] for further assistance in locating additional records.[facility] Allergies Active Allergy Reactions Severity Noted [...] mg tablet fluticasone (FLONASE) 50 Apply 1 [place] to each Active mcg/actuation nasal spray nostril as directed daily as needed. Active Problems Problem Noted Date Nonepileptic episode ([facility]) 06/21/2016 Convulsions ([facility]) 06/21/2016 Family History Relation Name Status Comments Father Mother Social History Tobacco Use Types Packs/Day Years Used Date Current Every Day Smoker Tobacco Cessation: Ready to Quit: Yes; Counseling Given: No Sex Assigned at Date Recorded Not on file Last Filed Vital Signs Vital Sign Reading Time Taken Blood Pressure 128/80 10/04/2016 11:35 AM [employer] [employer] Pulse 69 10/04/2016 10:36 AM [employer] Temperature 36.5 C (97.7 F) 10/04/2016 10:36 AM [employer] Respiratory Rate 18 10/04/2016 10:36 AM [employer] Oxygen Saturation 100% 10/04/2016 11:35 AM [employer] Inhaled Oxygen - - Concentration Weight 98.4 kg (217 lb) 10/04/2016 10:36 AM [employer] Height 177.8 cm (5' 10") 10/04/2016 10:36 AM [employer] Body Mass Index 31.14 10/04/2016 10:36 AM [employer] [employer] Plan of Treatment Health Maintenance Due Date Last Done Comments PHYSICAL (COMPREHENSIVE) 1984 EXAM PERTUSSIS VACCINE 1988 HIV SCREENING 1992 TETANUS VACCINE 1994 INFLUENZA VACCINE 06/28/2018 Results Not on filefrom Last 3 Months
--- OUTSIDE RECORDS SUMMARY | 2018-08-30 19:02 | XMS REPORT ---
Author Author DANIELITO SPENCER [facility] Address [address] [place] [address] Care Team Providers Care Mobile Tester Name Role Phone DANIELITO SPENCER Unavailable PROBLEMS Type Condition ICD9-CM Code [id number] Code Onset Dates Condition Status SNOMED Code Problem Bulging lumbar disc M51.26 Active 613847571 Problem Chronic pain G89.29 Active 72952993 Problem Epilepsy G40.909 Active 11324378 Problem Dyslipidemia (high LDL; low HDL) E78.5 Active 509433868 Problem COPD (chronic obstructive pulmonary disease) J44.9 Active 22100353 Problem HTN (hypertension) I10 Active 46632258 Problem Anxiety F41.9 Active 72343678 Problem Constipation by delayed colonic transit K59.01 Active 68050712 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 859277270 Problem Overweight (BMI 25.0-29.9) E66.3 Active 525348385 Problem Protrusion of cervical intervertebral disc M50.20 Active 839324887 Problem Tobacco abuse counseling Z71.6 Active 050367860 Problem Tobacco abuse Z72.0 Active [id number] ALLERGIES No Information ENCOUNTERS Encounter Location Date Diagnosis [facility] [id number] [place] [address] 97415- 8310 Jul, Bronchitis J40 and Chest tightness R07.89 [facility] [id number] [place] [address] 15997- 0228 Jul, [facility] [id number] [place] [address] 63153- 2429 Jul, [facility] [id number] [place] [address] 64273- 8376 Jul, HTN (hypertension) I10 ; Tobacco abuse counseling Z71.6 ; Generalized abdominal pain R10.84 ; Flank pain R10.9 ; Acute bronchitis, unspecified organism J20.9 ; Constipation by delayed colonic transit K59.01 and Chronic pain G89.29 [facility] [id number] [place] [address] 98432- 5219 Jul, [facility] [id number] [place] [address] 75853- 0193 Jun, HTN (hypertension) I10 [facility] [address] 84316- 0494 May, Chronic pain G89.29 [facility] [facility] [address] 12450- 7141 March, Adverse effect of drug, subsequent encounter T88.7XXD ; HTN (hypertension) I10 ; Dyslipidemia (high LDL; low HDL) E78.5 ; Chronic pain G89.29 ; Anxiety F41.9 and 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 39573- 3482 March, Bulging lumbar disc M51.26 [facility] [id number] [place] [address] 88768- 3927 March, [facility] [facility] [address] 18507- 8977 Feb, [facility] [id number] [place] [address] 73192- 9109 Feb, HTN (hypertension) I10 ; COPD (chronic obstructive pulmonary disease) J44.9 ; Overweight (BMI 25.0-29.9) E66.3 and Epilepsy G40.909 [facility] [id number] [place] [address] 70875- 0378 Feb, HTN (hypertension) I10 ; COPD (chronic obstructive pulmonary disease) J44.9 ; Anxiety F41.9 ; Overweight (BMI 25.0-29.9) E66.3 ; Epilepsy G40.909 ; Bulging lumbar disc M51.26 ; Protrusion of cervical intervertebral disc M50.20 ; Tobacco abuse counseling Z71.6 and Tobacco abuse Z72.0 [facility] [address] [place] [address] 91011- 3116 Feb, Chronic pain G89.29 [facility] [id number] [place] [address] 46230- 1808 Jan, Chronic pain G89.29 [facility] [id number] [place] [address] 71034- 0973 Dec, Epilepsy G40.909 [facility] [id number] [place] [address] 73907- 5982 Dec, Chronic pain G89.29 [facility] [id number] [place] [address] 30973- 5428 Nov, [facility] [id number] [place] [address] 62973- 5345 Nov, Anxiety F41.9 [facility] [id number] [place] [address] 13094- 8064 Oct, HTN (hypertension) I10 ; COPD (chronic obstructive pulmonary disease) J44.9 ; Epilepsy G40.909 ; Chronic pain G89.29 ; Anxiety F41.9 ; Overweight (BMI 25.0-29.9) E66.3 ; Tobacco abuse Z72.0 ; Tobacco abuse counseling Z71.6 ; High risk medication use Z79.899 and Controlled substance agreement signed Z79.899 [facility] [facility] [address] [place] [address] 78714- 9465 Oct, Bulging lumbar disc M51.26 [facility] [id number] [place] [address] 20253- 8148 Oct, Bulging lumbar disc M51.26 [facility] [id number] [place] [address] 02766- 4153 Sep, [facility] [id number] [place] [address] 88077- 5251 Sep, [facility] [id number] [place] [address] 60216- 3327 Aug, Bulging lumbar disc M51.26 [facility] [address] 56221- 8503 Jul, Bulging lumbar disc M51.26 and Anxiety F41.9 [facility] [address] 82900- 9090 Jun, Bulging lumbar disc M51.26 and Anxiety F41.9 [facility] [address] 67049- 4950 Jun, 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 [facility] [address] 65904 -6967 Jun, Acute swimmers ear of right side H60.331 [place] [address] 08711- 9177 Jun, Bulging lumbar disc M51.26 and Anxiety F41.9 [facility] [id number] [place] [address] 62235- 3944 May, Bulging lumbar disc M51.26 and Anxiety F41.9 [facility] [id number] [place] [address] 01435 -5402 May, COPD exacerbation J44.1 [facility] [id number] [place] [address] 97228- 7709 May, Bulging lumbar disc M51.26 [facility] [id number] [place] [address] 36264- 1807 Apr, [facility] [address] 26813- 8737 14 Apr, 2017 [facility] [id number] [place] [address] 79366- 6978 06 Apr, 2017 Bulging lumbar disc M51.26 and Anxiety F41.9 [facility] [address] 66200- 9514 March, Anxiety F41.9 and Bulging lumbar disc M51.26 [facility] [facility] [address] 22271- 3238 March, HTN (hypertension) I10 ; Anxiety F41.9 ; Bulging lumbar disc M51.26 ; 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 ; Neck pain M54.2 ; Globus sensation F45.8 and COPD (chronic obstructive pulmonary disease) J44.9 [facility] [facility] [address] 25682- 4847 Feb, [place] [address] 98252- 2124 Feb, HTN (hypertension) I10 [facility] [address] 93459 -1460 Feb, Acute nasopharyngitis (common cold) J00 [place] [address] 03552- 1815 Feb, Anxiety F41.9 and Bulging lumbar disc M51.26 [facility] [facility] [address] 35541- 3024 Feb, Bronchitis J40 [facility] [facility] [address] 73706- 2193 Jan, Anxiety F41.9 and Bulging lumbar disc M51.26 [facility] [id number] [place] [address] 97075- 8136 Jan, Anxiety F41.9 [facility] [address] 11330 -9713 Dec, Viral pharyngitis J02.9 [facility] [facility] [address] 24246- 4274 15 Dec, 2016 HTN (hypertension) I10 [place] [address] [place] [address]- 2125 14 Dec, 2016 Bulging lumbar disc M51.26 and HTN (hypertension) I10 [facility] [id number] [place] [address] 69919 -1953 10 Dec, 2016 Abscess L02.91 [facility] [address] 21507- 8205 08 Dec, 2016 Anxiety F41.9 and Bulging lumbar disc M51.26 [place] [facility] [address] 18548- 1934 Nov, Incontinence R32 [place] [address] 18734- 6756 Nov, Anxiety F41.9 and Bulging lumbar disc M51.26 [facility] [address] 21694- 9404 Nov, Incontinence R32 [place] [address] 72103- 6359 Nov, Excessive thirst R63.1 [facility] [address] 20746- 6835 Nov, Excessive thirst R63.1 [facility] [id number] [place] [address] 22065- 6069 Nov, HTN (hypertension) I10 ; Anxiety F41.9 ; COPD (chronic obstructive pulmonary disease) J44.9 ; Bulging lumbar disc M51.26 ; Epilepsy G40.909 ; 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 ; Neck pain M54.2 ; Other viral agents as the cause of diseases classified elsewhere B97.89 ; Acute upper respiratory infection, unspecified J06.9 ; Chronic intractable headache, unspecified headache type R51 and Hypercholesterolemia E78.00 [facility] [facility] [id number] [place] [address] 08894- 6088 Oct, [place] [address] 30367- 0384 Oct, [facility] [id number] [place] [address] 05815- 6085 Sep, [facility] [address] 48699- 5940 Sep, [facility] [address] 72892 -9927 Sep, Cough R05 ; Wheezing R06.2 ; Oropharyngeal dysphagia R13.12 and Exposure to strep throat Z20.818 [facility] [address] 54133- 0239 Sep, [facility] [address] 31611- 5807 Sep, [facility] [address] 29652- 3124 Aug, [facility] [address] 23836- 5919 Aug, [facility] [address] 06785- 6581 16 Jul, 2016 [facility] [address] 14769 -8899 14 Jul, 2016 Bronchitis J40 [facility] [address] 42785- 8002 Jul, [facility] [address] 09894- 2974 Jun, HTN (hypertension) I10 ; Anxiety F41.9 ; Epilepsy G40.909 ; COPD (chronic obstructive pulmonary disease) J44.9 ; 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 and Bulging lumbar disc M51.26 [facility] [id number] [place] [address] 49459- 8235 Jun, [facility] [address] 97106- 6419 Jun, HTN (hypertension) I10 ; Anxiety F41.9 ; Epilepsy G40.909 ; COPD (chronic obstructive pulmonary disease) J44.9 ; 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 and Bulging lumbar disc M51.26 [place] [address] 88002- 7954 May, [place] [address] 47278- 3666 Apr, Anxiety disorder, unspecified F41.9 and Shoulder pain, left M25.512 [facility] [address] 94350- 9527 March, Anxiety disorder, unspecified F41.9 and Degenerative joint disease (DJD) of lumbar spine M47.816 [facility] [address] 89066- 5560 March, Sore throat in the morning J02.9 [place] [address] 67347- 0351 Feb, [facility] [address] 57249 -5212 Feb, Right foot injury, initial encounter S99.921A and Oral nayan B37.0 [place] [address] 98031- 6506 Feb, [place] [address] 30567- 9602 Jan, HTN (hypertension) I10 ; COPD (chronic obstructive pulmonary disease) J44.9 ; Chronic pain G89.29 and Epilepsy G40.909 [facility] [address] 66118 -7073 Jan, Sore throat J02.9 and Thrush B37.0 [place] [address] 61512- 8959 16 Jan, 2016 Chronic pain G89.29 ; HTN (hypertension) I10 ; Anxiety F41.9 ; Bulging lumbar disc M51.26 ; Protrusion of cervical intervertebral disc M50.20 and Shoulder pain, left M25.512 [facility] [id number] [place] [address] 72829- 4964 Jan, [facility] [place] [id number] [place] [address] 96648- 9102 Jan, [facility] [place] [id number] [place] [address] 50997- 3218 Jan, HTN (hypertension) I10 ; Anxiety F41.9 ; COPD (chronic obstructive pulmonary disease) J44.9 ; Bulging lumbar disc M51.26 ; Incontinence R32 ; Epilepsy G40.909 ; 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26 and Incontinence R32 [place] [address] [address]- 0080 Dec, [facility] [address] [id number] [place] [address] Dec [place] [address] [place] [address] 52608- 5527 Nov, [place] [id number] [place] [address] 03765- 4936 Nov, [facility] [address] 99497- 6140 Nov, [facility] [address] 51874 -2043 Nov, Pharyngitis J02.9 and Allergic rhinitis J30.9 [place] [address] 38473- 7734 Nov, Degenerative joint disease (DJD) of lumbar spine M47.816 ; Cervicalgia M54.2 ; Lumbago 724.2 and Lumbago of lumbar region with sciatica M54.5 [place] [address] 45517- 4231 Nov, Degenerative joint disease (DJD) of lumbar spine M47.816 [facility] [facility] [address] 66137- 8722 Oct, Generalized anxiety disorder F41.1 [place] [address] 64057- 1829 Oct, Cervicalgia M54.2 ; Degenerative joint disease (DJD) of lumbar spine M47.816 and Hypertension I10 [place] [address] 70555- 7804 Oct, [facility] [address] 11630 -2415 Oct, Essential (primary) hypertension I10 [place] [address] 96245- 8009 Oct, [place] [address] 80425- 4751 Sep, Allergic rhinitis J30.9 ; Generalized anxiety disorder F41.1 and Shoulder pain, left M25.512 [place] [address] 10054- 9692 Sep, [facility] [address] [place] [address] 86648- 0735 Aug, Cough R05 [facility] [address] [place] [address] 166378- 7151 Aug, Generalized anxiety disorder F41.1 [facility] [id number] [place] [address] 60963- 3496 Aug, Cough R05 [facility] [id number] [place] [address] 49482- 6848 Aug, [facility] [id number] [place] [address] 659782- 8885 Aug, [facility] [id number] [place] [address] 41733- 6249 Aug, Lumbago of lumbar region with sciatica M54.5 [facility] [id number] [place] [address] 29546- 7730 Jul, Lumbago 724.2 [facility] [id number] [place] [address] 99713- 5619 Jul, [facility] [id number] [place] [address] 62323- 9889 16 Jul, 2015 Anxiety 300.00 and Hypertension 401.9 [facility] [address] [place] [address] 64863- 0411 11 Jul, 2015 Generalized anxiety disorder 300.02 [facility] [address] [place] [address] 70150- 2547 09 Jul, 2015 Nodule of neck 784.2 [facility] [id number] [place] [address] 80399- 5032 Jun, Nodule of neck 784.2 [facility] [id number] [place] [address] 97467- 1979 Jun, [facility] [id number] [place] [address]- 6993 Jun, Routine adult health maintenance V70.0 [facility] [address] [facility] [id number] [place] [id number]- 8002 Jun, Routine adult health maintenance V70.0 ; Anxiety 300.00 ; Epilepsy 345.90 ; Hypertension 401.9 and Urinary incontinence 788.30 IMMUNIZATIONS No Known Immunizations SOCIAL HISTORY Never Assessed REASON FOR VISIT Controlled Med Refill PLAN OF CARE VITAL SIGNS MEDICATIONS Medication Instructions Dosage Frequency Start Date End Date Duration Status Percocet 7.5-325 mg Orally 3 times a day 1 tablet as needed 8h Jul, 10 days Active RESULTS No Results PROCEDURES No [...]
--- OUTSIDE RECORDS SUMMARY | 2018-08-30 19:02 | XMS REPORT ---
Author Author COOKIEVALERIANOANN Organization [facility] Address [address] [place] [address] Care Team Providers Care Circulating Process Inspector Name Role Phone GARYANN Haywood Unavailable PROBLEMS Type Condition ICD9-CM Code DOM71-XV Code Onset Dates Condition Status SNOMED Code Problem Anxiety F41.9 Active 25865146 Problem Epilepsy G40.909 Active 82359941 Problem Bulging lumbar disc M51.26 Active 210399470 Problem Dyslipidemia (high LDL; low HDL) E78.5 Active 753878636 Problem COPD (chronic obstructive pulmonary disease) J44.9 Active 55931991 Problem HTN (hypertension) I10 Active 40339398 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 783678243 Problem Tobacco abuse counseling Z71.6 Active 670760679 Problem Protrusion of cervical intervertebral disc M50.20 Active 598239897 Problem Chronic pain G89.29 Active 70402241 Problem Tobacco abuse Z72.0 Active 797265561 Problem Overweight (BMI 25.0-29.9) E66.3 Active 466562835 ALLERGIES No Information ENCOUNTERS Encounter Location Date Diagnosis [facility] [address] [address] Jul, [facility] [id number] [place] [address] 79218- 9277 Jul, [facility] [id number] [address] Jun, HTN (hypertension) I10 [facility] [id number] [place] [address] 11614- 9669 May, Chronic pain G89.29 [facility] [address], [place] [address] March, Adverse effect of drug, subsequent encounter T88.7XXD ; HTN (hypertension) I10 ; Dyslipidemia (high LDL; low HDL) E78.5 ; Chronic pain G89.29 ; Anxiety F41.9 and 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 [facility] [id number] [place] [address] 10774- 8381 March, Bulging lumbar disc M51.26 [facility] [address] 53799- 7177 March, [facility] [address] 53375- 6252 Feb, [facility] [address] 47387- 7398 Feb, HTN (hypertension) I10 ; COPD (chronic obstructive pulmonary disease) J44.9 ; Overweight (BMI 25.0-29.9) E66.3 and Epilepsy G40.909 [facility] [address] 87840- 2990 Feb, HTN (hypertension) I10 ; COPD (chronic obstructive pulmonary disease) J44.9 ; Anxiety F41.9 ; Overweight (BMI 25.0-29.9) E66.3 ; Epilepsy G40.909 ; Bulging lumbar disc M51.26 ; Protrusion of cervical intervertebral disc M50.20 ; Tobacco abuse counseling Z71.6 and Tobacco abuse Z72.0 [facility] [id number] [place] [address] 65253- 7137 Feb, Chronic pain G89.29 [facility] [id number] [place] [address] 06317- 5811 Jan, Chronic pain G89.29 [facility] [address] 98932- 2361 Dec, Epilepsy G40.909 [facility] [id number] [place] [address] 65039- 8165 05 Dec, 2017 Chronic pain G89.29 [facility] [id number] [place] [address] 12268- 1707 Nov, [facility] [address] 87071- 7280 Nov, Anxiety F41.9 [facility] [id number] [place] [address] 65327- 1540 Oct, HTN (hypertension) I10 ; COPD (chronic obstructive pulmonary disease) J44.9 ; Epilepsy G40.909 ; Chronic pain G89.29 ; Anxiety F41.9 ; Overweight (BMI 25.0-29.9) E66.3 ; Tobacco abuse Z72.0 ; Tobacco abuse counseling Z71.6 ; High risk medication use Z79.899 and Controlled substance agreement signed Z79.899 [facility] [id number] [place] [address] 77644- 3105 Oct, Bulging lumbar disc M51.26 [facility] [address] 66036- 6041 Oct, Bulging lumbar disc M51.26 [facility] [address] 61594- 6749 Sep, [facility] [address] 76540- 4817 Sep, [facility] [id number] [place] [address] 61748- 2865 Aug, Bulging lumbar disc M51.26 [facility] [address] 23962- 0371 Jul, Bulging lumbar disc M51.26 and Anxiety F41.9 [facility] [address] 08588- 8710 Jun, Bulging lumbar disc M51.26 and Anxiety F41.9 [facility] [id number] [place] [address] 43354- 9057 Jun, 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 [facility] [id number] [place] [address] 17135 -2003 Jun, Acute swimmers ear of right side H60.331 [facility] [address] 33356- 3434 Jun, Bulging lumbar disc M51.26 and Anxiety F41.9 [facility] [address] 77579- 5786 May, Bulging lumbar disc M51.26 and Anxiety F41.9 [facility] [address] 33540 -0450 May, COPD exacerbation J44.1 [facility] [address] 68824- 6368 May, Bulging lumbar disc M51.26 [facility] [address] 53104- 6358 Apr, [facility] [address] 88994- 4070 Apr, [facility] [address] 18305- 0945 Apr, Bulging lumbar disc M51.26 and Anxiety F41.9 [facility] [address] 06179- 1541 March, Anxiety F41.9 and Bulging lumbar disc M51.26 [facility] [id number] [place] [address] 13351- 8611 March, HTN (hypertension) I10 ; Anxiety F41.9 ; Bulging lumbar disc M51.26 ; 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 ; Neck pain M54.2 ; Globus sensation F45.8 and COPD (chronic obstructive pulmonary disease) J44.9 [facility] [id number] [place] [address] 42230- 9967 Feb, [facility] [address] 99347- 3913 17 Feb, 2017 HTN (hypertension) I10 [facility] [address] 53011 -8634 13 Feb, 2017 Acute nasopharyngitis (common cold) J00 [facility] [address] 61814- 7244 11 Feb, 2017 Anxiety F41.9 and Bulging lumbar disc M51.26 [facility] [address] 88372- 6015 04 Feb, 2017 Bronchitis J40 [facility] [address] 94921- 1223 13 Jan, 2017 Anxiety F41.9 and Bulging lumbar disc M51.26 [facility] [address] 02443- 3207 09 Jan, 2017 Anxiety F41.9 [facility] [address] 12066 -1795 20 Dec, 2016 Viral pharyngitis J02.9 [facility] [address] 87261- 6973 15 Dec, 2016 HTN (hypertension) I10 [facility] [address] 18835- 5194 14 Dec, 2016 Bulging lumbar disc M51.26 and HTN (hypertension) I10 [facility] [address] 86879 -2326 10 Dec, 2016 Abscess L02.91 [facility] [address] 15850- 8700 08 Dec, 2016 Anxiety F41.9 and Bulging lumbar disc M51.26 [facility] [address] 25905- 1097 16 Nov, 2016 Incontinence R32 [facility] [address] 83127- 1040 Nov, Anxiety F41.9 and Bulging lumbar disc M51.26 [facility] [address] 92604- 8359 Nov, Incontinence R32 [facility] [address] 36931- 2294 Nov, Excessive thirst R63.1 [facility] [address] 39700- 7663 Nov, Excessive thirst R63.1 [facility] [address] 05502- 8531 Nov, HTN (hypertension) I10 ; Anxiety F41.9 ; COPD (chronic obstructive pulmonary disease) J44.9 ; Bulging lumbar disc M51.26 ; Epilepsy G40.909 ; 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 ; Neck pain M54.2 ; Other viral agents as the cause of diseases classified elsewhere B97.89 ; Acute upper respiratory infection, unspecified J06.9 ; Chronic intractable headache, unspecified headache type R51 and Hypercholesterolemia E78.00 [facility] [address] 69343- 5627 Oct, [facility] [address] 30981- 6094 Oct, [facility] [address] 81827- 0766 Sep, [place] [address] 09692- 3556 Sep, [facility] [address] 81479 -0529 Sep, Cough R05 ; Wheezing R06.2 ; Oropharyngeal dysphagia R13.12 and Exposure to strep throat Z20.818 [place] [address] 84709- 9820 Sep, [facility] [address], [place] [address] 7684 Sep, [facility] [address] [place] [address] 03614- 2563 Aug, [facility] [address], [place] [address] 3806 Aug, [facility] [address] [place] [address] 54405- 3333 16 Jul, 2016 [facility] [address] [place] [address] 53055 -9873 14 Jul, 2016 Bronchitis J40 [facility] [id number] [place] [address] 15815- 2879 Jul, [facility] [address], [place] [address]- 3468 Jun, HTN (hypertension) I10 ; Anxiety F41.9 ; Epilepsy G40.909 ; COPD (chronic obstructive pulmonary disease) J44.9 ; 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 and Bulging lumbar disc M51.26 [facility] [address] [place] [address] 81922- 8302 Jun, [facility] [address], [place] [address]- 2734 Jun, HTN (hypertension) I10 ; Anxiety F41.9 ; Epilepsy G40.909 ; COPD (chronic obstructive pulmonary disease) J44.9 ; 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 and Bulging lumbar disc M51.26 [facility] [address], [place] [address]- 9018 May, [facility] [id number] [place] [address] 39764- 4262 Apr, Anxiety disorder, unspecified F41.9 and Shoulder pain, left M25.512 [facility] [address] [place] [address] 41178- 0722 March, Anxiety disorder, unspecified F41.9 and Degenerative joint disease (DJD) of lumbar spine M47.816 [facility] [address] 04056- 5803 March, Sore throat in the morning J02.9 [facility] [id number] [place] [address] 57344- 7089 Feb, [facility] [place] [address] 22403 -6166 Feb, Right foot injury, initial encounter S99.921A and Oral nayan B37.0 [facility] [address] 50322- 8633 Feb, [facility] [address] 59253- 6604 Jan, HTN (hypertension) I10 ; COPD (chronic obstructive pulmonary disease) J44.9 ; Chronic pain G89.29 and Epilepsy G40.909 [facility] [id number] [place] [address] 32709 -2537 Jan, Sore throat J02.9 and Thrush B37.0 [facility] [id number] [place] [address] 44160- 6514 16 Jan, 2016 Chronic pain G89.29 ; HTN (hypertension) I10 ; Anxiety F41.9 ; Bulging lumbar disc M51.26 ; Protrusion of cervical intervertebral disc M50.20 and Shoulder pain, left M25.512 [facility] [id number] [place] [address] 64539- 6595 Jan, [facility] [address] 61603- 3556 Jan, [facility] [facility] [address] 56461- 5852 Jan, HTN (hypertension) I10 ; Anxiety F41.9 ; COPD (chronic obstructive pulmonary disease) J44.9 ; Bulging lumbar disc M51.26 ; Incontinence R32 ; Epilepsy G40.909 ; 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 and Neck pain M54.2 [facility] [id number] [place] [address] 66130- 5198 Jan, Anxiety F41.9 [facility] [id number] [place] [address] 99435- 0969 24 Dec, 2015 HTN (hypertension) I10 ; Epilepsy G40.909 and 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 [facility] [id number] [place] [address] 58796- 8710 Dec, [facility] [address] 92987- 0562 Dec, Anxiety F41.9 ; HTN (hypertension) I10 ; COPD (chronic obstructive pulmonary disease) J44.9 ; Bulging lumbar disc M51.26 and Incontinence R32 [facility] [id number] [place] [address] 74755- 0257 Dec, [id number] [address] Dec [facility] [id number] [place] [address] 20969- 3023 Nov, [facility] [id number] [place] [address] 29116- 4429 Nov, [facility] [id number] [place] [address] 90617- 6994 Nov, [facility] [id number] [place] [address] 83184 -0913 Nov, Pharyngitis J02.9 and Allergic rhinitis J30.9 [facility] [id number] [place] [address] 01200- 3611 Nov, Degenerative joint disease (DJD) of lumbar spine M47.816 ; Cervicalgia M54.2 ; Lumbago 724.2 and Lumbago of lumbar region with sciatica M54.5 [facility] [id number] [place] [address] 35059- 1494 Nov, Degenerative joint disease (DJD) of lumbar spine M47.816 [facility] [id number] [place] [address] 31377- 2017 Oct, Generalized anxiety disorder F41.1 [facility] [id number] [place] [address] 15734- 7181 Oct, Cervicalgia M54.2 ; Degenerative joint disease (DJD) of lumbar spine M47.816 and Hypertension I10 [facility] [address] 26024- 9261 Oct, [facility] [id number] [place] [address] 03402 -5632 Oct, Essential (primary) hypertension I10 [facility] [address] 65832- 0184 Oct, [facility] [address] 37281- 2307 Sep, Allergic rhinitis J30.9 ; Generalized anxiety disorder F41.1 and Shoulder pain, left M25.512 [facility] [id number] [place] [address] 12917- 1340 Sep, [facility] [id number] [place] [address] 72915- 8126 Aug, Cough R05 [facility] [id number] [place] [address] 88340- 2826 Aug, Generalized anxiety disorder F41.1 [facility] [address] 76432- 3771 Aug, Cough R05 [facility] [id number] [place] [address] 58488- 7567 Aug, [facility] [address] 79268- 7236 Aug, [facility] [address] [place] [address] 51714- 3793 Aug, Lumbago of lumbar region with sciatica M54.5 [facility] [address] [place] [address] 83354- 9221 Jul, Lumbago 724.2 [facility] [id number] [place] [address] 52985- 0743 Jul, [facility] [id number] [place] [address] 70650- 6476 16 Jul, 2015 Anxiety 300.00 and Hypertension 401.9 [facility] [id number] [place] [address] 98948- 9767 Jul, Generalized anxiety disorder 300.02 [facility] [id number] [place] [address] 32081- 1500 Jul, Nodule of neck 784.2 [facility] [id number] [place] [address] 82667- 5657 Jun, Nodule of neck 784.2 [facility] [id number] [place] [address] 42512- 1729 Jun, [place] [address] [place] [address] 33410- 0042 Jun, Routine adult health maintenance V70.0 [facility] [address] [place] [address] 07023- 3642 Jun, Routine adult health maintenance V70.0 ; Anxiety 300.00 ; Epilepsy 345.90 ; Hypertension 401.9 and Urinary incontinence 788.30 IMMUNIZATIONS No Known Immunizations SOCIAL HISTORY Never Assessed REASON FOR VISIT Refill Request PLAN OF CARE VITAL SIGNS MEDICATIONS Medication Instructions Dosage Frequency Start Date End Date Duration Status Lisinopril 20 mg Orally Once a day TAKE ONE TABLET BY MOUTH ONCE DAILY 24h 90 days Active RESULTS No Results PROCEDURES [...]
--- OUTSIDE RECORDS SUMMARY | 2018-08-30 19:03 | XMS REPORT ---
Author Author ANN GARY Organization [facility] Address [address] [place] [address] Care Team Providers Care Tenant Coordinator Name Role Phone GARYVALERIANO HaywoodELE Unavailable PROBLEMS Type Condition ICD9-CM Code SZY24-LH Code Onset Dates Condition Status SNOMED Code Problem Anxiety F41.9 Active 90771675 Problem Epilepsy G40.909 Active 82771617 Problem Bulging lumbar disc M51.26 Active 231645251 Problem Dyslipidemia (high LDL; low HDL) E78.5 Active 345123958 Problem COPD (chronic obstructive pulmonary disease) J44.9 Active 99885400 Problem HTN (hypertension) I10 Active 67710504 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 461436216 Problem Tobacco abuse counseling Z71.6 Active 929000292 Problem Protrusion of cervical intervertebral disc M50.20 Active 542495405 Problem Chronic pain G89.29 Active 54892470 Problem Tobacco abuse Z72.0 Active 309433786 Problem Overweight (BMI 25.0-29.9) E66.3 Active 077319412 ALLERGIES No Information ENCOUNTERS Encounter Location Date Diagnosis [place] [id number] [place] [address] 40042- 3064 Jul, [place] [address] [place] [id number] [place] [address] 91419- 3354 Jun, HTN (hypertension) I10 [place] [address] [place] [id number] [place] [address] 84532- 7298 May, Chronic pain G89.29 [place] [address] [place] [id number] [place] [address] 78769- 0407 March, Adverse effect of drug, subsequent encounter T88.7XXD ; HTN (hypertension) I10 ; Dyslipidemia (high LDL; low HDL) E78.5 ; Chronic pain G89.29 ; Anxiety F41.9 and 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 [facility] [address] [place] [id number] [place] [address] 79596- 9747 March, Bulging lumbar disc M51.26 [facility] [address] [place] [address] [id number] [place] [address] 30466- 0000 March, [facility] [address] [id number] [place] [address] 08123- 9574 Feb, [facility] [address] [place] [id number] [place] [address] 47118- 5779 Feb, HTN (hypertension) I10 ; COPD (chronic obstructive pulmonary disease) J44.9 ; Overweight (BMI 25.0-29.9) E66.3 and Epilepsy G40.909 [place] [address] [place] [address] 57606- 3918 Feb, HTN (hypertension) I10 ; COPD (chronic obstructive pulmonary disease) J44.9 ; Anxiety F41.9 ; Overweight (BMI 25.0-29.9) E66.3 ; Epilepsy G40.909 ; Bulging lumbar disc M51.26 ; Protrusion of cervical intervertebral disc M50.20 ; Tobacco abuse counseling Z71.6 and Tobacco abuse Z72.0 [place] [address] [place] [address] 66994- 2441 Feb, Chronic pain G89.29 [place] [address] [place] [address] 07183- 6117 Jan, Chronic pain G89.29 [facility] [address] [place] [id number] [place] [address] 17554- 3946 Dec, Epilepsy G40.909 [place] [address] [place] [id number] [place] [address] 85433- 0462 05 Dec, 2017 Chronic pain G89.29 [facility] [id number] [place] [address] 61282- 9298 Nov, [place] [address] 16450- 1347 Nov, Anxiety F41.9 [place] [address] 45901- 1850 Oct, HTN (hypertension) I10 ; COPD (chronic obstructive pulmonary disease) J44.9 ; Epilepsy G40.909 ; Chronic pain G89.29 ; Anxiety F41.9 ; Overweight (BMI 25.0-29.9) E66.3 ; Tobacco abuse Z72.0 ; Tobacco abuse counseling Z71.6 ; High risk medication use Z79.899 and Controlled substance agreement signed Z79.899 [place] [address] 64018- 6951 Oct, Bulging lumbar disc M51.26 [place] [address] 21505- 0052 Oct, Bulging lumbar disc M51.26 [place] [address] 96539- 0407 Sep, [place] [address] 31905- 3228 Sep, [place] [address] 83145- 9162 Aug, Bulging lumbar disc M51.26 [place] [address] 21163- 2661 Jul, Bulging lumbar disc M51.26 and Anxiety F41.9 [place] [address] 84896- 6626 Jun, Bulging lumbar disc M51.26 and Anxiety F41.9 [place] [address] 86234- 4406 Jun, 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 [facility] [address] 44302 -1144 09 Jun, 2017 Acute swimmers ear of right side H60.331 [facility] [address] [place] [id number] [place] [address] 63451- 8488 Jun, Bulging lumbar disc M51.26 and Anxiety F41.9 [place] [address] [place] [id number] [place] [address] 63983- 3689 May, Bulging lumbar disc M51.26 and Anxiety F41.9 [facility] [address] 35397 -1178 May, COPD exacerbation J44.1 [place] [address] 47762- 0879 May, Bulging lumbar disc M51.26 [place] [address] [place] [id number] [place] [address] 68890- 3662 Apr, [place] [address] 30091- 9972 Apr, [place] [address] [place] [id number] [place] [address] 83455- 2435 Apr, Bulging lumbar disc M51.26 and Anxiety F41.9 [place] [address] [place] [id number] [place] [address] 74865- 4468 March, Anxiety F41.9 and Bulging lumbar disc M51.26 [place] [address] [place] [id number] [place] [address] 92397- 6632 March, HTN (hypertension) I10 ; Anxiety F41.9 ; Bulging lumbar disc M51.26 ; 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 ; Neck pain M54.2 ; Globus sensation F45.8 and COPD (chronic obstructive pulmonary disease) J44.9 [place] [address] [place] [id number] [place] [address] 48003- 6086 Feb, [place] [address] [place] [id number] [place] [address] 67764- 0692 Feb, HTN (hypertension) I10 [facility] [address] 16651 -5033 13 Feb, 2017 Acute nasopharyngitis (common cold) J00 [facility] [address] 40724- 6827 11 Feb, 2017 Anxiety F41.9 and Bulging lumbar disc M51.26 [place] [address] 99716- 3649 04 Feb, 2017 Bronchitis J40 [place] [address] 27234- 8652 13 Jan, 2017 Anxiety F41.9 and Bulging lumbar disc M51.26 [place] [address] 94371- 3014 09 Jan, 2017 Anxiety F41.9 [facility] [address] 98737 -3039 20 Dec, 2016 Viral pharyngitis J02.9 [place] [address] 09954- 0763 15 Dec, 2016 HTN (hypertension) I10 [place] [address] 68350- 3052 14 Dec, 2016 Bulging lumbar disc M51.26 and HTN (hypertension) I10 [facility] [address] 30547 -4651 10 Dec, 2016 Abscess L02.91 [place] [address] 17319- 5346 08 Dec, 2016 Anxiety F41.9 and Bulging lumbar disc M51.26 [place] [address] 71834- 0226 16 Nov, 2016 Incontinence R32 [place] [address] 43484- 8402 11 Nov, 2016 Anxiety F41.9 and Bulging lumbar disc M51.26 [place] [address] [place] [id number] [place] [address] 64770- 1052 Nov, Incontinence R32 [place] [address] 55872- 6934 Nov, Excessive thirst R63.1 [place] [address] 46228- 7762 Nov, Excessive thirst R63.1 [place] [address] 94533- 5482 Nov, HTN (hypertension) I10 ; Anxiety F41.9 ; COPD (chronic obstructive pulmonary disease) J44.9 ; Bulging lumbar disc M51.26 ; Epilepsy G40.909 ; 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 ; Neck pain M54.2 ; Other viral agents as the cause of diseases classified elsewhere B97.89 ; Acute upper respiratory infection, unspecified J06.9 ; Chronic intractable headache, unspecified headache type R51 and Hypercholesterolemia E78.00 [place] [address] 48201- 4472 Oct, [place] [address] 80363- 3027 Oct, [place] [address] 04888- 1473 Sep, [place] [address] 99979- 6303 Sep, [facility] [address] 85086 -9683 Sep, Cough R05 ; Wheezing R06.2 ; Oropharyngeal dysphagia R13.12 and Exposure to strep throat Z20.818 [place] [address] 99614- 6209 Sep, [place] [address] 86001- 3118 Sep, [place] [address] [address] 245[address] Aug, [facility] [address] [place] [id number] [place] [address] 39744- 8467 18 Aug, 2016 [facility] [address] [place] [address] 92784- 7950 16 Jul, 2016 [facility] [address] [place] [id number] [place] [address] 31827 -5335 14 Jul, 2016 Bronchitis J40 [facility] [address] [place] [id number] [place] [address] 36958- 2994 06 Jul, 2016 [place] [address] [place] [id number] [place] [address] 09179- 3567 Jun, HTN (hypertension) I10 ; Anxiety F41.9 ; Epilepsy G40.909 ; COPD (chronic obstructive pulmonary disease) J44.9 ; 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 and Bulging lumbar disc M51.26 [facility] [address] [place] [address] 09575- 4928 Jun, [place] [address] [place] [id number] [place] [address] 60889- 3658 Jun, HTN (hypertension) I10 ; Anxiety F41.9 ; Epilepsy G40.909 ; COPD (chronic obstructive pulmonary disease) J44.9 ; 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 and Bulging lumbar disc M51.26 [place] [address] [place] [address] 45607- 1576 May, [place] [address] [place] [id number] [place] [address] 71826- 9570 Apr, Anxiety disorder, unspecified F41.9 and Shoulder pain, left M25.512 [place] [address] [place] [id number] [place] [address] 10129- 9149 March, Anxiety disorder, unspecified F41.9 and Degenerative joint disease (DJD) of lumbar spine M47.816 [place] [address] [place] [id number] [place] [address] 32774- 2184 March, Sore throat in the morning J02.9 [place] [address] 58118- 9245 Feb, [facility] [place] [address] 57648 -1757 Feb, Right foot injury, initial encounter S99.921A and Oral nayan B37.0 [place] [address] 51240- 5279 Feb, [place] [address] 93921- 3098 Jan, HTN (hypertension) I10 ; COPD (chronic obstructive pulmonary disease) J44.9 ; Chronic pain G89.29 and Epilepsy G40.909 [facility] [place] [address] 66235 -3290 Jan, Sore throat J02.9 and Thrush B37.0 [place] [address] 01436- 1807 16 Jan, 2016 Chronic pain G89.29 ; HTN (hypertension) I10 ; Anxiety F41.9 ; Bulging lumbar disc M51.26 ; Protrusion of cervical intervertebral disc M50.20 and Shoulder pain, left M25.512 [place] [address] [place] [id number] [place] [address] 27943- 2297 15 Jan, 2016 [place] [address] 89013- 4551 14 Jan, 2016 [place] [address] 23096- 0254 09 Jan, 2016 HTN (hypertension) I10 ; Anxiety F41.9 ; COPD (chronic obstructive pulmonary disease) J44.9 ; Bulging lumbar disc M51.26 ; Incontinence R32 ; Epilepsy G40.909 ; 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 and Neck pain M54.2 [place] [address] [place] [id number] [place] [address] 19048- 5574 Jan, Anxiety F41.9 [place] [address] 59063- 2926 24 Dec, 2015 HTN (hypertension) I10 ; Epilepsy G40.909 and 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 [place] [address] 38882- 6208 Dec, [place] [address] 01740- 3971 Dec, Anxiety F41.9 ; HTN (hypertension) I10 ; COPD (chronic obstructive pulmonary disease) J44.9 ; Bulging lumbar disc M51.26 and Incontinence R32 [facility] [address] [place] [id number] [place] [address] 58797- 3582 Dec, [address] [place] [address] Dec [place] [address] [place] [id number] [place] [address] 48597- 2626 Nov, [place] [address] [place] [id number] [place] [address] 04657- 9452 Nov, [place] [address] [place] [id number] [place] [address] 84269- 8901 Nov, [facility] [address] [place] [id number] [place] [address] 75738 -2296 Nov, Pharyngitis J02.9 and Allergic rhinitis J30.9 [place] [address] [place] [id number] [place] [address] 60938- 2758 Nov, Degenerative joint disease (DJD) of lumbar spine M47.816 ; Cervicalgia M54.2 ; Lumbago 724.2 and Lumbago of lumbar region with sciatica M54.5 [facility] [address] [place] [id number] [place] [address] 75011- 9637 Nov, Degenerative joint disease (DJD) of lumbar spine M47.816 [facility] [address] [place] [id number] [place] [address] 98179- 3739 Oct, Generalized anxiety disorder F41.1 [facility] [address] [place] [id number] [place] [address] 78616- 1646 Oct, Cervicalgia M54.2 ; Degenerative joint disease (DJD) of lumbar spine M47.816 and Hypertension I10 [facility] [address] [place] [id number] [place] [address] 88284- 5997 Oct, [facility] [address] 89703 -4648 Oct, Essential (primary) hypertension I10 [facility] [address] 65846- 9748 Oct, [facility] [address] 66144- 1134 Sep, Allergic rhinitis J30.9 ; Generalized anxiety disorder F41.1 and Shoulder pain, left M25.512 [facility] [address] 68444- 5191 Sep, [facility] [address] [place] [id number] [place] [address] 42105- 3182 Aug, Cough R05 [facility] [address] [place] [id number] [place] [address] 97355- 0738 Aug, Generalized anxiety disorder F41.1 [facility] [address] [place] [id number] [place] [address] 35386- 6811 Aug, Cough R05 [facility] [address] 16347- 8532 Aug, [facility] [address] [place] [id number] [place] [address] 22654- 2638 Aug, [facility] [address] 76531- 1778 Aug, Lumbago of lumbar region with sciatica M54.5 [place] [address] [place] [id number] [place] [address] 17152- 2425 Jul, Lumbago 724.2 [place] [address] [place] [id number] [place] [address] 26169- 0973 Jul, [place] [address] [place] [id number] [place] [address] 39796- 2762 Jul, Anxiety 300.00 and Hypertension 401.9 [place] [address] [place] [id number] [place] [address] 06730- 5626 Jul, Generalized anxiety disorder 300.02 [place] [address] [place] [id number] [place] [address] 05641- 2644 09 Jul, 2015 Nodule of neck 784.2 [place] [address] [place] [id number] [place] [address] 82315- 1237 Jun, Nodule of neck 784.2 [place] [address] [place] [id number] [place] [address] 48044- 2026 Jun, [place] [address] [place] [id number] [place] [address] 30613- 0177 Jun, Routine adult health maintenance V70.0 [place] [address] [place] [id number] [place] [address] 75660- 4115 Jun, Routine adult health maintenance V70.0 ; Anxiety 300.00 ; Epilepsy 345.90 ; Hypertension 401.9 and Urinary incontinence 788.30 IMMUNIZATIONS No Known Immunizations SOCIAL HISTORY Never Assessed REASON FOR VISIT Controlled Med Refill PLAN OF CARE VITAL SIGNS MEDICATIONS Medication Instructions Dosage Frequency Start Date End Date Duration Status Oxycodone-Acetaminophen 7.5-325 MG Orally 2 times a day 1 tablet as needed 12h 13 May, 2018 Jun, 28 days Active RESULTS No Results PROCEDURES [...]
--- OUTSIDE RECORDS SUMMARY | 2018-08-30 19:03 | XMS REPORT ---
Author Author ANN GARY Organization [facility] Address [address] [place] [address] Care Team Providers Care Leadership Program Intern Name Role Phone GARYANN Haywood Unavailable PROBLEMS Type Condition ICD9-CM Code JFC57-AG Code Onset Dates Condition Status SNOMED Code Problem Anxiety F41.9 Active 69982453 Problem Epilepsy G40.909 Active 10696835 Problem Bulging lumbar disc M51.26 Active 472937091 Problem Dyslipidemia (high LDL; low HDL) E78.5 Active 747288268 Problem COPD (chronic obstructive pulmonary disease) J44.9 Active 75147685 Problem HTN (hypertension) I10 Active 75368403 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 065419041 Problem Tobacco abuse counseling Z71.6 Active 840217391 Problem Protrusion of cervical intervertebral disc M50.20 Active 733433898 Problem Chronic pain G89.29 Active 98694023 Problem Tobacco abuse Z72.0 Active 987324443 Problem Overweight (BMI 25.0-29.9) E66.3 Active 229333223 ALLERGIES Substance Reaction Event Type Date Status Sulfamethoxazole-Trimethoprim nausea Drug Allergy March, Active Pravastatin Sodium nausea Drug Allergy March, Active Morphine Sulfate hives Drug Allergy March, Active Keppra elevated blood pressure Drug Allergy March, Active Biaxin nausea Drug Allergy March, Active ssi meds i.e. celexa ed Non Drug Allergy March, Active lyrica unknown Non Drug Allergy March, Active ENCOUNTERS Encounter Location Date Diagnosis [facility] [address] [facility] [id number] [address] Jun, HTN (hypertension) I10 [facility] [address] [id number] [address] May, Chronic pain G89.29 [facility] [id number] [place] [address] 52251- 1356 March, Adverse effect of drug, subsequent encounter T88.7XXD ; HTN (hypertension) I10 ; Dyslipidemia (high LDL; low HDL) E78.5 ; Chronic pain G89.29 ; Anxiety F41.9 and 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 [place] [address] [address]757 March, Bulging lumbar disc M51.26 [place] [address] [address]53- 3[address] March, [place] [address] 28628- 4563 Feb, [place] [address] 92577- 2946 Feb, HTN (hypertension) I10 ; COPD (chronic obstructive pulmonary disease) J44.9 ; Overweight (BMI 25.0-29.9) E66.3 and Epilepsy G40.909 [place] [address] [address]32- [address] Feb, HTN (hypertension) I10 ; COPD (chronic obstructive pulmonary disease) J44.9 ; Anxiety F41.9 ; Overweight (BMI 25.0-29.9) E66.3 ; Epilepsy G40.909 ; Bulging lumbar disc M51.26 ; Protrusion of cervical intervertebral disc M50.20 ; Tobacco abuse counseling Z71.6 and Tobacco abuse Z72.0 [place] [id number] [place] [address] 94973- 4398 Feb, Chronic pain G89.29 [place] [address] 30265- 1169 Jan, Chronic pain G89.29 [place] [id number] [place] [address] 42752- 0581 Dec, Epilepsy G40.909 [place] [address] 58463- 6231 Dec, Chronic pain G89.29 [facility] [id number] [place] [address] 67629- 9769 Nov, [facility] [id number] [place] [address] 78179- 8388 Nov, Anxiety F41.9 [place] [id number] [place] [address] 27139- 0386 Oct, HTN (hypertension) I10 ; COPD (chronic obstructive pulmonary disease) J44.9 ; Epilepsy G40.909 ; Chronic pain G89.29 ; Anxiety F41.9 ; Overweight (BMI 25.0-29.9) E66.3 ; Tobacco abuse Z72.0 ; Tobacco abuse counseling Z71.6 ; High risk medication use Z79.899 and Controlled substance agreement signed Z79.899 [place] [address] 79482- 3692 Oct, Bulging lumbar disc M51.26 [place] [address] 92351- 4084 Oct, Bulging lumbar disc M51.26 [place] [address] 61517- 9791 Sep, [place] [address] 18888- 7315 Sep, [place] [address] 88928- 4353 Aug, Bulging lumbar disc M51.26 [place] [id number] [place] [address] 73889- 4517 Jul, Bulging lumbar disc M51.26 and Anxiety F41.9 [place] [id number] [place] [address] 95645- 4035 Jun, Bulging lumbar disc M51.26 and Anxiety F41.9 [place] [address] 89416- 5121 Jun, 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 [facility] [address] 14[address] -[address]46 Jun, Acute swimmers ear of right side H60.331 [facility] [address] 48021- 9767 Jun, Bulging lumbar disc M51.26 and Anxiety F41.9 [facility] [address] 76987- 6433 May, Bulging lumbar disc M51.26 and Anxiety F41.9 [facility] [address] 6[address]4259 May, COPD exacerbation J44.1 [place] [address] 48512- 9460 May, Bulging lumbar disc M51.26 [place] [address] 69642- 8997 Apr, [place] [address] 14160- 8477 Apr, [place] [address] 23289- 5971 Apr, Bulging lumbar disc M51.26 and Anxiety F41.9 [place] [address] 60206- 6208 March, Anxiety F41.9 and Bulging lumbar disc M51.26 [place] [address] 86148- 2186 March, HTN (hypertension) I10 ; Anxiety F41.9 ; Bulging lumbar disc M51.26 ; 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 ; Neck pain M54.2 ; Globus sensation F45.8 and COPD (chronic obstructive pulmonary disease) J44.9 [place] [address] 93142- 7044 19 Feb, 2017 [facility] [address] 35347- 9997 17 Feb, 2017 HTN (hypertension) I10 [facility] [address] 36962 -8987 13 Feb, 2017 Acute nasopharyngitis (common cold) J00 [place] [address] 04788- 4873 11 Feb, 2017 Anxiety F41.9 and Bulging lumbar disc M51.26 [place] [address] 35765- 6946 04 Feb, 2017 Bronchitis J40 [place] [address] 53352- 8829 13 Jan, 2017 Anxiety F41.9 and Bulging lumbar disc M51.26 [place] [address] 32961- 0781 09 Jan, 2017 Anxiety F41.9 [facility] [address] 67625 -8948 20 Dec, 2016 Viral pharyngitis J02.9 [place] [address] 41535- 7860 15 Dec, 2016 HTN (hypertension) I10 [facility] [address] 71183- 9062 14 Dec, 2016 Bulging lumbar disc M51.26 and HTN (hypertension) I10 [facility] [address] 15825 -6816 10 Dec, 2016 Abscess L02.91 [place] [address] 77965- 4854 08 Dec, 2016 Anxiety F41.9 and Bulging lumbar disc M51.26 [place] [address] 34857- 7352 Nov, Incontinence R32 [place] [id number] [place] [address] 92111- 2588 Nov, Anxiety F41.9 and Bulging lumbar disc M51.26 [place] [id number] [place] [address] 42022- 4719 Nov, Incontinence R32 [place] [address] 63717- 5232 Nov, Excessive thirst R63.1 [place] [address] 87871- 5837 Nov, Excessive thirst R63.1 [place] [address] 60786- 8328 Nov, HTN (hypertension) I10 ; Anxiety F41.9 ; COPD (chronic obstructive pulmonary disease) J44.9 ; Bulging lumbar disc M51.26 ; Epilepsy G40.909 ; 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 ; Neck pain M54.2 ; Other viral agents as the cause of diseases classified elsewhere B97.89 ; Acute upper respiratory infection, unspecified J06.9 ; Chronic intractable headache, unspecified headache type R51 and Hypercholesterolemia E78.00 [place] [id number] [place] [address] 66078- 1407 Oct, [place] [id number] [place] [address] 23798- 8932 Oct, [place] [id number] [place] [address] 81249- 1898 Sep, [place] [id number] [place] [address] 85057- 8883 Sep, [facility] [id number] [place] [address] 61091 -7896 Sep, Cough R05 ; Wheezing R06.2 ; Oropharyngeal dysphagia R13.12 and Exposure to strep throat Z20.818 [place] [id number] [place] [address] 24601- 4462 16 Sep, 2016 [facility] [id number] [place] [address] 55777- 8097 Sep, [facility] [id number] [place] [address] 06730- 1577 Aug, [facility] [address] 95750- 3117 Aug, [facility] [id number] [place] [address] 39486- 4962 16 Jul, 2016 [facility] [address] 37631 -8713 14 Jul, 2016 Bronchitis J40 [facility] [id number] [place] [address] 95466- 7945 Jul, [facility] [id number] [place] [address] 57678- 3653 Jun, HTN (hypertension) I10 ; Anxiety F41.9 ; Epilepsy G40.909 ; COPD (chronic obstructive pulmonary disease) J44.9 ; 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 and Bulging lumbar disc M51.26 [facility] [id number] [place] [address] 36258- 6799 Jun, [facility] [id number] [place] [address] 10538- 5639 Jun, HTN (hypertension) I10 ; Anxiety F41.9 ; Epilepsy G40.909 ; COPD (chronic obstructive pulmonary disease) J44.9 ; 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 and Bulging lumbar disc M51.26 [facility] [id number] [place] [address] 53013- 3158 May, [facility] [id number] [place] [address] 04105- 6671 Apr, Anxiety disorder, unspecified F41.9 and Shoulder pain, left M25.512 [place] [id number] [place] [address] 29764- 7983 11 Mar, 2016 Anxiety disorder, unspecified F41.9 and Degenerative joint disease (DJD) of lumbar spine M47.816 [place] [id number] [place] [address] 45178- 4510 05 Mar, 2016 Sore throat in the morning J02.9 [place] [address] 20311- 5932 14 Feb, 2016 [facility] [address] 8[address] -6635 Feb, Right foot injury, initial encounter S99.921A and Oral nayan B37.0 [place] [address] 33480- 0650 Feb, [place] [address] 53531- 5920 Jan, HTN (hypertension) I10 ; COPD (chronic obstructive pulmonary disease) J44.9 ; Chronic pain G89.29 and Epilepsy G40.909 [facility] [address] 59490 -1496 Jan, Sore throat J02.9 and Thrush B37.0 [place] [id number] [place] [address] 85333- 3276 16 Jan, 2016 Chronic pain G89.29 ; HTN (hypertension) I10 ; Anxiety F41.9 ; Bulging lumbar disc M51.26 ; Protrusion of cervical intervertebral disc M50.20 and Shoulder pain, left M25.512 [place] [id number] [place] [address] 80430- 0094 15 Jan, 2016 [place] [address] 80186- 4558 14 Jan, 2016 [place] [address] 12754- 8349 Jan, HTN (hypertension) I10 ; Anxiety F41.9 ; COPD (chronic obstructive pulmonary disease) J44.9 ; Bulging lumbar disc M51.26 ; Incontinence R32 ; Epilepsy G40.909 ; 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 and Neck pain M54.2 [facility] [id number] [place] [address] 45953- 9073 Jan, Anxiety F41.9 [facility] [id number] [place] [address] 16560- 9420 Dec, HTN (hypertension) I10 ; Epilepsy G40.909 and 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 [place] [id number] [place] [address] 54820- 7542 Dec, [place] [id number] [place] [address] 98752- 9047 Dec, Anxiety F41.9 ; HTN (hypertension) I10 ; COPD (chronic obstructive pulmonary disease) J44.9 ; Bulging lumbar disc M51.26 and Incontinence R32 [place] [id number] [place] [address] 92311- [address]885 Dec, [address] [id number] [address] Dec [facility] [id number] [place] [address] 55150- 8755 Nov, [facility] [id number] [place] [address] 83207- 4195 Nov, [place] [id number] [place] [address] 34677- 9321 Nov, [facility] [id number] [place] [address] 75359 -9289 Nov, Pharyngitis J02.9 and Allergic rhinitis J30.9 [facility] [id number] [place] [address] 06336- 2505 Nov, Degenerative joint disease (DJD) of lumbar spine M47.816 ; Cervicalgia M54.2 ; Lumbago 724.2 and Lumbago of lumbar region with sciatica M54.5 [facility] [address] 90915- 2301 Nov, Degenerative joint disease (DJD) of lumbar spine M47.816 [facility] [address] 31578- 8582 Oct, Generalized anxiety disorder F41.1 [facility] [address] 99700- 8673 Oct, Cervicalgia M54.2 ; Degenerative joint disease (DJD) of lumbar spine M47.816 and Hypertension I10 [facility] [id number] [place] [address] 92460- 9507 Oct, [facility] [address] 84340 -8574 Oct, Essential (primary) hypertension I10 [facility] [address] 11447- 8761 Oct, [facility] [address] 63135- 5225 Sep, Allergic rhinitis J30.9 ; Generalized anxiety disorder F41.1 and Shoulder pain, left M25.512 [place] [address] 82427- 5824 Sep, [facility] [id number] [place] [address] 30020- 2952 Aug, Cough R05 [facility] [address] 16537- 2492 Aug, Generalized anxiety disorder F41.1 [facility] [id number] [place] [address] 08611- 4105 Aug, Cough R05 [facility] [address] 47501- 3810 Aug, [facility] [id number] [place] [address] 75541- 0354 Aug, [facility] [id number] [place] [address] 985421- 4014 Aug, Lumbago of lumbar region with sciatica M54.5 [facility] [id number] [place] [address] 43086- 0550 Jul, Lumbago 724.2 [facility] [id number] [place] [address] 71796- 2252 Jul, [facility] [id number] [place] [address] 51829- 5381 Jul, Anxiety 300.00 and Hypertension 401.9 [place] [id number] [place] [address] 44332- 6830 Jul, Generalized anxiety disorder 300.02 [facility] [id number] [place] [address] 02758- 3690 Jul, Nodule of neck 784.2 [place] [address] 82331- 0040 Jun, Nodule of neck 784.2 [place] [id number] [place] [address] 66733- 1548 Jun, [facility] [id number] [place] [address] 86545- 1258 Jun, Routine adult health maintenance V70.0 [place] [id number] [place] [address] 87364- 2420 Jun, Routine adult health maintenance V70.0 ; Anxiety 300.00 ; Epilepsy 345.90 ; Hypertension 401.9 and Urinary incontinence 788.30 IMMUNIZATIONS No Known Immunizations SOCIAL HISTORY Never Assessed REASON FOR VISIT [facility] f/uNimo-----DBennettRJaylene PLAN OF CARE Activity Details Follow Up 3 Months, prn Reason:CHM/Pain/HTN VITAL SIGNS Height 70 in 2018-04-18 Weight 199 lbs 2018-04-18 Temperature 98.0 degrees Fahrenheit 2018-04-18 Heart Rate 70 bpm 2018-04-18 Respiratory Rate 20 2018-04-18 BMI 28.55 kg/m2 2018-04-18 Blood pressure systolic 124 mmHg 2018-04-18 Blood pressure diastolic 68 mmHg 2018-04-18 MEDICATIONS Medication Instructions Dosage Frequency Start Date End Date Duration Status BusPIRone HCl 10 mg Orally 3 times a day 1 tablet 8h March, 30 days Active Oxycodone-Acetaminophen 7.5-325 MG Orally 2 times a day 1 tablet as needed 12h March, Apr, Active Atenolol 50 mg Orally Once a day TAKE ONE TABLET BY MOUTH ONCE DAILY AT NIGHT 24h Active Lisinopril 20 mg Orally Once a day TAKE ONE TABLET BY MOUTH ONCE DAILY 24h Active Ibuprofen 800 MG TAKE ONE TABLET BY MOUTH THREE TIMES DAILY Not-Taking Albuterol Sulfate HFA cfc free 90 mcg/inh Inhalation every 4 hrs 2 puffs as needed 4h Sep, 12 months Active Topamax 50 mg Orally Twice a day 2 tablet 12h Active RESULTS No Results PROCEDURES Procedure Date Ordered Result Body Site LAB NOT BILLED BY [facility] April 18, 2018 INSTRUCTIONS MEDICATIONS ADMINISTERED No Known Medications MEDICAL [...]
--- OUTSIDE RECORDS SUMMARY | 2018-08-30 19:04 | XMS REPORT ---
Author Author COOKIEVALERIANOANN Organization [facility] Address [address] [place] [address] Care Team Providers Care Supervisor [employer] Name Role Phone GARYANN Haywood Unavailable PROBLEMS Type Condition ICD9-CM Code [id number] Code Onset Dates Condition Status SNOMED Code Problem Anxiety F41.9 Active 72299943 Problem Epilepsy G40.909 Active 58740835 Problem Bulging lumbar disc M51.26 Active 302790407 Problem Dyslipidemia (high LDL; low HDL) E78.5 Active 967300842 Problem COPD (chronic obstructive pulmonary disease) J44.9 Active 50718221 Problem HTN (hypertension) I10 Active 46828675 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 122102009 Problem Tobacco abuse counseling Z71.6 Active 432707996 Problem Protrusion of cervical intervertebral disc M50.20 Active 047937106 Problem Chronic pain G89.29 Active 97874363 Problem Tobacco abuse Z72.0 Active 830247694 Problem Overweight (BMI 25.0-29.9) E66.3 Active 319934520 ALLERGIES No Information ENCOUNTERS Encounter Location Date Diagnosis [facility] [id number] [address] Jun, [facility] [id number] [place] [address] 20832- 7630 Jun, [facility] [id number] [address] Jun, HTN (hypertension) I10 [facility] [id number] [place] [address] 73801- 7815 May, Chronic pain G89.29 [facility] [address] [address] March, Adverse effect of drug, subsequent encounter T88.7XXD ; HTN (hypertension) I10 ; Dyslipidemia (high LDL; low HDL) E78.5 ; Chronic pain G89.29 ; Anxiety F41.9 and 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 [place] [id number] [place] [address] 15652- 5580 March, Bulging lumbar disc M51.26 [facility] [address] 80113- 4798 March, [place] [address] 50875- 0431 Feb, [place] [address] 42588- 1586 Feb, HTN (hypertension) I10 ; COPD (chronic obstructive pulmonary disease) J44.9 ; Overweight (BMI 25.0-29.9) E66.3 and Epilepsy G40.909 [place] [address] 11919- 1184 Feb, HTN (hypertension) I10 ; COPD (chronic obstructive pulmonary disease) J44.9 ; Anxiety F41.9 ; Overweight (BMI 25.0-29.9) E66.3 ; Epilepsy G40.909 ; Bulging lumbar disc M51.26 ; Protrusion of cervical intervertebral disc M50.20 ; Tobacco abuse counseling Z71.6 and Tobacco abuse Z72.0 [facility] [facility] [id number] [place] [address] 02874- 4242 Feb, Chronic pain G89.29 [facility] [facility] [id number] [place] [address] 79244- 1162 Jan, Chronic pain G89.29 [place] [address] 65059- 0476 Dec, Epilepsy G40.909 [facility] [facility] [id number] [place] [address] 92949- 8920 05 Dec, 2017 Chronic pain G89.29 [facility] [id number] [place] [address] 27700- 8868 Nov, [place] [address] 82826- 1687 Nov, Anxiety F41.9 [place] [id number] [place] [address] 96251- 6111 Oct, HTN (hypertension) I10 ; COPD (chronic obstructive pulmonary disease) J44.9 ; Epilepsy G40.909 ; Chronic pain G89.29 ; Anxiety F41.9 ; Overweight (BMI 25.0-29.9) E66.3 ; Tobacco abuse Z72.0 ; Tobacco abuse counseling Z71.6 ; High risk medication use Z79.899 and Controlled substance agreement signed Z79.899 [facility] [id number] [place] [address] 90037- 0963 Oct, Bulging lumbar disc M51.26 [place] [address] 16064- 4056 Oct, Bulging lumbar disc M51.26 [facility] [address] 23654- 8797 Sep, [place] [address] 45367- 1163 Sep, [place] [id number] [place] [address] 89235- 2164 Aug, Bulging lumbar disc M51.26 [place] [address] 38800- 8418 Jul, Bulging lumbar disc M51.26 and Anxiety F41.9 [place] [address] 87402- 3343 Jun, Bulging lumbar disc M51.26 and Anxiety F41.9 [place] [id number] [place] [address] 10069- 9444 Jun, 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 [facility] [id number] [place] [address] 44197 -3299 Jun, Acute swimmers ear of right side H60.331 [facility] [address] 66967- 6197 Jun, Bulging lumbar disc M51.26 and Anxiety F41.9 [place] [address] 87556- 1779 May, Bulging lumbar disc M51.26 and Anxiety F41.9 [facility] [address] 76087 -5791 May, COPD exacerbation J44.1 [place] [address] 72034- 4157 May, Bulging lumbar disc M51.26 [place] [address] 57397- 7618 Apr, [place] [address] 12142- 3579 Apr, [place] [address] 49539- 3724 Apr, Bulging lumbar disc M51.26 and Anxiety F41.9 [place] [address] 70327- 6468 March, Anxiety F41.9 and Bulging lumbar disc M51.26 [place] [id number] [place] [address] 98086- 7253 March, HTN (hypertension) I10 ; Anxiety F41.9 ; Bulging lumbar disc M51.26 ; 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 ; Neck pain M54.2 ; Globus sensation F45.8 and COPD (chronic obstructive pulmonary disease) J44.9 [facility] [id number] [place] [address] 82917- 6100 Feb, [place] [address] 72688- 9751 17 Feb, 2017 HTN (hypertension) I10 [facility] [address] 34534 -3292 13 Feb, 2017 Acute nasopharyngitis (common cold) J00 [facility] [address] 36883- 0908 11 Feb, 2017 Anxiety F41.9 and Bulging lumbar disc M51.26 [facility] [address] 18679- 3471 04 Feb, 2017 Bronchitis J40 [place] [address] 66815- 4782 13 Jan, 2017 Anxiety F41.9 and Bulging lumbar disc M51.26 [place] [address] 69571- 7454 09 Jan, 2017 Anxiety F41.9 [facility] [address] 51447 -6605 20 Dec, 2016 Viral pharyngitis J02.9 [facility] [address] 56312- 1700 15 Dec, 2016 HTN (hypertension) I10 [facility] [address] 13134- 9869 14 Dec, 2016 Bulging lumbar disc M51.26 and HTN (hypertension) I10 [facility] [address] 52704 -0299 10 Dec, 2016 Abscess L02.91 [facility] [address] 41599- 0722 08 Dec, 2016 Anxiety F41.9 and Bulging lumbar disc M51.26 [facility] [address] 22770- 0784 16 Nov, 2016 Incontinence R32 [facility] [address] 98413- 0456 Nov, Anxiety F41.9 and Bulging lumbar disc M51.26 [place] [address] 77010- 8460 Nov, Incontinence R32 [place] [address] 82448- 9219 Nov, Excessive thirst R63.1 [place] [address] 74562- 1888 Nov, Excessive thirst R63.1 [place] [address] 18802- 1311 Nov, HTN (hypertension) I10 ; Anxiety F41.9 ; COPD (chronic obstructive pulmonary disease) J44.9 ; Bulging lumbar disc M51.26 ; Epilepsy G40.909 ; 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 ; Neck pain M54.2 ; Other viral agents as the cause of diseases classified elsewhere B97.89 ; Acute upper respiratory infection, unspecified J06.9 ; Chronic intractable headache, unspecified headache type R51 and Hypercholesterolemia E78.00 [place] [address] 18440- 6777 Oct, [place] [address] 61830- 5054 Oct, [place] [address] 04636- 6248 Sep, [place] [address] 26830- 6937 Sep, [facility] [address] 06603 -4883 Sep, Cough R05 ; Wheezing R06.2 ; Oropharyngeal dysphagia R13.12 and Exposure to strep throat Z20.818 [place] [address] 03445- 0989 Sep, [place] [address] [address]- 4697 Sep, [facility] [id number] [place] [address] 54388- 5341 Aug, [facility] [address], [place] [address]- 3877 Aug, [facility] [id number] [place] [address] 37457- 3938 16 Jul, 2016 [facility] [id number] [place] [address] 88272 -6440 14 Jul, 2016 Bronchitis J40 [facility] [id number] [place] [address] 46655- 2416 Jul, [facility] [address] [address]- 9437 Jun, HTN (hypertension) I10 ; Anxiety F41.9 ; Epilepsy G40.909 ; COPD (chronic obstructive pulmonary disease) J44.9 ; 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 and Bulging lumbar disc M51.26 [facility] [address] [place] [address] 44734- 1847 Jun, [facility] [address] [address]- 3521 Jun, HTN (hypertension) I10 ; Anxiety F41.9 ; Epilepsy G40.909 ; COPD (chronic obstructive pulmonary disease) J44.9 ; 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 and Bulging lumbar disc M51.26 [facility] [address] [address]- 8820 May, [facility] [id number] [place] [address] 12228- 6468 Apr, Anxiety disorder, unspecified F41.9 and Shoulder pain, left M25.512 [facility] [address] [place] [address] 66355- 5149 March, Anxiety disorder, unspecified F41.9 and Degenerative joint disease (DJD) of lumbar spine M47.816 [place] [address] 56098- 3434 March, Sore throat in the morning J02.9 [place] [id number] [place] [address] 87027- 1933 Feb, [facility] [place] [address] 81686 -3234 Feb, Right foot injury, initial encounter S99.921A and Oral nayan B37.0 [place] [address] 63561- 2446 Feb, [place] [address] 43681- 8978 Jan, HTN (hypertension) I10 ; COPD (chronic obstructive pulmonary disease) J44.9 ; Chronic pain G89.29 and Epilepsy G40.909 [facility] [id number] [place] [address] 42777 -4647 Jan, Sore throat J02.9 and Thrush B37.0 [place] [id number] [place] [address] 65159- 1420 16 Jan, 2016 Chronic pain G89.29 ; HTN (hypertension) I10 ; Anxiety F41.9 ; Bulging lumbar disc M51.26 ; Protrusion of cervical intervertebral disc M50.20 and Shoulder pain, left M25.512 [place] [id number] [place] [address] 96731- 7192 Jan, [place] [address] 81357- 5692 Jan, [place] [address] 70925- 0062 Jan, HTN (hypertension) I10 ; Anxiety F41.9 ; COPD (chronic obstructive pulmonary disease) J44.9 ; Bulging lumbar disc M51.26 ; Incontinence R32 ; Epilepsy G40.909 ; 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 and Neck pain M54.2 [place] [id number] [place] [address] 29104- 1695 Jan, Anxiety F41.9 [place] [id number] [place] [address] 27208- 7464 24 Dec, 2015 HTN (hypertension) I10 ; Epilepsy G40.909 and 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 [place] [id number] [place] [address] 96678- 6831 Dec, [place] [address] 29546- 8429 Dec, Anxiety F41.9 ; HTN (hypertension) I10 ; COPD (chronic obstructive pulmonary disease) J44.9 ; Bulging lumbar disc M51.26 and Incontinence R32 [place] [id number] [place] [address] 27518- 6374 Dec, [address] [id number] [address] Dec [place] [id number] [place] [address] 36031- 2228 Nov, [place] [id number] [place] [address] 66264- 1542 Nov, [place] [id number] [place] [address] 10871- 9987 Nov, [facility] [id number] [place] [address] 92703 -8964 Nov, Pharyngitis J02.9 and Allergic rhinitis J30.9 [place] [id number] [place] [address] 50954- 7909 Nov, Degenerative joint disease (DJD) of lumbar spine M47.816 ; Cervicalgia M54.2 ; Lumbago 724.2 and Lumbago of lumbar region with sciatica M54.5 [facility] [id number] [place] [address] 36654- 3210 Nov, Degenerative joint disease (DJD) of lumbar spine M47.816 [facility] [id number] [place] [address] 32956- 4124 Oct, Generalized anxiety disorder F41.1 [facility] [id number] [place] [address] 97498- 2224 Oct, Cervicalgia M54.2 ; Degenerative joint disease (DJD) of lumbar spine M47.816 and Hypertension I10 [facility] [address] 64513- 5291 Oct, [facility] [id number] [place] [address] 74894 -6246 Oct, Essential (primary) hypertension I10 [facility] [address] 08489- 8158 Oct, [facility] [address] 78077- 6854 Sep, Allergic rhinitis J30.9 ; Generalized anxiety disorder F41.1 and Shoulder pain, left M25.512 [facility] [id number] [place] [address] 01302- 3447 Sep, [facility] [id number] [place] [address] 72943- 6586 Aug, Cough R05 [facility] [id number] [place] [address] 48850- 2490 Aug, Generalized anxiety disorder F41.1 [facility] [address] 71253- 3231 Aug, Cough R05 [facility] [id number] [place] [address] 08883- 7724 Aug, [facility] [address] 75434- 8368 Aug, [facility] [id number] [place] [address] 87715- 9813 Aug, Lumbago of lumbar region with sciatica M54.5 [facility] [address] [place] [address] 05147- 6698 Jul, Lumbago 724.2 [facility] [id number] [place] [address] 44095- 4361 Jul, [place] [id number] [place] [address] 17565- 2725 16 Jul, 2015 Anxiety 300.00 and Hypertension 401.9 [place] [id number] [place] [address] 94697- 7251 Jul, Generalized anxiety disorder 300.02 [place] [id number] [place] [address] 92736- 4631 Jul, Nodule of neck 784.2 [place] [id number] [place] [address] 28518- 1504 Jun, Nodule of neck 784.2 [place] [id number] [place] [address] 42925- 7066 Jun, [place] [id number] [place] [address] 29791- 0627 Jun, Routine adult health maintenance V70.0 [place] [id number] [place] [address] 91094- 5143 Jun, Routine adult health maintenance V70.0 ; Anxiety 300.00 ; Epilepsy 345.90 ; Hypertension 401.9 and Urinary incontinence 788.30 IMMUNIZATIONS No Known Immunizations SOCIAL HISTORY Never Assessed REASON FOR VISIT Controlled Med Refill PLAN OF CARE VITAL SIGNS MEDICATIONS Medication Instructions Dosage Frequency Start Date End Date Duration Status Oxycodone-Acetaminophen 7.5-325 MG Orally 2 times a day 1 tablet as needed 12h 11 Mar, 2018 8 Apr, 2018 28 days Active RESULTS No Results PROCEDURES [...]
--- OUTSIDE RECORDS SUMMARY | 2018-08-30 19:04 | XMS REPORT ---
Author Author ANN GARY Organization [facility] Address [address] [place] [address] Care Team Providers Care Allied Health Teacher Name Role Phone GARYANN Haywood Unavailable PROBLEMS Type Condition ICD9-CM Code FLT96-FP Code Onset Dates Condition Status SNOMED Code Problem Anxiety F41.9 Active 72807049 Problem Epilepsy G40.909 Active 67350816 Problem Bulging lumbar disc M51.26 Active 173847982 Problem Dyslipidemia (high LDL; low HDL) E78.5 Active 988349085 Problem COPD (chronic obstructive pulmonary disease) J44.9 Active 14392739 Problem HTN (hypertension) I10 Active 73698856 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 423771089 Problem Tobacco abuse counseling Z71.6 Active 688730410 Problem Protrusion of cervical intervertebral disc M50.20 Active 159376088 Problem Chronic pain G89.29 Active 78208336 Problem Tobacco abuse Z72.0 Active 332304023 Problem Overweight (BMI 25.0-29.9) E66.3 Active 801437889 ALLERGIES No Information ENCOUNTERS Encounter Location Date Diagnosis [place] [id number] [place] [address] 89624- 5613 Jun, [facility] [id number] [place] [address] 89693- 9496 Jun, [facility] [address] [place] [address] 16777- 8856 May, Chronic pain G89.29 [place] [address] [place] [address] 55359- 6984 March, Adverse effect of drug, subsequent encounter T88.7XXD ; HTN (hypertension) I10 ; Dyslipidemia (high LDL; low HDL) E78.5 ; Chronic pain G89.29 ; Anxiety F41.9 and 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 [facility] [address] [place] [id number] [place] [address] 03628- 6678 March, Bulging lumbar disc M51.26 [place] [address] [place] [id number] [place] [address] 89026- 3882 March, [facility] [address] 88730- 9831 Feb, [facility] [address] 47173- 0242 Feb, HTN (hypertension) I10 ; COPD (chronic obstructive pulmonary disease) J44.9 ; Overweight (BMI 25.0-29.9) E66.3 and Epilepsy G40.909 [place] [address] [place] [id number] [place] [address] 56219- 9583 Feb, HTN (hypertension) I10 ; COPD (chronic obstructive pulmonary disease) J44.9 ; Anxiety F41.9 ; Overweight (BMI 25.0-29.9) E66.3 ; Epilepsy G40.909 ; Bulging lumbar disc M51.26 ; Protrusion of cervical intervertebral disc M50.20 ; Tobacco abuse counseling Z71.6 and Tobacco abuse Z72.0 [place] [address] [place] [id number] [place] [address] 08859- 5936 Feb, Chronic pain G89.29 [place] [address] [place] [id number] [place] [address] 68021- 1474 Jan, Chronic pain G89.29 [place] [address] [place] [id number] [place] [address] 08830- 0984 Dec, Epilepsy G40.909 [place] [address] 31505- 9083 05 Dec, 2017 Chronic pain G89.29 [place] [address] [place] [id number] [place] [address] 79996- 0084 Nov, [place] [address] [place] [address]- 9101 Nov, Anxiety F41.9 [place] [address] 82422- 3460 Oct, HTN (hypertension) I10 ; COPD (chronic obstructive pulmonary disease) J44.9 ; Epilepsy G40.909 ; Chronic pain G89.29 ; Anxiety F41.9 ; Overweight (BMI 25.0-29.9) E66.3 ; Tobacco abuse Z72.0 ; Tobacco abuse counseling Z71.6 ; High risk medication use Z79.899 and Controlled substance agreement signed Z79.899 [place] [address] 33093- 5808 Oct, Bulging lumbar disc M51.26 [place] [address] 53171- 1658 Oct, Bulging lumbar disc M51.26 [place] [address] 11202- 7778 Sep, [place] [address] 60778- 6565 Sep, [place] [address] 72426- 7638 Aug, Bulging lumbar disc M51.26 [place] [address] 99697- 2895 Jul, Bulging lumbar disc M51.26 and Anxiety F41.9 [place] [address] 74804- 0567 Jun, Bulging lumbar disc M51.26 and Anxiety F41.9 [place] [address] 21873- 9908 Jun, 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 [facility] [address] 77658 -8430 Jun, Acute swimmers ear of right side H60.331 [facility] [address] [place] [id number] [place] [address] 66105- 2545 Jun, Bulging lumbar disc M51.26 and Anxiety F41.9 [place] [address] [place] [id number] [place] [address] 61798- 3833 May, Bulging lumbar disc M51.26 and Anxiety F41.9 [facility] [address] 66991 -0806 May, COPD exacerbation J44.1 [place] [address] 32908- 0399 May, Bulging lumbar disc M51.26 [place] [address] [place] [id number] [place] [address] 48511- 1379 Apr, [place] [address] 09214- 6762 Apr, [place] [address] 79365- 4351 Apr, Bulging lumbar disc M51.26 and Anxiety F41.9 [place] [address] [place] [id number] [place] [address] 98168- 1626 March, Anxiety F41.9 and Bulging lumbar disc M51.26 [place] [address] [place] [id number] [place] [address] 44087- 2118 March, HTN (hypertension) I10 ; Anxiety F41.9 ; Bulging lumbar disc M51.26 ; 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 ; Neck pain M54.2 ; Globus sensation F45.8 and COPD (chronic obstructive pulmonary disease) J44.9 [place] [address] [place] [id number] [place] [address] 78552- 4645 Feb, [place] [address] [place] [id number] [place] [address] 84092- 9674 Feb, HTN (hypertension) I10 [facility] [address] 86857 -1936 13 Feb, 2017 Acute nasopharyngitis (common cold) J00 [place] [address] 33653- 5243 11 Feb, 2017 Anxiety F41.9 and Bulging lumbar disc M51.26 [place] [address] 96758- 0233 04 Feb, 2017 Bronchitis J40 [place] [address] 95795- 9897 13 Jan, 2017 Anxiety F41.9 and Bulging lumbar disc M51.26 [place] [address] 84326- 6908 09 Jan, 2017 Anxiety F41.9 [facility] [place] [address] 05767 -2302 20 Dec, 2016 Viral pharyngitis J02.9 [place] [address] 27011- 0894 15 Dec, 2016 HTN (hypertension) I10 [place] [address] 27675- 9677 14 Dec, 2016 Bulging lumbar disc M51.26 and HTN (hypertension) I10 [facility] [place] [address] 54205 -0139 10 Dec, 2016 Abscess L02.91 [place] [address] 64767- 3773 08 Dec, 2016 Anxiety F41.9 and Bulging lumbar disc M51.26 [place] [address] 23595- 3790 16 Nov, 2016 Incontinence R32 [place] [address] 97242- 6949 11 Nov, 2016 Anxiety F41.9 and Bulging lumbar disc M51.26 [place] [address] [place] [id number] [place] [address] 76048- 0722 Nov, Incontinence R32 [facility] [address] 86516- 0540 Nov, Excessive thirst R63.1 [facility] [address] [place] [id number] [place] [address] 49649- 3464 Nov, Excessive thirst R63.1 [place] [address] 08929- 9942 Nov, HTN (hypertension) I10 ; Anxiety F41.9 ; COPD (chronic obstructive pulmonary disease) J44.9 ; Bulging lumbar disc M51.26 ; Epilepsy G40.909 ; 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 ; Neck pain M54.2 ; Other viral agents as the cause of diseases classified elsewhere B97.89 ; Acute upper respiratory infection, unspecified J06.9 ; Chronic intractable headache, unspecified headache type R51 and Hypercholesterolemia E78.00 [place] [address] [place] [id number] [place] [address] 62396- 2196 Oct, [facility] [address] 73645- 4651 Oct, [place] [address] [place] [id number] [place] [address] 28732- 7729 Sep, [facility] [address] [place] [id number] [place] [address] 27508- 8046 Sep, [facility] [address] [place] [id number] [place] [address] 24248 -9119 Sep, Cough R05 ; Wheezing R06.2 ; Oropharyngeal dysphagia R13.12 and Exposure to strep throat Z20.818 [facility] [address] [place] [id number] [place] [address] 81318- 7625 Sep, [facility] [address] [place] [id number] [place] [address] 99550- 3915 Sep, [facility] [address] [place] [address] [address]- 4738 Aug, [facility] [address] [place] [id number] [place] [address] 35686- 1706 18 Aug, 2016 [facility] [address] [place] [address] 46812- 3897 16 Jul, 2016 [facility] [address] [place] [id number] [place] [address] 65180 -3297 14 Jul, 2016 Bronchitis J40 [facility] [address] [place] [id number] [place] [address] 32447- 3845 06 Jul, 2016 [place] [address] [place] [id number] [place] [address] 80315- 2737 Jun, HTN (hypertension) I10 ; Anxiety F41.9 ; Epilepsy G40.909 ; COPD (chronic obstructive pulmonary disease) J44.9 ; 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 and Bulging lumbar disc M51.26 [place] [address] [place] [id number] [place] [address] 10904- 8326 Jun, [place] [address] [place] [id number] [place] [address] 78627- 7344 Jun, HTN (hypertension) I10 ; Anxiety F41.9 ; Epilepsy G40.909 ; COPD (chronic obstructive pulmonary disease) J44.9 ; 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 and Bulging lumbar disc M51.26 [place] [address] [place] [address] [place] [address] 56376- 3779 May, [place] [address] [place] [id number] [place] [address] 18319- 4915 Apr, Anxiety disorder, unspecified F41.9 and Shoulder pain, left M25.512 [place] [address] [place] [id number] [place] [address] 88908- 1483 March, Anxiety disorder, unspecified F41.9 and Degenerative joint disease (DJD) of lumbar spine M47.816 [place] [address] [place] [address]- 6134 March, Sore throat in the morning J02.9 [place] [address] 23067- 6676 Feb, [facility] [place] [address] 51608 -5432 Feb, Right foot injury, initial encounter S99.921A and Oral nayan B37.0 [place] [address] 61876- 1851 05 Feb, 2016 [place] [address] 99422- 9740 Jan, HTN (hypertension) I10 ; COPD (chronic obstructive pulmonary disease) J44.9 ; Chronic pain G89.29 and Epilepsy G40.909 [facility] [place] [address] [place] [id number] [place] [address] 43874 -8005 Jan, Sore throat J02.9 and Thrush B37.0 [place] [address] [place] [id number] [place] [address] 19597- 9874 16 Jan, 2016 Chronic pain G89.29 ; HTN (hypertension) I10 ; Anxiety F41.9 ; Bulging lumbar disc M51.26 ; Protrusion of cervical intervertebral disc M50.20 and Shoulder pain, left M25.512 [place] [address] [place] [id number] [place] [address] 89629- 8009 15 Jan, 2016 [place] [address] [place] [id number] [place] [address] 33951- 0959 14 Jan, 2016 [place] [address] 11773- 2449 09 Jan, 2016 HTN (hypertension) I10 ; Anxiety F41.9 ; COPD (chronic obstructive pulmonary disease) J44.9 ; Bulging lumbar disc M51.26 ; Incontinence R32 ; Epilepsy G40.909 ; 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 and Neck pain M54.2 [place] [address] [place] [address] [place] [address] 04380- 8561 Jan, Anxiety F41.9 [facility] [address] 45270- 1057 24 Dec, 2015 HTN (hypertension) I10 ; Epilepsy G40.909 and 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 [facility] [address] [place] [id number] [place] [address] 50721- 4579 Dec, [facility] [address] [place] [id number] [place] [address] 48853- 9310 Dec, Anxiety F41.9 ; HTN (hypertension) I10 ; COPD (chronic obstructive pulmonary disease) J44.9 ; Bulging lumbar disc M51.26 and Incontinence R32 [facility] [address] [place] [id number] [place] [address] 00098- 8785 Dec, [address] [address] Dec [facility] [address] [place] [id number] [place] [address] 85672- 7571 Nov, [place] [address] [place] [id number] [place] [address] 60731- 3989 Nov, [facility] [address] [place] [id number] [place] [address] 07938- 8733 Nov, [facility] [address] [place] [id number] [place] [address] 34570 -6035 Nov, Pharyngitis J02.9 and Allergic rhinitis J30.9 [facility] [address] [place] [id number] [place] [address] 00471- 3371 Nov, Degenerative joint disease (DJD) of lumbar spine M47.816 ; Cervicalgia M54.2 ; Lumbago 724.2 and Lumbago of lumbar region with sciatica M54.5 [facility] [address] [place] [id number] [place] [address] 60363- 9603 Nov, Degenerative joint disease (DJD) of lumbar spine M47.816 [facility] [address] [place] [id number] [place] [address] 06320- 2545 Oct, Generalized anxiety disorder F41.1 [facility] [address] [place] [id number] [place] [address] 92312- 0002 Oct, Cervicalgia M54.2 ; Degenerative joint disease (DJD) of lumbar spine M47.816 and Hypertension I10 [facility] [address] 53452- 6170 Oct, [facility] [address] 69161 -6946 Oct, Essential (primary) hypertension I10 [facility] [address] 57178- 0213 Oct, [facility] [address] 20531- 3704 Sep, Allergic rhinitis J30.9 ; Generalized anxiety disorder F41.1 and Shoulder pain, left M25.512 [facility] [address] [place] [id number] [place] [address] 33946- 9784 Sep, [facility] [address] [place] [id number] [place] [address] 67657- 1627 Aug, Cough R05 [facility] [address] [place] [id number] [place] [address] 44275- 5572 Aug, Generalized anxiety disorder F41.1 [facility] [address] [place] [id number] [place] [address] 07754- 5848 Aug, Cough R05 [facility] [address] 96430- 1385 Aug, [facility] [address] [place] [id number] [place] [address] 02515- 7442 Aug, [facility] [address] 71623- 4864 Aug, Lumbago of lumbar region with sciatica M54.5 [facility] [address] [place] [address] 11843- 8059 Jul, Lumbago 724.2 [facility] [address] [place] [id number] [place] [address] 48520- 2286 Jul, [place] [address] [place] [id number] [place] [address] 14280- 5080 16 Jul, 2015 Anxiety 300.00 and Hypertension 401.9 [place] [address] [place] [id number] [place] [address] 43043- 8993 11 Jul, 2015 Generalized anxiety disorder 300.02 [place] [address] [place] [id number] [place] [address] 22601- 8162 09 Jul, 2015 Nodule of neck 784.2 [place] [address] [place] [address] [place] [address] 83985- 7112 Jun, Nodule of neck 784.2 [place] [address] [place] [id number] [place] [address] 30237- 6975 Jun, [place] [address] [place] [id number] [place] [address] 70513- 2504 Jun, Routine adult health maintenance V70.0 [place] [address] [place] [id number] [place] [address] 92366- 8518 Jun, Routine adult health maintenance V70.0 ; Anxiety 300.00 ; Epilepsy 345.90 ; Hypertension 401.9 and Urinary incontinence 788.30 IMMUNIZATIONS No Known Immunizations SOCIAL HISTORY Never Assessed REASON FOR VISIT pravastatin PLAN OF CARE VITAL SIGNS MEDICATIONS Medication Instructions Dosage Frequency Start Date End Date Duration Status Pravastatin Sodium 10 mg Orally Once a day 1 tablet 24h Feb, 30 day(s) Active RESULTS No Results PROCEDURES No Known procedures INSTRUCTIONS MEDICATIONS ADMINISTERED No Known Medications MEDICAL (GENERAL) HISTORY Type Description Date Medical History epilepsy Medical History hypertension Medical History anxiety Medical History bladder incontinence Medical History Pneumonia, unspecified organism Medical History slipped discs in back Medical History Pseudoseizures Medical History Incontinence Surgical History discectomy--L5-S1 2005 Surgical History laminectomy--L5-S1 2006 Surgical History spinal fusion--L5-S1 2006 Surgical History cholecystectomy 2008 Surgical History exploratory laparoscopy 2007 Hospitalization History Pneumonia 08/2015 Hospitalization History after colonscopy had seizures- ICU x2 days 06/2017
--- OUTSIDE RECORDS SUMMARY | 2018-08-30 19:04 | XMS REPORT ---
Author Author COOKIEVALERIANOANN Organization [facility] Address [address] [place] [address] Care Team Providers Care Physician Recruiter Name Role Phone GARYANN Haywood Unavailable PROBLEMS Type Condition ICD9-CM Code BUT58-HO Code Onset Dates Condition Status SNOMED Code Problem Anxiety F41.9 Active 16984453 Problem Epilepsy G40.909 Active 46006661 Problem Bulging lumbar disc M51.26 Active 881976255 Problem Dyslipidemia (high LDL; low HDL) E78.5 Active 677489375 Problem COPD (chronic obstructive pulmonary disease) J44.9 Active 98370723 Problem HTN (hypertension) I10 Active 58032823 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 735098512 Problem Tobacco abuse counseling Z71.6 Active 919898381 Problem Protrusion of cervical intervertebral disc M50.20 Active 482355452 Problem Chronic pain G89.29 Active 29413674 Problem Tobacco abuse Z72.0 Active 533217252 Problem Overweight (BMI 25.0-29.9) E66.3 Active 805514273 ALLERGIES No Information ENCOUNTERS Encounter Location Date Diagnosis [facility] [id number] [address] Jun, [facility] [id number] [place] [address] 25792- 9289 Jun, [facility] [address] [address] Jun, HTN (hypertension) I10 [facility] [id number] [place] [address] 64198- 3817 May, Chronic pain G89.29 [facility] [address] [address] March, Adverse effect of drug, subsequent encounter T88.7XXD ; HTN (hypertension) I10 ; Dyslipidemia (high LDL; low HDL) E78.5 ; Chronic pain G89.29 ; Anxiety F41.9 and 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 [facility] [id number] [place] [address] 90938- 4881 March, Bulging lumbar disc M51.26 [facility] [address] 66620- 3064 March, [facility] [address] 70942- 4883 Feb, [facility] [address] 66777- 7088 Feb, HTN (hypertension) I10 ; COPD (chronic obstructive pulmonary disease) J44.9 ; Overweight (BMI 25.0-29.9) E66.3 and Epilepsy G40.909 [facility] [address] 04904- 0828 Feb, HTN (hypertension) I10 ; COPD (chronic obstructive pulmonary disease) J44.9 ; Anxiety F41.9 ; Overweight (BMI 25.0-29.9) E66.3 ; Epilepsy G40.909 ; Bulging lumbar disc M51.26 ; Protrusion of cervical intervertebral disc M50.20 ; Tobacco abuse counseling Z71.6 and Tobacco abuse Z72.0 [facility] [id number] [place] [address] 13016- 9596 Feb, Chronic pain G89.29 [facility] [id number] [place] [address] 51483- 1232 Jan, Chronic pain G89.29 [facility] [address] 92671- 2982 Dec, Epilepsy G40.909 [facility] [id number] [place] [address] 66212- 0927 05 Dec, 2017 Chronic pain G89.29 [facility] [place] [id number] [place] [address] 98045- 3134 Nov, [facility] [address] 11468- 1052 Nov, Anxiety F41.9 [facility] [id number] [place] [address] 56947- 1937 Oct, HTN (hypertension) I10 ; COPD (chronic obstructive pulmonary disease) J44.9 ; Epilepsy G40.909 ; Chronic pain G89.29 ; Anxiety F41.9 ; Overweight (BMI 25.0-29.9) E66.3 ; Tobacco abuse Z72.0 ; Tobacco abuse counseling Z71.6 ; High risk medication use Z79.899 and Controlled substance agreement signed Z79.899 [facility] [place] [id number] [place] [address] 16838- 3449 Oct, Bulging lumbar disc M51.26 [facility] [address] 27349- 7074 Oct, Bulging lumbar disc M51.26 [facility] [address] 58951- 5258 Sep, [facility] [address] 91746- 4374 Sep, [facility] [place] [id number] [place] [address] 24396- 5831 Aug, Bulging lumbar disc M51.26 [facility] [address] 11350- 5888 Jul, Bulging lumbar disc M51.26 and Anxiety F41.9 [facility] [address] 92024- 1063 Jun, Bulging lumbar disc M51.26 and Anxiety F41.9 [facility] [place] [id number] [place] [address] 10676- 8327 Jun, 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 [facility] [id number] [place] [address] 08441 -9205 Jun, Acute swimmers ear of right side H60.331 [facility] [address] 46686- 1706 Jun, Bulging lumbar disc M51.26 and Anxiety F41.9 [place] [address] 11311- 6845 May, Bulging lumbar disc M51.26 and Anxiety F41.9 [facility] [address] 26803 -2462 May, COPD exacerbation J44.1 [place] [address] 37814- 6012 May, Bulging lumbar disc M51.26 [place] [place] [address] 07104- 5022 Apr, [place] [place] [address] 03414- 3491 Apr, [place] [address] 79255- 0098 Apr, Bulging lumbar disc M51.26 and Anxiety F41.9 [facility] [address] 10299- 8554 March, Anxiety F41.9 and Bulging lumbar disc M51.26 [facility] [place] [id number] [place] [address] 40338- 1672 March, HTN (hypertension) I10 ; Anxiety F41.9 ; Bulging lumbar disc M51.26 ; 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 ; Neck pain M54.2 ; Globus sensation F45.8 and COPD (chronic obstructive pulmonary disease) J44.9 [facility] [id number] [place] [address] 12615- 4890 Feb, [place] [address] 86479- 6872 17 Feb, 2017 HTN (hypertension) I10 [facility] [address] 22867 -4349 13 Feb, 2017 Acute nasopharyngitis (common cold) J00 [facility] [address] 60958- 8915 11 Feb, 2017 Anxiety F41.9 and Bulging lumbar disc M51.26 [facility] [address] 41138- 9655 04 Feb, 2017 Bronchitis J40 [place] [address] 62271- 3574 13 Jan, 2017 Anxiety F41.9 and Bulging lumbar disc M51.26 [place] [place] [address] 92611- 0553 09 Jan, 2017 Anxiety F41.9 [facility] [address] 06096 -7794 20 Dec, 2016 Viral pharyngitis J02.9 [facility] [address] 58231- 2425 15 Dec, 2016 HTN (hypertension) I10 [facility] [address] 15341- 3513 14 Dec, 2016 Bulging lumbar disc M51.26 and HTN (hypertension) I10 [facility] [address] 73025 -0719 10 Dec, 2016 Abscess L02.91 [facility] [address] 97206- 4283 08 Dec, 2016 Anxiety F41.9 and Bulging lumbar disc M51.26 [facility] [address] 03479- 4857 16 Nov, 2016 Incontinence R32 [facility] [address] 00811- 3140 Nov, Anxiety F41.9 and Bulging lumbar disc M51.26 [place] [address] 83127- 0515 Nov, Incontinence R32 [place] [address] 52978- 3666 Nov, Excessive thirst R63.1 [place] [address] 07089- 4548 Nov, Excessive thirst R63.1 [place] [address] 53585- 5587 Nov, HTN (hypertension) I10 ; Anxiety F41.9 ; COPD (chronic obstructive pulmonary disease) J44.9 ; Bulging lumbar disc M51.26 ; Epilepsy G40.909 ; 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 ; Neck pain M54.2 ; Other viral agents as the cause of diseases classified elsewhere B97.89 ; Acute upper respiratory infection, unspecified J06.9 ; Chronic intractable headache, unspecified headache type R51 and Hypercholesterolemia E78.00 [place] [address] 36051- 8630 Oct, [place] [address] 56850- 6202 Oct, [place] [address] 15589- 3544 Sep, [place] [address] 13027- 3945 Sep, [facility] [address] 55531 -3348 Sep, Cough R05 ; Wheezing R06.2 ; Oropharyngeal dysphagia R13.12 and Exposure to strep throat Z20.818 [place] [address] 81876- 4302 Sep, [facility] [place] [address] [address]- 3167 Sep, [facility] [id number] [place] [address] 54153- 5116 Aug, [facility] [address] [address] 4236 Aug, [facility] [id number] [place] [address] 39379- 1051 16 Jul, 2016 [facility] [id number] [place] [address] 41784 -6416 14 Jul, 2016 Bronchitis J40 [facility] [id number] [place] [address] 51791- 5223 Jul, [facility] [address] [address]- 2143 Jun, HTN (hypertension) I10 ; Anxiety F41.9 ; Epilepsy G40.909 ; COPD (chronic obstructive pulmonary disease) J44.9 ; 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 and Bulging lumbar disc M51.26 [facility] [id number] [place] [address] 32884- 4229 Jun, [facility] [address] [address]- 5664 Jun, HTN (hypertension) I10 ; Anxiety F41.9 ; Epilepsy G40.909 ; COPD (chronic obstructive pulmonary disease) J44.9 ; 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 and Bulging lumbar disc M51.26 [facility] [address] [address]- 5331 May, [facility] [id number] [place] [address] 83809- 7653 Apr, Anxiety disorder, unspecified F41.9 and Shoulder pain, left M25.512 [facility] [address] [place] [address] 35424- 0371 March, Anxiety disorder, unspecified F41.9 and Degenerative joint disease (DJD) of lumbar spine M47.816 [place] [address] 68654- 3599 March, Sore throat in the morning J02.9 [place] [id number] [place] [address] 79551- 7816 Feb, [facility] [place] [facility] [address] 56419 -4928 Feb, Right foot injury, initial encounter S99.921A and Oral nayan B37.0 [place] [address] 92824- 0919 Feb, [place] [address] 90500- 7589 Jan, HTN (hypertension) I10 ; COPD (chronic obstructive pulmonary disease) J44.9 ; Chronic pain G89.29 and Epilepsy G40.909 [facility] [id number] [place] [address] 07223 -4797 Jan, Sore throat J02.9 and Thrush B37.0 [place] [id number] [place] [address] 04569- 6606 16 Jan, 2016 Chronic pain G89.29 ; HTN (hypertension) I10 ; Anxiety F41.9 ; Bulging lumbar disc M51.26 ; Protrusion of cervical intervertebral disc M50.20 and Shoulder pain, left M25.512 [place] [id number] [place] [address] 50757- 9349 Jan, [place] [address] 59294- 5844 Jan, [place] [address] 60256- 5115 Jan, HTN (hypertension) I10 ; Anxiety F41.9 ; COPD (chronic obstructive pulmonary disease) J44.9 ; Bulging lumbar disc M51.26 ; Incontinence R32 ; Epilepsy G40.909 ; 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 and Neck pain M54.2 [place] [id number] [place] [address] 01357- 3733 Jan, Anxiety F41.9 [place] [id number] [place] [address] 03236- 7067 24 Dec, 2015 HTN (hypertension) I10 ; Epilepsy G40.909 and 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 [place] [id number] [place] [address] 15444- 8379 Dec, [place] [address] 60057- 0172 Dec, Anxiety F41.9 ; HTN (hypertension) I10 ; COPD (chronic obstructive pulmonary disease) J44.9 ; Bulging lumbar disc M51.26 and Incontinence R32 [place] [id number] [place] [address] 91436- 0541 Dec, [address] [id number] [address] Dec [place] [id number] [place] [address] 92675- 7763 Nov, [place] [place] [id number] [place] [address] 97953- 6984 Nov, [place] [id number] [place] [address] 56283- 5481 Nov, [facility] [id number] [place] [address] 13710 -9248 Nov, Pharyngitis J02.9 and Allergic rhinitis J30.9 [place] [id number] [place] [address] 02561- 9960 Nov, Degenerative joint disease (DJD) of lumbar spine M47.816 ; Cervicalgia M54.2 ; Lumbago 724.2 and Lumbago of lumbar region with sciatica M54.5 [facility] [id number] [place] [address] 32221- 9214 Nov, Degenerative joint disease (DJD) of lumbar spine M47.816 [facility] [id number] [place] [address] 32456- 4495 Oct, Generalized anxiety disorder F41.1 [facility] [id number] [place] [address] 66206- 9534 Oct, Cervicalgia M54.2 ; Degenerative joint disease (DJD) of lumbar spine M47.816 and Hypertension I10 [facility] [address] 89180- 0530 Oct, [facility] [id number] [place] [address] 79699 -4221 Oct, Essential (primary) hypertension I10 [facility] [address] 79172- 9311 Oct, [facility] [address] 15904- 4029 Sep, Allergic rhinitis J30.9 ; Generalized anxiety disorder F41.1 and Shoulder pain, left M25.512 [facility] [id number] [place] [address] 11248- 0880 Sep, [facility] [id number] [place] [address] 95314- 6419 Aug, Cough R05 [facility] [id number] [place] [address] 15784- 7204 Aug, Generalized anxiety disorder F41.1 [facility] [address] 15314- 1127 Aug, Cough R05 [facility] [id number] [place] [address] 84391- 0745 Aug, [facility] [address] 25264- 5189 Aug, [facility] [id number] [place] [address] 24560- 9696 Aug, Lumbago of lumbar region with sciatica M54.5 [facility] [id number] [place] [address] 32614- 3171 Jul, Lumbago 724.2 [place] [id number] [place] [address] 07428- 0484 Jul, [place] [id number] [place] [address] 27358- 9916 16 Jul, 2015 Anxiety 300.00 and Hypertension 401.9 [place] [id number] [place] [address] 04425- 6480 11 Jul, 2015 Generalized anxiety disorder 300.02 [place] [id number] [place] [address] 25933- 3929 09 Jul, 2015 Nodule of neck 784.2 [place] [id number] [place] [address] 94290- 3969 Jun, Nodule of neck 784.2 [place] [id number] [place] [address] 74992- 8071 Jun, [place] [id number] [place] [address] 03895- 1385 Jun, Routine adult health maintenance V70.0 [place] [id number] [place] [address] 84661- 0863 Jun, Routine adult health maintenance V70.0 ; Anxiety 300.00 ; Epilepsy 345.90 ; Hypertension 401.9 and Urinary incontinence 788.30 IMMUNIZATIONS No Known Immunizations SOCIAL HISTORY Never Assessed REASON FOR VISIT requesting a returned call PLAN OF CARE VITAL SIGNS MEDICATIONS Unknown [...]
--- OUTSIDE RECORDS SUMMARY | 2018-08-30 19:05 | XMS REPORT ---
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 746624656 Problem Tobacco abuse counseling Z71.6 Active 586814118 Problem Protrusion of cervical intervertebral disc M50.20 Active 729352345 Problem Chronic pain G89.29 Active 20977192 Problem Tobacco abuse Z72.0 Active 542686487 Problem Overweight (BMI 25.0-29.9) E66.3 Active 313038199 ALLERGIES No Information ENCOUNTERS Encounter Location Date Diagnosis [place] [id number] [place] [address] 53250- 5672 Jun, [facility] [id number] [place] [address] 20443- 2972 Jun, [facility] [id number] [place] [address] 49712- 8320 May, Chronic pain G89.29 [place] [id number] [place] [address] 76331- 2527 March, Adverse effect of drug, subsequent encounter T88.7XXD ; HTN (hypertension) I10 ; Dyslipidemia (high LDL; low HDL) E78.5 ; Chronic pain G89.29 ; Anxiety F41.9 and 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 [facility] [address] [place] [id number] [place] [address] 44496- 0727 March, Bulging lumbar disc M51.26 [place] [address] [place] [id number] [place] [address] 64514- 8935 March, [facility] [address] 00188- 9815 Feb, [facility] [address] 16950- 7347 Feb, HTN (hypertension) I10 ; COPD (chronic obstructive pulmonary disease) J44.9 ; Overweight (BMI 25.0-29.9) E66.3 and Epilepsy G40.909 [place] [address] [place] [id number] [place] [address] 00042- 6415 Feb, HTN (hypertension) I10 ; COPD (chronic obstructive pulmonary disease) J44.9 ; Anxiety F41.9 ; Overweight (BMI 25.0-29.9) E66.3 ; Epilepsy G40.909 ; Bulging lumbar disc M51.26 ; Protrusion of cervical intervertebral disc M50.20 ; Tobacco abuse counseling Z71.6 and Tobacco abuse Z72.0 [place] [address] [place] [id number] [place] [address] 33517- 8377 Feb, Chronic pain G89.29 [place] [address] [place] [id number] [place] [address] 71508- 7300 Jan, Chronic pain G89.29 [place] [address] [place] [id number] [place] [address] 57768- 8013 Dec, Epilepsy G40.909 [place] [address] 02802- 9384 05 Dec, 2017 Chronic pain G89.29 [place] [address] [place] [id number] [place] [address] 88650- 4554 Nov, [place] [address] [place] [address]- 2522 Nov, Anxiety F41.9 [place] [address] 05666- 5856 Oct, HTN (hypertension) I10 ; COPD (chronic obstructive pulmonary disease) J44.9 ; Epilepsy G40.909 ; Chronic pain G89.29 ; Anxiety F41.9 ; Overweight (BMI 25.0-29.9) E66.3 ; Tobacco abuse Z72.0 ; Tobacco abuse counseling Z71.6 ; High risk medication use Z79.899 and Controlled substance agreement signed Z79.899 [place] [address] 34568- 0727 Oct, Bulging lumbar disc M51.26 [place] [address] 97170- 4873 Oct, Bulging lumbar disc M51.26 [place] [address] 09331- 5594 Sep, [place] [address] 00256- 3690 Sep, [place] [address] 51213- 5818 Aug, Bulging lumbar disc M51.26 [place] [address] 19554- 6279 Jul, Bulging lumbar disc M51.26 and Anxiety F41.9 [place] [address] 41713- 4237 Jun, Bulging lumbar disc M51.26 and Anxiety F41.9 [place] [address] 41853- 2517 Jun, 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 [facility] [address] 67576 -5891 Jun, Acute swimmers ear of right side H60.331 [facility] [address] [place] [id number] [place] [address] 85676- 8725 Jun, Bulging lumbar disc M51.26 and Anxiety F41.9 [place] [address] [place] [id number] [place] [address] 82136- 7460 May, Bulging lumbar disc M51.26 and Anxiety F41.9 [facility] [address] 01198 -8333 May, COPD exacerbation J44.1 [place] [address] 53001- 6348 May, Bulging lumbar disc M51.26 [place] [address] [place] [id number] [place] [address] 64769- 3570 Apr, [place] [address] 77984- 9764 Apr, [place] [address] 93037- 4831 Apr, Bulging lumbar disc M51.26 and Anxiety F41.9 [place] [address] [place] [id number] [place] [address] 90187- 3033 March, Anxiety F41.9 and Bulging lumbar disc M51.26 [place] [address] [place] [id number] [place] [address] 07345- 0642 March, HTN (hypertension) I10 ; Anxiety F41.9 ; Bulging lumbar disc M51.26 ; 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 ; Neck pain M54.2 ; Globus sensation F45.8 and COPD (chronic obstructive pulmonary disease) J44.9 [place] [address] [place] [id number] [place] [address] 59741- 3489 Feb, [place] [address] [place] [id number] [place] [address] 75033- 3481 Feb, HTN (hypertension) I10 [facility] [address] 79483 -2903 13 Feb, 2017 Acute nasopharyngitis (common cold) J00 [place] [address] 65306- 9723 11 Feb, 2017 Anxiety F41.9 and Bulging lumbar disc M51.26 [place] [address] 22504- 6398 04 Feb, 2017 Bronchitis J40 [place] [address] 91800- 5492 13 Jan, 2017 Anxiety F41.9 and Bulging lumbar disc M51.26 [place] [address] 65417- 2085 09 Jan, 2017 Anxiety F41.9 [facility] [place] [address] 88006 -9620 20 Dec, 2016 Viral pharyngitis J02.9 [place] [address] 03155- 0070 15 Dec, 2016 HTN (hypertension) I10 [place] [address] 57316- 6054 14 Dec, 2016 Bulging lumbar disc M51.26 and HTN (hypertension) I10 [facility] [place] [address] 82240 -8196 10 Dec, 2016 Abscess L02.91 [place] [address] 34149- 6948 08 Dec, 2016 Anxiety F41.9 and Bulging lumbar disc M51.26 [place] [address] 64469- 3101 16 Nov, 2016 Incontinence R32 [place] [address] 56803- 3691 11 Nov, 2016 Anxiety F41.9 and Bulging lumbar disc M51.26 [place] [address] [place] [id number] [place] [address] 64701- 6375 Nov, Incontinence R32 [facility] [address] 61905- 4880 Nov, Excessive thirst R63.1 [facility] [address] [place] [id number] [place] [address] 34314- 9071 Nov, Excessive thirst R63.1 [place] [address] 42204- 3764 Nov, HTN (hypertension) I10 ; Anxiety F41.9 ; COPD (chronic obstructive pulmonary disease) J44.9 ; Bulging lumbar disc M51.26 ; Epilepsy G40.909 ; 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 ; Neck pain M54.2 ; Other viral agents as the cause of diseases classified elsewhere B97.89 ; Acute upper respiratory infection, unspecified J06.9 ; Chronic intractable headache, unspecified headache type R51 and Hypercholesterolemia E78.00 [place] [address] [place] [id number] [place] [address] 93678- 5570 Oct, [facility] [address] 78235- 5974 Oct, [place] [address] [place] [id number] [place] [address] 83193- 7708 Sep, [facility] [address] [place] [id number] [place] [address] 11301- 7650 Sep, [facility] [address] [place] [id number] [place] [address] 46775 -6061 Sep, Cough R05 ; Wheezing R06.2 ; Oropharyngeal dysphagia R13.12 and Exposure to strep throat Z20.818 [facility] [address] [place] [id number] [place] [address] 81066- 9190 Sep, [facility] [address] [place] [id number] [place] [address] 26490- 0661 Sep, [facility] [address] [place] [id number] [address] 0241 Aug, [facility] [address] [place] [id number] [place] [address] 88236- 5167 18 Aug, 2016 [facility] [id number] [place] [address] 11750- 6413 16 Jul, 2016 [facility] [address] [place] [id number] [place] [address] 60106 -6514 14 Jul, 2016 Bronchitis J40 [facility] [address] [place] [id number] [place] [address] 13288- 7872 06 Jul, 2016 [place] [address] [place] [id number] [place] [address] 86511- 8575 Jun, HTN (hypertension) I10 ; Anxiety F41.9 ; Epilepsy G40.909 ; COPD (chronic obstructive pulmonary disease) J44.9 ; 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 and Bulging lumbar disc M51.26 [place] [address] [place] [id number] [place] [address] 49359- 0651 Jun, [place] [address] [place] [id number] [place] [address] 07433- 8570 Jun, HTN (hypertension) I10 ; Anxiety F41.9 ; Epilepsy G40.909 ; COPD (chronic obstructive pulmonary disease) J44.9 ; 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 and Bulging lumbar disc M51.26 [place] [address] [place] [id number] [place] [address] 74860- 6922 May, [place] [address] [place] [id number] [place] [address] 58287- 2524 Apr, Anxiety disorder, unspecified F41.9 and Shoulder pain, left M25.512 [place] [address] [place] [id number] [place] [address] 36069- 2130 March, Anxiety disorder, unspecified F41.9 and Degenerative joint disease (DJD) of lumbar spine M47.816 [place] [address] [place] [address]- 7967 March, Sore throat in the morning J02.9 [place] [address] 70274- 7990 Feb, [facility] [place] [address] 56408 -7184 Feb, Right foot injury, initial encounter S99.921A and Oral nayan B37.0 [place] [address] 26918- 6559 05 Feb, 2016 [place] [address] 77156- 2104 Jan, HTN (hypertension) I10 ; COPD (chronic obstructive pulmonary disease) J44.9 ; Chronic pain G89.29 and Epilepsy G40.909 [facility] [place] [address] [place] [id number] [place] [address] 93113 -7245 Jan, Sore throat J02.9 and Thrush B37.0 [place] [address] [place] [id number] [place] [address] 29339- 1632 16 Jan, 2016 Chronic pain G89.29 ; HTN (hypertension) I10 ; Anxiety F41.9 ; Bulging lumbar disc M51.26 ; Protrusion of cervical intervertebral disc M50.20 and Shoulder pain, left M25.512 [place] [address] [place] [id number] [place] [address] 31443- 8308 15 Jan, 2016 [place] [address] [place] [id number] [place] [address] 53062- 0207 14 Jan, 2016 [place] [address] 16628- 0718 09 Jan, 2016 HTN (hypertension) I10 ; Anxiety F41.9 ; COPD (chronic obstructive pulmonary disease) J44.9 ; Bulging lumbar disc M51.26 ; Incontinence R32 ; Epilepsy G40.909 ; 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 and Neck pain M54.2 [place] [address] [place] [id number] [place] [address] 97283- 4763 Jan, Anxiety F41.9 [facility] [address] 00356- 2019 24 Dec, 2015 HTN (hypertension) I10 ; Epilepsy G40.909 and 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 [facility] [address] [place] [id number] [place] [address] 82299- 6612 Dec, [facility] [address] [place] [id number] [place] [address] 46467- 1487 Dec, Anxiety F41.9 ; HTN (hypertension) I10 ; COPD (chronic obstructive pulmonary disease) J44.9 ; Bulging lumbar disc M51.26 and Incontinence R32 [facility] [address] [place] [id number] [place] [address] 88028- 2770 Dec, [address] [address] Dec [facility] [address] [place] [id number] [place] [address] 70311- 6207 Nov, [place] [address] [place] [id number] [place] [address] 95117- 7600 Nov, [facility] [address] [place] [id number] [place] [address] 22395- 3278 Nov, [facility] [address] [place] [id number] [place] [address] 06091 -7264 Nov, Pharyngitis J02.9 and Allergic rhinitis J30.9 [facility] [address] [place] [id number] [place] [address] 64927- 6830 Nov, Degenerative joint disease (DJD) of lumbar spine M47.816 ; Cervicalgia M54.2 ; Lumbago 724.2 and Lumbago of lumbar region with sciatica M54.5 [facility] [address] [place] [id number] [place] [address] 66337- 7614 Nov, Degenerative joint disease (DJD) of lumbar spine M47.816 [facility] [address] [place] [id number] [place] [address] 36331- 4024 Oct, Generalized anxiety disorder F41.1 [facility] [address] [place] [id number] [place] [address] 15119- 5621 Oct, Cervicalgia M54.2 ; Degenerative joint disease (DJD) of lumbar spine M47.816 and Hypertension I10 [facility] [address] 05655- 5965 Oct, [facility] [address] 60682 -2515 Oct, Essential (primary) hypertension I10 [facility] [address] 88896- 8814 Oct, [facility] [address] 13564- 3615 Sep, Allergic rhinitis J30.9 ; Generalized anxiety disorder F41.1 and Shoulder pain, left M25.512 [facility] [address] [place] [id number] [place] [address] 14386- 1248 Sep, [facility] [address] [place] [id number] [place] [address] 24343- 1226 Aug, Cough R05 [facility] [address] [place] [id number] [place] [address] 13222- 0091 Aug, Generalized anxiety disorder F41.1 [facility] [address] [place] [id number] [place] [address] 82960- 3714 Aug, Cough R05 [facility] [address] 88707- 9592 Aug, [facility] [address] [place] [id number] [place] [address] 67893- 4288 Aug, [facility] [address] 89679- 6576 Aug, Lumbago of lumbar region with sciatica M54.5 [facility] [address] [place] [id number] [place] [address] 33574- 8552 Jul, Lumbago 724.2 [facility] [address] [place] [id number] [place] [address] 11469- 8027 21 Jul, 2015 [place] [address] [place] [id number] [place] [address] 28340- 2384 16 Jul, 2015 Anxiety 300.00 and Hypertension 401.9 [place] [address] [place] [id number] [place] [address] 84178- 6255 11 Jul, 2015 Generalized anxiety disorder 300.02 [place] [address] [place] [id number] [place] [address] 27688- 6951 09 Jul, 2015 Nodule of neck 784.2 [place] [address] [place] [id number] [place] [address] 74981- 0006 Jun, Nodule of neck 784.2 [place] [address] [place] [id number] [place] [address] 67958- 8031 Jun, [place] [address] [place] [id number] [place] [address] 08988- 6719 Jun, Routine adult health maintenance V70.0 [place] [address] [place] [id number] [place] [address] 59338- 7498 Jun, Routine adult health maintenance V70.0 ; Anxiety 300.00 ; Epilepsy 345.90 ; Hypertension 401.9 and Urinary incontinence 788.30 IMMUNIZATIONS No Known Immunizations SOCIAL HISTORY Never Assessed REASON FOR VISIT Lab (walk-in) PLAN OF CARE VITAL SIGNS MEDICATIONS Unknown Medications RESULTS No Results PROCEDURES Procedure Date Ordered Result Body Site LAB NOT BILLED BY [facility] March 15, 2018 ROXANE ELIAS* March 15, 2018 INSTRUCTIONS MEDICATIONS ADMINISTERED No Known Medications [...]
--- OUTSIDE RECORDS SUMMARY | 2018-08-30 19:05 | XMS REPORT ---
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 celexa ed Non Drug Allergy Feb, Active lyrica unknown Non Drug Allergy Feb, Active ENCOUNTERS Encounter Location Date Diagnosis [facility] [address] [facility] [id number] [address] Jun, [facility] [address] [facility] [id number] [address] Jun, [facility] [address] [facility] [id number] [address] May, Chronic pain G89.29 [place] [address] [place] [id number] [place] [address] 13398- 2631 March, Adverse effect of drug, subsequent encounter T88.7XXD ; HTN (hypertension) I10 ; Dyslipidemia (high LDL; low HDL) E78.5 ; Chronic pain G89.29 ; Anxiety F41.9 and 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 [place] [address] 22438- 5973 March, Bulging lumbar disc M51.26 [place] [address] 89848- 1139 March, [place] [address] 36430- 0067 Feb, [place] [address] 12332- 1441 Feb, HTN (hypertension) I10 ; COPD (chronic obstructive pulmonary disease) J44.9 ; Overweight (BMI 25.0-29.9) E66.3 and Epilepsy G40.909 [place] [address] 78530- 2117 Feb, HTN (hypertension) I10 ; COPD (chronic obstructive pulmonary disease) J44.9 ; Anxiety F41.9 ; Overweight (BMI 25.0-29.9) E66.3 ; Epilepsy G40.909 ; Bulging lumbar disc M51.26 ; Protrusion of cervical intervertebral disc M50.20 ; Tobacco abuse counseling Z71.6 and Tobacco abuse Z72.0 [place] [address] [place] [id number] [place] [address] 21560- 2910 Feb, Chronic pain G89.29 [place] [address] 60475- 7230 Jan, Chronic pain G89.29 [place] [address] 84277- 5419 Dec, Epilepsy G40.909 [place] [address] [place] [id number] [place] [address] 58777- 9445 Dec, Chronic pain G89.29 [place] [address] 12148- 3249 Nov, [place] [address] [place] [id number] [place] [address] 57405- 4362 Nov, Anxiety F41.9 [place] [address] 09176- 2980 Oct, HTN (hypertension) I10 ; COPD (chronic obstructive pulmonary disease) J44.9 ; Epilepsy G40.909 ; Chronic pain G89.29 ; Anxiety F41.9 ; Overweight (BMI 25.0-29.9) E66.3 ; Tobacco abuse Z72.0 ; Tobacco abuse counseling Z71.6 ; High risk medication use Z79.899 and Controlled substance agreement signed Z79.899 [place] [address] 28309- 2164 Oct, Bulging lumbar disc M51.26 [place] [address] 60127- 5908 Oct, Bulging lumbar disc M51.26 [place] [address] [place] [id number] [place] [address] 96944- 4895 Sep, [place] [address] [place] [id number] [place] [address] 58726- 3863 Sep, [place] [address] [place] [id number] [place] [address] 76819- 4201 Aug, Bulging lumbar disc M51.26 [place] [address] 55786- 4284 Jul, Bulging lumbar disc M51.26 and Anxiety F41.9 [place] [address] [place] [id number] [place] [address] 70642- 7733 Jun, Bulging lumbar disc M51.26 and Anxiety F41.9 [place] [address] [place] [id number] [place] [address] 17009- 4270 Jun, 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 [facility] [address] [place] [id number] [place] [address] 06921 -2477 Jun, Acute swimmers ear of right side H60.331 [place] [address] 80227- 4586 Jun, Bulging lumbar disc M51.26 and Anxiety F41.9 [place] [address] [place] [id number] [place] [address] 94975- 0328 May, Bulging lumbar disc M51.26 and Anxiety F41.9 [facility] [address] [place] [id number] [place] [address] 63894 -7487 May, COPD exacerbation J44.1 [place] [address] 83593- 9852 May, Bulging lumbar disc M51.26 [place] [address] [place] [id number] [place] [address] 43022- 6252 Apr, [place] [address] 47342- 7821 Apr, [place] [address] [place] [id number] [place] [address] 72838- 5958 Apr, Bulging lumbar disc M51.26 and Anxiety F41.9 [place] [address] [place] [id number] [place] [address] 97557- 4633 March, Anxiety F41.9 and Bulging lumbar disc M51.26 [place] [address] [place] [id number] [place] [address] 09203- 5945 March, HTN (hypertension) I10 ; Anxiety F41.9 ; Bulging lumbar disc M51.26 ; 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 ; Neck pain M54.2 ; Globus sensation F45.8 and COPD (chronic obstructive pulmonary disease) J44.9 [facility] [address] 61197- 9453 19 Feb, 2017 [place] [address] 63930- 2052 17 Feb, 2017 HTN (hypertension) I10 [facility] [address] 52231 -1379 13 Feb, 2017 Acute nasopharyngitis (common cold) J00 [facility] [address] 14425- 6876 11 Feb, 2017 Anxiety F41.9 and Bulging lumbar disc M51.26 [place] [address] 55040- 2147 04 Feb, 2017 Bronchitis J40 [place] [address] 54828- 1018 13 Jan, 2017 Anxiety F41.9 and Bulging lumbar disc M51.26 [place] [address] 63684- 5871 09 Jan, 2017 Anxiety F41.9 [facility] [address] 97987 -7120 20 Dec, 2016 Viral pharyngitis J02.9 [place] [address] 78683- 4784 15 Dec, 2016 HTN (hypertension) I10 [facility] [address] 84439- 5035 14 Dec, 2016 Bulging lumbar disc M51.26 and HTN (hypertension) I10 [facility] [address] 68341 -1076 10 Dec, 2016 Abscess L02.91 [place] [address] 02510- 1250 08 Dec, 2016 Anxiety F41.9 and Bulging lumbar disc M51.26 [place] [address] [place] [id number] [place] [address] 90932- 2062 Nov, Incontinence R32 [place] [address] 41198- 2387 Nov, Anxiety F41.9 and Bulging lumbar disc M51.26 [place] [address] 18073- 4866 Nov, Incontinence R32 [facility] [address] 94879- 9896 Nov, Excessive thirst R63.1 [place] [address] 70306- 5059 Nov, Excessive thirst R63.1 [place] [address] 40854- 5150 Nov, HTN (hypertension) I10 ; Anxiety F41.9 ; COPD (chronic obstructive pulmonary disease) J44.9 ; Bulging lumbar disc M51.26 ; Epilepsy G40.909 ; 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 ; Neck pain M54.2 ; Other viral agents as the cause of diseases classified elsewhere B97.89 ; Acute upper respiratory infection, unspecified J06.9 ; Chronic intractable headache, unspecified headache type R51 and Hypercholesterolemia E78.00 [place] [address] [place] [id number] [place] [address] 23584- 8787 Oct, [facility] [address] [place] [id number] [place] [address] 28923- 8551 Oct, [facility] [address] [place] [id number] [place] [address] 11710- 5409 Sep, [place] [address] 65817- 0699 Sep, [facility] [address] [place] [id number] [place] [address] 85666 -1511 Sep, Cough R05 ; Wheezing R06.2 ; Oropharyngeal dysphagia R13.12 and Exposure to strep throat Z20.818 [facility] [address] [place] [address] 56963- 3557 16 Sep, 2016 [facility] [address] [place] [id number] [place] [address] 64745- 7020 Sep, [facility] [address] [place] [id number] [place] [address] 51140- 8494 Aug, [facility] [address] 93668- 1869 Aug, [facility] [address] [place] [id number] [place] [address] 71299- 0662 Jul, [facility] [address] [place] [id number] [place] [address] 08173 -8669 Jul, Bronchitis J40 [facility] [address] [place] [id number] [place] [address] 97527- 9058 Jul, [facility] [address] [place] [id number] [place] [address] 83461- 7008 Jun, HTN (hypertension) I10 ; Anxiety F41.9 ; Epilepsy G40.909 ; COPD (chronic obstructive pulmonary disease) J44.9 ; 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 and Bulging lumbar disc M51.26 [facility] [address] [place] [id number] [place] [address] 50775- 4067 Jun, [facility] [address] [place] [id number] [place] [address] 41102- 1221 Jun, HTN (hypertension) I10 ; Anxiety F41.9 ; Epilepsy G40.909 ; COPD (chronic obstructive pulmonary disease) J44.9 ; 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 and Bulging lumbar disc M51.26 [facility] [address] [place] [id number] [place] [address] 85934- 4888 May, [facility] [address] [place] [id number] [place] [address] 87666- 9324 Apr, Anxiety disorder, unspecified F41.9 and Shoulder pain, left M25.512 [place] [address] 64248- 2905 March, Anxiety disorder, unspecified F41.9 and Degenerative joint disease (DJD) of lumbar spine M47.816 [place] [address] 39208- 2195 March, Sore throat in the morning J02.9 [place] [address] 24065- 4560 14 Feb, 2016 [facility] [place] [address] 59955 -1451 Feb, Right foot injury, initial encounter S99.921A and Oral nayan B37.0 [place] [address] 86112- 7477 Feb, [place] [address] 64909- 6142 Jan, HTN (hypertension) I10 ; COPD (chronic obstructive pulmonary disease) J44.9 ; Chronic pain G89.29 and Epilepsy G40.909 [facility] [address] 72041 -8892 Jan, Sore throat J02.9 and Thrush B37.0 [place] [address] 66572- 3323 16 Jan, 2016 Chronic pain G89.29 ; HTN (hypertension) I10 ; Anxiety F41.9 ; Bulging lumbar disc M51.26 ; Protrusion of cervical intervertebral disc M50.20 and Shoulder pain, left M25.512 [place] [address] 02785- 3507 15 Jan, 2016 [place] [address] 89853- 0465 14 Jan, 2016 [place] [address] 97777- 6521 Jan, HTN (hypertension) I10 ; Anxiety F41.9 ; COPD (chronic obstructive pulmonary disease) J44.9 ; Bulging lumbar disc M51.26 ; Incontinence R32 ; Epilepsy G40.909 ; 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 and Neck pain M54.2 [facility] [address] [place] [id number] [place] [address] 32115- 2380 Jan, Anxiety F41.9 [facility] [address] [place] [id number] [place] [address] 76028- 8225 Dec, HTN (hypertension) I10 ; Epilepsy G40.909 and 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 [place] [address] [place] [id number] [place] [address] 27682- 5717 Dec, [place] [address] 52570- 5194 Dec, Anxiety F41.9 ; HTN (hypertension) I10 ; COPD (chronic obstructive pulmonary disease) J44.9 ; Bulging lumbar disc M51.26 and Incontinence R32 [place] [address] [place] [id number] [place] [address] 48901- 9840 Dec, [address] [id number] [place] [address] Dec [facility] [address] [place] [address] 43553- 5003 Nov, [facility] [address] [place] [id number] [place] [address] 19896- 4794 Nov, [facility] [address] [place] [id number] [place] [address] 32083- 7914 Nov, [facility] [address] [place] [id number] [place] [address] 61290 -6423 Nov, Pharyngitis J02.9 and Allergic rhinitis J30.9 [facility] [address] [place] [id number] [place] [address] 66505- 0636 Nov, Degenerative joint disease (DJD) of lumbar spine M47.816 ; Cervicalgia M54.2 ; Lumbago 724.2 and Lumbago of lumbar region with sciatica M54.5 [facility] [address] 45907- 8587 Nov, Degenerative joint disease (DJD) of lumbar spine M47.816 [facility] [address] 86273- 9599 Oct, Generalized anxiety disorder F41.1 [place] [address] 79015- 6966 Oct, Cervicalgia M54.2 ; Degenerative joint disease (DJD) of lumbar spine M47.816 and Hypertension I10 [facility] [address] 01854- 7138 Oct, [facility] [address] 52061 -5565 Oct, Essential (primary) hypertension I10 [facility] [address] 76956- 2773 Oct, [facility] [address] 96870- 0986 Sep, Allergic rhinitis J30.9 ; Generalized anxiety disorder F41.1 and Shoulder pain, left M25.512 [place] [address] 23188- 4766 Sep, [facility] [address] 92352- 7605 Aug, Cough R05 [place] [address] 55457- 6515 Aug, Generalized anxiety disorder F41.1 [facility] [address] [place] [id number] [place] [address] 15622- 3122 Aug, Cough R05 [place] [address] [place] [id number] [place] [address] 64786- 3521 Aug, [facility] [address] [place] [id number] [place] [address] 56271- 4540 Aug, [facility] [address] [place] [id number] [place] [address] 12192- 7375 Aug, Lumbago of lumbar region with sciatica M54.5 [facility] [address] [place] [id number] [place] [address] 21800- 3391 Jul, Lumbago 724.2 [facility] [address] [place] [id number] [place] [address] 93547- 4831 Jul, [place] [address] [place] [id number] [place] [address] 28977- 1640 16 Jul, 2015 Anxiety 300.00 and Hypertension 401.9 [place] [address] 58500- 7445 Jul, Generalized anxiety disorder 300.02 [facility] [address] [place] [id number] [place] [address] 04501- 1367 09 Jul, 2015 Nodule of neck 784.2 [place] [address] [place] [id number] [place] [address] 68206- 1810 Jun, Nodule of neck 784.2 [place] [address] [place] [id number] [place] [address] 13843- 3960 Jun, [facility] [address] [place] [id number] [place] [address] 51351- 3068 Jun, Routine adult health maintenance V70.0 [place] [address] [place] [id number] [place] [address] 07545- 9877 Jun, Routine adult health maintenance V70.0 ; Anxiety 300.00 ; Epilepsy 345.90 ; Hypertension 401.9 and Urinary incontinence 788.30 IMMUNIZATIONS No Known Immunizations SOCIAL HISTORY Never Assessed REASON FOR VISIT f/u chronic pain. JERRY Shaffer, swollen lymphnode to rt neck. PLAN OF CARE Activity Details Follow Up 3 Months Reason:CHM/Pain VITAL SIGNS Height 70 in 2018-03-13 Weight 202.8 lbs 2018-03-13 Temperature 98 degrees Fahrenheit 2018-03-13 Heart Rate 70 bpm 2018-03-13 Respiratory Rate 20 2018-03-13 BMI 29.10 kg/m2 2018-03-13 Blood pressure systolic 130 mmHg 2018-03-13 Blood pressure diastolic 82 mmHg 2018-03-13 MEDICATIONS Medication Instructions Dosage Frequency Start Date End Date Duration Status Duloxetine HCl 30 MG Orally Once a day 1 capsule 24h Feb, 30 day(s) Active Ibuprofen 800 MG TAKE ONE TABLET BY MOUTH THREE TIMES DAILY Active Lisinopril 20 mg Orally Once a day TAKE ONE TABLET BY MOUTH ONCE DAILY 24h 90 days Active Topamax 50 mg Orally Twice a day 2 tablet 12h 90 days Active Oxycodone-Acetaminophen 7.5-325 MG Orally 2 times a day 1 tablet as needed 12h 10 Feb, 2018 Active Albuterol Sulfate HFA cfc free 90 mcg/inh Inhalation every 4 hrs 2 puffs as needed 4h Sep, 12 months Active Atenolol 50 mg Orally Once a day TAKE ONE TABLET BY MOUTH ONCE DAILY AT NIGHT 24h 90 days Active RESULTS No Results [...]
--- OUTSIDE RECORDS SUMMARY | 2018-08-30 19:06 | XMS REPORT ---
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 Machine Name Role Phone GARYANN Haywood Unavailable PROBLEMS Type Condition ICD9-CM Code GYR37-GF Code Onset Dates Condition Status SNOMED Code Problem Anxiety F41.9 Active 70130947 Problem Epilepsy G40.909 Active 29281468 Problem Bulging lumbar disc M51.26 Active 872687187 Problem Dyslipidemia (high LDL; low HDL) E78.5 Active 187714373 Problem COPD (chronic obstructive pulmonary disease) J44.9 Active 49472043 Problem HTN (hypertension) I10 Active 81637987 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 826508864 Problem Tobacco abuse counseling Z71.6 Active 953821684 Problem Protrusion of cervical intervertebral disc M50.20 Active 529788578 Problem Chronic pain G89.29 Active 86899374 Problem Tobacco abuse Z72.0 Active 229762704 Problem Overweight (BMI 25.0-29.9) E66.3 Active 293632664 ALLERGIES No Information ENCOUNTERS Encounter Location Date Diagnosis [place] [id number] [place] [address] 99550- 7800 Jun, [facility] [id number] [place] [address] 17986- 7582 Jun, [facility] [id number] [place] [address] 82978- 0695 May, Chronic pain G89.29 [place] [id number] [place] [address] 80505- 4592 March, Adverse effect of drug, subsequent encounter T88.7XXD ; HTN (hypertension) I10 ; Dyslipidemia (high LDL; low HDL) E78.5 ; Chronic pain G89.29 ; Anxiety F41.9 and 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 [facility] [address] [place] [id number] [place] [address] 40316- 7938 March, Bulging lumbar disc M51.26 [place] [address] [place] [id number] [place] [address] 75095- 9462 March, [facility] [address] 58932- 1125 Feb, [facility] [address] 32156- 9774 Feb, HTN (hypertension) I10 ; COPD (chronic obstructive pulmonary disease) J44.9 ; Overweight (BMI 25.0-29.9) E66.3 and Epilepsy G40.909 [place] [address] [place] [id number] [place] [address] 08782- 5842 Feb, HTN (hypertension) I10 ; COPD (chronic obstructive pulmonary disease) J44.9 ; Anxiety F41.9 ; Overweight (BMI 25.0-29.9) E66.3 ; Epilepsy G40.909 ; Bulging lumbar disc M51.26 ; Protrusion of cervical intervertebral disc M50.20 ; Tobacco abuse counseling Z71.6 and Tobacco abuse Z72.0 [place] [address] [place] [id number] [place] [address] 94309- 6515 Feb, Chronic pain G89.29 [place] [address] [place] [id number] [place] [address] 69702- 5422 Jan, Chronic pain G89.29 [place] [address] [place] [id number] [place] [address] 27578- 3971 Dec, Epilepsy G40.909 [place] [address] 19286- 2552 05 Dec, 2017 Chronic pain G89.29 [place] [address] [place] [id number] [place] [address] 08667- 6310 Nov, [place] [address] [place] [address]- 8841 Nov, Anxiety F41.9 [place] [address] 49907- 8542 Oct, HTN (hypertension) I10 ; COPD (chronic obstructive pulmonary disease) J44.9 ; Epilepsy G40.909 ; Chronic pain G89.29 ; Anxiety F41.9 ; Overweight (BMI 25.0-29.9) E66.3 ; Tobacco abuse Z72.0 ; Tobacco abuse counseling Z71.6 ; High risk medication use Z79.899 and Controlled substance agreement signed Z79.899 [place] [address] 28392- 4839 Oct, Bulging lumbar disc M51.26 [place] [address] 09687- 8476 Oct, Bulging lumbar disc M51.26 [place] [address] 38877- 4985 Sep, [place] [address] 55947- 4655 Sep, [place] [address] 76098- 2736 Aug, Bulging lumbar disc M51.26 [place] [address] 07247- 6464 Jul, Bulging lumbar disc M51.26 and Anxiety F41.9 [place] [address] 13997- 2951 Jun, Bulging lumbar disc M51.26 and Anxiety F41.9 [place] [address] 02017- 3170 Jun, 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 [facility] [address] 02685 -6484 Jun, Acute swimmers ear of right side H60.331 [facility] [address] [place] [id number] [place] [address] 85501- 0011 Jun, Bulging lumbar disc M51.26 and Anxiety F41.9 [place] [address] [place] [id number] [place] [address] 36738- 9968 May, Bulging lumbar disc M51.26 and Anxiety F41.9 [facility] [address] 11184 -5242 May, COPD exacerbation J44.1 [place] [address] 11156- 9687 May, Bulging lumbar disc M51.26 [place] [address] [place] [id number] [place] [address] 15337- 9521 Apr, [place] [address] 33696- 9403 Apr, [place] [address] 33911- 3647 Apr, Bulging lumbar disc M51.26 and Anxiety F41.9 [place] [address] [place] [id number] [place] [address] 70886- 9058 March, Anxiety F41.9 and Bulging lumbar disc M51.26 [place] [address] [place] [id number] [place] [address] 04022- 0866 March, HTN (hypertension) I10 ; Anxiety F41.9 ; Bulging lumbar disc M51.26 ; 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 ; Neck pain M54.2 ; Globus sensation F45.8 and COPD (chronic obstructive pulmonary disease) J44.9 [place] [address] [place] [id number] [place] [address] 11802- 9891 Feb, [place] [address] [place] [id number] [place] [address] 94311- 0587 Feb, HTN (hypertension) I10 [facility] [address] 94951 -6267 13 Feb, 2017 Acute nasopharyngitis (common cold) J00 [place] [address] 95280- 5290 11 Feb, 2017 Anxiety F41.9 and Bulging lumbar disc M51.26 [place] [address] 41096- 7565 04 Feb, 2017 Bronchitis J40 [place] [address] 47523- 5575 13 Jan, 2017 Anxiety F41.9 and Bulging lumbar disc M51.26 [place] [address] 51621- 6571 09 Jan, 2017 Anxiety F41.9 [facility] [place] [address] 81603 -5380 20 Dec, 2016 Viral pharyngitis J02.9 [place] [address] 19373- 7132 15 Dec, 2016 HTN (hypertension) I10 [place] [address] 05927- 3966 14 Dec, 2016 Bulging lumbar disc M51.26 and HTN (hypertension) I10 [facility] [place] [address] 58757 -7095 10 Dec, 2016 Abscess L02.91 [place] [address] 28270- 6640 08 Dec, 2016 Anxiety F41.9 and Bulging lumbar disc M51.26 [place] [address] 95182- 2487 16 Nov, 2016 Incontinence R32 [place] [address] 55832- 8232 11 Nov, 2016 Anxiety F41.9 and Bulging lumbar disc M51.26 [place] [address] [place] [id number] [place] [address] 62813- 7103 Nov, Incontinence R32 [facility] [address] 76080- 5085 Nov, Excessive thirst R63.1 [facility] [address] [place] [id number] [place] [address] 33711- 4009 Nov, Excessive thirst R63.1 [place] [address] 74583- 1019 Nov, HTN (hypertension) I10 ; Anxiety F41.9 ; COPD (chronic obstructive pulmonary disease) J44.9 ; Bulging lumbar disc M51.26 ; Epilepsy G40.909 ; 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 ; Neck pain M54.2 ; Other viral agents as the cause of diseases classified elsewhere B97.89 ; Acute upper respiratory infection, unspecified J06.9 ; Chronic intractable headache, unspecified headache type R51 and Hypercholesterolemia E78.00 [place] [address] [place] [id number] [place] [address] 30904- 0142 Oct, [facility] [address] 33130- 0699 Oct, [place] [address] [place] [id number] [place] [address] 65709- 6681 Sep, [facility] [address] [place] [id number] [place] [address] 42619- 5056 Sep, [facility] [address] [place] [id number] [place] [address] 65296 -0061 Sep, Cough R05 ; Wheezing R06.2 ; Oropharyngeal dysphagia R13.12 and Exposure to strep throat Z20.818 [facility] [address] [place] [id number] [place] [address] 51513- 3785 Sep, [facility] [address] [place] [id number] [place] [address] 06016- 0093 Sep, [facility] [address] [place] [id number] [address]- 9830 Aug, [facility] [address] [place] [id number] [place] [address] 56147- 2233 18 Aug, 2016 [facility] [id number] [place] [address] 20203- 7413 16 Jul, 2016 [facility] [address] [place] [id number] [place] [address] 42299 -5422 14 Jul, 2016 Bronchitis J40 [facility] [address] [place] [id number] [place] [address] 32010- 6090 06 Jul, 2016 [place] [address] [place] [id number] [place] [address] 31960- 1072 Jun, HTN (hypertension) I10 ; Anxiety F41.9 ; Epilepsy G40.909 ; COPD (chronic obstructive pulmonary disease) J44.9 ; 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 and Bulging lumbar disc M51.26 [place] [address] [place] [id number] [place] [address] 32264- 6825 Jun, [place] [address] [place] [id number] [place] [address] 75361- 8192 Jun, HTN (hypertension) I10 ; Anxiety F41.9 ; Epilepsy G40.909 ; COPD (chronic obstructive pulmonary disease) J44.9 ; 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 and Bulging lumbar disc M51.26 [place] [address] [place] [id number] [place] [address] 79967- 8408 May, [place] [address] [place] [id number] [place] [address] 98708- 4064 Apr, Anxiety disorder, unspecified F41.9 and Shoulder pain, left M25.512 [place] [address] [place] [id number] [place] [address] 23142- 6574 March, Anxiety disorder, unspecified F41.9 and Degenerative joint disease (DJD) of lumbar spine M47.816 [place] [address] [place] [address]- 1049 March, Sore throat in the morning J02.9 [place] [address] 92217- 7862 Feb, [facility] [place] [address] 39476 -5343 Feb, Right foot injury, initial encounter S99.921A and Oral nayan B37.0 [place] [address] 24335- 2082 05 Feb, 2016 [place] [address] 20687- 7415 Jan, HTN (hypertension) I10 ; COPD (chronic obstructive pulmonary disease) J44.9 ; Chronic pain G89.29 and Epilepsy G40.909 [facility] [place] [address] [place] [id number] [place] [address] 10193 -8701 Jan, Sore throat J02.9 and Thrush B37.0 [place] [address] [place] [id number] [place] [address] 81163- 6270 16 Jan, 2016 Chronic pain G89.29 ; HTN (hypertension) I10 ; Anxiety F41.9 ; Bulging lumbar disc M51.26 ; Protrusion of cervical intervertebral disc M50.20 and Shoulder pain, left M25.512 [place] [address] [place] [id number] [place] [address] 38803- 6563 15 Jan, 2016 [place] [address] [place] [id number] [place] [address] 80876- 8869 14 Jan, 2016 [place] [address] 13602- 2936 09 Jan, 2016 HTN (hypertension) I10 ; Anxiety F41.9 ; COPD (chronic obstructive pulmonary disease) J44.9 ; Bulging lumbar disc M51.26 ; Incontinence R32 ; Epilepsy G40.909 ; 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 and Neck pain M54.2 [place] [address] [place] [id number] [place] [address] 07860- 6593 Jan, Anxiety F41.9 [facility] [address] 30544- 2082 24 Dec, 2015 HTN (hypertension) I10 ; Epilepsy G40.909 and 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 [facility] [address] [place] [id number] [place] [address] 63803- 7512 Dec, [facility] [address] [place] [id number] [place] [address] 96212- 3656 Dec, Anxiety F41.9 ; HTN (hypertension) I10 ; COPD (chronic obstructive pulmonary disease) J44.9 ; Bulging lumbar disc M51.26 and Incontinence R32 [facility] [address] [place] [id number] [place] [address] 03182- 3123 Dec, [address] [address] Dec [facility] [address] [place] [id number] [place] [address] 29509- 8275 Nov, [place] [address] [place] [id number] [place] [address] 80720- 7005 Nov, [facility] [address] [place] [id number] [place] [address] 38530- 1318 Nov, [facility] [address] [place] [id number] [place] [address] 99823 -4689 Nov, Pharyngitis J02.9 and Allergic rhinitis J30.9 [facility] [address] [place] [id number] [place] [address] 50960- 7731 Nov, Degenerative joint disease (DJD) of lumbar spine M47.816 ; Cervicalgia M54.2 ; Lumbago 724.2 and Lumbago of lumbar region with sciatica M54.5 [facility] [address] [place] [id number] [place] [address] 33936- 4222 Nov, Degenerative joint disease (DJD) of lumbar spine M47.816 [facility] [address] [place] [id number] [place] [address] 94044- 9769 Oct, Generalized anxiety disorder F41.1 [facility] [address] [place] [id number] [place] [address] 73950- 8877 Oct, Cervicalgia M54.2 ; Degenerative joint disease (DJD) of lumbar spine M47.816 and Hypertension I10 [facility] [address] 25788- 4245 Oct, [facility] [address] 35905 -2735 Oct, Essential (primary) hypertension I10 [facility] [address] 80385- 6108 Oct, [facility] [address] 55928- 1605 Sep, Allergic rhinitis J30.9 ; Generalized anxiety disorder F41.1 and Shoulder pain, left M25.512 [facility] [address] [place] [id number] [place] [address] 44966- 5146 Sep, [facility] [address] [place] [id number] [place] [address] 83219- 0417 Aug, Cough R05 [facility] [address] [place] [id number] [place] [address] 86363- 4564 Aug, Generalized anxiety disorder F41.1 [facility] [address] [place] [id number] [place] [address] 83688- 4857 Aug, Cough R05 [facility] [address] 88699- 1577 Aug, [facility] [address] [place] [id number] [place] [address] 83572- 8434 Aug, [facility] [address] 89054- 1098 Aug, Lumbago of lumbar region with sciatica M54.5 [facility] [address] [place] [address] 86253- 2281 Jul, Lumbago 724.2 [facility] [address] [place] [id number] [place] [address] 95977- 6350 Jul, [place] [address] [place] [id number] [place] [address] 39729- 8153 Jul, Anxiety 300.00 and Hypertension 401.9 [place] [address] [place] [id number] [place] [address] 06085- 5260 Jul, Generalized anxiety disorder 300.02 [place] [address] [place] [id number] [place] [address] 84632- 5314 09 Jul, 2015 Nodule of neck 784.2 [place] [address] [place] [id number] [place] [address] 86855- 4112 Jun, Nodule of neck 784.2 [place] [address] [place] [id number] [place] [address] 61683- 2071 Jun, [place] [address] [place] [id number] [place] [address] 16330- 2415 Jun, Routine adult health maintenance V70.0 [place] [address] [place] [id number] [place] [address] 71778- 8977 Jun, Routine adult health maintenance V70.0 ; Anxiety 300.00 ; Epilepsy 345.90 ; Hypertension 401.9 and Urinary incontinence 788.30 IMMUNIZATIONS No Known Immunizations SOCIAL HISTORY Never Assessed REASON FOR VISIT Controlled refill request PLAN OF CARE VITAL SIGNS MEDICATIONS Medication Instructions Dosage Frequency Start Date End Date Duration Status Oxycodone-Acetaminophen 7.5-325 MG Orally 2 times a day 1 tablet as needed 12h 10 Feb, 2018 28 days Active RESULTS No Results [...]
--- OUTSIDE RECORDS SUMMARY | 2018-08-30 19:23 | XMS REPORT | Continuity of Care Document ---
Author Author [facility] Address Unknown Phone Unavailable Allergies Active Description Code Type Severity Reaction Onset Reported/Identified Relationship to Patient Clinical Status Yes clarithromycin [id number] Drug Allergy Unknown N/A 06/28/2017 Yes levetiracetam [id number] Drug Allergy Unknown N/A 06/28/2017 Yes morphine [id number] Drug Allergy Unknown N/A 06/28/2017 Yes Sulfa (Sulfonamide Antibiotics) [id number] Drug Allergy Unknown N/A 2016 Medications There is no data. Problems Date Dx Coded Attending Type Code [...] STRUCK BY OBJ/PERSON NEC 08/11/2015 KURTIS SOTO FACILITY TECHNICIAN Ot 784.2 08/11/2015 HAJA CHAPA Ot 307.81 TENSION HEADACHE 08/11/2015 HAJA CHAPA Ot 784.0 HEADACHE 08/21/2015 KURTIS SOTO APRN Ot 784.2 08/23/2015 HAJA CHAPA Ot 724.5 BACKACHE NOS 08/23/2015 HAJA CHAPA Ot 789.09 ABDOMINAL PAIN, OTHER SPECIFIED SITE 09/01/2015 JACKSON BYRD, MIKI Qiu Ot G40.909 EPILEPSY, UNSP, NOT INTRACTABLE, WITHOUT 09/01/2015 MIKI PAZ MD Ot R51 HEADACHE 09/04/2015 KURTIS SOTO FACILITY TECHNICIAN Ot 721.8 09/04/2015 KURTIS SOTO APRN Ot 724.02 09/09/2015 HAJA CHAPA Ot F17.210 NICOTINE DEPENDENCE, CIGARETTES, UNCOMPL 09/09/2015 HAJA CHAPA Ot J12.9 VIRAL PNEUMONIA, UNSPECIFIED 09/09/2015 HAJA CHAPA Ot R50.9 FEVER, UNSPECIFIED 10/06/2015 TERRANCE JAEGER APRN Ot F17.210 NICOTINE DEPENDENCE, CIGARETTES, UNCOMPL 10/06/2015 TERRANCE JAGEER APRN Ot J40 BRONCHITIS, NOT SPECIFIED ACUTE OR CH 10/06/2015 TERRANCE JAEGER APRN Ot S46.812A STRAIN OF MUSC/FASC/TEND AT LDR/UP ARM 10/06/2015 TERRANCE JAEGER FACILITY TECHNICIAN Ot X58.XXXA EXPOSURE TO OTHER SPECIFIED FACTORS, INI 10/06/2015 TERRANCE JAEGER FACILITY TECHNICIAN Ot Y99.8 OTHER EXTERNAL CAUSE STATUS 10/31/2015 BHAVYA ESCOBAR DO Ot F17.210 NICOTINE DEPENDENCE, CIGARETTES, UNCOMPL 10/31/2015 LUZBHAVYA Crews DO Ot I10 ESSENTIAL (PRIMARY) HYPERTENSION 10/31/2015 BHAVYA ESCOBAR DO Ot J98.4 OTHER DISORDERS OF LUNG 10/31/2015 LUZ BHAVYA ZENG Ot R07.89 OTHER CHEST PAIN 11/01/2015 KURTIS SOTO FACILITY TECHNICIAN Ot 784.2 11/01/2015 KURTIS SOTO FACILITY TECHNICIAN Ot 721.8 11/01/2015 KURTIS SOTO FACILITY TECHNICIAN Ot 724.02 11/07/2015 SABRINA RAYMUNDO MD Ot I10 ESSENTIAL (PRIMARY) HYPERTENSION 11/07/2015 SABRINA RAYMUNDO MD Ot Z79.899 OTHER SHELTER (CURRENT) DRUG THERAPY 11/27/2015 EMORY BYRD, FRED Blackman Ot F17.210 NICOTINE DEPENDENCE, CIGARETTES, UNCOMPL 11/27/2015 FRED CAT MD Ot F41.9 ANXIETY DISORDER, UNSPECIFIED 11/27/2015 FRED CAT MD Ot I10 ESSENTIAL (PRIMARY) HYPERTENSION 11/27/2015 FRED CAT MD Ot R07.89 OTHER CHEST PAIN 11/27/2015 FRED CAT MD Ot R42 DIZZINESS AND GIDDINESS 11/27/2015 FRED CAT MD Ot Z79.899 OTHER SHELTER (CURRENT) DRUG THERAPY 12/25/2015 KURTIS SOTO FACILITY TECHNICIAN Ot 784.2 12/25/2015 KURTIS SOTO FACILITY TECHNICIAN Ot 721.8 12/25/2015 KURTIS SOTO FACILITY TECHNICIAN Ot 724.02 12/25/2015 KURTIS SOTO FACILITY TECHNICIAN Ot M47.816 SPONDYLOSIS W/O MYELOPATHY OR RADICULOPA 01/16/2016 KURTIS SOTO FACILITY TECHNICIAN Ot 784.2 01/16/2016 BRITTANYKURTIS FACILITY TECHNICIAN Ot 721.8 01/16/2016 KURTIS SOTO FACILITY TECHNICIAN Ot 724.02 01/28/2016 ROBYN VALLE SLOT MACHINE KEY PERSON Ot M54.5 01/28/2016 TERRANCE JAEGER APRN Ot F17.210 NICOTINE DEPENDENCE, CIGARETTES, UNCOMPL 01/28/2016 TERRANCE JAEGER FACILITY TECHNICIAN Ot K52.9 NONINFECTIVE GASTROENTERITIS AND COLITIS 01/28/2016 TERRANCE JAEGER FACILITY TECHNICIAN Ot R10.30 LOWER ABDOMINAL PAIN, UNSPECIFIED 01/28/2016 TERRANCE JAEGER FACILITY TECHNICIAN Ot S46.912A STRAIN UNSP MUSC/FASC/TEND AT SHLDR/UP A 02/05/2016 HAJA CHAPA Ot F17.210 NICOTINE DEPENDENCE, CIGARETTES, UNCOMPL 02/05/2016 HAJA CHAPA Ot M50.32 OTHER CERVICAL DISC DEGENERATION, MID-CE 02/06/2016 HAJA CHAPA Ot F17.210 02/06/2016 HAJA CHAPA Ot M50.32 02/10/2016 TERRANCE JAEGER APRN Ot M54.12 RADICULOPATHY, CERVICAL REGION 02/10/2016 TERRANCE JAEGER FACILITY TECHNICIAN Ot Z98.1 ARTHRODESIS STATUS 02/11/2016 TERRANCE JAEGER FACILITY TECHNICIAN Ot M54.12 02/11/2016 TERRANCE JAEGER APRN Ot Z98.1 02/24/2016 ROBYN VALLE SLOT MACHINE KEY PERSON Ot M54.5 03/03/2016 TERRANCE JAEGER APRN Ot M54.12 03/03/2016 TERRANCE JAEGER FACILITY TECHNICIAN Ot Z98.1 2016 ROBYN VALLE SLOT MACHINE KEY PERSON Ot M54.5 LOW BACK PAIN 03/14/2016 TERRANCE JAEGER APRN Ot F17.210 NICOTINE DEPENDENCE, CIGARETTES, UNCOMPL 03/14/2016 TERRANCE JAEGER FACILITY TECHNICIAN Ot R10.33 PERIUMBILICAL PAIN 03/16/2016 TERRANCE JAEGER FACILITY TECHNICIAN Ot F17.210 NICOTINE DEPENDENCE, CIGARETTES, UNCOMPL 03/16/2016 TERRANCE JAEGER FACILITY TECHNICIAN Ot R10.33 PERIUMBILICAL PAIN 03/23/2016 VALLEROBYN GO Lazarus SLOT MACHINE KEY PERSON Ot M54.5 LOW BACK PAIN 04/15/2016 ROBYN VALLE SLOT MACHINE KEY PERSON Ot M54.5 LOW BACK PAIN 05/26/2016 EMORY [...] SPECIFIED DISORDERS OF PENIS 08/04/2016 TERRANCE JAEGER FACILITY TECHNICIAN Ot I10 ESSENTIAL (PRIMARY) HYPERTENSION 08/04/2016 TERRANCE JAEGER FACILITY TECHNICIAN Ot M26.62 ARTHRALGIA OF TEMPOROMANDIBULAR JOINT 08/04/2016 TERRANCE JAEGER FACILITY TECHNICIAN Ot R68.84 JAW PAIN 08/04/2016 TERRANCE JAEGER FACILITY TECHNICIAN Ot Z79.899 OTHER HANDBAG OPERATOR (CURRENT) DRUG THERAPY 08/06/2016 TERRANCE JAEGER FACILITY TECHNICIAN Ot I10 ESSENTIAL (PRIMARY) HYPERTENSION 08/06/2016 TERRANCE JAEGER FACILITY TECHNICIAN Ot M26.62 ARTHRALGIA OF TEMPOROMANDIBULAR JOINT 08/06/2016 TERRANCE JAEGER FACILITY TECHNICIAN Ot R68.84 JAW PAIN 08/06/2016 TERRANCE JAEGER FACILITY TECHNICIAN Ot Z79.899 OTHER HANDBAG OPERATOR (CURRENT) DRUG THERAPY 10/05/2016 KURTIS SOTO FACILITY TECHNICIAN Ot 784.2 SWELLING IN HEAD NECK 10/05/2016 KURTIS SOTO FACILITY TECHNICIAN Ot 721.8 SPINAL DISORDERS NEC 10/05/2016 KURTIS SOTO FACILITY TECHNICIAN Ot 724.02 SPINAL STENOSIS, LUMBAR REG, W/OUT NEURO 10/05/2016 FRED CAT MD Ot F17.210 NICOTINE DEPENDENCE, CIGARETTES, UNCOMPL 10/05/2016 FRED CAT MD T Ot I10 ESSENTIAL (PRIMARY) HYPERTENSION 10/05/2016 FRED CAT MD T Ot M79.661 PAIN IN RIGHT LOWER LEG 10/05/2016 FRED CAT MD T Ot Z79.899 OTHER SHELTER (CURRENT) DRUG THERAPY 12/16/2016 FRED CAT MD Ot F17.210 NICOTINE DEPENDENCE, CIGARETTES, UNCOMPL 12/16/2016 FRED CAT MD Ot G40.909 EPILEPSY, UNSP, NOT INTRACTABLE, WITHOUT 12/16/2016 FRED CAT MD Ot I10 ESSENTIAL (PRIMARY) HYPERTENSION 12/16/2016 FRED CAT MD Ot R10.12 LEFT UPPER QUADRANT PAIN 12/16/2016 FRED CAT MD T Ot R11.2 NAUSEA WITH VOMITING, UNSPECIFIED 12/16/2016 FRED CAT MD Ot Z79.899 OTHER HANDBAG OPERATOR (CURRENT) DRUG THERAPY 12/16/2016 FRED CAT MD [...] 12/17/2016 FRED CAT MD Ot Z79.899 OTHER HANDBAG OPERATOR (CURRENT) DRUG THERAPY 12/17/2016 FRED CAT MD T Ot Z98.1 ARTHRODESIS STATUS 01/09/2017 TERRANCE JAEGER APRN Ot F17.210 NICOTINE DEPENDENCE, CIGARETTES, UNCOMPL 01/09/2017 TERRANCE JAEGER FACILITY TECHNICIAN Ot I10 ESSENTIAL (PRIMARY) HYPERTENSION 01/09/2017 TERRANCE [...] 01/09/2017 TERRANCE JAEGER APRN Ot Z79.899 OTHER SHELTER (CURRENT) DRUG THERAPY 01/10/2017 TERRANCE JAEGER APRN [...] 01/10/2017 TERRANCE JAEGER APRN Ot Z79.899 OTHER HANDBAG OPERATOR (CURRENT) DRUG THERAPY 01/12/2017 KURTIS SOTO FACILITY TECHNICIAN Ot 784.2 SWELLING IN HEAD NECK 01/12/2017 KURTIS SOTO FACILITY TECHNICIAN Ot 721.8 SPINAL DISORDERS NEC 01/12/2017 KURTIS SOTO FACILITY TECHNICIAN Ot 724.02 SPINAL STENOSIS, LUMBAR REG, W/OUT NEURO 01/12/2017 CHARLES CARRERA MD Ot F17.210 NICOTINE DEPENDENCE, CIGARETTES, UNCOMPL 01/12/2017 CHARLES CARRERA MD Ot I10 ESSENTIAL (PRIMARY) HYPERTENSION 01/12/2017 CHARLES CARRERA MD Ot M50.30 OTHER CERVICAL DISC DEGENERATION, UNSP C 01/12/2017 CHARLES CARRERA MD Ot M54.2 CERVICALGIA 01/12/2017 CHARLES CARRERA MD Ot Z79.899 OTHER SHELTER (CURRENT) DRUG THERAPY 01/13/2017 CHARLES CARRERA MD Ot F17.210 NICOTINE DEPENDENCE, CIGARETTES, UNCOMPL 01/13/2017 CHARLES CARRERA MD Ot I10 ESSENTIAL (PRIMARY) HYPERTENSION 01/13/2017 CHARLES CARRERA MD Ot M50.30 OTHER CERVICAL DISC DEGENERATION, UNSP C 01/13/2017 CHARLES CARRERA MD Ot M54.2 CERVICALGIA 01/13/2017 CHARLES CARRERA MD Ot Z79.899 OTHER HANDBAG OPERATOR (CURRENT) DRUG THERAPY 01/15/2017 EMORY BYRD, FRED Blackman Ot S61.211D LACERATION W/O FB OF L IDX FNGR W/O SAM 01/18/2017 FRED CAT MD Ot S61.211D LACERATION W/O FB OF L IDX FNGR W/O SAM 04/20/2017 KURTIS SOTO FACILITY TECHNICIAN Ot 784.2 SWELLING IN HEAD NECK 04/20/2017 KURTIS SOTO FACILITY TECHNICIAN Ot 721.8 SPINAL DISORDERS NEC 04/20/2017 KURTIS SOTO FACILITY TECHNICIAN Ot 724.02 SPINAL STENOSIS, LUMBAR REG, W/OUT NEURO 04/21/2017 KURTIS SOTO FACILITY TECHNICIAN Ot 784.2 SWELLING IN HEAD NECK 04/21/2017 KURTIS SOTO FACILITY TECHNICIAN Ot 721.8 SPINAL DISORDERS NEC 04/21/2017 KURTIS SOTO FACILITY TECHNICIAN Ot 724.02 SPINAL STENOSIS, LUMBAR REG, W/OUT [...] 04/21/2017 BHAVYA ESCOBAR DO Ot Z79.899 OTHER HANDBAG OPERATOR (CURRENT) DRUG THERAPY 04/21/2017 KURTIS SOTO FACILITY TECHNICIAN Ot 784.2 SWELLING IN HEAD NECK 04/21/2017 KURTIS SOTO FACILITY TECHNICIAN Ot 721.8 SPINAL DISORDERS NEC 04/21/2017 KURTIS SOTO FACILITY TECHNICIAN Ot 724.02 SPINAL STENOSIS, LUMBAR REG, W/OUT NEURO 04/22/2017 KURTIS SOTO FACILITY TECHNICIAN Ot 784.2 SWELLING IN HEAD NECK 04/22/2017 KURTIS SOTO FACILITY TECHNICIAN Ot 721.8 SPINAL DISORDERS NEC 04/22/2017 KURTIS SOTO FACILITY TECHNICIAN Ot 724.02 SPINAL STENOSIS, LUMBAR REG, W/OUT NEURO 04/22/2017 KURTIS SOTO FACILITY TECHNICIAN Ot 784.2 SWELLING IN HEAD NECK 04/22/2017 KURTIS SOTO FACILITY TECHNICIAN Ot 721.8 SPINAL DISORDERS NEC 04/22/2017 KURTIS SOTO FACILITY TECHNICIAN Ot 724.02 SPINAL STENOSIS, LUMBAR REG, W/OUT NEURO 04/24/2017 EMORY BYRD, FRED T Ot F17.210 NICOTINE DEPENDENCE, CIGARETTES, UNCOMPL 04/24/2017 FRED CAT MD T Ot I10 ESSENTIAL (PRIMARY) HYPERTENSION 04/24/2017 FRED CAT MD T Ot J44.9 CHRONIC OBSTRUCTIVE PULMONARY DISEASE, U 04/24/2017 FRED CAT MD Ot M79.661 PAIN IN RIGHT LOWER LEG 04/27/2017 FRED CAT MD Ot F17.210 NICOTINE DEPENDENCE, CIGARETTES, UNCOMPL 04/27/2017 FRED CAT MD Ot I10 ESSENTIAL (PRIMARY) HYPERTENSION 04/27/2017 FRED CAT MD Ot J44.9 CHRONIC OBSTRUCTIVE PULMONARY DISEASE, U 04/27/2017 FRED CAT MD Ot M79.661 PAIN IN RIGHT LOWER LEG 05/17/2017 BHAVYA ESCOBAR DO Ot E78.00 PURE HYPERCHOLESTEROLEMIA, UNSPECIFIED 05/17/2017 LUZ DO, BHAVYA K Ot F17.210 NICOTINE DEPENDENCE, CIGARETTES, UNCOMPL 05/17/2017 LUZ DO, BHAVYA K Ot F41.9 ANXIETY DISORDER, UNSPECIFIED 05/17/2017 LUZ DO, BHAVYA K Ot G43.909 MIGRAINE, UNSP, NOT INTRACTABLE, WITHOUT 05/17/2017 LUZ DO, BHAVYA K Ot I10 ESSENTIAL (PRIMARY) HYPERTENSION 05/17/2017 LUZ DO, BHAVYA K Ot J44.9 CHRONIC OBSTRUCTIVE PULMONARY DISEASE, U 05/17/2017 LUZ DO, BHAVYA K Ot R10.9 UNSPECIFIED ABDOMINAL PAIN 05/17/2017 LUZ DO, BHAVYA K Ot R31.21 ASYMPTOMATIC MICROSCOPIC HEMATURIA 05/17/2017 LUZ DO, BHAVYA K Ot Z87.19 PERSONAL HISTORY OF OTHER DISEASES OF 05/17/2017 LUZ DO, BHAVYA K Ot Z87.442 PERSONAL HISTORY OF URINARY CALCULI 05/18/2017 LUZ DO, BHAVYA K Ot E78.00 PURE HYPERCHOLESTEROLEMIA, UNSPECIFIED 05/18/2017 LUZ DO, BHAVYA K Ot F17.210 NICOTINE DEPENDENCE, CIGARETTES, UNCOMPL 05/18/2017 LUZ DO, BHAVYA K Ot F41.9 ANXIETY DISORDER, UNSPECIFIED 05/18/2017 LUZ DO, BHAVYA K Ot G43.909 MIGRAINE, UNSP, NOT INTRACTABLE, WITHOUT 05/18/2017 LUZ DO, BHAVYA K Ot I10 ESSENTIAL (PRIMARY) HYPERTENSION 05/18/2017 LUZ DO, BHAVYA K Ot J44.9 CHRONIC OBSTRUCTIVE PULMONARY DISEASE, U 05/18/2017 LUZ DO, BHAVYA K Ot R10.9 UNSPECIFIED ABDOMINAL PAIN 05/18/2017 LUZ DO, BHAVYA K Ot R31.21 ASYMPTOMATIC MICROSCOPIC HEMATURIA 05/18/2017 LUZ DO, BHAVYA K Ot Z87.19 PERSONAL HISTORY OF OTHER DISEASES OF 05/18/2017 LUZ DOLLOAA K Ot Z87.442 PERSONAL HISTORY OF URINARY CALCULI 05/25/2017 LUZ DO, BHAVYA K Ot E78.00 PURE HYPERCHOLESTEROLEMIA, UNSPECIFIED 05/25/2017 LUZ DO, BHAVYA K Ot F17.210 NICOTINE DEPENDENCE, CIGARETTES, UNCOMPL 05/25/2017 LUZ DO, BHAVYA K Ot F41.9 ANXIETY DISORDER, UNSPECIFIED 05/25/2017 LUZ DO, BHAVYA K Ot G43.909 MIGRAINE, UNSP, NOT INTRACTABLE, WITHOUT 05/25/2017 LUZLOLA Crews DOA K Ot I10 ESSENTIAL (PRIMARY) HYPERTENSION 05/25/2017 BHAVYA ESCOBAR DO Ot J44.9 CHRONIC OBSTRUCTIVE PULMONARY DISEASE, U 05/25/2017 BHAVYA ESCOBAR DO Ot R10.9 UNSPECIFIED ABDOMINAL PAIN 05/25/2017 BHAVYA ESCOBAR DO Ot R31.21 ASYMPTOMATIC MICROSCOPIC HEMATURIA 05/25/2017 BHAVYA ESCOBAR DO Ot Z87.19 PERSONAL HISTORY OF OTHER DISEASES OF TH 05/25/2017 BHAVYA ESCOBAR DO Ot Z87.442 PERSONAL HISTORY OF URINARY CALCULI 06/02/2017 ELAN, LAMAR SLOT MACHINE KEY PERSON Ot E78.00 PURE HYPERCHOLESTEROLEMIA, UNSPECIFIED 06/02/2017 ELAN, LAMAR SLOT MACHINE KEY PERSON Ot F41.9 ANXIETY DISORDER, UNSPECIFIED 06/02/2017 ELAN, LAMAR SLOT MACHINE KEY PERSON Ot G40.909 EPILEPSY, UNSP, NOT INTRACTABLE, WITHOUT 06/02/2017 ELAN, LAMAR SLOT MACHINE KEY PERSON Ot I10 ESSENTIAL (PRIMARY) HYPERTENSION 06/02/2017 ELAN, LAMAR SLOT MACHINE KEY PERSON Ot J44.9 CHRONIC OBSTRUCTIVE PULMONARY DISEASE, U 06/02/2017 ELAN, LAMAR SLOT MACHINE KEY PERSON Ot K21.9 GASTRO-ESOPHAGEAL REFLUX DISEASE WITHOUT 06/02/2017 ELAN, LAMAR SLOT MACHINE KEY PERSON Ot M47.9 SPONDYLOSIS, UNSPECIFIED 06/02/2017 ELAN, LAMAR SLOT MACHINE KEY PERSON Ot R10.84 GENERALIZED ABDOMINAL PAIN 06/02/2017 ELAN, LAMAR SLOT MACHINE KEY PERSON Ot R19.7 DIARRHEA, UNSPECIFIED 06/02/2017 ELAN, LAMAR SLOT MACHINE KEY PERSON Ot S30.861A INSECT BITE (NONVENOMOUS) OF ABDOMINAL W 06/02/2017 ELAN, LAMAR SLOT MACHINE KEY PERSON Ot S70.361A INSECT BITE (NONVENOMOUS), RIGHT THIGH, 06/02/2017 ELAN, LAMAR SLOT MACHINE KEY PERSON Ot S70.362A INSECT BITE (NONVENOMOUS), LEFT THIGH, I 06/02/2017 ELAN, LAMAR SLOT MACHINE KEY PERSON Ot W57.XXXA BIT/STUNG BY NONVENOM INSECT OTH NONVE 06/02/2017 ELAN, LAMAR SLOT MACHINE KEY PERSON Ot Z87.442 PERSONAL HISTORY OF URINARY CALCULI 06/02/2017 ELAN, LAMAR SLOT MACHINE KEY PERSON Ot Z90.49 ACQUIRED ABSENCE OF OTHER SPECIFIED PART 06/24/2017 KURTIS SOTO FACILITY TECHNICIAN Ot 784.2 SWELLING IN HEAD NECK 06/24/2017 KURTIS SOTO FACILITY TECHNICIAN Ot 721.8 SPINAL DISORDERS NEC 06/24/2017 KURTIS SOTO FACILITY TECHNICIAN Ot 724.02 SPINAL STENOSIS, LUMBAR REG, W/OUT NEURO 06/24/2017 DENA WOO DO Ot R13.10 DYSPHAGIA, UNSPECIFIED 06/24/2017 DENA WOO DO Ot Z01.818 ENCOUNTER FOR OTHER PREPROCEDURAL EXAMIN 06/24/2017 DENA WOO DO Ot Z12.11 ENCOUNTER FOR SCREENING FOR MALIGNANT NE 06/24/2017 DENA WOO DO Ot Z86.010 PERSONAL HISTORY OF COLONIC POLYPS 06/29/2017 MALORIE JENNINGS MD Ot B80 ENTEROBIASIS 06/29/2017 MALORIE JENNINGS MD Ot E78.00 PURE HYPERCHOLESTEROLEMIA, UNSPECIFIED 06/29/2017 MALORIE JENNINGS MD Ot F17.210 NICOTINE DEPENDENCE, CIGARETTES, UNCOMPL 06/29/2017 MALORIE JENNINGS MD Ot F41.9 ANXIETY DISORDER, UNSPECIFIED 06/29/2017 MALORIE JENNINGS MD Ot G40.909 EPILEPSY, UNSP, NOT INTRACTABLE, WITHOUT 06/29/2017 MALORIE JENNINGS MD Ot I10 ESSENTIAL (PRIMARY) HYPERTENSION 06/29/2017 MALORIE JENNINGS MD Ot K29.70 GASTRITIS, UNSPECIFIED, WITHOUT BLEEDING 06/29/2017 MALORIE JENNINGS MD Ot N31.9 NEUROMUSCULAR DYSFUNCTION OF BLADDER, UN 06/29/2017 MALORIE JENNINGS MD Ot Z79.899 OTHER SHELTER (CURRENT) DRUG THERAPY 06/29/2017 MALORIE JENNINGS MD Ot Z86.010 PERSONAL HISTORY OF COLONIC POLYPS 07/28/2017 JEYSON ALEGRIA N45.1 Epididymitis 07/28/2017 JEYSON ALEGRIA R10.84 Generalized abdominal pain 08/11/2017 JEAN MARIE HAYES DO G40.909 Epilepsy, unsp, not intractable, without status epilepticus 08/11/2017 JEAN MARIE HAYES DO K58.9 Irritable bowel syndrome without diarrhea 08/11/2017 JEAN MARIE HAYES DO M54.89 Other dorsalgia 08/11/2017 JEAN MARIE HAYES DO R10.10 Upper abdominal pain, unspecified 08/11/2017 JEAN MARIE HAYES DO T88.7XXA Unsp adverse effect of drug or medicament, init encntr 08/23/2017 JEYSON ALEGRIA M54.2 Cervicalgia 08/31/2017 ARISTIDES DOZIER MD M25.511 Pain in right shoulder 08/31/2017 ARISTIDES DOZIER MD W19.XXXA Unspecified fall, initial encounter 08/31/2017 ARISTIDES DOZIER MD Y92.[address] or not applicable 08/31/2017 ARISTIDES DOZIER MD Y93.9 Activity, unspecified 08/31/2017 ARISTIDES DOZIER MD Y99.9 Unspecified external cause status 09/05/2017 JEYSON ALEGRIA M25.511 Pain in right shoulder 09/05/2017 JEYSON ALEGRIA M54.12 Radiculopathy, cervical region 09/05/2017 JEYSON ALEGRIA M54.2 Cervicalgia 09/05/2017 JEYSON ALEGRIA M79.601 Pain in right arm 09/08/2017 DEZ BYRD, DARVIN Qiu M54.2 Cervicalgia 09/08/2017 D M25.511 Pain in right shoulder 09/08/2017 D M54.12 Radiculopathy , cervical region 09/08/2017 D M54.2 Cervicalgia 09/08/2017 D M79.601 Pain in right arm 09/08/2017 DARVIN GARCES MD M54.2 Cervicalgia 11/11/2017 CHRISTINA BELLO N50.811 Right testicular pain 11/11/2017 CHRISTINA BELLO N50.89 Other specified disorders of the male genital organs 12/09/2017 W H52.13 Myopia, bilateral 12/09/2017 W H52.13 Myopia, bilateral 12/09/2017 W H52.223 Regular astigmatism, bilateral 12/09/2017 W H52.13 Myopia, bilateral 12/09/2017 W H52.223 Regular astigmatism, bilateral 12/09/2017 W H52.13 Myopia, bilateral 12/09/2017 W H52.223 Regular astigmatism, bilateral 12/22/2017 FREDDY DO JEAN MARIE L D G40.909 Epilepsy, unsp, not intractable, without status epilepticus 12/22/2017 FREDDY JEAN MARIE ZENG I88.9 Nonspecific lymphadenitis, unspecified 12/22/2017 FREDDY JEAN MARIE ZNEG J02.9 Acute pharyngitis, unspecified 12/22/2017 FREDDY JEAN MARIE ZENG M54.2 Cervicalgia 12/22/2017 JEAN MARIE HAYES DO M54.89 Other dorsalgia 12/29/2017 W H52.13 Myopia, bilateral 12/29/2017 W H52.223 Regular astigmatism, bilateral 12/29/2017 W H52.13 Myopia, bilateral 12/29/2017 W H52.223 Regular astigmatism, bilateral 12/29/2017 W H52.13 Myopia, bilateral 12/29/2017 W H52.223 Regular astigmatism, bilateral 01/06/2018 W H52.13 Myopia, bilateral 01/06/2018 W H52.223 Regular astigmatism, bilateral 01/06/2018 W H52.13 Myopia, bilateral 01/06/2018 W H52.223 Regular astigmatism, bilateral 01/06/2018 W H52.13 Myopia, bilateral 01/06/2018 W H52.223 Regular astigmatism, bilateral 01/10/2018 W H52.13 Myopia, bilateral 01/10/2018 W H52.223 Regular astigmatism, bilateral 01/10/2018 W H52.13 Myopia, bilateral 01/10/2018 W H52.223 Regular astigmatism, bilateral 01/12/2018 DEZ BYRD, DARVIN Mirza M54.12 Radiculopathy, cervical region 03/28/2018 PENNIE COOK MD T46.6X5A Adverse effect of antihyperlip and antiarterio drugs, init 03/28/2018 PENNIE COOK MD T50.995A Adverse effect of drug/meds/biol subst, init 06/08/2018 JEYSON ALEGRIA R10.31 Right lower quadrant pain 06/20/2018 KURTIS SOTO FACILITY TECHNICIAN Ot 784.2 SWELLING IN HEAD NECK 06/20/2018 KURTIS SOTO FACILITY TECHNICIAN Ot 721.8 SPINAL DISORDERS NEC 06/20/2018 KURTIS SOTO FACILITY TECHNICIAN Ot 724.02 SPINAL STENOSIS, LUMBAR REG, W/OUT NEURO 06/22/2018 DION MENEZES Ot E78.00 PURE HYPERCHOLESTEROLEMIA, UNSPECIFIED 06/22/2018 BERNGUILLERMO BURNETTEIS Ot F17.210 NICOTINE DEPENDENCE, CIGARETTES, UNCOMPL 06/22/2018 DION MENEZES Ot F41.9 ANXIETY DISORDER, UNSPECIFIED 06/22/2018 CLIF DION Ot G40.909 EPILEPSY, UNSP, NOT INTRACTABLE, WITHOUT 06/22/2018 GUILLERMO MENEZESIS Ot I10 ESSENTIAL (PRIMARY) HYPERTENSION 06/22/2018 DION MENEZES Ot J44.9 CHRONIC OBSTRUCTIVE PULMONARY DISEASE, U 06/22/2018 DION MENEZES Ot K21.9 GASTRO-ESOPHAGEAL REFLUX DISEASE WITHOUT 06/22/2018 GUILLERMO MENEZESIS Ot K59.00 CONSTIPATION, UNSPECIFIED 06/22/2018 GUILLERMO MENEZESIS Ot R11.0 NAUSEA 06/22/2018 GUILLERMO MENEZESIS Ot Z87.442 PERSONAL HISTORY OF URINARY CALCULI 06/22/2018 GUILLERMO MENEZESIS Ot Z88.1 ALLERGY STATUS TO OTHER ANTIBIOTIC AGENT 06/22/2018 DION MENEZES Ot Z88.2 ALLERGY STATUS TO SULFONAMIDES STATUS 06/22/2018 DION MENEZES Ot Z88.5 ALLERGY STATUS TO NARCOTIC AGENT STATUS 06/22/2018 GUILLERMO MENEZESIS Ot Z90.49 ACQUIRED ABSENCE OF OTHER SPECIFIED PART Procedures Code [place] [address] [place] ABD & PELVIS W/O CONTRAST JEYSON ALEGRIA 07/28/2017 45986 US EXAM SCROTUM JEYSON ALEGRIA 07/28/2017 88447 COMPREHEN METABOLIC PANEL JEYSON ALEGRIA 07/28/2017 14022 DRUG TEST PRSMV DIR OPT OBS JEYSON ALEGRIA 07/28/2017 42774 URINALYSIS AUTO W/SCOPE JEYSON ALEGRIA 07/28/2017 00744 COMPLETE CBC W/AUTO DIFF WBC JEYSON ALEGRIA 07/28/2017 72947 CHYLMD TRACH DNA AMP PROBE JEYSON ALEGRIA 07/28/2017 81369 N.GONORRHOEAE DNA AMP PROB JEANIE ALEGRIAVERENICE Mirza 07/28/2017 27111 HYDRATE IV INFUSION ADD-ON FEMI UMANZORJEYSON 07/28/2017 94506 THER/PROPH/DIAG IV INF INIT FEMI UMANZOR JEYSON Mirza 07/28/2017 97413 TX/PRO/DX INJ NEW DRUG ADDON FEMI UMANZOR JEYSON Mirza 07/28/2017 03246 EMERGENCY DEPT VISIT FEMI MARKSJEYSON Norris 07/28/2017 J0696 CEFTRIAXONE SODIUM INJECTION FEMI UMANZORJEYSON 07/28/2017 J1885 KETOROLAC TROMETHAMINE INJ FEMI UMANZOR JEYSON Mirza 07/28/2017 J7030 NORMAL SALINE SOLUTION INFUS FEMI UMANZOR JEYSON Mirza 07/28/2017 J7050 NORMAL SALINE SOLUTION INFUS JEANIE ALEGRIAVERENICE Mirza 07/28/2017 36366 ROUTINE VENIPUNCTURE JEAN MARIE HAYES DO 08/11/2017 35294 COMPREHEN METABOLIC PANEL JEAN MARIE HAYES DO 08/11/2017 76172 URINALYSIS AUTO W/SCOPE JEAN MARIE HAYES DO 08/11/2017 03304 ASSAY OF AMYLASE JEAN MARIE HAYES DO 08/11/2017 37781 ASSAY OF LIPASE JEAN MARIE HAYES DO 08/11/2017 50136 COMPLETE CBC W/AUTO DIFF WBC JEAN MARIE HAYES DO 08/11/2017 27599 THER/PROPH/DIAG INJ SC/IM JEAN MARIE HAYES DO 08/11/2017 11135 EMERGENCY DEPT VISIT JEAN MARIE HAYES DO 08/11/2017 J1885 KETOROLAC TROMETHAMINE INJ JEAN MARIE HAYES DO 08/11/2017 92845 X-RAY EXAM NECK SPINE 6/> VWS FEMI MARKSJEYSON Norris 08/23/2017 45371 EMERGENCY DEPT VISIT FEMI UMANZORJEYSON 08/23/2017 91520 X-RAY EXAM OF SHOULDER JEYSON ALEGRIA 08/31/2017 15460 MRI NECK SPINE W/O DYE JEYSON ALEGRIA 09/05/2017 30946 NJX INTERLAMINAR CRV/THRC FEMI JEYSON UMANZOR 09/08/2017 57033 HYDRATION IV INFUSION INIT JEYSON ALEGRIA 09/08/2017 J1040 METHYLPREDNISOLONE 80 MG INJ DEZ BYRD, DARVIN Qiu 09/08/2017 J7030 NORMAL SALINE SOLUTION RUTH GARCES MD, DARVIN Qiu 09/08/2017 Q9967 LOCM 300-399MG/ML IODINE, 1ML DEZ BYRD, DARVIN Qiu 09/08/2017 48515 NJX INTERLAMINAR CRV/THRC JEYSON ALEGRIA 09/08/2017 J1040 METHYLPREDNISOLONE 80 MG INJ DEZ BYRD, DARVIN Qiu 09/08/2017 J7030 NORMAL SALINE SOLUTION RUTH GARCES MD, DARVIN Qiu 09/08/2017 Q9967 LOCM 300-399MG/ML IODINE, 1ML DEZ BYRD, DARVIN Qiu 09/08/2017 66167 ROUTINE VENIPUNCTURE CHRISTINA BELLO 11/11/2017 84707 US EXAM SCROTUM CHRISTINA BELLO 11/11/2017 34167 COMPREHEN METABOLIC PANEL CHRISTINA BELLO 11/11/2017 48817 COMPLETE CBC W/AUTO DIFF WBC CHRISTINA BELLO 11/11/2017 70868 RBC SED RATE NONAUTOMATED CHRISTINA BELLO 11/11/2017 98314 EYE EXAM, NEW PATIENT 12/09/2017 42468 REFRACTION 12/09/2017 V2020 Vision [facility] frames purchases 12/09/2017 V2103 Spherocylindr 4.00d/12- 2.00d 12/09/2017 V2104 Spherocylindr 4.00d/2.12-4d 12/09/2017 V2782 Lens, 1.54-1.65 p/1.60- 1.79g 12/09/2017 V2104 Spherocylindr 4.00d/2.12-4d 12/16/2017 V2782 Lens, 1.54-1.65 p/1.60- 1.79g 12/16/2017 55602 CULTURE OTHR SPECIMN AEROBIC FREDDY ZENG JEAN MARIE Flaco 12/22/2017 59174 THER/PROPH/DIAG INJ SC/IM FREDDY ZENG JEAN MARIE Flaco 12/22/2017 94557 EMERGENCY DEPT VISIT FREDDY ZENG JEAN MARIE Flaco 12/22/2017 J0696 CEFTRIAXONE SODIUM INJECTION FREDDY ZENG JEAN MARIE Flaco 12/22/2017 74923 NJX INTERLAMINAR CRV/THRC DEZ BYRD, DARVIN Qiu 01/12/2018 J1040 METHYLPREDNISOLONE 80 MG INJ DEZ BYRD, DARVIN Qiu 01/12/2018 Q9967 LOCM 300-399MG/ML IODINE, 1ML DEZ BYRD, DARVIN Qiu 01/12/2018 08965 ROUTINE VENIPUNCTURE JOYCE BYRD, PENNIE C 03/28/2018 26775 COMPLETE CBC W/AUTO DIFF WBC JOYCE BYRD, PENNIE C 03/28/2018 03587 THER/PROPH/DIAG INJ SC/IM JOYCE BYRD, PENNEI C 03/28/2018 04172 EMERGENCY DEPT VISIT JOYCE BYRD, PENNIE C 03/28/2018 J1885 KETOROLAC TROMETHAMINE INJ JOYCE BYRD, PENNIE C 03/28/[address] ABD & PELVIS W/O CONTRAST JEYSON ALEGRIA 06/08/2018 88172 COMPREHEN METABOLIC PANEL JEYSON ALEGRIA 06/08/2018 94851 URINALYSIS AUTO W/SCOPE JEYSON ALEGRIA 06/08/2018 29497 ASSAY OF AMYLASE JEYSON ALEGRIA 06/08/2018 81843 ASSAY OF LIPASE JEYSON ALEGRIA 06/08/2018 55791 COMPLETE CBC W/AUTO DIFF WBC JEYSON ALEGRIA 06/08/2018 89733 HELICOBACTER PYLORI ANTIBODY JEYSON ALEGRIA 06/08/2018 03382 HYDRATE IV INFUSION ADD-ON JEYSON ALEGRIA 06/08/2018 06774 THER/PROPH/DIAG INJ IV PUSH JEYSON ALEGRIA 06/08/2018 35399 EMERGENCY DEPT VISIT JEYSON ALEGRIA 06/08/2018 J1885 KETOROLAC TROMETHAMINE INJ JEYSON ALEGRIA 06/08/2018 J7030 NORMAL SALINE SOLUTION INFUS JEYSON ALEGRIA 06/08/2018 Results Test Result Range CBC With Differential/Platelet - 12/01/16 12:03 WBC 6.0 x10E3/uL 3.4-10.8 RBC 5.02 x10E6/uL 4.14-5.80 Hemoglobin 16.0 g/dL 12.6-17.7 Hematocrit 46.5 % 37.5-51.0 MCV 93 fL 79-97 MCH 31.9 pg 26.6-33.0 MCHC 34.4 g/dL 31.5-35.7 RDW 13.8 % 12.3-15.4 Platelets 207 x10E3/uL 150-379 Neutrophils 56 % Lymphs 30 % Monocytes 10 % Eos 4 % Basos 0 % Neutrophils (Absolute) 3.3 x10E3/uL 1.4-7.0 Lymphs (Absolute) 1.8 x10E3/uL 0.7-3.1 Monocytes(Absolute) 0.6 x10E3/uL 0.1-0.9 Eos (Absolute) 0.3 x10E3/uL 0.0-0.4 Baso (Absolute) 0.0 x10E3/uL 0.0-0.2 Immature Granulocytes 0 % Immature Grans (Abs) 0.0 x10E3/uL 0.0-0.1 Comp. Metabolic Panel (14) - 12/01/16 12:03 Glucose, Serum 43 mg/dL 65-99 BUN 18 mg/dL 6-20 Creatinine, Serum 1.03 mg/dL 0.76-1.27 eGFR If NonAfricn Am 91 mL/min/1.73 >59 eGFR If Africn Am 105 mL/min/1.73 >59 BUN/Creatinine Ratio 17 8-19 Sodium, Serum 142 mmol/L 134-144 Potassium, Serum 4.1 mmol/L 3.5-5.2 Chloride, Serum 107 mmol/L 96-106 Carbon Dioxide, Total 19 mmol/L 18-29 Calcium, Serum 8.9 mg/dL 8.7-10.2 Protein, Total, Serum 6.7 g/dL 6.0-8.5 Albumin, Serum 3.8 g/dL 3.5-5.5 Globulin, Total 2.9 g/dL 1.5-4.5 A/G Ratio 1.3 1.1-2.5 Bilirubin, Total <0.2 mg/dL 0.0-1.2 Alkaline Phosphatase, S 129 IU/L 39-117 AST (SGOT) 13 IU/L 0-40 ALT (SGPT) 19 IU/L 0-44 Lipid Panel - 12/01/16 12:03 Cholesterol, Total 166 mg/dL 100-199 Triglycerides 191 mg/dL 0-149 HDL Cholesterol 25 mg/dL >39 VLDL Cholesterol Shahbaz 38 mg/dL 5-40 LDL Cholesterol Calc 103 mg/dL 0-99 Gestational 2 hour GTT - 12/06/16 09:09 Glucose, Fasting 96 mg/dL 65-91 Glucose, 1 hour TNP Glucose, 2 hour 67 mg/dL 65-152 Hemoglobin A1c - 12/06/16 09:09 Hemoglobin A1c 5.5 % 4.8-5.6 Complete urinalysis with reflex to culture - 12/16/16 19:57 Urine color determination YELLOW NRG Urine clarity determination CLEAR NRG Urine pH measurement by test strip 7 5-9 Specific gravity of urine by test strip 1.010 1.016- 1.022 Urine protein assay by test strip, semi-quantitative [...] 20:25 Blood leukocytes automated count (number/volume) 7.3 10*3/uL 4.3-11.0 Blood erythrocytes automated count (number/volume) 5.00 10*6/uL 4.35-5.85 Venous blood hemoglobin measurement (mass/volume) 16.2 [...] Automated blood platelet mean volume measurement 11.4 [foz_us] 7.4-10.4 Automated blood neutrophils/100 leukocytes 60 % [...] Serum or plasma sodium measurement (moles/volume) 140 mmol/L 135-145 Serum or plasma potassium measurement (moles/volume) 3.5 mmol/L 3.6-5.0 Serum or plasma chloride measurement (moles/volume) 112 mmol/L 98-107 Carbon dioxide 18 mmol/L 21-32 Serum or plasma anion gap determination (moles/volume) 10 mmol/L 5-14 Serum or plasma urea nitrogen measurement (mass/volume) 17 mg/dL 7-18 Serum or plasma creatinine measurement (mass/volume) 1.09 mg/dL 0.60-1.30 Serum or plasma urea nitrogen/creatinine mass [...] plasma C reactive protein measurement (mass/volume) 0.18 mg /dL 0.00-0.50 Complete blood count (CBC) with automated white blood cell (WBC) differential - 04/21/17 19:37 Blood leukocytes automated count (number/volume) 7.3 10*3/uL 4.3-11.0 Blood erythrocytes automated count (number/volume) 5.30 10*6/uL 4.35-5.85 Venous blood hemoglobin measurement (mass/volume) 17.1 [...] Automated blood platelet mean volume measurement 11.3 [foz_us] 7.4-10.4 Automated blood neutrophils/100 leukocytes 69 % [...] Serum or plasma sodium measurement (moles/volume) 138 mmol/L 135-145 Serum or plasma potassium measurement (moles/volume) 3.7 mmol/L 3.6-5.0 Serum or plasma chloride measurement (moles/volume) 111 mmol/L 98-107 Carbon dioxide 18 mmol/L 21-32 Serum or plasma anion gap determination (moles/volume) 9 mmol/L 5-14 Serum or plasma urea nitrogen measurement (mass/volume) 25 mg/dL 7-18 Serum or plasma creatinine measurement (mass/volume) 0.98 mg/dL 0.60-1.30 Serum or plasma urea nitrogen/creatinine mass [...] or plasma troponin i.cardiac measurement (mass/volume) < ng/ mL <0.30 Complete blood count (CBC) with automated white blood cell (WBC) differential - 05/16/17 23:57 Blood leukocytes automated count (number/volume) 8.0 10*3/uL 4.3-11.0 Blood erythrocytes automated count (number/volume) 5.15 10*6/uL 4.35-5.85 Venous blood hemoglobin measurement (mass/volume) 16.2 [...] Automated blood platelet mean volume measurement 11.4 [foz_us] 7.4-10.4 Automated blood neutrophils/100 leukocytes 54 % [...] Serum or plasma sodium measurement (moles/volume) 141 mmol/L 135-145 Serum or plasma potassium measurement (moles/volume) 3.8 mmol/L 3.6-5.0 Serum or plasma chloride measurement (moles/volume) 114 mmol/L 98-107 Carbon dioxide 17 mmol/L 21-32 Serum or plasma anion gap determination (moles/volume) 10 mmol/L 5-14 Serum or plasma urea nitrogen measurement (mass/volume) 24 mg/dL 7-18 Serum or plasma creatinine measurement (mass/volume) 1.13 mg/dL 0.60-1.30 Serum or plasma urea nitrogen/creatinine mass ratio 21 0 -20 Serum or plasma creatinine measurement with calculation [...] or plasma amylase measurement (enzymatic activity/volume) 46 U /L 25-125 Lipase - 05/16/17 23:57 Lipase 15 U/L 8-78 Complete urinalysis with reflex to culture - 05/17/17 00:13 Urine color determination YELLOW NRG Urine clarity determination CLEAR NRG Urine pH measurement by test strip 8 5-9 Specific gravity of urine by test strip 1.015 1.016- 1.022 Urine protein assay by test strip, semi-quantitative [...] urine sediment by light microscopy 2-5 NRG Complete blood count (CBC) with automated white blood cell (WBC) differential - 06/02/17 19:37 Blood leukocytes automated count (number/volume) 7.4 10*3/uL 4.3-11.0 Blood erythrocytes automated count (number/volume) 4.95 10*6/uL 4.35-5.85 Venous blood hemoglobin measurement (mass/volume) 16.0 g/dL 13.3-17.7 Blood hematocrit (volume fraction) 46 % 40-54 Automated erythrocyte mean corpuscular volume 92 [foz_us] 80-99 Automated erythrocyte mean corpuscular hemoglobin (mass per erythrocyte) 32 pg 25-34 Automated erythrocyte mean corpuscular hemoglobin concentration measurement ( mass/volume) 35 g/dL 32-36 Automated erythrocyte distribution width ratio 13.5 % 10.0-14.5 Automated blood platelet count (count/volume) 170 10*3/uL 130-400 Automated blood platelet mean volume measurement 10.7 [foz_us] 7.4-10.4 Automated blood neutrophils/100 leukocytes 60 % 42-75 Automated blood lymphocytes/100 leukocytes 21 % 12-44 Blood monocytes/100 leukocytes 15 % 0-12 Automated blood eosinophils/100 leukocytes 4 % 0-10 Automated blood basophils/100 leukocytes 0 % 0-10 Blood neutrophils automated count (number/volume) 4.5 10*3 1.8-7.8 Blood lymphocytes automated count (number/volume) 1.6 10*3 1.0-4.0 Blood monocytes automated count (number/volume) 1.1 10*3 0.0-1.0 Automated eosinophil count 0.3 10*3/uL 0.0-0.3 Automated blood basophil count (count/volume) 0.0 10*3/uL 0.0-0.1 Comprehensive metabolic panel - 06/02/17 19:37 Serum or plasma sodium measurement (moles/volume) 141 mmol/L 135-145 Serum or plasma potassium measurement (moles/volume) 3.3 mmol/L 3.6-5.0 Serum or plasma chloride measurement (moles/volume) 111 mmol/L 98-107 Carbon dioxide 21 mmol/L 21-32 Serum or plasma anion gap determination (moles/volume) 9 mmol/L 5-14 Serum or plasma urea nitrogen measurement (mass/volume) 18 mg/dL 7-18 Serum or plasma creatinine measurement (mass/volume) 1.05 mg/dL 0.60-1.30 Serum or plasma urea nitrogen/creatinine mass ratio 17 NRG Serum or plasma creatinine measurement with calculation of estimated glomerular filtration rate > NRG Serum or plasma glucose measurement (mass/volume) 96 mg/dL 70-105 Serum or plasma calcium measurement (mass/volume) 9.1 mg/dL 8.5-10.1 Serum or plasma total bilirubin measurement (mass/volume) 0.5 mg/dL 0.1-1.0 Serum or plasma alkaline phosphatase measurement (enzymatic activity/volume) 109 U/L 40-136 Serum or plasma aspartate aminotransferase measurement (enzymatic activity/ volume) 13 U/L 5-34 Serum or plasma alanine aminotransferase measurement (enzymatic activity/volume ) 15 U/L 0-55 Serum or plasma protein measurement (mass/volume) 6.8 g/dL 6.4-8.2 Serum or plasma albumin measurement (mass/volume) 3.9 g/dL 3.2-4.5 Complete urinalysis with reflex to culture - 06/02/17 19:50 Urine color determination YELLOW NRG Urine clarity determination CLEAR NRG Urine pH measurement by test strip 7 5-9 Specific gravity of urine by test strip 1.005 1.016- 1.022 Urine protein assay by test strip, semi-quantitative [...] erythrocyte count by microscopy (number/high power field) NONE NRG Automated urine sediment leukocyte count by microscopy (number/high power field ) RARE NRG Bacteria detection in urine sediment by light microscopy NEGATIVE NRG Crystals detection in urine sediment by light microscopy NONE NRG Casts detection in urine sediment by light microscopy NONE NRG Mucus detection in urine sediment by light microscopy NEGATIVE NRG Complete urinalysis with reflex to culture NO NRG Methicillin resistant Staphylococcus aureus (MRSA) screening culture - 16:35 Methicillin resistant Staphylococcus aureus (MRSA) screening culture NEG NRG Complete blood count (CBC) with automated white blood cell (WBC) differential - 06/28/17 22:00 Blood leukocytes automated count (number/volume) 7.5 10*3/uL 4.3-11.0 Blood erythrocytes automated count (number/volume) 5.21 10*6/uL 4.35-5.85 Venous blood hemoglobin measurement (mass/volume) 16.6 g/dL 13.3-17.7 Blood hematocrit (volume fraction) 48 % 40-54 Automated erythrocyte mean corpuscular volume 92 [foz_us] 80-99 Automated erythrocyte mean corpuscular hemoglobin (mass per erythrocyte) 32 pg 25-34 Automated erythrocyte mean corpuscular hemoglobin concentration measurement ( mass/volume) 35 g/dL 32-36 Automated erythrocyte distribution width ratio 13.0 % 10.0-14.5 Automated blood platelet count (count/volume) 176 10*3/uL 130-400 Automated blood platelet mean volume measurement 10.4 [foz_us] 7.4-10.4 Automated blood neutrophils/100 leukocytes 67 % 42-75 Automated blood lymphocytes/100 leukocytes 18 % 12-44 Blood monocytes/100 leukocytes 12 % 0-12 Automated blood eosinophils/100 leukocytes 2 % 0-10 Automated blood basophils/100 leukocytes 0 % 0-10 Blood neutrophils automated count (number/volume) 5.0 10*3 1.8-7.8 Blood lymphocytes automated count (number/volume) 1.4 10*3 1.0-4.0 Blood monocytes automated count (number/volume) 0.9 10*3 0.0-1.0 Automated eosinophil count 0.2 10*3/uL 0.0-0.3 Automated blood basophil count (count/volume) 0.0 10*3/uL 0.0-0.1 Comprehensive metabolic panel - 06/28/17 22:00 Serum or plasma sodium measurement (moles/volume) 141 mmol/L 135-145 Serum or plasma potassium measurement (moles/volume) 3.2 mmol/L 3.6-5.0 Serum or plasma chloride measurement (moles/volume) 110 mmol/L 98-107 Carbon dioxide 21 mmol/L 21-32 Serum or plasma anion gap determination (moles/volume) 10 mmol/L 5-14 Serum or plasma urea nitrogen measurement (mass/volume) 14 mg/dL 7-18 Serum or plasma creatinine measurement (mass/volume) 1.09 mg/dL 0.60-1.30 Serum or plasma urea nitrogen/creatinine mass ratio 13 NRG Serum or plasma creatinine measurement with calculation of estimated glomerular filtration rate > NRG Serum or plasma glucose measurement (mass/volume) 77 mg/dL 70-105 Serum or plasma calcium measurement (mass/volume) 9.0 mg/dL 8.5-10.1 Serum or plasma total bilirubin measurement (mass/volume) 0.7 mg/dL 0.1-1.0 Serum or plasma alkaline phosphatase measurement (enzymatic activity/volume) 108 U/L 40-136 Serum or plasma aspartate aminotransferase measurement (enzymatic activity/ volume) 11 U/L 5-34 Serum or plasma alanine aminotransferase measurement (enzymatic activity/volume ) 15 U/L 0-55 Serum or plasma protein measurement (mass/volume) 6.8 g/dL 6.4-8.2 Serum or plasma albumin measurement (mass/volume) 3.8 g/dL 3.2-4.5 Complete blood count (CBC) with automated white blood cell (WBC) differential - 06/29/17 04:07 Blood leukocytes automated count (number/volume) 6.3 10*3/uL 4.3-11.0 Blood erythrocytes automated count (number/volume) 4.96 10*6/uL 4.35-5.85 Venous blood hemoglobin measurement (mass/volume) 15.4 g/dL 13.3-17.7 Blood hematocrit (volume fraction) 46 % 40-54 Automated erythrocyte mean corpuscular volume 92 [foz_us] 80-99 Automated erythrocyte mean corpuscular hemoglobin (mass per erythrocyte) 31 pg 25-34 Automated erythrocyte mean corpuscular hemoglobin concentration measurement ( mass/volume) 34 g/dL 32-36 Automated erythrocyte distribution width ratio 13.0 % 10.0-14.5 Automated blood platelet count (count/volume) 170 10*3/uL 130-400 Automated blood platelet mean volume measurement 10.7 [foz_us] 7.4-10.4 Automated blood neutrophils/100 leukocytes 61 % 42-75 Automated blood lymphocytes/100 leukocytes 25 % 12-44 Blood monocytes/100 leukocytes 11 % 0-12 Automated blood eosinophils/100 leukocytes 4 % 0-10 Automated blood basophils/100 leukocytes 0 % 0-10 Blood neutrophils automated count (number/volume) 3.8 10*3 1.8-7.8 Blood lymphocytes automated count (number/volume) 1.6 10*3 1.0-4.0 Blood monocytes automated count (number/volume) 0.7 10*3 0.0-1.0 Automated eosinophil count 0.2 10*3/uL 0.0-0.3 Automated blood basophil count (count/volume) 0.0 10*3/uL 0.0-0.1 Comprehensive metabolic panel - 06/29/17 04:07 Serum or plasma sodium measurement (moles/volume) 142 mmol/L 135-145 Serum or plasma potassium measurement (moles/volume) 3.8 mmol/L 3.6-5.0 Serum or plasma chloride measurement (moles/volume) 114 mmol/L 98-107 Carbon dioxide 19 mmol/L 21-32 Serum or plasma anion gap determination (moles/volume) 9 mmol/L 5-14 Serum or plasma urea nitrogen measurement (mass/volume) 16 mg/dL 7-18 Serum or plasma creatinine measurement (mass/volume) 1.05 mg/dL 0.60-1.30 Serum or plasma urea nitrogen/creatinine mass ratio 15 NRG Serum or plasma creatinine measurement with calculation of estimated glomerular filtration rate > NRG Serum or plasma glucose measurement (mass/volume) 108 mg/dL 70-105 Serum or plasma calcium measurement (mass/volume) 8.7 mg/dL 8.5-10.1 Serum or plasma total bilirubin measurement (mass/volume) 0.4 mg/dL 0.1-1.0 Serum or plasma alkaline phosphatase measurement (enzymatic activity/volume) 102 U/L 40-136 Serum or plasma aspartate aminotransferase measurement (enzymatic activity/ volume) 10 U/L 5-34 Serum or plasma alanine aminotransferase measurement (enzymatic activity/volume ) 13 U/L 0-55 Serum or plasma protein measurement (mass/volume) 5.9 g/dL 6.4-8.2 Serum or plasma albumin measurement (mass/volume) 3.4 g/dL 3.2-4.5 Serum or plasma phosphate measurement (mass/volume) - 06/29/17 04:07 Serum or plasma phosphate measurement (mass/volume) 2.8 mg/dL 2.3-4.7 Magnesium - 06/29/17 04:07 Magnesium 2.0 mg/dL 1.8-2.4 Digoxin - 06/29/17 04:07 Digoxin < ng/mL 0.80-2.00 CMP - 04/18/18 14:32 GLUCOSE 81 mg/dL 65-99 UREA NITROGEN (BUN) 19 mg/dL 7-25 CREATININE 1.00 mg/dL 0.60-1.35 eGFR NON-AFR. GREEK 93 mL/min/1.73m2 > OR=60 eGFR 108 mL/min/1.73m2 > OR=60 BUN/CREATININE RATIO NOT APPLICABLE (calc) 6-22 SODIUM 138 mmol/L 135-146 POTASSIUM 4.3 mmol/L 3.5-5.3 CHLORIDE 108 mmol/L 98-110 CARBON DIOXIDE 23 mmol/L 20-31 CALCIUM 9.7 mg/dL 8.6-10.3 PROTEIN, TOTAL 7.5 g/dL 6.1-8.1 ALBUMIN 4.5 g/dL 3.6-5.1 GLOBULIN 3.0 g/dL (calc) 1.9-3.7 ALBUMIN/GLOBULIN RATIO 1.5 (calc) 1.0-2.5 BILIRUBIN, TOTAL 0.7 mg/dL 0.2-1.2 ALKALINE PHOSPHATASE 108 U/L 40-115 AST 13 U/L 10-40 ALT 11 U/L 9-46 Complete urinalysis with reflex to culture - 06/20/18 17:30 Urine color determination YELLOW NRG Urine clarity determination CLEAR NRG Urine pH measurement by test strip 8 5-9 Specific gravity of urine by test strip 1.015 1.016- 1.022 Urine protein assay by test strip, semi-quantitative 1+ NEGATIVE Urine glucose detection by automated test strip NEGATIVE NEGATIVE Erythrocytes detection in urine sediment by light microscopy NEGATIVE NEGATIVE Urine ketones detection by automated test strip NEGATIVE NEGATIVE Urine nitrite detection by test strip NEGATIVE NEGATIVE Urine total bilirubin detection by test strip NEGATIVE NEGATIVE Urine urobilinogen measurement by automated test strip (mass/volume) NORMAL NORMAL Urine leukocyte esterase detection by dipstick 1+ NEGATIVE Automated urine sediment erythrocyte count by microscopy (number/high power field) NONE NRG Automated urine sediment leukocyte count by microscopy (number/high power field ) [HPF] NRG Bacteria detection in urine sediment by light microscopy NONE NRG Crystals detection in urine sediment by light microscopy PRESENT NRG Casts detection in urine sediment by light microscopy NONE NRG Mucus detection in urine sediment by light microscopy NEGATIVE NRG Complete urinalysis with reflex to culture NO NRG Amorphous sediment detection in urine sediment by light microscopy FEW ROSELINE PHOSPHATE NRG Complete blood count (CBC) with automated white blood cell (WBC) differential - 06/20/18 17:50 Blood leukocytes automated count (number/volume) 6.6 10*3/uL 4.3-11.0 Blood erythrocytes automated count (number/volume) 4.87 10*6/uL 4.35-5.85 Venous blood hemoglobin measurement (mass/volume) 16.1 g/dL 13.3-17.7 Blood hematocrit (volume fraction) 45 % 40-54 Automated erythrocyte mean corpuscular volume 92 [foz_us] 80-99 Automated erythrocyte mean corpuscular hemoglobin (mass per erythrocyte) 33 pg 25-34 Automated erythrocyte mean corpuscular hemoglobin concentration measurement ( mass/volume) 36 g/dL 32-36 Automated erythrocyte distribution width ratio 13.7 % 10.0-14.5 Automated blood platelet count (count/volume) 167 10*3/uL 130-400 Automated blood platelet mean volume measurement 11.2 [foz_us] 7.4-10.4 Automated blood neutrophils/100 leukocytes 59 % 42-75 Automated blood lymphocytes/100 leukocytes 27 % 12-44 Blood monocytes/100 leukocytes 10 % 0-12 Automated blood eosinophils/100 leukocytes 4 % 0-10 Automated blood basophils/100 leukocytes 0 % 0-10 Blood neutrophils automated count (number/volume) 3.9 10*3 1.8-7.8 Blood lymphocytes automated count (number/volume) 1.8 10*3 1.0-4.0 Blood monocytes automated count (number/volume) 0.7 10*3 0.0-1.0 Automated eosinophil count 0.3 10*3/uL 0.0-0.3 Automated blood basophil count (count/volume) 0.0 10*3/uL 0.0-0.1 Comprehensive metabolic panel - 06/20/18 17:50 Serum or plasma sodium measurement (moles/volume) 141 mmol/L 135-145 Serum or plasma potassium measurement (moles/volume) 4.0 mmol/L 3.6-5.0 Serum or plasma chloride measurement (moles/volume) 117 mmol/L 98-107 Carbon dioxide 19 mmol/L 21-32 Serum or plasma anion gap determination (moles/volume) 5 mmol/L 5-14 Serum or plasma urea nitrogen measurement (mass/volume) 14 mg/dL 7-18 Serum or plasma creatinine measurement (mass/volume) 0.90 mg/dL 0.60-1.30 Serum or plasma urea nitrogen/creatinine mass ratio 16 NRG Serum or plasma creatinine measurement with calculation of estimated glomerular filtration rate > NRG Serum or plasma glucose measurement (mass/volume) 95 mg/dL 70-105 Serum or plasma calcium measurement (mass/volume) 9.1 mg/dL 8.5-10.1 Serum or plasma total bilirubin measurement (mass/volume) 0.4 mg/dL 0.1-1.0 Serum or plasma alkaline phosphatase measurement (enzymatic activity/volume) 86 U/L 40-136 Serum or plasma aspartate aminotransferase measurement (enzymatic activity/ volume) 12 U/L 5-34 Serum or plasma alanine aminotransferase measurement (enzymatic activity/volume ) 10 U/L 0-55 Serum or plasma protein measurement (mass/volume) 6.7 g/dL 6.4-8.2 Serum or plasma albumin measurement (mass/volume) 4.0 g/dL 3.2-4.5 Serum or plasma amylase measurement (enzymatic activity/volume) - 06/20/18 17: 50 Serum or plasma amylase measurement (enzymatic activity/volume) 45 U /L 25-125 Lipase - 06/20/18 17:50 Lipase 11 U/L 8-78 Encounters ACCT No. Visit Date/Time Discharge Status Pt. Type Provider Facility Loc./Unit Complaint [id number] 06/08/2018 12:21:00 06/08/2018 16:00:00 DIS Emergency JEYSON ALEGRIA ER [id number] 03/28/2018 21:23:00 03/28/2018 22:30:00 DIS Emergency JOYCE BYRD, [facility] ER [id number] 01/12/2018 15:55:00 01/12/2018 15:55:00 DIS Outpatient DEZ BYRD, [facility] RAD [id number] 12/22/2017 18:18:00 12/22/2017 20:10:00 DIS Emergency JEAN MARIE HAYES [facility] ER [id number] 11/11/2017 10:04:00 11/11/2017 10:04:00 DIS Outpatient CHRISTINA BELLO [facility] RAD [id number] 08/23/2017 14:40:00 08/23/2017 15:45:00 DIS Emergency JEYSON ALEGRIA [facility] ER [id number] 08/11/2017 20:55:00 08/11/2017 22:25:00 DIS Emergency JEAN MARIE HAYES DO [facility] ER [id number] 07/28/2017 10:45:00 07/28/2017 15:35:00 DIS Emergency JEYSON ALEGRIA [facility] ER [id number] 09/08/2017 13:39:00 Document Registration [id number] 12/07/2016 13:06:00 Document Registration [id number] 06/20/2018 17:21:00 06/20/2018 19:37:00 DIS Outpatient JUAN PABLOYOMAIRADION [facility] ER ABD/BACK PAIN [id number] 06/28/2017 13:50:00 06/29/2017 10:15:00 DIS Inpatient DICK BYRD, MALORIE Mariee [facility] ICU POST OP SEIZURE [id number] 06/24/2017 05:50:00 06/24/2017 12:40:00 DIS Outpatient DENA WOO DO [facility] PREOP HISTORY OF POLYPS, DYSPHAGIA, SCREENING [id number] 06/02/2017 18:50:00 06/02/2017 21:31:00 DIS Emergency LAMAR ANSARI NOÉ [facility] ER ABD PAIN [id number] 05/16/2017 23:09:00 05/17/2017 02:20:00 DIS Emergency BHAVYA ESCOBAR DO [facility] ER ABD PAIN [id number] 04/24/2017 01:12:00 04/24/2017 02:25:00 DIS Emergency EMORY BYRD, FRED Blackman [facility] ER R ANKLE CALF PAIN [id number] 04/21/2017 13:45:00 04/21/2017 23:59:59 CLS Preadmit DENA WOO DO [facility] ENDO DYSPHAGIA [id number] 04/21/2017 19:24:00 04/21/2017 21:16:00 DIS Emergency BHAVYA ESCOBAR DO [facility] ER SHOCKED [id number] 04/19/2017 13:30:00 04/19/2017 13:30:00 CAN Preadmit DENA WOO DO [facility] PREOP DYSPHAGIA [id number] 01/15/2017 18:46:00 01/15/2017 19:25:00 DIS Emergency EMORY BYRD, FERD Blackman [facility] ER STITCHES REMOVAL [id number] 01/12/2017 09:47:00 01/12/2017 11:35:00 DIS Emergency DEANDRE BYRD, CHARLES Charlee [facility] ER NECK PAIN [id number] 01/09/2017 17:42:00 01/09/2017 18:38:00 DIS Emergency TERRANCE JAEGER APRN [facility] ER L FINGER LAC [id number] 12/16/2016 19:51:00 12/16/2016 23:06:00 DIS Emergency FRED CAT MD [facility] ER ABD PAIN [id number] 10/05/2016 15:34:00 10/05/2016 17:05:00 DIS Emergency FRED CAT MD [facility] ER R LEG CALF PAIN [id number] 08/04/2016 20:21:00 08/04/2016 20:55:00 DIS Emergency TERRANCE JAEGER APRN [facility] ER HEAD ACHE AND JAW PAIN [id number] 05/26/2016 21:43:00 05/26/2016 23:50:00 DIS Emergency FRED CAT MD [facility] ER TESTICULAR PAIN [id number] 04/06/2016 12:56:00 04/15/2016 13:50:00 DIS Outpatient ROBYN VALLE [facility] REHAB PAIN IN LUMBAR SPINE [id number] 03/14/2016 19:59:00 03/14/2016 22:10:00 DIS Emergency TERRANCE JAEGER APRN [facility] ER ABD PAIN BLOOD IN STOOL [id number] 02/10/2016 18:13:00 02/10/2016 20:11:00 DIS Emergency TERRANCE JAEGER APRN [facility] ER L SHOULDER/ARM PAIN [id number] 02/05/2016 19:53:00 02/05/2016 23:12:00 DIS Emergency HAJA CHAPA [facility] ER NECK,BACK PAIN [id number] 01/28/2016 15:56:00 01/28/2016 18:32:00 DIS Emergency TERRANCE JAEGER APRN [facility] ER STOMACH PAIN;SHOULDER AND NECK PAIN [id number] 12/25/2015 08:23:00 12/25/2015 14:04:00 DIS Outpatient KURTIS SOTO FACILITY TECHNICIAN [facility] RAD DJD L/SP [id number] 11/26/2015 23:58:00 11/27/2015 01:55:00 DIS Emergency EMORY BYRD, FRED Blackman [facility] ER HIGH BLOOD PRESSURE [id number] 11/07/2015 21:15:00 11/07/2015 23:33:00 DIS Emergency BREANNE BYRD, SABRINA Mirza [facility] ER HIGH BLOOD PRESSURE [id number] 10/31/2015 21:21:00 10/31/2015 23:58:00 DIS Emergency BHAVYA ESCOBAR DO [facility] ER CP [id number] 10/06/2015 11:09:00 10/06/2015 13:17:00 DIS Emergency TERRANCE JAEGER APRN [facility] ER NECK/SHOULDER PAIN [id number] 09/09/2015 11:51:00 09/09/2015 14:45:00 DIS Emergency HAJA CHAPA [facility] ER FEVER/COUGH [id number] 08/31/2015 23:17:00 09/01/2015 00:37:00 DIS Emergency MIKI PAZ MD [facility] ER MIGRAINE [id number] 08/23/2015 12:20:00 08/23/2015 14:56:00 DIS Emergency HAJA CHAPA [facility] ER STOMACH/BACK PAIN [id number] 08/22/2015 14:36:00 08/22/2015 23:59:59 CLS Outpatient KURTIS SOTO FACILITY TECHNICIAN [facility] RAD LUMBAGO [id number] 08/11/2015 15:59:00 08/11/2015 18:54:00 DIS Emergency HAJA CHAPA [facility] ER HEADACHE,NECK PAIN, NAUSEA [id number] 07/30/2015 11:19:00 07/30/2015 23:59:59 CLS Outpatient SOTOKURTIS DEWEY APRN [facility] RAD NODULE OF RT LOWER NECK [id number] 07/25/2015 22:42:00 07/25/2015 23:47:00 DIS Emergency SABRINA RAYMUNDO MD [facility] ER R FOOT INJ-DROPPED FRIG ON FOOT [id number] 07/20/2015 05:21:00 07/20/2015 07:00:00 DIS Emergency SABRINA RAYMUNDO MD [facility] ER LIGHTHEADED,NECK PAIN [id number] 07/18/2015 17:25:00 07/18/2015 20:58:00 DIS Emergency LUZ DO, BHAVYA K [facility] ER FELL, BACK PAIN [id number] 06/30/2015 21:56:00 07/01/2015 00:35:00 DIS Emergency FRED CAT MD [facility] ER L SIDE WAIST PAIN [id number] 06/02/2015 21:56:00 06/03/2015 00:55:00 DIS Emergency SABRINA RAYMUNDO MD [facility] ER ABD PAIN [id number] 04/05/2015 14:27:00 04/05/2015 17:39:00 DIS Emergency HAJA CHAPA [facility] ER ABDOMINAL KIDNEY PAIN [id number] 06/09/2018 05:20:07 ACT Document Registration [id number] 09/08/2017 13:39:00 09/08/2017 15:00:00 DIS Outpatient DEZ BYRD, DARVIN [facility] OPTR [id number] 09/05/2017 13:44:00 09/05/2017 13:44:00 DIS Outpatient [facility] RAD [id number] 08/31/2017 11:58:00 08/31/2017 11:58:00 DIS Outpatient HILL ARISTIDES BYRD [facility] [id number] 12/16/2017 00:00:00 Document Registration [id number] 12/09/2017 10:30:00 Document Registration [id number] 12/09/2017 00:00:00 Document Registration [id number] 04/18/2018 13:20:00 04/18/2018 23:59:59 [facility] [id number] 04/18/2018 13:20:00 Document Registration [id number] 12/02/2016 13:05:00 Document Registration
== END 2018-08-30 20:30 | disposition left against medical advice (07) ==
LOC: EDUNIT# 18:55 → ER 18:57
DX: K08.89 Other specified disorders of teeth and supporting structures (principal); R51 Headache; R10.9 Unspecified abdominal pain

== ENCOUNTER 2018-09-08 19:06 | Emergency (ER) | payer MEDICAID ==
[~2018-09-08] VITALS: Ht 177.8 cm; Wt 88.5 kg
--- NOTE | 2018-09-08 19:53 | ED Abdominal Pain ---
General Chief Complaint: Abdominal/GI Problems Stated Complaint: ABD PAIN,HEADACHES Nursing Triage Note: Pt c/o RUQ abd pain since last night and headaches x2-3 days. Pt reports abd pain is sharp. Pt also c/o nausea and bloody stool this morning. Sepsis Screen: No Definite Risk Source of Information: Patient Exam Limitations: No Limitations History of Present Illness Date Seen by Provider: Sep 08, 2018 Time Seen by Provider: 19:52 Initial Comments To ER with reports of right-sided abdominal pain since this morning with 1 episode of diarrhea which he thinks was bloody. Nausea but no vomiting. Also global headaches for 2-3 days. No fevers or chills. Timing/Duration: 2-3 Days Severity/Quality: Moderate Location: Generalized Abdomen Radiation: No Radiation Associated Symptoms: Nausea/Vomiting Allergies and Home Medications Allergies Coded Allergies: Sulfa (Sulfonamide Antibiotics) (Verified Allergy, Unknown, 06/28/17) clarithromycin (Verified Allergy, Unknown, 06/28/17) levetiracetam (Verified Allergy, Unknown, 06/28/17) morphine (Verified Allergy, Unknown, 06/28/17) Home Medications Albuterol Sulfate 1 Puff Puff, 2 PUFF IH Q4H PRN for SHORTNESS OF BREATH, ( Reported) Alprazolam 0.25 Mg Tablet, 0.25 MG PO BID, (Reported) Atenolol 50 Mg Tablet, 50 MG PO HS, (Reported) Budesonide/Formoterol Fumarate 10.2 Gm Hfa.aer.ad, 2 PUFF IH BID PRN for SHORTNESS OF BREATH, (Reported) Ibuprofen 800 Mg Tablet, 800 MG PO Q8H PRN for PAIN-MILD, (Reported) Lisinopril 20 Mg Tablet, 20 MG PO DAILY, (Reported) Mebendazole 100 Mg Tab.chew, 100 MG PO BID may repeat prescription in 3 weeks. Prescribed by: SANDRA ANDERSON on 06/28/17 1450 Oxycodone HCl/Acetaminophen 1 Each Tablet, 1 TAB PO Q8H PRN for PAIN-MODERATE, ( Reported) Pantoprazole Sodium 40 Mg Tablet.dr, 40 MG PO DAILY Prescribed by: SANDRA ANDERSON on 06/28/17 1443 Topiramate 50 Mg Tablet, 100 MG PO BID, (Reported) TAKES 2 (50MG) TABLETS Patient Home Medication List Home Medication List Reviewed: Yes Review of Systems Review of Systems Constitutional: see HPI EENTM: No Symptoms Reported Respiratory: No Symptoms Reported Cardiovascular: No Symptoms Reported Gastrointestinal: See HPI, Abdominal Pain, Diarrhea, Nausea, Rectal Bleeding Genitourinary: No Symptoms Reported Skin: no symptoms reported Psychiatric/Neurological: See HPI, Headache Endocrine: No Symptoms Reported Past Vtplpui-Citcpc-Cxpxpm Hx Patient Social History Alcohol Use: Denies Use Recreational Drug Use: No Smoking Status: Current Everyday Smoker Type Used: Cigarettes 2nd Hand Smoke Exposure: Yes Recent Foreign Travel: No Contact w/Someone Who Travel: No Recent Infectious Disease Expo: No Recent Hopitalizations: No Immunizations Up To Date Tetanus Booster (TDap): Less than 5yrs Seasonal Allergies Seasonal Allergies: Yes Past Medical History Surgeries: Yes (BACK SURGERY) Abdominal, Appendectomy, Gallbladder, Orthopedic, Vasectomy Respiratory: Yes (tobaccoism) COPD Cardiac: Yes High Cholesterol, Hypertension Neurological: Yes (BACK SURGERY WITH NERVE DAMAGE--BOWEL/BLADDER INCONTINENCE. ) Seizure Disorder Reproductive Disorders: No Genitourinary: Yes (Incontinence urine from back surgery') Kidney Stones, Neurogenic Bladder Gastrointestinal: Yes (Incontinent of stool from back surgery) Colitis, Gastroesophageal Reflux, Diverticulosis, Polyps Musculoskeletal: Yes (CHRONIC NECK PAIN) Degenerate Disk Disease, Arthritis, Chronic Back Pain Endocrine: No HEENT: No Cancer: No Psychosocial: Yes Anxiety Integumentary: No Blood Disorders: No Adverse Reaction/Blood Tranf: No Family Medical History No Pertinent Family Hx Physical Exam Vital Signs Vital Signs - First Documented 09/08/18 19:28 Temp 98.5 Pulse 78 Resp 18 B/P (MAP) 125/74 (91) Pulse Ox 99 O2 Delivery Room Air Capillary Refill : Less Than 3 Seconds Height/Weight/BMI Height: 5'10.00" Weight: 195lbs. 0.0oz. 88.305287ui; 30.1 BMI Method:Stated General Appearance: WD/WN, no apparent distress HEENT: PERRL/EOMI, normal ENT inspection Neck: non-tender, full range of motion Respiratory: no respiratory distress, no accessory muscle use Gastrointestinal: normal bowel sounds, soft; No distended, No guarding, No rebound; tenderness (right sided) Extremities: normal range of motion, non-tender Neurologic/Psychiatric: alert, normal mood/affect, oriented x 3 Skin: normal color, warm/dry Procedures/Interventions Suture Size: 5-0 Progress/Results/Core Measures Results/Orders Lab Results Laboratory Tests Test 09/08/18 19:51 09/08/18 20:09 Range/Units Urine Color YELLOW Urine Clarity CLEAR Urine pH 6.5 5-9 Urine Specific Hardy 1.010 L 1.016-1.022 Urine Protein NEGATIVE NEGATIVE Urine Glucose (UA) NEGATIVE NEGATIVE Urine Ketones NEGATIVE NEGATIVE Urine Nitrite NEGATIVE NEGATIVE Urine Bilirubin NEGATIVE NEGATIVE Urine Urobilinogen NORMAL NORMAL MG/DL Urine Leukocyte Esterase NEGATIVE NEGATIVE Urine RBC (Auto) NEGATIVE NEGATIVE Urine RBC NONE /HPF Urine WBC RARE /HPF Urine Crystals NONE /LPF Urine Bacteria NEGATIVE /HPF Urine Casts NONE /LPF Urine Mucus NEGATIVE /LPF Urine Culture Indicated NO White Blood Count 9.2 4.3-11.0 10^3/uL Red Blood Count 5.33 4.35-5.85 10^6/uL Hemoglobin 17.2 13.3-17.7 G/DL Hematocrit 49 40-54 % Mean Corpuscular Volume 91 80-99 FL Mean Corpuscular Hemoglobin 32 25-34 PG Mean Corpuscular Hemoglobin Concent 35 32-36 G/DL Red Cell Distribution Width 13.7 10.0-14.5 % Platelet Count 178 130-400 10^3/uL Mean Platelet Volume 10.1 7.4-10.4 FL Neutrophils (%) (Auto) 70 42-75 % Lymphocytes (%) (Auto) 18 12-44 % Monocytes (%) (Auto) 9 0-12 % Eosinophils (%) (Auto) 2 0-10 % Basophils (%) (Auto) 0 0-10 % Neutrophils # (Auto) 6.5 1.8-7.8 X 10^3 Lymphocytes # (Auto) 1.7 1.0-4.0 X 10^3 Monocytes # (Auto) 0.9 0.0-1.0 X 10^3 Eosinophils # (Auto) 0.2 0.0-0.3 10^3/uL Basophils # (Auto) 0.0 0.0-0.1 10^3/uL Sodium Level 138 135-145 MMOL/L Potassium Level 4.1 3.6-5.0 MMOL/L Chloride Level 108 H 98-107 MMOL/L Carbon Dioxide Level 20 L 21-32 MMOL/L Anion Gap 10 5-14 MMOL/L Blood Urea Nitrogen 20 H 7-18 MG/DL Creatinine 1.12 0.60-1.30 MG/DL Estimat Glomerular Filtration Rate > 60 BUN/Creatinine Ratio 18 Glucose Level 93 70-105 MG/DL Calcium Level 9.2 8.5-10.1 MG/DL Corrected Calcium 9.1 8.5-10.1 MG/DL Total Bilirubin 0.5 0.1-1.0 MG/DL Aspartate Amino Transf (AST/SGOT) 13 5-34 U/L Alanine Aminotransferase (ALT/SGPT) 18 0-55 U/L Alkaline Phosphatase 95 40-136 U/L Total Protein 7.9 6.4-8.2 GM/DL Albumin 4.1 3.2-4.5 GM/DL Lipase 13 8-78 U/L My Orders Orders - TERRANCE JAEGER APRN Cbc With Automated Diff (09/08/18 19:46) Comprehensive Metabolic Panel (09/08/18 19:46) Lipase (09/08/18 19:46) Ua Culture If Indicated (09/08/18 19:46) Iv Heplock-Insert (Order) (09/08/18 19:46) Ketorolac Injection (Toradol Injection) (09/08/18 20:00) Diphenhydramine Injection (Benadryl Inje (09/08/18 20:00) Prochlorperazine Injection (Compazine In (09/08/18 20:00) Ct Abdomen/Pelvis W (09/08/18 19:49) Medications Given in ED Current Medications Medications Dose Ordered Sig/Teri Route Start Time Stop Time Status Last Admin Dose Admin Diphenhydramine HCl 25 mg ONCE ONCE IVP 09/08/18 20:00 09/08/18 20:01 DC 09/08/18 21:08 25 MG Ketorolac Tromethamine 30 mg ONCE ONCE IVP 09/08/18 20:00 09/08/18 20:01 DC 09/08/18 21:10 30 MG Prochlorperazine Edisylate 5 mg ONCE ONCE IV 09/08/18 20:00 09/08/18 20:01 DC 09/08/18 21:11 5 MG Vital Signs/I&O 09/08/18 19:28 Temp 98.5 Pulse 78 Resp 18 B/P (MAP) 125/74 (91) Pulse Ox 99 O2 Delivery Room Air Blood Pressure Mean: 91 Departure Impression Primary Impression: Nonspecific abdominal pain Additional Impression: Right upper dental pain Disposition: 01 HOME, SELF-CARE Condition: Stable Departure-Patient Inst. Decision time for Depature: 20:58 Referrals: [facility] (PCP/Family) Primary Care Physician Patient Instructions: Acute Abdomen (Belly Pain), Adult (DC) Add. Discharge Instructions: . Return to ER for any concerns 2. All discharge instructions reviewed with patient and/or family. Voiced understanding. Scripts Amoxicillin (Amoxicillin) 500 Mg Capsule 500 MG PO TID, #15 CAP Prov: TERRANCE JAEGER LITHOGRAPHIC PRINTING MACHINIST 09/08/18 TERRANCE JAEGER APRN Sep 08, 2018 19:53
[2018-09-08 20:00] LABS: BILIRUBIN,URINE NEGATIVE (NEGATIVE); CLARITY,URINE CLEAR; COLOR,URINE YELLOW; GLUCOSE, URINE (UA) NEGATIVE (NEGATIVE); KETONES,URINE NEGATIVE (NEGATIVE); LEUKOCYTE ESTERASE ,URINE NEGATIVE (NEGATIVE); NITRITE,URINE NEGATIVE (NEGATIVE); PH,URINE 6.5 (5-9); PROTEIN,URINE NEGATIVE (NEGATIVE); UROBILINOGEN,URINE NORMAL (NORMAL)
[2018-09-08] MEDS ORDERED: PROCHLORPERAZINE 10 MG/2ML INJ (COMPAZINE) IV ONE (20:00)
[2018-09-08] MEDS ORDERED: KETOROLAC 30 MG/ML VIAL IVP ONE (20:00)
[2018-09-08] MEDS ORDERED: diphenhydrAMINE 50 MG/ML INJ (BENADRYL) IVP ONE (20:00)
[2018-09-08 20:08] LABS: BACTERIA,URINE NEGATIVE /HPF; WBC,URINE RARE /HPF
[2018-09-08 20:15] LABS: BASOPHILS % (AUTO) 0 % (0-10); EOSINOPHILS # (AUTO) 0.2 10^3/uL (0.0-0.3); EOSINOPHILS % (AUTO) 2 % (0-10); HEMATOCRIT 49 % (40-54); HEMOGLOBIN 17.2 G/DL (13.3-17.7); LYMPHOCYTES # (AUTO) 1.7 X 10^3 (1.0-4.0); LYMPHOCYTES % (AUTO) 18 % (12-44); MEAN CORPUSCULAR HEMOGLOBIN 32 PG (25-34); MEAN CORPUSCULAR HGB CONC 35 G/DL (32-36); MEAN CORPUSCULAR VOLUME 91 FL (80-99); MEAN PLATELET VOLUME 10.1 FL (7.4-10.4); MONOCYTES # (AUTO) 0.9 X 10^3 (0.0-1.0); MONOCYTES % (AUTO) 9 % (0-12); NEUTROPHILS # (AUTO) 6.5 X 10^3 (1.8-7.8); NEUTROPHILS % (AUTO) 70 % (42-75); PLATELET COUNT 178 10^3/uL (130-400); RED BLOOD COUNT 5.33 10^6/uL (4.35-5.85); RED CELL DISTRIBUTION WIDTH 13.7 % (10.0-14.5); WHITE BLOOD COUNT 9.2 10^3/uL (4.3-11.0)
[2018-09-08 20:38] LABS: ALANINE AMINOTRANSFERASE 18 U/L (0-55); ALBUMIN 4.1 GM/DL (3.2-4.5); ALKALINE PHOSPHATASE 95 U/L (40-136); BILIRUBIN,TOTAL 0.5 MG/DL (0.1-1.0); BUN/CREATININE RATIO 18; CALCIUM 9.2 MG/DL (8.5-10.1); CARBON DIOXIDE 20 MMOL/L (21-32); CHLORIDE 108 MMOL/L (98-107); CREATININE SERUM 1.12 MG/DL (0.60-1.30); GFR ESTIMATED > 60; GLUCOSE 93 MG/DL (70-105); LIPASE 13 U/L (8-78); POTASSIUM 4.1 MMOL/L (3.6-5.0); SODIUM 138 MMOL/L (135-145); TOTAL PROTEIN 7.9 GM/DL (6.4-8.2)
--- NOTE | 2018-09-08 20:43 | Diagnostic Imaging Report ---
PROCEDURE: CT abdomen and pelvis with contrast. TECHNIQUE: Multiple contiguous axial images were obtained through the abdomen and pelvis after administration of intravenous contrast. INDICATION: Right-sided abdominal pain for 4 days The gallbladder is absent. The liver and bile ducts are normal. The spleen, pancreas and adrenals are normal. The kidneys, ureters and bladder are normal. There is a 6 mm calcification in the tip of the appendix which may be an appendicolith. Appendix is otherwise normal with no acute appendicitis demonstrated. No acute bowel abnormality is seen. There is no free intraperitoneal air or fluid. IMPRESSION: No acute abnormality is seen with no change from 05/17/17. Dictated by: Dictated on workstation # [id number]
[2018-09-08] MEDS ORDERED: AMOX500C2 PO (21:46)
[2018-09-08 21:57] VITALS: BP 104/67
== END 2018-09-08 21:57 | disposition home or self-care (01) ==
LOC: EDUNIT# 19:06 → ER 19:07
DX: R10.84 Generalized abdominal pain (principal); K08.89 Other specified disorders of teeth and supporting structures; J44.9 Chronic obstructive pulmonary disease, unspecified; E78.00 Pure hypercholesterolemia, unspecified; I10 Essential (primary) hypertension; G40.909 Epilepsy, unspecified, not intractable, without status epilepticus; F41.9 Anxiety disorder, unspecified; K21.9 Gastro-esophageal reflux disease without esophagitis; F17.210 Nicotine dependence, cigarettes, uncomplicated; Z88.2 Allergy status to sulfonamides; Z98.52 Vasectomy status; Z87.442 Personal history of urinary calculi; Z87.19 Personal history of other diseases of the digestive system; Z86.010 Personal history of colon polyps; Z88.0 Allergy status to penicillin; Z90.89 Acquired absence of other organs; Z88.5 Allergy status to narcotic agent; Z88.8 Allergy status to other drugs, medicaments and biological substances; Z79.51 Long term (current) use of inhaled steroids
CPT/HCPCS: 36415; 74177; 80053; 81000; 83690; 85025

== ENCOUNTER 2018-10-18 09:53 | Emergency (ER) | payer MEDICAID ==
[~2018-10-18] VITALS: Ht 170.2 cm; Wt 90.7 kg
[~2018-10-18 09:53] MED LIST changes: +AMOX500C2 PO
--- OUTSIDE RECORDS SUMMARY | 2018-10-18 09:59 | XMS REPORT | Clinical Summary ---
Author Author [facility] Organization [facility] Address Unknown Phone Unavailable Care Team Providers Care Manager It Training Name Role Phone PattersonCarly renee NOÉ PCP Melissa López MD Unavailable Ashley Grant MD Unavailable Aguila Gray RN Unavailable Unavailable Source Comments Some departments are not documenting in the electronic medical record. If you do not see the information that you expected, contact Release of Information in the Health Information Management department at [phone] for further assistance in locating additional records.[facility] Allergies Active Allergy Reactions Severity Noted Date [...] mg tablet fluticasone (FLONASE) 50 Apply 1 [place] to each Active mcg/actuation nasal spray nostril as directed daily as needed. 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 Temperature 36.5 C (97.7 F) 10/04/2016 10:36 AM PUBLIC 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
--- OUTSIDE RECORDS SUMMARY | 2018-10-18 10:00 | XMS REPORT ---
Author Author SWAPNIL SAWANT [facility] Address [address] [place] [address] Care Team Providers Care Ep Tech Name Role Phone SWAPNIL SAWANT Unavailable PROBLEMS Type Condition ICD9-CM Code SPM65-MV Code Onset Dates Condition Status SNOMED Code Problem Anxiety F41.9 Active 59027553 Problem Epilepsy G40.909 Active 11528948 Problem Bulging lumbar disc M51.26 Active 832392433 Problem Dyslipidemia (high LDL; low HDL) E78.5 Active 886734932 Problem COPD (chronic obstructive pulmonary disease) J44.9 Active 96773589 Problem HTN (hypertension) I10 Active 95213501 Problem Constipation by delayed colonic transit K59.01 Active 20094432 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 669866534 Problem Protrusion of cervical intervertebral disc M50.20 Active 883090270 Problem Chronic pain G89.29 Active 11038357 Problem Tobacco abuse Z72.0 Active 270246406 Problem Overweight (BMI 25.0-29.9) E66.3 Active 381222523 ALLERGIES No Information ENCOUNTERS Encounter Location Date Diagnosis [facility] [id number] [place] [address] 62892- 3864 Aug, COPD (chronic obstructive pulmonary disease) J44.9 [facility] [id number] [place] [address] 74860- 9090 Aug, HTN (hypertension) I10 ; Bulging lumbar disc M51.26 ; Protrusion of cervical intervertebral disc M50.20 ; Chronic pain G89.29 ; Bronchitis J40 and Chronic, continuous use of opioids F11.90 [facility] [id number] [place] [address] 35139- 8866 17 Aug, 2018 Chronic pain G89.29 [facility] [id number] [place] [address] 99831 -4562 Aug, Bronchitis J40 and Chest tightness R07.89 [place] [id number] [place] [address] 13004- 6982 Jul, Bronchitis J40 and Chest tightness R07.89 [facility] [id number] [place] [address] 88512- 8301 Jul, [place] [address] 55546- 2238 Jul, [place] [id number] [place] [address] 44929- 1996 Jul, HTN (hypertension) I10 ; Tobacco abuse counseling Z71.6 ; Generalized abdominal pain R10.84 ; Flank pain R10.9 ; Acute bronchitis, unspecified organism J20.9 ; Constipation by delayed colonic transit K59.01 and Chronic pain G89.29 [place] [id number] [place] [address] 22008- 8417 Jul, [place] [id number] [place] [address] 36184- 0640 Jun, HTN (hypertension) I10 [place] [id number] [place] [address] 71358- 8019 May, Chronic pain G89.29 [place] [id number] [place] [address] 14138- 9487 March, Adverse effect of drug, subsequent encounter T88.7XXD ; HTN (hypertension) I10 ; Dyslipidemia (high LDL; low HDL) E78.5 ; Chronic pain G89.29 ; Anxiety F41.9 and 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 [place] [id number] [place] [address] 20578- 3492 March, Bulging lumbar disc M51.26 [place] [id number] [place] [address] 71161- 7488 March, [place] [id number] [place] [address] 08998- 9365 Feb, [place] [address] 44198- 6652 Feb, HTN (hypertension) I10 ; COPD (chronic obstructive pulmonary disease) J44.9 ; Overweight (BMI 25.0-29.9) E66.3 and Epilepsy G40.909 [place] [address] 80701- 9228 Feb, HTN (hypertension) I10 ; COPD (chronic obstructive pulmonary disease) J44.9 ; Anxiety F41.9 ; Overweight (BMI 25.0-29.9) E66.3 ; Epilepsy G40.909 ; Bulging lumbar disc M51.26 ; Protrusion of cervical intervertebral disc M50.20 ; Tobacco abuse counseling Z71.6 and Tobacco abuse Z72.0 [place] [address] 43372- 4988 Feb, Chronic pain G89.29 [place] [address] 71237- 5739 Jan, Chronic pain G89.29 [place] [address] 55526- 8969 Dec, Epilepsy G40.909 [place] [address] 13449- 5266 05 Dec, 2017 Chronic pain G89.29 [place] [address] 81043- 3264 Nov, [place] [address] 47630- 0418 Nov, Anxiety F41.9 [place] [address] 15081- 1252 Oct, HTN (hypertension) I10 ; COPD (chronic obstructive pulmonary disease) J44.9 ; Epilepsy G40.909 ; Chronic pain G89.29 ; Anxiety F41.9 ; Overweight (BMI 25.0-29.9) E66.3 ; Tobacco abuse Z72.0 ; Tobacco abuse counseling Z71.6 ; High risk medication use Z79.899 and Controlled substance agreement signed Z79.899 [facility] [address] 80929- 5108 Oct, Bulging lumbar disc M51.26 [place] [address] 63210- 6871 Oct, Bulging lumbar disc M51.26 [place] [address] 18017- 1859 Sep, [place] [address] 98764- 1215 Sep, [place] [address] 11755- 4937 Aug, Bulging lumbar disc M51.26 [place] [address] 35544- 7746 Jul, Bulging lumbar disc M51.26 and Anxiety F41.9 [place] [address] 18533- 0379 Jun, Bulging lumbar disc M51.26 and Anxiety F41.9 [place] [address] 60631- 3189 Jun, 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 [facility] [address] 75920 -1323 Jun, Acute swimmers ear of right side H60.331 [place] [address] 66097- 3483 Jun, Bulging lumbar disc M51.26 and Anxiety F41.9 [place] [address] 02678- 6350 May, Bulging lumbar disc M51.26 and Anxiety F41.9 [facility] [id number] [place] [address] 11133 -5473 May, COPD exacerbation J44.1 [facility] [id number] [place] [address] 83492- 4656 May, Bulging lumbar disc M51.26 [facility] [id number] [place] [address] 37295- 0176 Apr, [facility] [id number] [place] [address] 41343- 9503 Apr, [place] [address] 42423- 0392 Apr, Bulging lumbar disc M51.26 and Anxiety F41.9 [place] [id number] [place] [address] 09709- 5213 March, Anxiety F41.9 and Bulging lumbar disc M51.26 [place] [id number] [place] [address] 23964- 2615 March, HTN (hypertension) I10 ; Anxiety F41.9 ; Bulging lumbar disc M51.26 ; 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 ; Neck pain M54.2 ; Globus sensation F45.8 and COPD (chronic obstructive pulmonary disease) J44.9 [place] [id number] [place] [address] 63193- 6334 Feb, [facility] [id number] [place] [address] 64889- 7901 Feb, HTN (hypertension) I10 [facility] [id number] [place] [address] 83261 -6172 13 Feb, 2017 Acute nasopharyngitis (common cold) J00 [facility] [id number] [place] [address] 89163- 1724 Feb, Anxiety F41.9 and Bulging lumbar disc M51.26 [place] [address] [place] [address]- 6803 04 Feb, 2017 Bronchitis J40 [facility] [address] 44328- 5969 13 Jan, 2017 Anxiety F41.9 and Bulging lumbar disc M51.26 [facility] [address] 33748- 1917 09 Jan, 2017 Anxiety F41.9 [facility] [address] 58818 -5981 20 Dec, 2016 Viral pharyngitis J02.9 [facility] [address] 24805- 3008 15 Dec, 2016 HTN (hypertension) I10 [facility] [address] 32783- 1051 14 Dec, 2016 Bulging lumbar disc M51.26 and HTN (hypertension) I10 [facility] [address] 00441 -2508 10 Dec, 2016 Abscess L02.91 [facility] [address] 95428- 2433 08 Dec, 2016 Anxiety F41.9 and Bulging lumbar disc M51.26 [facility] [address] 88478- 8096 16 Nov, 2016 Incontinence R32 [facility] [address] 75956- 6440 Nov, Anxiety F41.9 and Bulging lumbar disc M51.26 [place] [address] 47739- 8267 Nov, Incontinence R32 [facility] [address] 00265- 3976 09 Nov, 2016 Excessive thirst R63.1 [facility] [address] 29068- 8091 Nov, Excessive thirst R63.1 [place] [address] 62662- 9761 Nov, HTN (hypertension) I10 ; Anxiety F41.9 ; COPD (chronic obstructive pulmonary disease) J44.9 ; Bulging lumbar disc M51.26 ; Epilepsy G40.909 ; 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 ; Neck pain M54.2 ; Other viral agents as the cause of diseases classified elsewhere B97.89 ; Acute upper respiratory infection, unspecified J06.9 ; Chronic intractable headache, unspecified headache type R51 and Hypercholesterolemia E78.00 [place] [address] 23554- 6756 Oct, [place] [address] 23979- 6662 Oct, [place] [address] 07449- 4743 Sep, [place] [address] 42601- 7637 Sep, [facility] [place] [address] 55999 -4720 Sep, Cough R05 ; Wheezing R06.2 ; Oropharyngeal dysphagia R13.12 and Exposure to strep throat Z20.818 [place] [address] 79248- 3617 Sep, [place] [address] 65089- 6078 Sep, [place] [address] 68416- 1649 Aug, [place] [address] 94016- 0576 Aug, [place] [address] 65303- 7301 Jul, [facility] [id number] [place] [address] 89057 -2099 14 Jul, 2016 Bronchitis J40 [place] [address] 57071- 6900 06 Jul, 2016 [place] [id number] [place] [address] 68452- 9565 Jun, HTN (hypertension) I10 ; Anxiety F41.9 ; Epilepsy G40.909 ; COPD (chronic obstructive pulmonary disease) J44.9 ; 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 and Bulging lumbar disc M51.26 [place] [address] 82172- 9997 Jun, [place] [address] 06295- 2701 Jun, HTN (hypertension) I10 ; Anxiety F41.9 ; Epilepsy G40.909 ; COPD (chronic obstructive pulmonary disease) J44.9 ; 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 and Bulging lumbar disc M51.26 [place] [id number] [place] [address] 26404- 3732 May, [place] [address] 74714- 6345 Apr, Anxiety disorder, unspecified F41.9 and Shoulder pain, left M25.512 [place] [address] 02897- 0145 March, Anxiety disorder, unspecified F41.9 and Degenerative joint disease (DJD) of lumbar spine M47.816 [place] [id number] [place] [address] 22437- 7690 March, Sore throat in the morning J02.9 [place] [id number] [place] [address] 18818- 4762 Feb, [facility] [address] 82962 -4957 Feb, Right foot injury, initial encounter S99.921A and Oral nayan B37.0 [place] [id number] [place] [address] 64925- 0678 Feb, [place] [address] 12911- 7274 Jan, HTN (hypertension) I10 ; COPD (chronic obstructive pulmonary disease) J44.9 ; Chronic pain G89.29 and Epilepsy G40.909 [facility] [address] 23311 -1894 Jan, Sore throat J02.9 and Thrush B37.0 [place] [address] 30306- 2323 16 Jan, 2016 Chronic pain G89.29 ; HTN (hypertension) I10 ; Anxiety F41.9 ; Bulging lumbar disc M51.26 ; Protrusion of cervical intervertebral disc M50.20 and Shoulder pain, left M25.512 [place] [id number] [place] [address] 82620- 1992 15 Jan, 2016 [place] [address] 86709- 8013 14 Jan, 2016 [place] [id number] [place] [address] 38487- 8563 Jan, HTN (hypertension) I10 ; Anxiety F41.9 ; COPD (chronic obstructive pulmonary disease) J44.9 ; Bulging lumbar disc M51.26 ; Incontinence R32 ; Epilepsy G40.909 ; 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 and Neck pain M54.2 [place] [address] 49881- 9694 Jan, Anxiety F41.9 [place] [address] 06058- 3415 24 Dec, 2015 HTN (hypertension) I10 ; Epilepsy G40.909 and 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 [place] [id number] [address]- 8654 18 Dec, 2015 [facility] [id number] [place] [address] 15965- 5298 Dec, Anxiety F41.9 ; HTN (hypertension) I10 ; COPD (chronic obstructive pulmonary disease) J44.9 ; Bulging lumbar disc M51.26 and Incontinence R32 [facility] [id number] [place] [address] 33788- 9975 Dec, [id number] [place] [address] Dec [facility] [id number] [place] [address] 62543- 4139 Nov, [facility] [id number] [place] [address] 38127- 2007 Nov, [facility] [id number] [place] [address] 84681- 1994 Nov, [facility] [id number] [place] [address] 70852 -4835 Nov, Pharyngitis J02.9 and Allergic rhinitis J30.9 [facility] [address] [place] [address] 44975- 4259 Nov, Degenerative joint disease (DJD) of lumbar spine M47.816 ; Cervicalgia M54.2 ; Lumbago 724.2 and Lumbago of lumbar region with sciatica M54.5 [place] [address] [place] [address] 98865- 5801 Nov, Degenerative joint disease (DJD) of lumbar spine M47.816 [place] [id number] [place] [address] 34712- 4485 Oct, Generalized anxiety disorder F41.1 [place] [address] [place] [address] 81761- 9376 Oct, Cervicalgia M54.2 ; Degenerative joint disease (DJD) of lumbar spine M47.816 and Hypertension I10 [facility] [id number] [place] [address] 25707- 3860 Oct, [facility] [id number] [place] [address] 25246 -7962 Oct, Essential (primary) hypertension I10 [facility] [address] 06195- 7656 Oct, [facility] [address] 93973- 1817 Sep, Allergic rhinitis J30.9 ; Generalized anxiety disorder F41.1 and Shoulder pain, left M25.512 [facility] [address] 53402- 3700 Sep, [facility] [address] 88140- 7484 Aug, Cough R05 [facility] [address] 06923- 2778 Aug, Generalized anxiety disorder F41.1 [facility] [address] 57530- 0841 Aug, Cough R05 [facility] [id number] [place] [address] 17452- 8145 Aug, [facility] [address] 24235- 3095 Aug, [facility] [id number] [place] [address] 36953- 2245 Aug, Lumbago of lumbar region with sciatica M54.5 [facility] [id number] [place] [address] 17237- 6906 Jul, Lumbago 724.2 [facility] [address] 02852- 1742 Jul, [facility] [address] [place] [address] 37061- 2022 16 Jul, 2015 Anxiety 300.00 and Hypertension 401.9 [facility] [id number] [place] [address] 53507- 7264 11 Jul, 2015 Generalized anxiety disorder 300.02 [place] [id number] [place] [address] 39532- 0386 09 Jul, 2015 Nodule of neck 784.2 [place] [address] 01030- 2292 Jun, Nodule of neck 784.2 [place] [address] 72789- 8312 Jun, [place] [id number] [place] [address] 00109- 8539 Jun, Routine adult health maintenance V70.0 [place] [id number] [place] [address] 55480- 7129 Jun, Routine adult health maintenance V70.0 ; Anxiety 300.00 ; Epilepsy 345.90 ; Hypertension 401.9 and Urinary incontinence 788.30 IMMUNIZATIONS No Known Immunizations SOCIAL HISTORY Never Assessed REASON FOR VISIT PLAN OF CARE VITAL SIGNS MEDICATIONS Unknown [...]
--- OUTSIDE RECORDS SUMMARY | 2018-10-18 10:00 | XMS REPORT ---
Author Author SWAPNIL SAWANT [facility] Address [address] [place] [address] Care Team Providers Care Sheeter Operator Name Role Phone SWAPNIL SAWANT Unavailable PROBLEMS Type Condition ICD9-CM Code ZAL24-FS Code Onset Dates Condition Status SNOMED Code Problem Anxiety F41.9 Active 61070527 Problem Epilepsy G40.909 Active 52856927 Problem Bulging lumbar disc M51.26 Active 384242551 Problem Dyslipidemia (high LDL; low HDL) E78.5 Active 855528083 Problem COPD (chronic obstructive pulmonary disease) J44.9 Active 67761551 Problem HTN (hypertension) I10 Active 20413626 Problem Constipation by delayed colonic transit K59.01 Active 92647283 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 217776709 Problem Protrusion of cervical intervertebral disc M50.20 Active 045963121 Problem Chronic pain G89.29 Active 90898748 Problem Tobacco abuse Z72.0 Active 073827497 Problem Overweight (BMI 25.0-29.9) E66.3 Active 524512432 ALLERGIES Substance Reaction Event Type Date Status Sulfamethoxazole-Trimethoprim nausea Drug Allergy Aug, Active Pravastatin Sodium nausea Drug Allergy Aug, Active Morphine Sulfate hives Drug Allergy Aug, Active Keppra elevated blood pressure Drug Allergy Aug, Active BusPIRone HCl dizziness Drug Allergy Aug, Active Biaxin nausea Drug Allergy Aug, Active ssi meds i.e. celexa ed Non Drug Allergy Aug, Active lyrica unknown Non Drug Allergy Aug, Active ENCOUNTERS Encounter Location Date Diagnosis [facility] [address] [facility] [id number] [address] Aug, COPD (chronic obstructive pulmonary disease) J44.9 [facility] [address] [facility] [id number] [address] Aug, HTN (hypertension) I10 ; Bulging lumbar disc M51.26 ; Protrusion of cervical intervertebral disc M50.20 ; Chronic pain G89.29 ; Bronchitis J40 and Chronic, continuous use of opioids F11.90 [facility] [id number] [place] [address] 25609- 3498 17 Aug, 2018 Chronic pain G89.29 [facility] [id number] [place] [address] 70522 -1123 05 Aug, 2018 Bronchitis J40 and Chest tightness R07.89 [facility] [id number] [place] [address] 72665- 8895 Jul, Bronchitis J40 and Chest tightness R07.89 [facility] [id number] [place] [address] 01836- 9898 Jul, [facility] [place] [id number] [place] [address] 26083- 9853 Jul, [facility] [id number] [place] [address] 97392- 7838 Jul, HTN (hypertension) I10 ; Tobacco abuse counseling Z71.6 ; Generalized abdominal pain R10.84 ; Flank pain R10.9 ; Acute bronchitis, unspecified organism J20.9 ; Constipation by delayed colonic transit K59.01 and Chronic pain G89.29 [facility] [id number] [place] [address] 57023- 1575 Jul, [facility] [place] [id number] [place] [address] 94106- 7733 Jun, HTN (hypertension) I10 [facility] [address] 83453- 1583 May, Chronic pain G89.29 [facility] [id number] [place] [address] 91123- 4095 March, Adverse effect of drug, subsequent encounter T88.7XXD ; HTN (hypertension) I10 ; Dyslipidemia (high LDL; low HDL) E78.5 ; Chronic pain G89.29 ; Anxiety F41.9 and 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 [facility] [id number] [place] [address] 30620- 0888 March, Bulging lumbar disc M51.26 [facility] [id number] [place] [address] 52038- 8044 March, [facility] [address] 46081- 0005 Feb, [place] [id number] [place] [address] 00465- 1310 Feb, HTN (hypertension) I10 ; COPD (chronic obstructive pulmonary disease) J44.9 ; Overweight (BMI 25.0-29.9) E66.3 and Epilepsy G40.909 [facility] [id number] [place] [address] 71262- 6019 Feb, HTN (hypertension) I10 ; COPD (chronic obstructive pulmonary disease) J44.9 ; Anxiety F41.9 ; Overweight (BMI 25.0-29.9) E66.3 ; Epilepsy G40.909 ; Bulging lumbar disc M51.26 ; Protrusion of cervical intervertebral disc M50.20 ; Tobacco abuse counseling Z71.6 and Tobacco abuse Z72.0 [facility] [id number] [place] [address] 77881- 0591 Feb, Chronic pain G89.29 [facility] [id number] [place] [address] 58022- 2679 Jan, Chronic pain G89.29 [facility] [place] [id number] [place] [address] 52528- 0735 Dec, Epilepsy G40.909 [facility] [id number] [place] [address] 72831- 4493 05 Dec, 2017 Chronic pain G89.29 [facility] [id number] [place] [address] 23611- 1226 Nov, [facility] [id number] [place] [address] 12722- 4154 Nov, Anxiety F41.9 [place] [address] 83898- 0967 Oct, HTN (hypertension) I10 ; COPD (chronic obstructive pulmonary disease) J44.9 ; Epilepsy G40.909 ; Chronic pain G89.29 ; Anxiety F41.9 ; Overweight (BMI 25.0-29.9) E66.3 ; Tobacco abuse Z72.0 ; Tobacco abuse counseling Z71.6 ; High risk medication use Z79.899 and Controlled substance agreement signed Z79.899 [place] [address] 28422- 6233 Oct, Bulging lumbar disc M51.26 [facility] [address] 42196- 4476 Oct, Bulging lumbar disc M51.26 [place] [address] 42146- 3012 Sep, [place] [address] 07324- 0765 Sep, [place] [address] 20744- 0769 Aug, Bulging lumbar disc M51.26 [place] [address] 08314- 3422 Jul, Bulging lumbar disc M51.26 and Anxiety F41.9 [facility] [address] 72280- 0202 Jun, Bulging lumbar disc M51.26 and Anxiety F41.9 [place] [address] 07438- 0906 Jun, 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 [facility] [address] 46338 -3583 Jun, Acute swimmers ear of right side H60.331 [facility] [id number] [place] [address] 24515- 5891 Jun, Bulging lumbar disc M51.26 and Anxiety F41.9 [facility] [id number] [place] [address] 62848- 9568 May, Bulging lumbar disc M51.26 and Anxiety F41.9 [facility] [address] 65761 -1856 May, COPD exacerbation J44.1 [facility] [address] 24310- 4457 May, Bulging lumbar disc M51.26 [facility] [address] 04796- 2727 Apr, [facility] [address] 97565- 2714 Apr, [facility] [address] 99172- 7836 Apr, Bulging lumbar disc M51.26 and Anxiety F41.9 [facility] [id number] [place] [address] 13965- 5448 March, Anxiety F41.9 and Bulging lumbar disc M51.26 [facility] [address] 41910- 6619 March, HTN (hypertension) I10 ; Anxiety F41.9 ; Bulging lumbar disc M51.26 ; 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 ; Neck pain M54.2 ; Globus sensation F45.8 and COPD (chronic obstructive pulmonary disease) J44.9 [facility] [id number] [place] [address] 70003- 3520 Feb, [facility] [address] 39050- 0379 Feb, HTN (hypertension) I10 [facility] [address] 86599 -2415 13 Feb, 2017 Acute nasopharyngitis (common cold) J00 [facility] [address] 24422- 2879 11 Feb, 2017 Anxiety F41.9 and Bulging lumbar disc M51.26 [place] [address] 98705- 0142 04 Feb, 2017 Bronchitis J40 [place] [address] 69371- 6976 13 Jan, 2017 Anxiety F41.9 and Bulging lumbar disc M51.26 [place] [address] 74230- 3164 09 Jan, 2017 Anxiety F41.9 [facility] [address] 45021 -3304 20 Dec, 2016 Viral pharyngitis J02.9 [place] [address] 10612- 6399 15 Dec, 2016 HTN (hypertension) I10 [place] [address] 40250- 3280 14 Dec, 2016 Bulging lumbar disc M51.26 and HTN (hypertension) I10 [facility] [address] 57020 -4254 10 Dec, 2016 Abscess L02.91 [place] [address] 76751- 5109 08 Dec, 2016 Anxiety F41.9 and Bulging lumbar disc M51.26 [facility] [address] 46635- 4582 16 Nov, 2016 Incontinence R32 [place] [address] 40971- 9583 11 Nov, 2016 Anxiety F41.9 and Bulging lumbar disc M51.26 [facility] [id number] [place] [address] 21949- 7307 Nov, Incontinence R32 [facility] [address] 98233- 6342 Nov, Excessive thirst R63.1 [place] [address] 31648- 0181 Nov, Excessive thirst R63.1 [place] [address] 61926- 3686 Nov, HTN (hypertension) I10 ; Anxiety F41.9 ; COPD (chronic obstructive pulmonary disease) J44.9 ; Bulging lumbar disc M51.26 ; Epilepsy G40.909 ; 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 ; Neck pain M54.2 ; Other viral agents as the cause of diseases classified elsewhere B97.89 ; Acute upper respiratory infection, unspecified J06.9 ; Chronic intractable headache, unspecified headache type R51 and Hypercholesterolemia E78.00 [place] [address] 76168- 8638 Oct, [place] [address] 33194- 3313 Oct, [facility] [id number] [place] [address] 64445- 7365 Sep, [facility] [address] 74266- 4556 Sep, [facility] [id number] [place] [address] 82552 -6566 Sep, Cough R05 ; Wheezing R06.2 ; Oropharyngeal dysphagia R13.12 and Exposure to strep throat Z20.818 [facility] [id number] [place] [address] 48119- 8878 Sep, [facility] [address] 85359- 0900 Sep, [facility] [address] [address]- 0782 Aug, [facility] [id number] [place] [address] 05225- 1030 Aug, [facility] [id number] [place] [address] 96276- 5302 16 Jul, 2016 [facility] [id number] [place] [address] 13220 -9588 14 Jul, 2016 Bronchitis J40 [facility] [id number] [place] [address] 51179- 0223 Jul, [facility] [id number] [place] [address] 85545- 3053 Jun, HTN (hypertension) I10 ; Anxiety F41.9 ; Epilepsy G40.909 ; COPD (chronic obstructive pulmonary disease) J44.9 ; 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 and Bulging lumbar disc M51.26 [facility] [id number] [place] [address] 38282- 9640 Jun, [facility] [id number] [place] [address] 91240- 3399 Jun, HTN (hypertension) I10 ; Anxiety F41.9 ; Epilepsy G40.909 ; COPD (chronic obstructive pulmonary disease) J44.9 ; 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 and Bulging lumbar disc M51.26 [facility] [id number] [place] [address] 46574- 2860 May, [facility] [id number] [place] [address] 32759- 4859 Apr, Anxiety disorder, unspecified F41.9 and Shoulder pain, left M25.512 [facility] [id number] [place] [address] 21996- 0987 March, Anxiety disorder, unspecified F41.9 and Degenerative joint disease (DJD) of lumbar spine M47.816 [facility] [place] [id number] [place] [address] 95868- 2505 March, Sore throat in the morning J02.9 [place] [address] 42149- 9431 Feb, [facility] [place] [address] 63839 -1154 Feb, Right foot injury, initial encounter S99.921A and Oral nayan B37.0 [place] [address] 19889- 2236 Feb, [place] [address] 55714- 5565 Jan, HTN (hypertension) I10 ; COPD (chronic obstructive pulmonary disease) J44.9 ; Chronic pain G89.29 and Epilepsy G40.909 [facility] [place] [address] 41679 -8614 Jan, Sore throat J02.9 and Thrush B37.0 [place] [address] 52946- 7455 16 Jan, 2016 Chronic pain G89.29 ; HTN (hypertension) I10 ; Anxiety F41.9 ; Bulging lumbar disc M51.26 ; Protrusion of cervical intervertebral disc M50.20 and Shoulder pain, left M25.512 [facility] [place] [id number] [place] [address] 83390- 7006 15 Jan, 2016 [place] [address] 89459- 1991 Jan, [place] [address] 55183- 6647 09 Jan, 2016 HTN (hypertension) I10 ; Anxiety F41.9 ; COPD (chronic obstructive pulmonary disease) J44.9 ; Bulging lumbar disc M51.26 ; Incontinence R32 ; Epilepsy G40.909 ; 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 and Neck pain M54.2 [facility] [place] [id number] [place] [address] 55817- 2514 Jan, Anxiety F41.9 [place] [address] 51225- 7186 24 Dec, 2015 HTN (hypertension) I10 ; Epilepsy G40.909 and Pseudoseizures F44.5 [place] [address] 33720- 3633 Dec, [place] [address] 71966- 8244 Dec, Anxiety F41.9 ; HTN (hypertension) I10 ; COPD (chronic obstructive pulmonary disease) J44.9 ; Bulging lumbar disc M51.26 and Incontinence R32 [place] [id number] [place] [address] 16276- 1851 Dec, [address] [address] Dec [place] [address] 81887- 7878 Nov, [place] [address] 08008- 6939 Nov, [place] [id number] [place] [address] 64529- 0390 Nov, [facility] [id number] [place] [address] 64027 -2120 Nov, Pharyngitis J02.9 and Allergic rhinitis J30.9 [place] [address] 03404- 6740 Nov, Degenerative joint disease (DJD) of lumbar spine M47.816 ; Cervicalgia M54.2 ; Lumbago 724.2 and Lumbago of lumbar region with sciatica M54.5 [place] [id number] [place] [address] 10801- 0813 Nov, Degenerative joint disease (DJD) of lumbar spine M47.816 [facility] [id number] [place] [address] 18416- 6951 Oct, Generalized anxiety disorder F41.1 [facility] [address] [place] [address] 39801- 9008 Oct, Cervicalgia M54.2 ; Degenerative joint disease (DJD) of lumbar spine M47.816 and Hypertension I10 [facility] [id number] [place] [address] 42616- 3859 Oct, [facility] [id number] [place] [address] 88947 -2899 Oct, Essential (primary) hypertension I10 [facility] [id number] [place] [address] 14536- 0320 Oct, [facility] [id number] [place] [address] 17757- 7054 Sep, Allergic rhinitis J30.9 ; Generalized anxiety disorder F41.1 and Shoulder pain, left M25.512 [facility] [id number] [place] [address] 60078- 8705 Sep, [facility] [id number] [place] [address] 58613- 3169 Aug, Cough R05 [facility] [id number] [place] [address] 32567- 6858 Aug, Generalized anxiety disorder F41.1 [facility] [id number] [place] [address] 74713- 5271 Aug, Cough R05 [facility] [id number] [place] [address] 44747- 6073 Aug, [facility] [id number] [place] [address] 70925- 5209 Aug, [facility] [id number] [place] [address] 55173- 0180 Aug, Lumbago of lumbar region with sciatica M54.5 [place] [id number] [place] [address] 62302- 7838 Jul, Lumbago 724.2 [place] [id number] [place] [address] 41810- 3311 Jul, [place] [address] 36744- 1696 16 Jul, 2015 Anxiety 300.00 and Hypertension 401.9 [place] [address] 51487- 2623 Jul, Generalized anxiety disorder 300.02 [place] [id number] [place] [address] 89516- 6567 09 Jul, 2015 Nodule of neck 784.[address] 01927- 0609 Jun, Nodule of neck 784.2 [place] [address] 49975- 5406 Jun, [place] [address] 92951- 9021 Jun, Routine adult health maintenance V70.0 [place] [address] 95168- 3360 Jun, Routine adult health maintenance V70.0 ; Anxiety 300.00 ; Epilepsy 345.90 ; Hypertension 401.9 and Urinary incontinence 788.30 IMMUNIZATIONS No Known Immunizations SOCIAL HISTORY Never Assessed REASON FOR VISIT Transition of Care- HOMERO Delatorre, pt c/o sore thorat, cough and headaches on and off for the past month- HOMERO Delatorre PLAN OF CARE Activity Details Follow Up 3 months or as indicated by lab Reason: Pending Test PANEL (PROFILE 1) VITAL SIGNS Height 70 in 2018-09-18 Weight 199.2 lbs 2018-09-18 Temperature 96.9 degrees Fahrenheit 2018-09-18 Heart Rate 55 bpm 2018-09-18 Respiratory Rate 18 2018-09-18 BMI 28.58 kg/m2 2018-09-18 Blood pressure systolic 96 mmHg 2018-09-18 Blood pressure diastolic 58 mmHg 2018-09-18 MEDICATIONS Medication Instructions Dosage Frequency Start Date End Date Duration Status Percocet 7.5-325 mg Orally 3 times a day 1 tablet as needed 8h Aug, Active Ibuprofen 800 MG Orally 3 times a day PRN TAKE ONE TABLET BY MOUTH THREE TIMES DAILY Apr, 90 days Active ProAir HFA 108 (90 Base) MCG/ACT Inhalation 4 times a day 2 puffs as needed 6h 05 Aug, 2018 Active Atenolol 50 mg Orally Once a day TAKE ONE TABLET BY MOUTH ONCE DAILY AT NIGHT 24h Active Lisinopril 20 mg Orally Once a day TAKE ONE TABLET BY MOUTH ONCE DAILY 24h Active Topamax 50 mg Orally Twice a day 2 tablet 12h Active RESULTS No Results PROCEDURES Procedure Date Ordered Result [facility] 2018 INSTRUCTIONS MEDICATIONS ADMINISTERED No Known [...]
--- OUTSIDE RECORDS SUMMARY | 2018-10-18 10:01 | XMS REPORT ---
Author Author ANN Mckeon [facility] Address [address] [place] [address] Care Team Providers Care Labor Relations Or Personnel Negotiator Name Role Phone ANN Mckeon Unavailable PROBLEMS Type Condition ICD9-CM Code HRS41-WP Code Onset Dates Condition Status SNOMED Code Problem Bulging lumbar disc M51.26 Active 557198228 Problem Chronic pain G89.29 Active 42053486 Problem Epilepsy G40.909 Active 04359913 Problem Dyslipidemia (high LDL; low HDL) E78.5 Active 464968510 Problem COPD (chronic obstructive pulmonary disease) J44.9 Active 38940020 Problem HTN (hypertension) I10 Active 50980241 Problem Anxiety F41.9 Active 94909735 Problem Constipation by delayed colonic transit K59.01 Active 07890771 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 477554410 Problem Overweight (BMI 25.0-29.9) E66.3 Active 381234793 Problem Protrusion of cervical intervertebral disc M50.20 Active 452646313 Problem Tobacco abuse counseling Z71.6 Active 475431105 Problem Tobacco abuse Z72.0 Active 086004178 ALLERGIES Substance Reaction Event Type Date Status Sulfamethoxazole-Trimethoprim nausea Drug Allergy Jul, Active Pravastatin Sodium nausea Drug Allergy Jul, Active Morphine Sulfate hives Drug Allergy Jul, Active Keppra elevated blood pressure Drug Allergy Jul, Active BusPIRone HCl dizziness Drug Allergy Jul, Active Biaxin nausea Drug Allergy Jul, Active ssi meds i.e. celexa ed Non Drug Allergy Jul, Active lyrica unknown Non Drug Allergy Jul, Active ENCOUNTERS Encounter Location Date Diagnosis [facility] [address] [facility] [id number] [address] Aug, Bronchitis J40 and Chest tightness R07.89 [facility] [address] [place] [id number] [place] [address] 82561- 1077 Jul, Bronchitis J40 and Chest tightness R07.89 [place] [address] [place] [id number] [place] [address] 37502- 6987 Jul, [facility] [id number] [place] [address] 79463- 8068 Jul, [place] [address] 01153- 6700 Jul, HTN (hypertension) I10 ; Tobacco abuse counseling Z71.6 ; Generalized abdominal pain R10.84 ; Flank pain R10.9 ; Acute bronchitis, unspecified organism J20.9 ; Constipation by delayed colonic transit K59.01 and Chronic pain G89.29 [place] [address] [id number] [place] [address] 70326- 1762 Jul, [place] [address] 16265- 4668 Jun, HTN (hypertension) I10 [place] [address] [id number] [place] [address] 31736- 9555 May, Chronic pain G89.29 [place] [address] [id number] [place] [address] 24787- 5265 March, Adverse effect of drug, subsequent encounter T88.7XXD ; HTN (hypertension) I10 ; Dyslipidemia (high LDL; low HDL) E78.5 ; Chronic pain G89.29 ; Anxiety F41.9 and Pseudoseizures F44.5 [place] [address] [id number] [place] [address] 47128- 7940 March, Bulging lumbar disc M51.26 [place] [id number] [place] [address] 61683- 1940 March, [place] [address] [id number] [place] [address] 12852- 2502 Feb, [place] [address] 72455- 6433 Feb, HTN (hypertension) I10 ; COPD (chronic obstructive pulmonary disease) J44.9 ; Overweight (BMI 25.0-29.9) E66.3 and Epilepsy G40.909 [place] [address] [place] [id number]- [address]29 Feb, HTN (hypertension) I10 ; COPD (chronic obstructive pulmonary disease) J44.9 ; Anxiety F41.9 ; Overweight (BMI 25.0-29.9) E66.3 ; Epilepsy G40.909 ; Bulging lumbar disc M51.26 ; Protrusion of cervical intervertebral disc M50.20 ; Tobacco abuse counseling Z71.6 and Tobacco abuse Z72.0 [place] [address] 48140- 3645 Feb, Chronic pain G89.29 [place] [address] 11119- 5111 Jan, Chronic pain G89.29 [place] [address] 59132- 7352 Dec, Epilepsy G40.909 [place] [address] 10317- 1629 05 Dec, 2017 Chronic pain G89.29 [place] [address] 06261- 2243 Nov, [place] [address] 91944- 5659 Nov, Anxiety F41.9 [place] [address] 94703- 9504 Oct, HTN (hypertension) I10 ; COPD (chronic obstructive pulmonary disease) J44.9 ; Epilepsy G40.909 ; Chronic pain G89.29 ; Anxiety F41.9 ; Overweight (BMI 25.0-29.9) E66.3 ; Tobacco abuse Z72.0 ; Tobacco abuse counseling Z71.6 ; High risk medication use Z79.899 and Controlled substance agreement signed Z79.899 [facility] [id number] [place] [address] 19295- 4064 Oct, Bulging lumbar disc M51.26 [facility] [address] 11506- 2733 Oct, Bulging lumbar disc M51.26 [place] [address] 95450- 6318 Sep, [facility] [address] 54572- 5167 Sep, [place] [address] 34668- 8977 Aug, Bulging lumbar disc M51.26 [place] [address] 09081- 8304 Jul, Bulging lumbar disc M51.26 and Anxiety F41.9 [place] [address] 16596- 2176 Jun, Bulging lumbar disc M51.26 and Anxiety F41.9 [place] [address] 75879- 2419 Jun, Pseudoseizures F44.5 [facility] [address] 38860 [address]40[address] Jun, Acute swimmers ear of right side H60.331 [facility] [id number] [place] [address] 97570- 7660 Jun, Bulging lumbar disc M51.26 and Anxiety F41.9 [place] [address] 64214- 6595 May, Bulging lumbar disc M51.26 and Anxiety F41.9 [facility] [id number] [place] [address] 49169 -9121 May, COPD exacerbation J44.1 [place] [address] [place] [id number] [place] [address] 04862- 6266 May, Bulging lumbar disc M51.26 [facility] [address] 33455- 1454 Apr, [facility] [address] 39590- 1172 Apr, [facility] [address] 97851- 5509 Apr, Bulging lumbar disc M51.26 and Anxiety F41.9 [place] [address] 81856- 3488 March, Anxiety F41.9 and Bulging lumbar disc M51.26 [facility] [address] 69650- 7805 March, HTN (hypertension) I10 ; Anxiety F41.9 ; Bulging lumbar disc M51.26 ; Pseudoseizures F44.5 ; Neck pain M54.2 ; Globus sensation F45.8 and COPD (chronic obstructive pulmonary disease) J44.9 [facility] [address] 10697- 6311 Feb, [facility] [address] 64124- 5114 Feb, HTN (hypertension) I10 [facility] [address] 51046 [address]8361 Feb, Acute nasopharyngitis (common cold) J00 [facility] [id number] [place] [address] 65675- 3501 11 Feb, 2017 Anxiety F41.9 and Bulging lumbar disc M51.26 [facility] [id number] [place] [address] 37194- 1780 04 Feb, 2017 Bronchitis J40 [facility] [address] 58227- 8801 13 Jan, 2017 Anxiety F41.9 and Bulging lumbar disc M51.26 [place] [address] 79274- 5921 09 Jan, 2017 Anxiety F41.9 [facility] [address] 63736 -7782 20 Dec, 2016 Viral pharyngitis J02.9 [place] [address] 04453- 1382 15 Dec, 2016 HTN (hypertension) I10 [place] [address] 84690 5000 14 Dec, 2016 Bulging lumbar disc M51.26 and HTN (hypertension) I10 [facility] [place] [address] 46861 -0487 10 Dec, 2016 Abscess L02.91 [place] [address] 90222- 4528 08 Dec, 2016 Anxiety F41.9 and Bulging lumbar disc M51.26 [place] [address] 88387- 9197 Nov, Incontinence R32 [place] [address] 87120- 1706 Nov, Anxiety F41.9 and Bulging lumbar disc M51.26 [place] [address] 00146- 6904 Nov, Incontinence R32 [place] [address] 11619- 4656 Nov, Excessive thirst R63.1 [place] [address] [id number]- 0120 Nov, Excessive thirst R63.1 [place] [address] 61104- 9333 Nov, HTN (hypertension) I10 ; Anxiety F41.9 ; COPD (chronic obstructive pulmonary disease) J44.9 ; Bulging lumbar disc M51.26 ; Epilepsy G40.909 ; Pseudoseizures F44.5 ; Neck pain M54.2 ; Other viral agents as the cause of diseases classified elsewhere B97.89 ; Acute upper respiratory infection, unspecified J06.9 ; Chronic intractable headache, unspecified headache type R51 and Hypercholesterolemia E78.00 [place] [address] 42174- 4080 Oct, [place] [address] 21139- 3273 Oct, [place] [address] 40641- 9645 Sep, [place] [address] 34458- 9210 Sep, [facility] [address] 63361 -4442 Sep, Cough R05 ; Wheezing R06.2 ; Oropharyngeal dysphagia R13.12 and Exposure to strep throat Z20.818 [place] [address] 58609- 6813 Sep, [place] [address] 64344- 5446 Sep, [place] [address] 98096- 1413 Aug, [place] [address] 01500- 5997 Aug, [place] [address] 63888- 3825 16 Jul, 2016 [facility] [address] 53468 -0153 14 Jul, 2016 Bronchitis J40 [place] [address] [place] [address]- 2963 Jul, [place] [address] 94679- 7486 Jun, HTN (hypertension) I10 ; Anxiety F41.9 ; Epilepsy G40.909 ; COPD (chronic obstructive pulmonary disease) J44.9 ; Pseudoseizures F44.5 and Bulging lumbar disc M51.26 [place] [address] 46514- 8636 Jun, [place] [address] 31606- 4796 Jun, HTN (hypertension) I10 ; Anxiety F41.9 ; Epilepsy G40.909 ; COPD (chronic obstructive pulmonary disease) J44.9 ; Pseudoseizures F44.5 and Bulging lumbar disc M51.26 [place] [address] 01594- 3935 May, [place] [address] 48050- 1067 Apr, Anxiety disorder, unspecified F41.9 and Shoulder pain, left M25.512 [place] [address] 92114- 1241 March, Anxiety disorder, unspecified F41.9 and Degenerative joint disease (DJD) of lumbar spine M47.816 [place] [address] 30589- 8654 March, Sore throat in the morning J02.9 [place] [address] 93453- 7283 Feb, [facility] [address] 47568 -0835 Feb, Right foot injury, initial encounter S99.921A and Oral nayan B37.0 [place] [address] 74808- 8354 Feb, [facility] [id number] [place] [address] 65131- 5418 Jan, HTN (hypertension) I10 ; COPD (chronic obstructive pulmonary disease) J44.9 ; Chronic pain G89.29 and Epilepsy G40.909 [facility] [id number] [place] [address] 64932 -7384 Jan, Sore throat J02.9 and Thrush B37.0 [facility] [address] 21873- 5943 16 Jan, 2016 Chronic pain G89.29 ; HTN (hypertension) I10 ; Anxiety F41.9 ; Bulging lumbar disc M51.26 ; Protrusion of cervical intervertebral disc M50.20 and Shoulder pain, left M25.512 [place] [address] 00377- 9585 15 Jan, 2016 [facility] [address] 52761- 9177 Jan, [facility] [address] 70308- 9520 Jan, HTN (hypertension) I10 ; Anxiety F41.9 ; COPD (chronic obstructive pulmonary disease) J44.9 ; Bulging lumbar disc M51.26 ; Incontinence R32 ; Epilepsy G40.909 ; Pseudoseizures F44.5 and Neck pain M54.2 [place] [address] [id number] [place] [address] 65634- 5792 Jan, Anxiety F41.9 [place] [address] 19400- 2815 Dec, HTN (hypertension) I10 ; Epilepsy G40.909 and Pseudoseizures F44.5 [place] [address] [id number] [place] [address] 56739- 5285 Dec, [place] [address] 60658- 8259 Dec, Anxiety F41.9 ; HTN (hypertension) I10 ; COPD (chronic obstructive pulmonary disease) J44.9 ; Bulging lumbar disc M51.26 and Incontinence R32 [facility] [address] [place] [address] 13077- 0544 11 Dec, 2015 [facility] [address] [id number] [place] [address] Dec [facility] [id number] [place] [address] 82213- 8767 Nov, [place] [id number] [place] [address] 45872- 2057 Nov, [place] [id number] [place] [address] 06617- 6992 Nov, [facility] [id number] [place] [address] 01794 -1888 Nov, Pharyngitis J02.9 and Allergic rhinitis J30.9 [place] [address] [place] [id number] [place] [address] 60587- 0618 Nov, Degenerative joint disease (DJD) of lumbar spine M47.816 ; Cervicalgia M54.2 ; Lumbago 724.2 and Lumbago of lumbar region with sciatica M54.5 [place] [address] [place] [address] 34297- 0512 Nov, Degenerative joint disease (DJD) of lumbar spine M47.816 [place] [address] [place] [address] 47126- 6580 Oct, Generalized anxiety disorder F41.1 [place] [address] [place] [id number] [place] [address] 78419- 5456 Oct, Cervicalgia M54.2 ; Degenerative joint disease (DJD) of lumbar spine M47.816 and Hypertension I10 [place] [address] [id number] [place] [address] 60368- 9845 Oct, [facility] [address] [place] [address] 48315 -4168 Oct, Essential (primary) hypertension I10 [facility] [id number] [place] [address] 47634- 0151 Oct, [facility] [id number] [place] [address] 11868- 3499 Sep, Allergic rhinitis J30.9 ; Generalized anxiety disorder F41.1 and Shoulder pain, left M25.512 [facility] [id number] [place] [address] 73247- 4306 Sep, [facility] [address] 82263- 7302 Aug, Cough R05 [facility] [id number] [place] [address] 01588- 3421 Aug, Generalized anxiety disorder F41.1 [facility] [id number] [place] [address] 30983- 4475 Aug, Cough R05 [facility] [id number] [place] [address] 17457- 4264 Aug, [facility] [id number] [place] [address] 28997- 2473 Aug, [facility] [id number] [place] [address] 17111- 1118 Aug, Lumbago of lumbar region with sciatica M54.5 [facility] [id number] [place] [address] 97810- 3059 Jul, Lumbago 724.2 [facility] [address] 30086- 1169 Jul, [facility] [id number] [place] [address] 79069- 6705 Jul, Anxiety 300.00 and Hypertension 401.9 [facility] [id number] [address] 5553 Jul, Generalized anxiety disorder 300.02 [facility] [address] [place] [address]- 9889 Jul, Nodule of neck 784.2 [facility] [address] [address]- 1379 Jun, Nodule of neck 784.2 [facility] [address] [address]- [address]91 Jun, [facility] [id number] [place] [address] 69082- 7557 Jun, Routine adult health maintenance V70.0 [place] [address] [address]- 0035 Jun, Routine adult health maintenance V70.0 ; Anxiety 300.00 ; Epilepsy 345.90 ; Hypertension 401.9 and Urinary incontinence 788.30 IMMUNIZATIONS No Known Immunizations SOCIAL HISTORY Never Assessed REASON FOR VISIT Pain in back and in stomach / constant x 3weeks Jasen VALENTIN, swollen lymph node/ sore throat x5days- Jasen VALENTIN, headache above left eye x 5days Jasen VALENTIN PLAN OF CARE Activity Details Follow Up 3 Months, prn Reason:CHM/HTN/Pain w/Carolynn VITAL SIGNS Height 70 in 2018-08-17 Weight 195.1 lbs 2018-08-17 Temperature 98.2 degrees Fahrenheit 2018-08-17 Heart Rate 72 bpm 2018-08-17 Respiratory Rate 2018-08-17 BMI 27.99 kg/m2 2018-08-17 Blood pressure systolic 124 mmHg 2018-08-17 Blood pressure diastolic 84 mmHg 2018-08-17 MEDICATIONS Medication Instructions Dosage Frequency Start Date End Date Duration Status Percocet 7.5-325 mg Orally 3 times a day 1 tablet as needed 8h Jul, Aug, 28 days Active Atenolol 50 mg Orally Once a day TAKE ONE TABLET BY MOUTH ONCE DAILY AT NIGHT 24h Active Topamax 50 mg Orally Twice a day 2 tablet 12h Active Lisinopril 20 mg Orally Once a day TAKE ONE TABLET BY MOUTH ONCE DAILY 24h 90 days Active Ibuprofen 800 MG Orally 3 times a day PRN TAKE ONE TABLET BY MOUTH THREE TIMES DAILY Apr, 90 days Active PredniSONE 10 mg Orally Once a day 4 tabs x 4 days, 3 tabs x 4 days, 2 tabs x 4 days, then 1 tab x 4 days 24h Jul, Aug, 16 days Active Albuterol Sulfate HFA cfc free 90 mcg/inh Inhalation every 4 hrs 2 puffs as needed 4h Sep, 12 months Active MiraLax - Orally Once a day 1 packet mixed with 8 ounces of fluid 24h Jul, Sep, 30 day(s) Active RESULTS Name Result Date Reference Range UA LONG DIP (IN HOUSE) 2018-08-17 Lot # [id number] Exp date 02/2019 Clarity cloudy Color dark yellow Odor no GLU neg JACKSON neg KET neg SG 1.020 BLO neg pH 7.5 Protein trace URO 1.0 NIT neg ANDERS neg Lot # Exp date Xray : Abdomen 3v (Upright and KUB with PA CXR) - IN HOUSE 2018-08-17 PROCEDURES Procedure Date Ordered Result Body Site X-RAY EXAM ABDOMEN 3+ VIEWS Aug 17, 2018 URINALYSIS, AUTO, W/O SCOPE Aug 17, 2018 INSTRUCTIONS MEDICATIONS ADMINISTERED No Known Medications [...]
--- OUTSIDE RECORDS SUMMARY | 2018-10-18 10:01 | XMS REPORT ---
Author Author ANN Mckeon [facility] Address [address] [place] [address] Care Team Providers Care Rubber Washer Name Role Phone ANN Mckeon Unavailable PROBLEMS ALLERGIES No Information ENCOUNTERS IMMUNIZATIONS No Known Immunizations SOCIAL HISTORY No smoking Hx information available REASON FOR VISIT PLAN OF CARE VITAL SIGNS MEDICATIONS No Known Medications RESULTS No Results PROCEDURES No Known procedures INSTRUCTIONS MEDICATIONS ADMINISTERED No Known Medications MEDICAL (GENERAL) HISTORY
--- OUTSIDE RECORDS SUMMARY | 2018-10-18 10:01 | XMS REPORT ---
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 Name Role Phone ANN Mckeon Unavailable PROBLEMS Type Condition ICD9-CM Code GBB41-SH Code Onset Dates Condition Status SNOMED Code Problem Bulging lumbar disc M51.26 Active 150957983 Problem Chronic pain G89.29 Active 04250897 Problem Epilepsy G40.909 Active 66223849 Problem Dyslipidemia (high LDL; low HDL) E78.5 Active 117713899 Problem COPD (chronic obstructive pulmonary disease) J44.9 Active 39108738 Problem HTN (hypertension) I10 Active 19196011 Problem Anxiety F41.9 Active 73649609 Problem Constipation by delayed colonic transit K59.01 Active 79745971 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 215176473 Problem Overweight (BMI 25.0-29.9) E66.3 Active 281417568 Problem Protrusion of cervical intervertebral disc M50.20 Active 460852179 Problem Tobacco abuse counseling Z71.6 Active 882103121 Problem Tobacco abuse Z72.0 Active [id number] ALLERGIES No Information ENCOUNTERS Encounter Location Date Diagnosis [facility]ALK IN [facility] [address] [address] Aug, Bronchitis J40 and Chest tightness R07.89 [facility] [address], [place] [address] Jul, Bronchitis J40 and Chest tightness R07.89 [facility] [address] [address] Jul, [facility] [address] [address] Jul, [facility] [id number] [place] [address] 44454- 5124 Jul, HTN (hypertension) I10 ; Tobacco abuse counseling Z71.6 ; Generalized abdominal pain R10.84 ; Flank pain R10.9 ; Acute bronchitis, unspecified organism J20.9 ; Constipation by delayed colonic transit K59.01 and Chronic pain G89.29 [facility] [id number] [place] [address] 74783- 2112 Jul, [facility] [id number] [place] [address] 59925- 6496 Jun, HTN (hypertension) I10 [facility] [id number] [place] [address] 92052- 2682 May, Chronic pain G89.29 [facility] [id number] [place] [address] 39849- 9943 March, Adverse effect of drug, subsequent encounter T88.7XXD ; HTN (hypertension) I10 ; Dyslipidemia (high LDL; low HDL) E78.5 ; Chronic pain G89.29 ; Anxiety F41.9 and Pseudoseizures F44.5 [facility] [id number] [place] [address] 35925- 6030 March, Bulging lumbar disc M51.26 [facility] [id number] [place] [address] 53534- 9875 March, [facility] [id number] [place] [address] 32109- 1056 Feb, [facility] [id number] [place] [address] 23272- 7766 Feb, HTN (hypertension) I10 ; COPD (chronic obstructive pulmonary disease) J44.9 ; Overweight (BMI 25.0-29.9) E66.3 and Epilepsy G40.909 [facility] [id number] [place] [address] 67179- 2698 Feb, HTN (hypertension) I10 ; COPD (chronic obstructive pulmonary disease) J44.9 ; Anxiety F41.9 ; Overweight (BMI 25.0-29.9) E66.3 ; Epilepsy G40.909 ; Bulging lumbar disc M51.26 ; Protrusion of cervical intervertebral disc M50.20 ; Tobacco abuse counseling Z71.6 and Tobacco abuse Z72.0 [facility] [address] 23168- 7240 Feb, Chronic pain G89.29 [facility] [address] 96993- 6176 Jan, Chronic pain G89.29 [facility] [address] 74082- 8385 Dec, Epilepsy G40.909 [facility] [address] 97989- 4664 Dec, Chronic pain G89.29 [facility] [address] 55983- 7006 Nov, [facility] [address] 78273- 5613 Nov, Anxiety F41.[address] [address]- [address] Oct, HTN (hypertension) I10 ; COPD (chronic obstructive pulmonary disease) J44.9 ; Epilepsy G40.909 ; Chronic pain G89.29 ; Anxiety F41.9 ; Overweight (BMI 25.0-29.9) E66.3 ; Tobacco abuse Z72.0 ; Tobacco abuse counseling Z71.6 ; High risk medication use Z79.899 and Controlled substance agreement signed Z79.899 [facility] [address] 37906- 0714 Oct, Bulging lumbar disc M51.26 [facility] [address] 64539- 9116 Oct, Bulging lumbar disc M51.26 [facility] [address] 23265- 5063 Sep, [facility] [id number] [place] [address] 48179- 6148 Sep, [facility] [address] 27219- 0705 Aug, Bulging lumbar disc M51.26 [facility] [address] 73144- 9625 Jul, Bulging lumbar disc M51.26 and Anxiety F41.9 [facility] [address] 33347- 6056 Jun, Bulging lumbar disc M51.26 and Anxiety F41.9 [facility] [address] 95635- 7682 Jun, Pseudoseizures F44.5 [facility] [address] 38[address] Jun, Acute swimmers ear of right side H60.331 [facility] [address] 18380- 8722 Jun, Bulging lumbar disc M51.26 and Anxiety F41.9 [facility] [id number] [place] [address] 49675- 5658 May, Bulging lumbar disc M51.26 and Anxiety F41.9 [facility] [address] [address] May, COPD exacerbation J44.1 [facility] [address] 58407- 4507 May, Bulging lumbar disc M51.26 [facility] [address] 72961- 3828 Apr, [facility] [address] 75705- 7362 Apr, [facility] [address] 77703- 0573 Apr, Bulging lumbar disc M51.26 and Anxiety F41.9 [facility] [address] 47419- 6027 March, Anxiety F41.9 and Bulging lumbar disc M51.26 [facility] [address] 74795- 6601 March, HTN (hypertension) I10 ; Anxiety F41.9 ; Bulging lumbar disc M51.26 ; Pseudoseizures F44.5 ; Neck pain M54.2 ; Globus sensation F45.8 and COPD (chronic obstructive pulmonary disease) J44.9 [facility] [address] 33491- 5471 Feb, [facility] [address] 23868- 2062 Feb, HTN (hypertension) I10 [facility] [address] [address] Feb, Acute nasopharyngitis (common cold) J00 [facility] [address] 79364- 9618 Feb, Anxiety F41.9 and Bulging lumbar disc M51.26 [facility] [address] 89567- 2361 Feb, Bronchitis J40 [facility] [address] 63335- 1800 Jan, Anxiety F41.9 and Bulging lumbar disc M51.26 [facility] [address] 71442- 7854 Jan, Anxiety F41.9 [facility] [address] [address] Dec, Viral pharyngitis J02.9 [facility] [id number] [place] [address] 66797- 5560 15 Dec, 2016 HTN (hypertension) I10 [facility] [address] 95674- 5459 14 Dec, 2016 Bulging lumbar disc M51.26 and HTN (hypertension) I10 [facility] WALK IN [facility] [id number] [place] [address] 62081 -9782 10 Dec, 2016 Abscess L02.91 [facility] [address] 15136- 8118 08 Dec, 2016 Anxiety F41.9 and Bulging lumbar disc M51.26 [facility] [id number] [place] [address] 01136- 0211 16 Nov, 2016 Incontinence R32 [facility] [address] 88087- 9531 Nov, Anxiety F41.9 and Bulging lumbar disc M51.26 [facility] [id number] [place] [address] 28788- 9799 Nov, Incontinence R32 [facility] [address] 54161- 2353 Nov, Excessive thirst R63.1 [facility] [id number] [place] [address] 58843- 4911 Nov, Excessive thirst R63.1 [facility] [address] 69191- 3612 Nov, HTN (hypertension) I10 ; Anxiety F41.9 ; COPD (chronic obstructive pulmonary disease) J44.9 ; Bulging lumbar disc M51.26 ; Epilepsy G40.909 ; Pseudoseizures F44.5 ; Neck pain M54.2 ; Other viral agents as the cause of diseases classified elsewhere B97.89 ; Acute upper respiratory infection, unspecified J06.9 ; Chronic intractable headache, unspecified headache type R51 and Hypercholesterolemia E78.00 [facility] [id number] [place] [address] 31022- 6467 16 Oct, 2016 [facility] [address] 05944- 5694 Oct, [facility] [id number] [place] [address] 82237- 0006 Sep, [facility] [address] 25327- 8517 Sep, [facility] [id number] [place] [address] 29640 -1506 Sep, Cough R05 ; Wheezing R06.2 ; Oropharyngeal dysphagia R13.12 and Exposure to strep throat Z20.818 [facility] [id number] [place] [address] 34382- 4311 Sep, [facility] [address] 70825- 8701 Sep, [facility] [id number] [place] [address] 08228- 1807 Aug, [facility] [address] 97057- 8809 18 Aug, 2016 [facility] [id number] [place] [address] 10878- 6224 16 Jul, 2016 [facility] [id number] [place] [address] 11111 -7846 14 Jul, 2016 Bronchitis J40 [facility] [id number] [place] [address] 89752- 5290 Jul, [facility] [address] 32009- 5424 Jun, HTN (hypertension) I10 ; Anxiety F41.9 ; Epilepsy G40.909 ; COPD (chronic obstructive pulmonary disease) J44.9 ; Pseudoseizures F44.5 and Bulging lumbar disc M51.26 [facility] [id number] [place] [address] 70886- 4841 Jun, [facility] [address] 57945- 7842 Jun, HTN (hypertension) I10 ; Anxiety F41.9 ; Epilepsy G40.909 ; COPD (chronic obstructive pulmonary disease) J44.9 ; Pseudoseizures F44.5 and Bulging lumbar disc M51.26 [facility] [address] 91494- 6451 May, [facility] [address] 40674- 7017 Apr, Anxiety disorder, unspecified F41.9 and Shoulder pain, left M25.[address] 13061- 8550 March, Anxiety disorder, unspecified F41.9 and Degenerative joint disease (DJD) of lumbar spine M47.816 [facility] [address] 70674- 7023 March, Sore throat in the morning J02.9 [facility] [address] 59368- 1477 Feb, [facility] [address] 77255 -0634 Feb, Right foot injury, initial encounter S99.921A and Oral nayan B37.0 [facility] [id number] [place] [address] 59052- 2587 Feb, [facility] [address] 75257- 0317 Jan, HTN (hypertension) I10 ; COPD (chronic obstructive pulmonary disease) J44.9 ; Chronic pain G89.29 and Epilepsy G40.909 [facility] [id number] [place] [address] 41151 -3658 Jan, Sore throat J02.9 and Thrush B37.0 [facility] [id number] [place] [address] 82313- 8928 Jan, Chronic pain G89.29 ; HTN (hypertension) I10 ; Anxiety F41.9 ; Bulging lumbar disc M51.26 ; Protrusion of cervical intervertebral disc M50.20 and Shoulder pain, left M25.512 [facility] [id number] [place] [address] 13127- 9454 Jan, [facility] [id number] [place] [address] 54317- 8561 Jan, [address] 11143- 5161 Jan, HTN (hypertension) I10 ; Anxiety F41.9 ; COPD (chronic obstructive pulmonary disease) J44.9 ; Bulging lumbar disc M51.26 ; Incontinence R32 ; Epilepsy G40.909 ; Pseudoseizures F44.5 and Neck pain M54.2 [facility] [id number] [place] [address] 90376- 3407 Jan, Anxiety F41.9 [place] [id number] [place] [address] 60267- 8122 24 Dec, 2015 HTN (hypertension) I10 ; Epilepsy G40.909 and Pseudoseizures F44.5 [facility] [id number] [place] [address] 36803- 7763 Dec, [facility] [id number] [place] [address] 18974- 0328 15 Dec, 2015 Anxiety F41.9 ; HTN (hypertension) I10 ; COPD (chronic obstructive pulmonary disease) J44.9 ; Bulging lumbar disc M51.26 and Incontinence R32 [facility] [address] [place] [address] 14257- 2218 11 Dec, 2015 [facility] [id number] [address] Dec [facility] [id number] [place] [address] 22107- 3481 Nov, [facility] [id number] [place] [address] 61925- 9212 Nov, [facility] [id number] [place] [address] 68893- 0430 Nov, [facility] [address] 81697 -3952 Nov, Pharyngitis J02.9 and Allergic rhinitis J30.9 [facility] [address] 02211- 9068 Nov, Degenerative joint disease (DJD) of lumbar spine M47.816 ; Cervicalgia M54.2 ; Lumbago 724.2 and Lumbago of lumbar region with sciatica M54.5 [facility] [id number] [place] [address] 85065- 1306 Nov, Degenerative joint disease (DJD) of lumbar spine M47.816 [facility] [id number] [place] [address] 42828- 0262 Oct, Generalized anxiety disorder F41.1 [facility] [id number] [place] [address] 40314- 2183 Oct, Cervicalgia M54.2 ; Degenerative joint disease (DJD) of lumbar spine M47.816 and Hypertension I10 [facility] [id number] [place] [address] 37154- 3603 14 Oct, 2015 [facility] [id number] [place] [address] 34236 -7816 05 Oct, 2015 Essential (primary) hypertension I10 [facility] [id number] [place] [address] 21204- 2573 Oct, [facility] [id number] [place] [address] 19312- 4696 Sep, Allergic rhinitis J30.9 ; Generalized anxiety disorder F41.1 and Shoulder pain, left M25.512 [facility] [id number] [place] [address] 99268- 0497 Sep, [facility] [id number] [place] [address] 56344- 8907 Aug, Cough R05 [facility] [address] 84746- 4914 Aug, Generalized anxiety disorder F41.1 [facility] [id number] [place] [address] 75044- 5940 Aug, Cough R05 [facility] [id number] [place] [address] 87052- 6991 Aug, [facility] [id number] [place] [address] 96470- 8527 Aug, [facility] [id number] [place] [address] 64466- 8053 Aug, Lumbago of lumbar region with sciatica M54.5 [facility] [id number] [place] [address] 89294- 7269 Jul, Lumbago 724.2 [facility] [id number] [place] [address] 05365- 0660 Jul, [facility] [id number] [place] [address] 33585- 2211 Jul, Anxiety 300.00 and Hypertension 401.9 [facility] [id number] [place] [address] 34022- 3768 Jul, Generalized anxiety disorder 300.02 [facility] [id number] [place] [address] 22244- 4625 09 Jul, 2015 Nodule of neck 784.2 [facility] [id number] [place] [address] 87301- 6984 Jun, Nodule of neck 784.2 [facility] [address] [facility] [id number] [address]- 1820 Jun, [facility] [address] [facility] [id number] [address]- 5396 Jun, Routine adult health maintenance V70.0 [facility] [address] [facility] [id number] [address]- 9658 Jun, Routine adult health maintenance V70.0 ; Anxiety 300.00 ; Epilepsy 345.90 ; Hypertension 401.9 and Urinary incontinence 788.30 IMMUNIZATIONS No Known Immunizations SOCIAL HISTORY Never Assessed REASON FOR VISIT requesting return call PLAN OF CARE VITAL SIGNS MEDICATIONS No [...]
[2018-10-18] MEDS ORDERED: CLON0.5T13 (10:11)
--- OUTSIDE RECORDS SUMMARY | 2018-10-18 10:22 | XMS REPORT | Continuity of Care Document ---
Author Author [facility] Address Unknown Phone Unavailable Allergies Active Description Code Type Severity Reaction Onset Reported/Identified Relationship to Patient Clinical Status Yes clarithromycin [id number] Drug Allergy Unknown N/A 06/28/2017 Yes levetiracetam [id number] Drug Allergy Unknown N/A 06/28/2017 Yes morphine [id number] Drug Allergy Unknown N/A 06/28/2017 Yes Sulfa (Sulfonamide Antibiotics) [id number] Drug Allergy Unknown N/A 2016 Yes codeine [id number] Drug Allergy Unknown VOMITING 10/18/2018 Medications There is no data. Problems Date Dx Coded Attending Type Code Diagnosis Diagnosed By 10/27/1349 ROBYN VALLE Ot M54.5 LOW BACK PAIN 04/05/2015 HAJA CHAPA Ot 787.01 NAUSEA WITH VOMITING 04/05/2015 HAJA CHAPA Ot 788.0 RENAL COLIC 04/05/2015 HAJA CHAPA Ot 789.00 ABDOMINAL PAIN, UNSPECIFIED SITE 06/03/2015 SABRINA RAYMUNDO MD Ot 558.9 NONINF GASTROENTERIT NEC 06/03/2015 SABRINA [...] MD Ot 780.4 DIZZINESS AND GIDDINESS 07/25/2015 SABRNIA RAYMUNDO MD Ot 924.21 CONTUSION OF ANKLE 07/25/2015 SABRINA RAYMUNDO MD Ot 959.7 LOWER LEG INJURY NOS 07/25/2015 SABRINA RAYMUNDO MD Ot E000.8 OTHER EXTERNAL CAUSE STATUS 07/25/2015 SABRINA RAYMUNDO MD Ot E917.9 STRUCK BY OBJ/PERSON NEC 08/11/2015 KURTIS SOTO TEST SPECIALIST Ot 784.2 08/11/2015 HAJA CHAPA Ot 307.81 TENSION HEADACHE 08/11/2015 HAJA CHAPA Ot 784.0 HEADACHE 08/21/2015 KURTIS SOTO TEST SPECIALIST Ot 784.2 08/23/2015 HAJA CHAPA Ot 724.5 BACKACHE NOS 08/23/2015 HAJA CHAPA Ot 789.09 ABDOMINAL PAIN, OTHER SPECIFIED SITE 09/01/2015 MIKI PAZ MD Ot G40.909 EPILEPSY, UNSP, NOT INTRACTABLE, WITHOUT 09/01/2015 MIKI PAZ MD Ot R51 HEADACHE 09/04/2015 KURTIS SOTO TEST SPECIALIST Ot 721.8 09/04/2015 KURTIS SOTO TEST SPECIALIST Ot 724.02 09/09/2015 HAJA CHAPA Ot F17.210 NICOTINE DEPENDENCE, CIGARETTES, UNCOMPL 09/09/2015 HAJA CHAPA Ot J12.9 VIRAL PNEUMONIA, UNSPECIFIED 09/09/2015 HAJA CHAPA Ot R50.9 FEVER, UNSPECIFIED 10/06/2015 TERRANCE JAEGER TEST SPECIALIST Ot F17.210 NICOTINE DEPENDENCE, CIGARETTES, UNCOMPL 10/06/2015 TERRANCE JAEGER TEST SPECIALIST Ot J40 BRONCHITIS, NOT SPECIFIED ACUTE OR CH 10/06/2015 TERRANCE JAEGER TEST SPECIALIST Ot S46.812A STRAIN OF MUSC/FASC/TEND AT SHLDR/UP ARM 10/06/2015 TERRANCE JAEGER TEST SPECIALIST Ot X58.XXXA EXPOSURE TO OTHER SPECIFIED FACTORS, INI 10/06/2015 TERRANCE JAEGER TEST SPECIALIST Ot Y99.8 OTHER EXTERNAL CAUSE STATUS 10/31/2015 BHAVYA ESCOBAR DO Ot F17.210 NICOTINE DEPENDENCE, CIGARETTES, UNCOMPL 10/31/2015 LUZBHAVYA Crews DO Ot I10 ESSENTIAL (PRIMARY) HYPERTENSION 10/31/2015 LUZLOLA Cresw DOA Charlee Ot J98.4 OTHER DISORDERS OF LUNG 10/31/2015 LUZ LOLA ZENGA K Ot R07.89 OTHER CHEST PAIN 11/01/2015 KURTIS SOTO TEST SPECIALIST Ot 784.2 11/01/2015 KURTIS SOTO TEST SPECIALIST Ot 721.8 11/01/2015 KURTIS SOTO TEST SPECIALIST Ot 724.02 11/07/2015 SABRINA RAYMUNDO MD Ot I10 ESSENTIAL (PRIMARY) HYPERTENSION 11/07/2015 SABRINA RAYMUNDO MD Ot Z79.899 OTHER INTERMEDIATE (CURRENT) DRUG THERAPY 11/27/2015 EMORY BYRD, FRED Blackman Ot F17.210 NICOTINE DEPENDENCE, CIGARETTES, UNCOMPL 11/27/2015 EMORY BYRD, FRED Blackman Ot F41.9 ANXIETY DISORDER, UNSPECIFIED 11/27/2015 FRED CAT MD Ot I10 ESSENTIAL (PRIMARY) HYPERTENSION 11/27/2015 FRED CAT MD Ot R07.89 OTHER CHEST PAIN 11/27/2015 EMORY BYRD, FRED Blackman Ot R42 DIZZINESS AND GIDDINESS 11/27/2015 FRED CAT MD Ot Z79.899 OTHER JACQUARD PLATE MAKER (CURRENT) DRUG THERAPY 12/25/2015 KURTIS SOTO TEST SPECIALIST Ot 784.2 12/25/2015 KURTIS SOTO TEST SPECIALIST Ot 721.8 12/25/2015 KURTIS SOTO TEST SPECIALIST Ot 724.02 12/25/2015 KURTIS SOTO TEST SPECIALIST Ot M47.816 SPONDYLOSIS W/O MYELOPATHY OR RADICULOPA 01/16/2016 KURTIS SOTO TEST SPECIALIST Ot 784.2 01/16/2016 KURTIS SOTO TEST SPECIALIST Ot 721.8 01/16/2016 KURTIS SOTO TEST SPECIALIST Ot 724.02 01/28/2016 ROBYN VALLE WATCH GUARD GATE Ot M54.5 01/28/2016 TERRANCE JAEGER APRN Ot F17.210 NICOTINE DEPENDENCE, CIGARETTES, UNCOMPL 01/28/2016 TERRANCE JAEGER TEST SPECIALIST Ot K52.9 NONINFECTIVE GASTROENTERITIS AND COLITIS 01/28/2016 TERRANCE JAEGER TEST SPECIALIST Ot R10.30 LOWER ABDOMINAL PAIN, UNSPECIFIED 01/28/2016 TERRANCE JAEGER APRN Ot S46.912A STRAIN UNSP MUSC/FASC/TEND AT SHLDR/UP A 02/05/2016 HAJA CHAPA Ot F17.210 NICOTINE DEPENDENCE, CIGARETTES, UNCOMPL 02/05/2016 HAJA CHAPA Ot M50.32 OTHER CERVICAL DISC DEGENERATION, MID-CE 02/06/2016 HAJA CHAPA Ot F17.210 02/06/2016 HAJA CHAPA Ot M50.32 02/10/2016 TERRANCE JAEGER APRN Ot M54.12 RADICULOPATHY, CERVICAL REGION 02/10/2016 TERRANCE JAEGER TEST SPECIALIST Ot Z98.1 ARTHRODESIS STATUS 02/11/2016 TERRANCE JAEGER APRN Ot M54.12 02/11/2016 TERRANCE JAEGER APRN Ot Z98.1 02/24/2016 ROBYN VALLE WATCH GUARD GATE Ot M54.5 03/03/2016 TERRANCE JAEGER TEST SPECIALIST Ot M54.12 03/03/2016 TERRANCE JAEGER TEST SPECIALIST Ot Z98.1 2016 ROBYN VALLE WATCH GUARD GATE Ot M54.5 LOW BACK PAIN 03/14/2016 TERRANCE JAEGER APRN Ot F17.210 NICOTINE DEPENDENCE, CIGARETTES, UNCOMPL 03/14/2016 TERRANCE JAEGER APRN Ot R10.33 PERIUMBILICAL PAIN 03/16/2016 TERRANCE JAEGER APRN Ot F17.210 NICOTINE DEPENDENCE, CIGARETTES, UNCOMPL 03/16/2016 TERRANCE JAEGER TEST SPECIALIST Ot R10.33 PERIUMBILICAL PAIN 03/23/2016 ROBYN VALLE WATCH GUARD GATE Ot M54.5 LOW BACK PAIN 04/15/2016 ROBYN VALLE WATCH GUARD GATE Ot M54.5 LOW BACK PAIN 05/26/2016 EMORY BYRD, FRED Blackman Ot F17.210 NICOTINE DEPENDENCE, CIGARETTES, UNCOMPL 05/26/2016 FRED CAT MD Ot N45.1 EPIDIDYMITIS 05/26/2016 EMORY BYRD, FRED Blackman Ot N48.89 OTHER SPECIFIED DISORDERS OF PENIS 05/27/2016 EMORY BYRD, FRED Blackman Ot F17.210 NICOTINE DEPENDENCE, CIGARETTES, UNCOMPL 05/27/2016 FRED CAT MD Ot N45.1 EPIDIDYMITIS 05/27/2016 FRED CAT MD Ot N48.89 OTHER SPECIFIED DISORDERS OF PENIS 08/04/2016 TERRANCE JAEGER TEST SPECIALIST Ot I10 ESSENTIAL (PRIMARY) HYPERTENSION 08/04/2016 TERRANCE JAEGER TEST SPECIALIST Ot M26.62 ARTHRALGIA OF TEMPOROMANDIBULAR JOINT 08/04/2016 TERRANCE JAEGER TEST SPECIALIST Ot R68.84 JAW PAIN 08/04/2016 TERRANCE JAEGER TEST SPECIALIST Ot Z79.899 OTHER INTERMEDIATE (CURRENT) DRUG THERAPY 08/06/2016 TERRANCE JAEGER TEST SPECIALIST Ot I10 ESSENTIAL (PRIMARY) HYPERTENSION 08/06/2016 TERRANCE JAEGER TEST SPECIALIST Ot M26.62 ARTHRALGIA OF TEMPOROMANDIBULAR JOINT 08/06/2016 TERRANCE JAEGER TEST SPECIALIST Ot R68.84 JAW PAIN 08/06/2016 TERRANCE JAEGER TEST SPECIALIST Ot Z79.899 OTHER INTERMEDIATE (CURRENT) DRUG THERAPY 10/05/2016 KURTIS SOTO TEST SPECIALIST Ot 784.2 SWELLING IN HEAD NECK 10/05/2016 KURTIS SOTO TEST SPECIALIST Ot 721.8 SPINAL DISORDERS NEC 10/05/2016 KURTIS SOTO TEST SPECIALIST Ot 724.02 SPINAL STENOSIS, LUMBAR REG, W/OUT NEURO 10/05/2016 EMORY BYRD, FRED Blackman Ot F17.210 NICOTINE DEPENDENCE, CIGARETTES, UNCOMPL 10/05/2016 FRED CAT MD T Ot I10 ESSENTIAL (PRIMARY) HYPERTENSION 10/05/2016 FRED CAT MD T Ot M79.661 PAIN IN RIGHT LOWER LEG 10/05/2016 FRED CAT MD T Ot Z79.899 OTHER JACQUARD PLATE MAKER (CURRENT) DRUG THERAPY 12/16/2016 FRED CAT MD T Ot F17.210 NICOTINE DEPENDENCE, CIGARETTES, UNCOMPL 12/16/2016 FRED CAT MD T Ot G40.909 EPILEPSY, UNSP, NOT INTRACTABLE, WITHOUT 12/16/2016 FRED CAT MD T Ot I10 ESSENTIAL (PRIMARY) HYPERTENSION 12/16/2016 FRED CAT MD T Ot R10.12 LEFT UPPER QUADRANT PAIN 12/16/2016 FRED CAT MD T Ot R11.2 NAUSEA WITH VOMITING, UNSPECIFIED 12/16/2016 FRED CAT MD T Ot Z79.899 OTHER INTERMEDIATE (CURRENT) DRUG THERAPY 12/16/2016 FRED CAT MD T Ot Z98.1 ARTHRODESIS STATUS 12/17/2016 FRED CAT MD T Ot F17.210 NICOTINE DEPENDENCE, CIGARETTES, UNCOMPL 12/17/2016 FRED CAT MD T Ot G40.909 EPILEPSY, UNSP, NOT INTRACTABLE, WITHOUT 12/17/2016 FRED CAT MD T Ot I10 ESSENTIAL (PRIMARY) HYPERTENSION 12/17/2016 FRED CAT MD T Ot R10.12 LEFT UPPER QUADRANT PAIN 12/17/2016 FRED CAT MD T Ot R11.2 NAUSEA WITH VOMITING, UNSPECIFIED 12/17/2016 FRED CAT MD T Ot Z79.899 OTHER JACQUARD PLATE MAKER (CURRENT) DRUG THERAPY 12/17/2016 FRED CAT MD T Ot Z98.1 ARTHRODESIS STATUS 01/09/2017 TERRANCE JAEGER TEST SPECIALIST Ot F17.210 NICOTINE DEPENDENCE, CIGARETTES, UNCOMPL 01/09/2017 TERRANCE JAEGER TEST SPECIALIST Ot I10 ESSENTIAL (PRIMARY) HYPERTENSION 01/09/2017 TERRANCE JAEGER TEST SPECIALIST Ot S61.213A LACERATION W/O FB OF L [...] 01/09/2017 TERRANCE JAEGER APRN Ot Z79.899 OTHER INTERMEDIATE (CURRENT) DRUG THERAPY 01/10/2017 TERRANCE JAEGER APRN [...] 01/10/2017 TERRANCE JAEGER APRN Ot Z79.899 OTHER INTERMEDIATE (CURRENT) DRUG THERAPY 01/12/2017 KURTIS SOTO TEST SPECIALIST Ot 784.2 SWELLING IN HEAD NECK 01/12/2017 KURTIS SOTO TEST SPECIALIST Ot 721.8 SPINAL DISORDERS NEC 01/12/2017 KURTIS SOTO TEST SPECIALIST Ot 724.02 SPINAL STENOSIS, LUMBAR REG, W/OUT NEURO 01/12/2017 CHARLES CARRERA MD Ot F17.210 NICOTINE DEPENDENCE, CIGARETTES, UNCOMPL 01/12/2017 CHARLES CARRERA MD Ot I10 ESSENTIAL (PRIMARY) HYPERTENSION 01/12/2017 CHARLES CARRERA MD Ot M50.30 OTHER CERVICAL DISC DEGENERATION, UNSP C 01/12/2017 CHARLES CARRERA MD Ot M54.2 CERVICALGIA 01/12/2017 CHARLES CARRERA MD Ot Z79.899 OTHER JACQUARD PLATE MAKER (CURRENT) DRUG THERAPY 01/13/2017 CHARLES CARRERA MD Ot F17.210 NICOTINE DEPENDENCE, CIGARETTES, UNCOMPL 01/13/2017 CHARLES CARRERA MD Ot I10 ESSENTIAL (PRIMARY) HYPERTENSION 01/13/2017 CHARLES CARRERA MD Ot M50.30 OTHER CERVICAL DISC DEGENERATION, UNSP C 01/13/2017 CHARLES CARRERA MD Ot M54.2 CERVICALGIA 01/13/2017 CHARLES CARRERA MD Ot Z79.899 OTHER JACQUARD PLATE MAKER (CURRENT) DRUG THERAPY 01/15/2017 EMORY BYRD, FRED Blackman Ot S61.211D LACERATION W/O FB OF L IDX FNGR W/O SAM 01/18/2017 FRED CAT MD T Ot S61.211D LACERATION W/O FB OF L IDX FNGR W/O SAM 04/20/2017 KURTIS SOTO TEST SPECIALIST Ot 784.2 SWELLING IN HEAD NECK 04/20/2017 KURTIS SOTO TEST SPECIALIST Ot 721.8 SPINAL DISORDERS NEC 04/20/2017 KURTIS SOTO TEST SPECIALIST Ot 724.02 SPINAL STENOSIS, LUMBAR REG, W/OUT NEURO 04/21/2017 KURTIS SOTO TEST SPECIALIST Ot 784.2 SWELLING IN HEAD NECK 04/21/2017 KURTIS SOTO TEST SPECIALIST Ot 721.8 SPINAL DISORDERS NEC 04/21/2017 KURTIS SOTO TEST SPECIALIST Ot 724.02 SPINAL STENOSIS, LUMBAR REG, W/OUT NEURO 04/21/2017 BHAVYA ESCOBAR DO Ot F17.210 NICOTINE DEPENDENCE, CIGARETTES, UNCOMPL 04/21/2017 BHAVYA ESCOBAR DO Ot G40.909 EPILEPSY, UNSP, NOT INTRACTABLE, WITHOUT 04/21/2017 BHAVYA ESCOBAR DO Ot I10 ESSENTIAL (PRIMARY) HYPERTENSION 04/21/2017 BHAVYA ESCOBAR DO Ot J44.9 CHRONIC OBSTRUCTIVE PULMONARY DISEASE, U 04/21/2017 BHAVYA ESCOBAR DO Charlee Ot T75.4XXA ELECTROCUTION, INITIAL ENCOUNTER 04/21/2017 BHAVYA ESCOBAR DO Ot Z79.899 OTHER JACQUARD PLATE MAKER (CURRENT) DRUG THERAPY 04/21/2017 KURTIS SOTO TEST SPECIALIST Ot 784.2 SWELLING IN HEAD NECK 04/21/2017 KURTIS SOTO TEST SPECIALIST Ot 721.8 SPINAL DISORDERS NEC 04/21/2017 KURTIS SOTO TEST SPECIALIST Ot 724.02 SPINAL STENOSIS, LUMBAR REG, W/OUT NEURO 04/22/2017 KURTIS SOTO TEST SPECIALIST Ot 784.2 SWELLING IN HEAD NECK 04/22/2017 KURTIS SOTO TEST SPECIALIST Ot 721.8 SPINAL DISORDERS NEC 04/22/2017 KURTIS SOTO TEST SPECIALIST Ot 724.02 SPINAL STENOSIS, LUMBAR REG, W/OUT NEURO 04/22/2017 KURTIS SOTO TEST SPECIALIST Ot 784.2 SWELLING IN HEAD NECK 04/22/2017 KURTIS SOTO TEST SPECIALIST Ot 721.8 SPINAL DISORDERS NEC 04/22/2017 KURTIS SOTO TEST SPECIALIST Ot 724.02 SPINAL STENOSIS, LUMBAR REG, W/OUT NEURO 04/24/2017 EMORY BYRD, FRED T Ot F17.210 NICOTINE DEPENDENCE, CIGARETTES, UNCOMPL 04/24/2017 FRED CAT MD T Ot I10 ESSENTIAL (PRIMARY) HYPERTENSION 04/24/2017 FRED CAT MD T Ot J44.9 CHRONIC OBSTRUCTIVE PULMONARY DISEASE, U 04/24/2017 FRED CAT MD T Ot M79.661 PAIN IN RIGHT LOWER LEG 04/27/2017 FRED CAT MD T Ot F17.210 NICOTINE DEPENDENCE, CIGARETTES, UNCOMPL 04/27/2017 FRED CAT MD T Ot I10 ESSENTIAL (PRIMARY) HYPERTENSION 04/27/2017 FRED CAT MD Ot J44.9 CHRONIC OBSTRUCTIVE PULMONARY DISEASE, U 04/27/2017 FRED CAT MD Ot M79.661 PAIN IN RIGHT LOWER LEG 05/17/2017 LUZ DO, BHAVYA K Ot E78.00 PURE HYPERCHOLESTEROLEMIA, UNSPECIFIED 05/17/2017 LUZ [...] HISTORY OF OTHER DISEASES OF 05/17/2017 LUZ LOLA ZENGA K Ot Z87.442 PERSONAL HISTORY OF URINARY [...] K Ot R10.9 UNSPECIFIED ABDOMINAL PAIN 05/18/2017 ULZ DO, BHAVYA K Ot R31.21 ASYMPTOMATIC MICROSCOPIC HEMATURIA 05/18/2017 LUZ DO, BHAVYA K Ot Z87.19 PERSONAL HISTORY OF OTHER DISEASES OF 05/18/2017 LUZ BHAVYA ZENG K Ot Z87.442 PERSONAL HISTORY OF URINARY CALCULI 05/25/2017 LUZ DO, BHAVYA K Ot E78.00 PURE HYPERCHOLESTEROLEMIA, UNSPECIFIED 05/25/2017 LUZ DO, BHAVYA K Ot F17.210 NICOTINE DEPENDENCE, CIGARETTES, UNCOMPL 05/25/2017 LUZ DO, BHAVYA K Ot F41.9 ANXIETY DISORDER, UNSPECIFIED 05/25/2017 BHAVYA ESCOBAR DO Ot G43.909 MIGRAINE, UNSP, NOT INTRACTABLE, WITHOUT 05/25/2017 LUZLOLA Crews DOA K Ot I10 ESSENTIAL (PRIMARY) HYPERTENSION 05/25/2017 BHAVYA ESCOBAR DO Ot J44.9 CHRONIC OBSTRUCTIVE PULMONARY DISEASE, U 05/25/2017 BHAVYA ESCOBAR DO K Ot R10.9 UNSPECIFIED ABDOMINAL PAIN 05/25/2017 BHAVYA ESCOBAR DO Ot R31.21 ASYMPTOMATIC MICROSCOPIC HEMATURIA 05/25/2017 BHAVYA ESCOBAR DO Ot Z87.19 PERSONAL HISTORY OF OTHER DISEASES OF TH 05/25/2017 BHAVYA ESCOBAR DO Ot Z87.442 PERSONAL HISTORY OF URINARY CALCULI 06/02/2017 ELAN, LAMAR WATCH GUARD GATE Ot E78.00 PURE HYPERCHOLESTEROLEMIA, UNSPECIFIED 06/02/2017 ELAN, LAMAR WATCH GUARD GATE Ot F41.9 ANXIETY DISORDER, UNSPECIFIED 06/02/2017 ELAN, LAMAR WATCH GUARD GATE Ot G40.909 EPILEPSY, UNSP, NOT INTRACTABLE, WITHOUT 06/02/2017 ELAN, LAMAR WATCH GUARD GATE Ot I10 ESSENTIAL (PRIMARY) HYPERTENSION 06/02/2017 ELAN, LAMAR WATCH GUARD GATE Ot J44.9 CHRONIC OBSTRUCTIVE PULMONARY DISEASE, U 06/02/2017 ELAN, LAMAR WATCH GUARD GATE Ot K21.9 GASTRO-ESOPHAGEAL REFLUX DISEASE WITHOUT 06/02/2017 ELAN, LMAAR WATCH GUARD GATE Ot M47.9 SPONDYLOSIS, UNSPECIFIED 06/02/2017 ELAN, LAMAR WATCH GUARD GATE Ot R10.84 GENERALIZED ABDOMINAL PAIN 06/02/2017 ELAN, LAMAR WATCH GUARD GATE Ot R19.7 DIARRHEA, UNSPECIFIED 06/02/2017 ELAN, LAMAR WATCH GUARD GATE Ot S30.861A INSECT BITE (NONVENOMOUS) OF ABDOMINAL W 06/02/2017 ELAN, LAMAR WATCH GUARD GATE Ot S70.361A INSECT BITE (NONVENOMOUS), RIGHT THIGH, 06/02/2017 ELAN, LAMAR WATCH GUARD GATE Ot S70.362A INSECT BITE (NONVENOMOUS), LEFT THIGH, I 06/02/2017 ELAN, LAMAR WATCH GUARD GATE Ot W57.XXXA BIT/STUNG BY NONVENOM INSECT OTH NONVE 06/02/2017 ELAN, LAMAR WATCH GUARD GATE Ot Z87.442 PERSONAL HISTORY OF URINARY CALCULI 06/02/2017 LAMAR ANSARI NOÉ Ot Z90.49 ACQUIRED ABSENCE OF OTHER SPECIFIED PART 06/24/2017 KURTIS SOTO TEST SPECIALIST Ot 784.2 SWELLING IN HEAD NECK 06/24/2017 KURTIS SOTO TEST SPECIALIST Ot 721.8 SPINAL DISORDERS NEC 06/24/2017 KURTIS SOTO TEST SPECIALIST Ot 724.02 SPINAL STENOSIS, LUMBAR REG, W/OUT [...] 06/29/2017 MALORIE JENNINGS MD Ot Z79.899 OTHER INTERMEDIATE (CURRENT) DRUG THERAPY 06/29/2017 MALORIE JENNINGS MD [...] ALEGRIA M79.601 Pain in right arm 09/08/2017 DARVIN GARCES MD M54.2 Cervicalgia 09/08/2017 D M25.511 Pain in [...] 12/09/2017 W H52.223 Regular astigmatism, bilateral 12/22/2017 KYLE HAYES DOChastity Mirza G40.909 Epilepsy, unsp, not intractable, without status epilepticus 12/22/2017 FREDDY DO JEAN MARIE L D I88.9 Nonspecific lymphadenitis, unspecified 12/22/2017 FREDDY JEAN MARIE ZENG J02.9 Acute pharyngitis, unspecified 12/22/2017 FREDDY DO JEAN MARIE L D M54.2 Cervicalgia 12/22/2017 JEAN MARIE HAYES DO [...] Right lower quadrant pain 06/20/2018 KURTIS SOTO TEST SPECIALIST Ot 784.2 SWELLING IN HEAD NECK 06/20/2018 KURTIS SOTO TEST SPECIALIST Ot 721.8 SPINAL DISORDERS NEC 06/20/2018 KURTIS SOTO TEST SPECIALIST Ot 724.02 SPINAL STENOSIS, LUMBAR REG, W/OUT NEURO 06/20/2018 GUILLERMO MENEZESIS Ot E78.00 PURE HYPERCHOLESTEROLEMIA, UNSPECIFIED 06/20/2018 GUILLERMO MENEZESIS Ot F17.210 NICOTINE DEPENDENCE, CIGARETTES, UNCOMPL 06/20/2018 GUILLERMO MENEZESIS Ot F41.9 ANXIETY DISORDER, UNSPECIFIED 06/20/2018 GUILLERMO MENEZESIS Ot G40.909 EPILEPSY, UNSP, NOT INTRACTABLE, WITHOUT 06/20/2018 GUILLERMO MENEZESIS Ot I10 ESSENTIAL (PRIMARY) HYPERTENSION 06/20/2018 DION MENEZES Ot J44.9 CHRONIC OBSTRUCTIVE PULMONARY DISEASE, U 06/20/2018 DION MENEZES Ot K21.9 GASTRO-ESOPHAGEAL REFLUX DISEASE WITHOUT 06/20/2018 GUILLERMO MENEZESIS Ot K59.00 CONSTIPATION, UNSPECIFIED 06/20/2018 GUILLERMO MENEZESIS Ot R11.0 NAUSEA 06/20/2018 GUILLERMO MENEZESIS Ot Z87.442 PERSONAL HISTORY OF URINARY CALCULI 06/20/2018 DION MENEZES Ot Z88.1 ALLERGY STATUS TO OTHER ANTIBIOTIC AGENT 06/20/2018 GUILLERMO MENEZESIS Ot Z88.2 ALLERGY STATUS TO SULFONAMIDES STATUS 06/20/2018 GUILLERMO MENEZESIS Ot Z88.5 ALLERGY STATUS TO NARCOTIC AGENT STATUS 06/20/2018 GUILLERMO MENEZESIS Ot Z90.49 ACQUIRED ABSENCE OF OTHER SPECIFIED PART 06/22/2018 GUILLERMO MENEZESIS Ot E78.00 PURE HYPERCHOLESTEROLEMIA, UNSPECIFIED 06/22/2018 GUILLERMO MENEZESIS Ot F17.210 NICOTINE DEPENDENCE, CIGARETTES, UNCOMPL 06/22/2018 DION MENEZES Ot F41.9 ANXIETY DISORDER, UNSPECIFIED 06/22/2018 GUILLERMO MENEZESIS Ot G40.909 EPILEPSY, UNSP, NOT INTRACTABLE, WITHOUT 06/22/2018 GUILLERMO MENEZESIS Ot I10 ESSENTIAL (PRIMARY) HYPERTENSION 06/22/2018 DION MENEZES Ot J44.9 CHRONIC OBSTRUCTIVE PULMONARY DISEASE, U 06/22/2018 BERNOT, DION Ot K21.9 GASTRO-ESOPHAGEAL REFLUX DISEASE WITHOUT 06/22/2018 BERNYOMAIRA DION Ot K59.00 CONSTIPATION, UNSPECIFIED 06/22/2018 BERNYOMAIRA DION Ot R11.0 NAUSEA 06/22/2018 BERNYOMAIRA DION Ot Z87.442 PERSONAL HISTORY OF URINARY CALCULI 06/22/2018 BERNGUILLERMO BURNETTEIS Ot Z88.1 ALLERGY STATUS TO OTHER ANTIBIOTIC AGENT 06/22/2018 BERNYOMAIRA DION Ot Z88.2 ALLERGY STATUS TO SULFONAMIDES STATUS 06/22/2018 BERNYOMAIRA DION Ot Z88.5 ALLERGY STATUS TO NARCOTIC AGENT STATUS 06/22/2018 BERNYOMAIRA DION Ot Z90.49 ACQUIRED ABSENCE OF OTHER SPECIFIED PART 08/30/2018 CHARLES CARRERA MD Ot K08.89 OTHER SPECIFIED DISORDERS OF TEETH AND S 08/30/2018 CHARLES CARRERA MD Ot R10.9 UNSPECIFIED ABDOMINAL PAIN 08/30/2018 CHARLES CARRERA MD Ot R51 HEADACHE 09/01/2018 CHARLES CARRERA MD Ot K08.89 OTHER SPECIFIED DISORDERS OF TEETH AND S 09/01/2018 CHARLES CARRERA MD Ot R10.9 UNSPECIFIED ABDOMINAL PAIN 09/01/2018 CHARLES CARRERA MD Ot R51 HEADACHE 09/08/2018 KURTIS SOTO TEST SPECIALIST Ot 784.2 SWELLING IN HEAD NECK 09/08/2018 KURTIS SOTO TEST SPECIALIST Ot 721.8 SPINAL DISORDERS NEC 09/08/2018 KURTIS SOTO TEST SPECIALIST Ot 724.02 SPINAL STENOSIS, LUMBAR REG, W/OUT NEURO 09/08/2018 TERRANCE JAEGER APRN Ot E78.00 PURE HYPERCHOLESTEROLEMIA, UNSPECIFIED 09/08/2018 TERRANCE JAEGER APRN Ot F17.210 NICOTINE DEPENDENCE, CIGARETTES, UNCOMPL 09/08/2018 TERRANCE JAEGER APRN Ot F41.9 ANXIETY DISORDER, UNSPECIFIED 09/08/2018 TERRANCE JAEGER APRN Ot G40.909 EPILEPSY, UNSP, NOT INTRACTABLE, WITHOUT 09/08/2018 TERRANCE JAEGER APRN Ot I10 ESSENTIAL (PRIMARY) HYPERTENSION 09/08/2018 TERRANCE JAEGER APRN Ot J44.9 CHRONIC OBSTRUCTIVE PULMONARY DISEASE, U 09/08/2018 TERRANCE JAEGER APRN Ot K08.89 OTHER SPECIFIED DISORDERS OF TEETH AND S 09/08/2018 TERRANCE JAEGER APRN Ot K21.9 GASTRO-ESOPHAGEAL REFLUX DISEASE WITHOUT 09/08/2018 TERRANCE JAEGER APRN Ot R10.84 GENERALIZED ABDOMINAL PAIN 09/08/2018 TERRANCE JAEGER APRN Ot Z79.51 INTERMEDIATE (CURRENT) USE OF INHALED STERO 09/08/2018 TERRANCE JAEGER APRN Ot Z86.010 PERSONAL HISTORY OF COLONIC POLYPS 09/08/2018 TERRANCE JAEGER APRN Ot Z87.19 PERSONAL HISTORY OF OTHER DISEASES OF TH 09/08/2018 TERRANCE JAEGER APRN Ot Z87.442 PERSONAL HISTORY OF URINARY CALCULI 09/08/2018 TERRANCE JAEGER APRN Ot Z88.0 ALLERGY STATUS TO PENICILLIN 09/08/2018 TERRANCE JAEGER APRN Ot Z88.2 ALLERGY STATUS TO SULFONAMIDES STATUS 09/08/2018 TERRANCE JAEGER APRN Ot Z88.5 ALLERGY STATUS TO NARCOTIC AGENT STATUS 09/08/2018 TERRANCE JAEGER APRN Ot Z88.8 ALLERGY STATUS TO OTH DRUG/MEDS/BIOL SUB 09/08/2018 TERRANCE JAEGER APRN Ot Z90.89 ACQUIRED ABSENCE OF OTHER ORGANS 09/08/2018 TERRANCE JAEGER APRN Ot Z98.52 VASECTOMY STATUS 09/11/2018 TERRANCE JAEGER APRN Ot E78.00 PURE HYPERCHOLESTEROLEMIA, UNSPECIFIED 09/11/2018 TERRANCE JAEGER APRN Ot F17.210 NICOTINE DEPENDENCE, CIGARETTES, UNCOMPL 09/11/2018 TERRANCE JAEGER APRN Ot F41.9 ANXIETY DISORDER, UNSPECIFIED 09/11/2018 TERRANCE JAEGER TEST SPECIALIST Ot G40.909 EPILEPSY, UNSP, NOT INTRACTABLE, WITHOUT 09/11/2018 TERRANCE JAEGER TEST SPECIALIST Ot I10 ESSENTIAL (PRIMARY) HYPERTENSION 09/11/2018 TERRANCE JAEGER APRN Ot J44.9 CHRONIC OBSTRUCTIVE PULMONARY DISEASE, U 09/11/2018 TERRANCE JAEGER APRN Ot K08.89 OTHER SPECIFIED DISORDERS OF TEETH AND S 09/11/2018 TERRANCE JAEGER APRN Ot K21.9 GASTRO-ESOPHAGEAL REFLUX DISEASE WITHOUT 09/11/2018 TERRANCE JAEGER APRN Ot R10.84 GENERALIZED ABDOMINAL PAIN 09/11/2018 TERRANCE JAEGER TEST SPECIALIST Ot Z79.51 INTERMEDIATE (CURRENT) USE OF INHALED STERO 09/11/2018 TERRANCE JAEGER APRN Ot Z86.010 PERSONAL HISTORY OF COLONIC POLYPS 09/11/2018 TERRANCE JAEGER APRN Ot Z87.19 PERSONAL HISTORY OF OTHER DISEASES OF TH 09/11/2018 TERRANCE JAEGER APRN Ot Z87.442 PERSONAL HISTORY OF URINARY CALCULI 09/11/2018 TERRANCE JAEGER APRN Ot Z88.0 ALLERGY STATUS TO PENICILLIN 09/11/2018 TERRANCE JAEGER TEST SPECIALIST Ot Z88.2 ALLERGY STATUS TO SULFONAMIDES STATUS 09/11/2018 TERRANCE JAEGER APRN Ot Z88.5 ALLERGY STATUS TO NARCOTIC AGENT STATUS 09/11/2018 TERRANCE JAEGER APRN Ot Z88.8 ALLERGY STATUS TO OTH DRUG/MEDS/BIOL SUB 09/11/2018 TERRANCE JAEGER APRN Ot Z90.89 ACQUIRED ABSENCE OF OTHER ORGANS 09/11/2018 TERRANCE JAEGER APRN Ot Z98.52 VASECTOMY STATUS Procedures Code Description [place] [address] [place] ABD & PELVIS W/O CONTRAST JEYSON ALEGRIA 07/28/2017 77534 US EXAM SCROTUM JEYSON ALEGRIA 07/28/2017 53294 COMPREHEN METABOLIC PANEL JEYSON ALEGRIA 07/28/2017 75286 DRUG TEST PRSMV DIR OPT OBS JEYSON ALEGRIA 07/28/2017 58713 URINALYSIS AUTO W/SCOPE JEYSON ALEGRIA 07/28/2017 15160 COMPLETE CBC W/AUTO DIFF WBC JEYSON ALEGRIA 07/28/2017 09625 CHYLMD TRACH DNA AMP PROBE JEYSON ALEGRIA 07/28/2017 82324 N.GONORRHOEAE DNA AMP PROB JEYSON ALEGRIA 07/28/2017 29692 HYDRATE IV INFUSION ADD-ON JEYSON ALEGRIA 07/28/2017 70957 THER/PROPH/DIAG IV INF INIT JEYSON ALEGRIA 07/28/2017 32646 TX/PRO/DX INJ NEW DRUG ADDON JEYSON ALEGRIA 07/28/2017 77156 EMERGENCY DEPT VISIT JEYSON ALEGRIA 07/28/2017 J0696 CEFTRIAXONE SODIUM INJECTION FEMI UMANZOR JEYSON D 07/28/2017 J1885 KETOROLAC TROMETHAMINE INJ FEMI UMANZOR JEYSON Mirza 07/28/2017 J7030 NORMAL SALINE SOLUTION INFUS FEMI UMANZOR JEYSON D 07/28/2017 J7050 NORMAL SALINE SOLUTION INFUS JEANIE ALEGRIAVERENICE Mirza 07/28/2017 34658 ROUTINE VENIPUNCTURE JEAN MARIE HAYES DO 08/11/2017 21485 COMPREHEN METABOLIC PANEL JEAN MARIE HAYES DO 08/11/2017 52842 URINALYSIS AUTO W/SCOPE JEAN MARIE HAYES DO 08/11/2017 19228 ASSAY OF AMYLASE JEAN MARIE HAYES DO 08/11/2017 42680 ASSAY OF LIPASE JEAN MARIE HAYES DO 08/11/2017 75604 COMPLETE CBC W/AUTO DIFF WBC JEAN MARIE HAYES DO 08/11/2017 32964 THER/PROPH/DIAG INJ SC/IM JEAN MARIE HAYES DO 08/11/2017 52147 EMERGENCY DEPT VISIT JEAN MARIE HAYES DO 08/11/2017 J1885 KETOROLAC TROMETHAMINE INJ JEAN MARIE HAYES DO 08/11/2017 45655 X-RAY EXAM NECK SPINE 6/> VWS FEMI UMANZORJEYSON 08/23/2017 49552 EMERGENCY DEPT VISIT FEMI UMANZOR JEYSON D 08/23/2017 81948 X-RAY EXAM OF SHOULDER FEMI UMANZORJEYSON 08/31/2017 31126 MRI NECK SPINE W/O DYE FEMI MARKSJEYSON Norris 09/05/2017 60423 NJX INTERLAMINAR CRV/THRC FEMI MARKSJEYSON Norris 09/08/2017 96887 HYDRATION IV INFUSION INIT FEMI MARKSJEYSON Norris 09/08/2017 J1040 METHYLPREDNISOLONE 80 MG INJ DEZ BYRD, DARVIN Qiu 09/08/2017 J7030 NORMAL SALINE SOLUTION INFUS DEZ BYRD, DARVIN Qiu 09/08/2017 Q9967 LOCM 300-399MG/ML IODINE, 1ML DEZ BYRD, DARVIN Qiu 09/08/2017 36205 NJX INTERLAMINAR CRV/THRC FEMI JEYSON UMANZOR 09/08/2017 J1040 METHYLPREDNISOLONE 80 MG INJ DEZ BYRD, DARVIN Qiu 09/08/2017 J7030 NORMAL SALINE SOLUTION INFUS DEZ BYRD, DARVIN Qiu 09/08/2017 Q9967 LOCM 300-399MG/ML IODINE, 1ML DEZ BYRD, DARVIN Qiu 09/08/2017 35653 ROUTINE VENIPUNCTURE CHRISTINA BELLO 11/11/2017 01705 US EXAM SCROTUM CHRISTINA BELLO 11/11/2017 67784 COMPREHEN METABOLIC PANEL CHRISTINA BELLO 11/11/2017 57103 COMPLETE CBC W/AUTO DIFF WBC CHRISTINA BELLO 11/11/2017 48728 RBC SED RATE NONAUTOMATED CHRISTINA BELLO 11/11/2017 00105 EYE EXAM, NEW PATIENT 12/09/2017 57335 REFRACTION 12/09/2017 V2020 Vision svcs frames purchases 12/09/2017 V2103 Spherocylindr 4.00d/12- 2.00d 12/09/2017 V2104 Spherocylindr 4.00d/2.12-4d 12/09/2017 V2782 Lens, 1.54-1.65 p/1.60- 1.79g 12/09/2017 V2104 Spherocylindr 4.00d/2.12-4d 12/16/2017 V2782 Lens, 1.54-1.65 p/1.60- 1.79g 12/16/2017 20627 CULTURE OTHR SPECIMN AEROBIC JEAN MARIE HAYES DO 12/22/2017 94124 THER/PROPH/DIAG INJ SC/IM JEAN MARIE HAYES DO 12/22/2017 45376 EMERGENCY DEPT VISIT JEAN MARIE HAYES DO 12/22/2017 J0696 CEFTRIAXONE SODIUM INJECTION JEAN MARIE HAYES DO 12/22/2017 31984 NJX INTERLAMINAR CRV/THRC DEZ BYRD, DARVIN Qiu 01/12/2018 J1040 METHYLPREDNISOLONE 80 MG INJ DEZ BYRD, DARVIN Qiu 01/12/2018 Q9967 LOCM 300-399MG/ML ANJUM, 1ML DEZ BYRD, DARVIN Qiu 01/12/2018 16683 ROUTINE VENIPUNCTURE PENNIE COOK MD 03/28/2018 56050 COMPLETE CBC W/AUTO DIFF WBC PENNIE COOK MD 03/28/2018 09348 THER/PROPH/DIAG INJ SC/IM PENNIE COOK MD 03/28/2018 17773 EMERGENCY DEPT VISIT PENNIE COOK MD 03/28/2018 J1885 KETOROLAC TROMETHAMINE INJ PENNIE COOK MD 03/28/[address] ABD & PELVIS W/O CONTRAST JEYSON ALEGRIA 06/08/2018 94892 COMPREHEN METABOLIC PANEL JEYSON ALEGRIA 06/08/2018 38360 URINALYSIS AUTO W/SCOPE JEYSON ALEGRIA 06/08/2018 58987 ASSAY OF AMYLASE JEYSON ALEGRIA 06/08/2018 92868 ASSAY OF LIPASE JEYSON ALEGRIA 06/08/2018 27773 COMPLETE CBC W/AUTO DIFF WBC FEMI MARKSJEYSON Norris 06/08/2018 01154 HELICOBACTER PYLORI ANTIBODY JEYSON ALEGRIA 06/08/2018 37579 HYDRATE IV INFUSION ADD-ON JEYSON ALEGRIA 06/08/2018 68564 THER/PROPH/DIAG INJ IV PUSH FEMI JEYSON UMANZOR 06/08/2018 77423 EMERGENCY DEPT VISIT JEYSON ALEGRIA 06/08/2018 J1885 KETOROLAC TROMETHAMINE INJ FEMI JEYSON UMANZOR 06/08/2018 J7030 NORMAL SALINE SOLUTION INFUS FEMI MARKSJEYSON Norris 06/08/2018 Results Test Result Range CBC With [...] 7-25 CREATININE 1.00 mg/dL 0.60-1.35 eGFR NON-AFR. CENTRAL AFRICAN 93 mL/min/1.73m2 > OR=60 eGFR 108 mL/min/1.73m2 [...] - 06/20/18 17:50 Lipase 11 U/L 8-78 Complete urinalysis with reflex to culture - 09/08/18 19:51 Urine color determination YELLOW NRG Urine clarity determination CLEAR NRG Urine pH measurement by test strip 6.5 5-9 Specific gravity of urine by test [...] automated white blood cell (WBC) differential - 09/08/18 20:09 Blood leukocytes automated count (number/volume) 9.2 10*3/uL 4.3-11.0 Blood erythrocytes automated count (number/volume) 5.33 10*6/uL 4.35-5.85 Venous blood hemoglobin measurement (mass/volume) 17.2 g/dL 13.3-17.7 Blood hematocrit (volume fraction) 49 % 40-54 Automated erythrocyte mean corpuscular volume 91 [foz_us] 80-99 Automated erythrocyte mean corpuscular hemoglobin (mass per erythrocyte) 32 pg 25-34 Automated erythrocyte mean corpuscular hemoglobin concentration measurement ( mass/volume) 35 g/dL 32-36 Automated erythrocyte distribution width ratio 13.7 % 10.0-14.5 Automated blood platelet count (count/volume) 178 10*3/uL 130-400 Automated blood platelet mean volume measurement 10.1 [foz_us] 7.4-10.4 Automated blood neutrophils/100 leukocytes 70 % 42-75 Automated blood lymphocytes/100 leukocytes 18 % 12-44 Blood monocytes/100 leukocytes 9 % 0-12 Automated blood eosinophils/100 leukocytes 2 % 0-10 Automated blood basophils/100 leukocytes 0 % 0-10 Blood neutrophils automated count (number/volume) 6.5 10*3 1.8-7.8 Blood lymphocytes automated count (number/volume) 1.7 10*3 1.0-4.0 Blood monocytes automated count (number/volume) 0.9 10*3 0.0-1.0 Automated eosinophil count 0.2 10*3/uL 0.0-0.3 Automated blood basophil count (count/volume) 0.0 10*3/uL 0.0-0.1 Comprehensive metabolic panel - 09/08/18 20:09 Serum or plasma sodium measurement (moles/volume) 138 mmol/L 135-145 Serum or plasma potassium measurement (moles/volume) 4.1 mmol/L 3.6-5.0 Serum or plasma chloride measurement (moles/volume) 108 mmol/L 98-107 Carbon dioxide 20 mmol/L 21-32 Serum or plasma anion gap determination (moles/volume) 10 mmol/L 5-14 Serum or plasma urea nitrogen measurement (mass/volume) 20 mg/dL 7-18 Serum or plasma creatinine measurement (mass/volume) 1.12 mg/dL 0.60-1.30 Serum or plasma urea nitrogen/creatinine mass ratio 18 NRG Serum or plasma creatinine measurement with calculation of estimated glomerular filtration rate > NRG Serum or plasma glucose measurement (mass/volume) 93 mg/dL 70-105 Serum or plasma calcium measurement (mass/volume) 9.2 mg/dL 8.5-10.1 Serum or plasma total bilirubin measurement (mass/volume) 0.5 mg/dL 0.1-1.0 Serum or plasma alkaline phosphatase measurement (enzymatic activity/volume) 95 U/L 40-136 Serum or plasma aspartate aminotransferase measurement (enzymatic activity/ volume) 13 U/L 5-34 Serum or plasma alanine aminotransferase measurement (enzymatic activity/volume ) 18 U/L 0-55 Serum or plasma protein measurement (mass/volume) 7.9 g/dL 6.4-8.2 Serum or plasma albumin measurement (mass/volume) 4.1 g/dL 3.2-4.5 CALCIUM CORRECTED 9.1 mg/dL 8.5-10.1 Lipase - 09/08/18 20:09 Lipase 13 U/L 8-78 PDM - 09 PANEL (PROFILE 1) - 09/18/18 09:56 Creatinine 133.8 mg/dL > or=20.0 pH 6.70 4.5 - 9.0 Oxidant NEGATIVE mcg/mL <200 Amphetamines NEGATIVE ng/mL <500 medMATCH Amphetamines CONSISTENT NRG Benzodiazepines NEGATIVE ng/mL <100 medMATCH Benzodiazepines CONSISTENT NRG Marijuana Metabolite NEGATIVE ng/mL <20 medMATCH Marijuana Metab CONSISTENT NRG Cocaine Metabolite NEGATIVE ng/mL <150 medMATCH Cocaine Metab CONSISTENT NRG Opiates NEGATIVE ng/mL <100 medMATCH Opiates CONSISTENT NRG Oxycodone POSITIVE ng/mL <100 COMMENT NRG Noroxycodone 1316 ng/mL <50 medMATCH Noroxycodone INCONSISTENT NRG Oxycodone 366 ng/mL <50 medMATCH Oxycodone INCONSISTENT NRG Oxymorphone 815 ng/mL <50 medMATCH Oxymorphone INCONSISTENT NRG Barbiturates NEGATIVE ng/mL <300 medMATCH Barbiturates CONSISTENT NRG Methadone Metabolite NEGATIVE ng/mL <100 medMATCH Methadone Metab CONSISTENT NRG Phencyclidine NEGATIVE ng/mL <25 medMATCH Phencyclidine CONSISTENT NRG Topiramate (Topamax), Serum - 09/26/18 10:57 Topiramate, Serum 7.5 ug/mL 2.0-25.0 Topiramate, Serum - 09/26/18 10:57 TOPIRAMATE, SERUM 7.5 UG/ML 2.0-25.0 Encounters ACCT No. Visit Date/Time Discharge Status Pt. Type Provider Facility Loc./Unit Complaint [id number] 06/08/2018 12:21:00 06/08/2018 16:00:00 DIS Emergency JEYSON ALEGRIA ER [id number] 03/28/2018 21:23:00 03/28/2018 22:30:00 DIS Emergency JOYCE BYRD, PENNIE Durbin [facility] ER [id number] 01/12/2018 15:55:00 01/12/2018 15:55:00 DIS Outpatient DEZ BYRD, DARVIN Qiu [facility] RAD [id number] 12/22/2017 18:18:00 12/22/2017 20:10:00 DIS Emergency FREDDY ZENG JEAN MARIE [facility] ER [id number] 11/11/2017 10:04:00 11/11/2017 10:04:00 DIS Outpatient RILEY NOÉ CHRISTINA [facility] RAD [id number] 08/23/2017 14:40:00 08/23/2017 15:45:00 [id number] 08/11/2017 20:55:00 08/11/2017 22:25:00 DIS Emergency FREDDY ZENG JEAN MARIE [facility] ER [id number] 07/28/2017 10:45:00 07/28/2017 15:35:00 [id number] 09/08/2017 13:39:00 Document Registration [id number] 12/07/2016 13:06:00 Document Registration [id number] 09/08/2018 19:07:00 09/08/2018 21:57:00 DIS Emergency TERRANCE JAEGER APRN [facility] ER ABD PAIN,HEADACHES [id number] 08/30/2018 18:57:00 08/30/2018 20:30:00 DIS Emergency CHARLES CARRERA MD [facility] ER TOOTH PAIN, HEADACHE, ABD PAIN [id number] 06/20/2018 17:21:00 06/20/2018 19:37:00 DIS Emergency DION MENEZES [facility] ER ABD/BACK PAIN [id number] 06/28/2017 13:50:00 06/29/2017 10:15:00 DIS Inpatient MALORIE JENNINGS MD [facility] ICU POST OP SEIZURE [id number] 06/24/2017 05:50:00 06/24/2017 12:40:00 DIS Outpatient DENA WOO DO [facility] PREOP HISTORY OF POLYPS, DYSPHAGIA, SCREENING [id number] 06/02/2017 18:50:00 06/02/2017 21:31:00 DIS Emergency LAMAR ANSARI [facility] ER ABD PAIN [id number] 05/16/2017 23:09:00 05/17/2017 02:20:00 DIS Emergency BHAVYA ESCOBAR DO [facility] ER ABD PAIN [id number] 04/24/2017 01:12:00 04/24/2017 02:25:00 DIS Emergency EMORY BYRD, FRED Blackman [facility] ER R ANKLE CALF PAIN [id number] 04/21/2017 13:45:00 04/21/2017 23:59:59 CLS Preadmit DENA WOO DO [facility] ENDO DYSPHAGIA [id number] 04/21/2017 19:24:00 04/21/2017 21:16:00 DIS Emergency BHAVYA ESCOBAR DO [facility] ER SHOCKED [id number] 04/19/2017 13:30:00 04/19/2017 13:30:00 CAN Preadmit DENA WOO DO [facility] PREOP DYSPHAGIA [id number] 01/15/2017 18:46:00 01/15/2017 19:25:00 DIS Emergency EMORY BYRD, FRED Blackman [facility] ER STITCHES REMOVAL [id number] 01/12/2017 09:47:00 01/12/2017 11:35:00 DIS Emergency CHARLES CARRERA MD [facility] ER NECK PAIN [id number] 01/09/2017 17:42:00 01/09/2017 18:38:00 DIS Emergency TERRANCE JAEGER APRN [facility] ER L FINGER LAC [id number] 12/16/2016 19:51:00 12/16/2016 23:06:00 DIS Emergency EMORY BYRD, FRED Blackman [facility] ER ABD PAIN [id number] 10/05/2016 15:34:00 10/05/2016 17:05:00 DIS Emergency FRED CAT MD [facility] ER R LEG CALF PAIN [id number] 08/04/2016 20:21:00 08/04/2016 20:55:00 DIS Emergency TERRANCE JAEGER APRN [facility] ER HEAD ACHE AND JAW PAIN [id number] 05/26/2016 21:43:00 05/26/2016 23:50:00 DIS Emergency FRED CAT MD [facility] ER TESTICULAR PAIN [id number] 04/06/2016 12:56:00 04/15/2016 13:50:00 DIS Outpatient ROBYN VALLE [facility] REHAB PAIN IN LUMBAR SPINE [id number] 03/14/2016 19:59:00 03/14/2016 22:10:00 DIS Emergency TERRANCE JAEGER APRN [facility] ER ABD PAIN BLOOD IN STOOL [id number] 02/10/2016 18:13:00 02/10/2016 20:11:00 DIS Emergency TERRANCE JAEGER APRN [facility] ER L SHOULDER/ARM PAIN [id number] 02/05/2016 19:53:00 02/05/2016 23:12:00 DIS Emergency AHJA CHAPA [facility] ER NECK,BACK PAIN [id number] 01/28/2016 15:56:00 01/28/2016 18:32:00 DIS Emergency TERRANCE JAEGER APRN [facility] ER STOMACH PAIN;SHOULDER AND NECK PAIN [id number] 12/25/2015 08:23:00 12/25/2015 14:04:00 DIS Outpatient KURTIS SOTO APRN [facility] RAD DJD L/SP [id number] 11/26/2015 23:58:00 11/27/2015 01:55:00 DIS Emergency FRED CAT MD [facility] ER HIGH BLOOD PRESSURE [id number] 11/07/2015 21:15:00 11/07/2015 23:33:00 DIS Emergency SABRINA RAYMUNDO MD [facility] ER HIGH BLOOD PRESSURE [id number] 10/31/2015 21:21:00 10/31/2015 23:58:00 DIS Emergency BHAVYA ESCOBAR DO [facility] ER CP [id number] 10/06/2015 11:09:00 10/06/2015 13:17:00 DIS Emergency TERRANCE JAEGER TEST SPECIALIST [facility] ER NECK/SHOULDER PAIN [id number] 09/09/2015 11:51:00 09/09/2015 14:45:00 DIS Emergency HAJA CHAPA [facility] ER FEVER/COUGH [id number] 08/31/2015 23:17:00 09/01/2015 00:37:00 DIS Emergency MIKI PAZ MD [facility] ER MIGRAINE [id number] 08/23/2015 12:20:00 08/23/2015 14:56:00 DIS Emergency HAJA CHAPA [facility] ER STOMACH/BACK PAIN [id number] 08/22/2015 14:36:00 08/22/2015 23:59:59 CLS Outpatient KURTIS SOTO APRN [facility] RAD LUMBAGO [id number] 08/11/2015 15:59:00 08/11/2015 18:54:00 DIS Emergency HAJA CHAPA [facility] ER HEADACHE,NECK PAIN, NAUSEA [id number] 07/30/2015 11:19:00 07/30/2015 23:59:59 CLS Outpatient KURTIS SOTO TEST SPECIALIST [facility] RAD NODULE OF RT LOWER NECK [id number] 07/25/2015 22:42:00 07/25/2015 23:47:00 DIS Emergency SABRINA RAYMUNDO MD [facility] ER R FOOT INJ-DROPPED FRIG ON FOOT [id number] 07/20/2015 05:21:00 07/20/2015 07:00:00 DIS Emergency SABRINA RAYMUNDO MD [facility] ER LIGHTHEADED,NECK PAIN [id number] 07/18/2015 17:25:00 07/18/2015 20:58:00 DIS Emergency BHAVYA ESCOBAR DO [facility] ER FELL, BACK PAIN [id number] 06/30/2015 21:56:00 07/01/2015 00:35:00 DIS Emergency FRED CAT MD [facility] ER L SIDE WAIST PAIN [id number] 06/02/2015 21:56:00 06/03/2015 00:55:00 DIS Emergency ASBRINA RAYMUNDO MD [facility] ER ABD PAIN [id number] 04/05/2015 14:27:00 04/05/2015 17:39:00 DIS Emergency HAJA CHAPA [facility] ER ABDOMINAL KIDNEY PAIN [id number] 10/18/2018 09:54:00 ACT Emergency SABRINA RAYMUNDO MD [facility] ER EYE INJURY [id number] 09/28/2018 11:22:00 Document Registration [id number] 06/09/2018 05:20:07 ACT Document Registration [id number] 09/08/2017 13:39:00 09/08/2017 15:00:00 DIS Outpatient DEZ BYRD, DARVIN Qiu [facility] OPTR [id number] 09/05/2017 13:44:00 09/05/2017 13:44:00 DIS Outpatient JEYSON ALEGRIA [facility] RAD [id number] 08/31/2017 11:58:00 08/31/2017 11:58:00 DIS Outpatient ARISTIDES DOZIER MD [facility] RAD [id number] 12/16/2017 00:00:00 Document Registration [id number] 12/09/2017 10:30:00 Document Registration [id number] 12/09/2017 00:00:00 Document Registration [id number] 09/26/2018 10:55:00 09/26/2018 23:59:00 DIS Outpatient VALERI MAR [id number] 04/18/2018 13:20:00 04/18/2018 23:59:59 CLS [facility] [id number] 09/18/2018 08:20:00 Document Registration [id number] 04/18/2018 13:20:00 Document Registration [id number] 12/02/2016 13:05:00 Document Registration
--- NOTE | 2018-10-18 11:33 | ED EENT ---
History of Present Illness General Chief Complaint: Eye Problems Stated Complaint: EYE INJURY Nursing Triage Note: STATES HE SLEPT IN HIS CONTACTS TUESDAY NIGHT AND HAS HAD TROUBLE WITH HIS LEFT EYE SINCE. Source: patient Exam Limitations: no limitations History of Present Illness Date Seen by Provider: Oct 18, 2018 Time Seen by Provider: 11:30 Initial Comments Patient is a 43-year-old male who presents to the emergency room after he slept in his contacts on Tuesday of this week. He reports that he took the contacts out immediately after waking up and they were dried out and he soaked them in his contact solution and put them in and has had eye irritation and feels like he has sand in his eyes ever since. He also reports a discharge coming from his eyes. He does not have his contacts in today. Timing/Duration: other (3 days ago.) Prearrival Treatment: no prearrival treatment Associated Symptoms: denies symptoms Allergies and Home Medications Allergies Coded Allergies: Sulfa (Sulfonamide Antibiotics) (Verified Allergy, Unknown, 06/28/17) clarithromycin (Verified Allergy, Unknown, 06/28/17) levetiracetam (Verified Allergy, Unknown, 06/28/17) morphine (Verified Allergy, Unknown, 06/28/17) codeine (Verified Adverse Reaction, Unknown, VOMITING, 10/18/18) Home Medications Atenolol 50 Mg Tablet, 50 MG PO HS, (Reported) Ibuprofen 800 Mg Tablet, 800 MG PO Q8H PRN for PAIN-MILD, (Reported) Lisinopril 20 Mg Tablet, 20 MG PO DAILY, (Reported) Oxycodone HCl/Acetaminophen 1 Each Tablet, 1 TAB PO Q8H PRN for PAIN-MODERATE, ( Reported) Topiramate 50 Mg Tablet, 100 MG PO BID, (Reported) TAKES 2 (50MG) TABLETS Patient Home Medication List Home Medication List Reviewed: Yes Review of Systems Review of Systems Constitutional: see HPI; No chills, No fever Eyes: Foreign Body Sensation, Inflammation, Pain All Other Systems Reviewed Negative Unless Noted: Yes Past Fnzwxiy-Rvjera-Kyreax Hx Past Med/Social Hx: Reviewed Nursing Past Med/Soc Hx Patient Social History Alcohol Use: Denies Use Recreational Drug Use: No Smoking Status: Current Everyday Smoker Type Used: Cigarettes 2nd Hand Smoke Exposure: Yes Recent Foreign Travel: No Contact w/Someone Who Travel: No Recent Infectious Disease Expo: No Recent Hopitalizations: No Immunizations Up To Date Tetanus Booster (TDap): Less than 5yrs Seasonal Allergies Seasonal Allergies: Yes Past Medical History Surgeries: Yes (BACK SURGERY) Abdominal, Appendectomy, Gallbladder, Orthopedic, Vasectomy Respiratory: Yes (tobaccoism) COPD Cardiac: Yes High Cholesterol, Hypertension Neurological: Yes (BACK SURGERY WITH NERVE DAMAGE--BOWEL/BLADDER INCONTINENCE. ) Seizure Disorder Reproductive Disorders: No Genitourinary: Yes (Incontinence urine from back surgery') Kidney Stones, Neurogenic Bladder Gastrointestinal: Yes (Incontinent of stool from back surgery) Colitis, Gastroesophageal Reflux, Diverticulosis, Polyps Musculoskeletal: Yes (CHRONIC NECK PAIN) Degenerate Disk Disease, Arthritis, Chronic Back Pain Endocrine: No HEENT: No Cancer: No Psychosocial: Yes Anxiety Integumentary: No Blood Disorders: No Adverse Reaction/Blood Tranf: No Family Medical History Reviewed Nursing Family Hx No Pertinent Family Hx Visual Acuity : Eye Location: Bilaterally Vision Acuity Degree: 20/20 Physical Exam Vital Signs Vital Signs - First Documented 10/18/18 10:00 Temp 98.0 Pulse 89 Resp 16 B/P (MAP) 117/86 (96) Pulse Ox 100 O2 Delivery Room Air Height, Weight, BMI Height: 5'7.00" Weight: 200lbs. 0.0oz. 90.596621np; 30.1 BMI Method:Stated General Appearance: WD/WN, no apparent distress Eyes: bilateral eye conjunctival hemorrhage, bilateral eye conjunctival inflammation Cardiovascular: normal peripheral pulses, regular rate, rhythm, no edema, no gallop, no JVD, no murmur Respiratory: chest non-tender, lungs clear, normal breath sounds, no respiratory distress, no accessory muscle use Neurologic/Psychiatric: alert, normal mood/affect, oriented x 3 Skin: normal color, warm/dry Procedures/Interventions Suture Size: 5-0 Progress/Results/Core Measures Results/Orders My Orders Orders - CLIFDION Tetracaine 0.5% Ophth Virginie Sdv (Tetracai (10/18/18 11:30) Fluorescein Strips ([id number]) (10/18/18 11:30) Balanced Salt Irrigation Soln (Bss Irrig (10/18/18 11:30) Tobra/Dexameth Ophth Susp (Tobradex Opht (10/18/18 12:00) Rx-Tobramycin/Dexam. (Rx-Tobradex Op Barb (10/18/18 11:33) Medications Given in ED Current Medications Medications Dose Ordered Sig/Teri Route Start Time Stop Time Status Last Admin Dose Admin Balanced Salt Solution 15 ml ONCE ONCE IR 10/18/18 11:30 10/18/18 11:31 DC 10/18/18 11:35 15 ML Fluorescein Sodium 1 mg ONCE ONCE OU 10/18/18 11:30 10/18/18 11:31 DC 10/18/18 11:35 1 MG Tetracaine HCl 4 ml ONCE ONCE OU 10/18/18 11:30 10/18/18 11:31 DC 10/18/18 11:36 4 ML Vital Signs/I&O 10/18/18 12:09 Temp 98.0 Pulse 89 Resp 16 B/P (MAP) 117/86 (96) Pulse Ox 100 Blood Pressure Mean: 96 Progress Progress Note : Time: 11:40 Progress Note I have seen and evaluated the patient. There is no obvious corneal abrasion after looking at the eye under Toure lamp. He agrees with plans for discharge, return precautions were given. Departure Impression Primary Impression: Eye infection Qualified Codes: H44.003 - Unspecified purulent endophthalmitis, bilateral Disposition: 01 HOME, SELF-CARE Condition: Stable/Unchanged Departure-Patient Inst. Decision time for Depature: 11:49 Referrals: ZAIRE BAILEY DO (PCP) Primary Care Physician SWAPNIL SAWANT APRN (Family) Primary Care Physician Patient Instructions: Conjunctivitis ([place]) (DC) Add. Discharge Instructions: Used eyedrops as directed. No contacts for 1 week. Tylenol and ibuprofen as directed by the bottle for pain relief. Follow-up with an eye doctor within 1 week for recheck. Return back to the emergency room for any worsening symptoms or concerns as needed. All discharge instructions reviewed with patient and/or family. Voiced understanding. DION MENEZES Oct 18, 2018 11:33
[2018-10-18] MEDS: FLUORESCEIN (FLUOR-I-STRIPS) 1 MG STRP OU ONE (11:35)
[2018-10-18] MEDS: BSS 15 ML IR ONE (11:35)
[2018-10-18] MEDS: TETRACAINE 0.5% OPHTH SOLN 4 ML BTL (SINGLE DOSE ONLY) OU ONE (11:36)
[2018-10-18] MEDS: TOBRA/DEXAMETH (TOBRADEX) OPHTH SUSP 2.5 ML BTL OU SCH (11:40)
[2018-10-18] MEDS: RX-TOBRA/DEXAMETH (TOBRADEX) OP. SUSP 2.5 ML BTL ONE (11:53)
[2018-10-18 12:09] VITALS: BP 117/86
== END 2018-10-18 12:09 | disposition home or self-care (01) ==
LOC: EDUNIT# 09:53 → ER 09:54
DX: H44.003 Unspecified purulent endophthalmitis, bilateral (principal); J44.9 Chronic obstructive pulmonary disease, unspecified; E78.00 Pure hypercholesterolemia, unspecified; I10 Essential (primary) hypertension; K21.9 Gastro-esophageal reflux disease without esophagitis; F41.9 Anxiety disorder, unspecified; G40.909 Epilepsy, unspecified, not intractable, without status epilepticus; F17.210 Nicotine dependence, cigarettes, uncomplicated; Z98.52 Vasectomy status; Z87.442 Personal history of urinary calculi; Z87.19 Personal history of other diseases of the digestive system; Z86.010 Personal history of colon polyps; Z90.49 Acquired absence of other specified parts of digestive tract; Z88.2 Allergy status to sulfonamides; Z88.0 Allergy status to penicillin; Z88.8 Allergy status to other drugs, medicaments and biological substances
CPT/HCPCS: 99281

== ENCOUNTER 2018-11-10 21:37 | Emergency (ER) | payer MEDICAID ==
[~2018-11-10] VITALS: Ht 177.8 cm; Wt 90.3 kg
[~2018-11-10 21:37] MED LIST changes: +CLON0.5T13
--- NOTE | 2018-11-10 23:58 | ED Back Pain ---
General Chief Complaint: Back Problems Stated Complaint: NECK AND BACK PAIN Nursing Triage Note: neck pain radiating to lower back x1 week. no known injury. pt reports pain worse since last night. Nursing Sepsis Screen: No Definite Risk Source of Information: Patient, Family Exam Limitations: No Limitations History of Present Illness Date Seen by Provider: Nov 10, 2018 Time Seen by Provider: 23:44 Initial Comments Patient presents to ER by private conveyance with his and daughter and chief complaint he is for the past 7-10 days been having some back pain progressively getting worse. He has a cage put in about 10 years ago by a surgeon in [place]. He does not recall having any traumatic event or any inciting event that led to this pain. He says been using ibuprofen with pretty good effect about 800 mg twice a day and Percocet once or twice in the last week with minimal effect. He says ever since he had the surgery done he's had incontinence of urine and that has not changed. No urinary hesitancy, objective weakness, falls, numbness or tingling. He's wants to make sure that this is muscle spasms in his back and not something wrong with the cage in his back. Allergies and Home Medications Allergies Coded Allergies: Sulfa (Sulfonamide Antibiotics) (Verified Allergy, Unknown, 06/28/17) clarithromycin (Verified Allergy, Unknown, 06/28/17) levetiracetam (Verified Allergy, Unknown, 06/28/17) morphine (Verified Allergy, Unknown, 06/28/17) codeine (Verified Adverse Reaction, Unknown, VOMITING, 10/18/18) Home Medications Atenolol 50 Mg Tablet, 50 MG PO HS, (Reported) Ibuprofen 800 Mg Tablet, 800 MG PO Q8H PRN for PAIN-MILD, (Reported) Lisinopril 20 Mg Tablet, 20 MG PO DAILY, (Reported) Oxycodone HCl/Acetaminophen 1 Each Tablet, 1 TAB PO Q8H PRN for PAIN-MODERATE, ( Reported) Topiramate 50 Mg Tablet, 100 MG PO BID, (Reported) TAKES 2 (50MG) TABLETS Patient Home Medication List Home Medication List Reviewed: Yes Review of Systems Constitutional: No chills, No diaphoresis EENTM: No ear discharge, No ear pain Respiratory: No cough, No short of breath Cardiovascular: No chest pain, No edema Gastrointestinal: No abdominal pain, No constipation, No diarrhea Past Ixdssyf-Jdkwoq-Gkjvpj Hx Patient Social History Alcohol Use: Denies Use Recreational Drug Use: No Smoking Status: Current Everyday Smoker Type Used: Cigarettes 2nd Hand Smoke Exposure: Yes Recent Foreign Travel: No Contact w/Someone Who Travel: No Recent Infectious Disease Expo: No Recent Hopitalizations: No Immunizations Up To Date Tetanus Booster (TDap): Less than 5yrs PED Vaccines UTD: Yes Seasonal Allergies Seasonal Allergies: Yes Past Medical History Surgeries: Yes (BACK SURGERY) Abdominal, Appendectomy, Gallbladder, Orthopedic, Vasectomy Respiratory: Yes COPD Cardiac: Yes High Cholesterol, Hypertension Neurological: Yes (BACK SURGERY WITH NERVE DAMAGE--BOWEL/BLADDER INCONTINENCE. ) Seizure Disorder Reproductive Disorders: No Genitourinary: Yes (Incontinence urine from back surgery') Kidney Stones, Neurogenic Bladder Gastrointestinal: Yes (Incontinent of stool from back surgery) Colitis, Gastroesophageal Reflux, Diverticulosis, Polyps Musculoskeletal: Yes (CHRONIC NECK PAIN) Degenerate Disk Disease, Arthritis, Chronic Back Pain Endocrine: No HEENT: No Cancer: No Psychosocial: Yes Anxiety Integumentary: No Blood Disorders: No Adverse Reaction/Blood Tranf: No Family Medical History No Pertinent Family Hx Physical Exam Vital Signs Vital Signs - First Documented 11/10/18 21:54 Temp 97.6 Pulse 73 Resp 14 B/P (MAP) 109/65 (80) Pulse Ox 99 O2 Delivery Room Air Capillary Refill : Less Than 3 Seconds Height, Weight, BMI Height: 5'10.00" Weight: 199lbs. 0.0oz. 90.096536dc; 30.1 BMI Method:Stated General Appearance: No Apparent Distress, WD/WN HEENT: Pharynx Normal, Moist Mucous Membranes Neck: Full Range of Motion, Normal Inspection Cardiovascular: Regular Rate, Rhythm, Normal Peripheral Pulses Respiratory: No Accessory Muscle Use, No Respiratory Distress Back: Normal Inspection, No CVA Tenderness, Vertebral Tenderness (Mild bilateral paraspinous muscle tenderness to palpation up and down the spine mostly in the thoracic region. No deformity or tenting of the skin.) Procedures/Interventions Suture Size: 5-0 Progress/Results/Core Measures Results/Orders My Orders Orders - XENIA GARCIA Ketorolac Injection (Toradol Injection) (11/11/18 00:00) T-Spine 3v-Ap, Lat, Swimmers (11/11/18 00:01) Orphenadrine Injection (Norflex Injectio (11/11/18 00:45) Medications Given in ED Current Medications Medications Dose Ordered Sig/Teri Route Start Time Stop Time Status Last Admin Dose Admin Ketorolac Tromethamine 30 mg ONCE ONCE IM 11/11/18 00:00 11/11/18 00:01 DC 11/10/18 23:59 30 MG Vital Signs/I&O 11/10/18 11/10/18 21:54 23:59 Temp 97.6 97.6 Pulse 73 Resp 14 B/P (MAP) 109/65 (80) Pulse Ox 99 O2 Delivery Room Air Blood Pressure Mean: 80 Progress Progress Note : Time: 23:58 Progress Note We'll obtain plain film of the thoracic cage just to assess its secure and disposition per patient's concerns. Membranous start up on a full course of NSAIDs, muscle relaxants and follow-up with primary care to consider physical therapy. Ketorolac and Norflex. Despite his history of incontinence he does not have any other red flag signs. Diagnostic Imaging Diagonstic Imaging: Xray Plain Films/CT/US/NM/MRI: other (thoracic spine) Comments Unremarkable 3 view thoracic plain film. Reviewed: Reviewed by Me Departure Impression Primary Impression: Back strain Qualified Codes: S39.012A - Strain of muscle, fascia and tendon of lower back , initial encounter Disposition: 01 HOME, SELF-CARE Condition: Stable Departure-Patient Inst. Decision time for Depature: 00:45 Referrals: ZAIRE BAILEY DO (PCP) Primary Care Physician SWAPNIL SAWANT APRN (Family) Primary Care Physician Patient Instructions: Muscle Strain (DC) Add. Discharge Instructions: Tylenol 500 mg every 8 hours in addition to ibuprofen 800 mg every 8 hours or Naprosyn 2 tablets twice a day for the next 2 weeks. You can use your Percocet if you need to. Stay active. Use massage and heat as well as topical creams such as icy hot. Follow-up with primary care in about 1-2 weeks if not improving on this regimen and consider other workup and management of acute worsening of your chronic back pain. All discharge instructions reviewed with patient and/or family. Voiced understanding. Scripts Cyclobenzaprine HCl (Cyclobenzaprine HCl) 10 Mg Tablet 10 MG PO Q8H PRN for SPASMS, #15 TAB 0 Refills Prov: XENIA GARCIA 11/11/18 XENIA GARCIA Nov 10, 2018 23:58
[2018-11-11] MEDS ORDERED: KETOROLAC 30 MG/ML VIAL IM ONE
[2018-11-11] MEDS ORDERED: ORPHENADRINE 60 MG/2 ML (NORFLEX) AMP IM ONE (00:45)
[2018-11-11] MEDS ORDERED: CYCL10TA9 PO (00:49)
[2018-11-11 00:57] VITALS: BP 143/84
--- NOTE | 2018-11-11 06:44 | Diagnostic Imaging Report ---
INDICATION: Mid back pain for one week, no known injury. COMPARISON: None. DISCUSSION: Three views of the thoracic spine were obtained. No acute fracture, subluxation, or other osseous abnormality identified. No significant degenerative disease. Alignment is anatomic. Soft tissues are unremarkable. IMPRESSION: 1. Negative thoracic spine. Dictated by: Dictated on workstation # [id number]
== END 2018-11-11 00:56 | disposition home or self-care (01) ==
LOC: EDUNIT# 21:37 → ER 21:38
DX: S39.012A Strain of muscle, fascia and tendon of lower back, initial encounter (principal); J44.9 Chronic obstructive pulmonary disease, unspecified; E78.00 Pure hypercholesterolemia, unspecified; I10 Essential (primary) hypertension; F41.9 Anxiety disorder, unspecified; K21.9 Gastro-esophageal reflux disease without esophagitis; G40.909 Epilepsy, unspecified, not intractable, without status epilepticus; F17.210 Nicotine dependence, cigarettes, uncomplicated; Z87.19 Personal history of other diseases of the digestive system; Z86.010 Personal history of colon polyps; Z90.49 Acquired absence of other specified parts of digestive tract; Z87.448 Personal history of other diseases of urinary system; Z98.890 Other specified postprocedural states; Z98.52 Vasectomy status; Z88.2 Allergy status to sulfonamides; Z88.0 Allergy status to penicillin; Z88.5 Allergy status to narcotic agent; Z88.8 Allergy status to other drugs, medicaments and biological substances; X58.XXXA Exposure to other specified factors, initial encounter
CPT/HCPCS: 72072

== ENCOUNTER → 2018-12-06 | Outpatient (CLI) | payer MEDICAID ==
--- NOTE | 2018-12-06 13:00 | Diagnostic Imaging Report ---
PROCEDURE: MRI lumbar spine. TECHNIQUE: Multiplanar, multisequence MRI of the lumbar spine was performed without contrast. INDICATION: Back pain, left-sided weakness. COMPARISON: 08/22/2015. FINDINGS: Posterior fusion with bi-pedicular screws and vertical rods at L5-S1, unchanged. We note that the patient's spinal canal is somewhat small on a congenital basis. Interbody fusion at the 5-1 level is noted. No MRI findings to suggest pseudoarthrosis. The positioning and orientation of the interbody device unchanged with its posterior aspect at or just beyond the posterior cortical margin of the L5-S1 level approaching the lateral recess and proximal neural foramen. The alignment is stable. Lumbar statures are unremarkable. The lower cord and conus appeared unremarkable. T12-L1: Circumferential desiccated disc bulge and endplate osteophytes stable without substantial resultant canal, foraminal or recess stenosis. L1-L2: This level and disc stable and unremarkable. L2-L3: Ligamentous thickening and facet arthrosis with bulging disc material and endplate osteophytes result in a moderate degree of canal stenosis with no substantial foraminal narrowing. L3-L4: There is no significant canal, foraminal or recess stenosis. L4-L5: No significant canal stenosis. Facet arthrosis and ligamentous thickening result in mild to moderate biforaminal narrowing greater right unchanged. L5-S1: At least mild impingement upon the right neural foramen is unchanged. The left neural foramen may be minimally stenosed, unchanged, no significant canal narrowing. IMPRESSION: Degenerative changes of increased canal stenosis L2-L3. Unchanged appearance of the posterior and interbody L5-S1 fusion with at least mild to moderate right-sided L5-S1 foraminal stenosis. 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 Dictated by: Dictated on workstation # [id number]
== END ==
LOC: RAD 09:31
PROVIDERS: ATTEND Nurse Practitioner Primary Care
DX: M48.07 Spinal stenosis, lumbosacral region (principal); M47.816 Spondylosis without myelopathy or radiculopathy, lumbar region; M54.42 Lumbago with sciatica, left side; Z98.1 Arthrodesis status
CPT/HCPCS: 72148

== ENCOUNTER 2019-05-26 21:47 | Emergency (ER) | payer MEDICAID ==
[~2019-05-26] VITALS: Ht 177.8 cm; Wt 95.3 kg
[2019-05-26] MEDS ORDERED: METH500T PO (23:26)
[2019-05-26] MEDS ORDERED: METH4TAB PO (23:26)
--- NOTE | 2019-05-26 23:29 | ED Upper Extremity ---
General Chief Complaint: Upper Extremity Stated Complaint: SHOULDER PAIN Nursing Triage Note: about 2 two days ago and continues to get worse Nursing Sepsis Screen: No Definite Risk Allergies and Home Medications Allergies Coded Allergies: Sulfa (Sulfonamide Antibiotics) (Verified Allergy, Unknown, 06/28/17) clarithromycin (Verified Allergy, Unknown, 06/28/17) levetiracetam (Verified Allergy, Unknown, 06/28/17) morphine (Verified Allergy, Unknown, 06/28/17) codeine (Verified Adverse Reaction, Unknown, VOMITING, 10/18/18) Home Medications Atenolol 50 Mg Tablet, 50 MG PO HS, (Reported) Cyclobenzaprine HCl 10 Mg Tablet, 10 MG PO Q8H PRN for SPASMS Prescribed by: XENIA GARCIA on 11/11/18 0049 Ibuprofen 800 Mg Tablet, 800 MG PO Q8H PRN for PAIN-MILD, (Reported) Lisinopril 20 Mg Tablet, 20 MG PO DAILY, (Reported) Oxycodone HCl/Acetaminophen 1 Each Tablet, 1 TAB PO Q8H PRN for PAIN-MODERATE, (Reported) Topiramate 50 Mg Tablet, 100 MG PO BID, (Reported) TAKES 2 (50MG) TABLETS Past Ejatkvs-Fjznqc-Gxfoxb Hx Patient Social History Alcohol Use: Rarely Uses Recreational Drug Use: No Type Used: Cigarettes 2nd Hand Smoke Exposure: Yes Recent Foreign Travel: No Contact w/Someone Who Travel: No Recent Infectious Disease Expo: No Recent Hopitalizations: No Immunizations Up To Date Tetanus Booster (TDap): Less than 5yrs PED Vaccines UTD: Yes Seasonal Allergies Seasonal Allergies: Yes Past Medical History Surgeries: Yes (BACK SURGERY) Abdominal, Appendectomy, Gallbladder, Orthopedic, Vasectomy Respiratory: Yes Chronic Bronchitis, COPD Cardiac: Yes High Cholesterol, Hypertension Neurological: Yes (BACK SURGERY WITH NERVE DAMAGE--BOWEL/BLADDER INCONTINENCE. ) Seizure Disorder Reproductive Disorders: No Genitourinary: Yes (Incontinence urine from back surgery') Kidney Stones, Neurogenic Bladder Gastrointestinal: No Colitis, Gastroesophageal Reflux, Diverticulosis, Polyps Musculoskeletal: Yes (CHRONIC NECK PAIN) Degenerate Disk Disease, Arthritis, Chronic Back Pain Endocrine: No HEENT: No Cancer: No Psychosocial: Yes Anxiety Integumentary: No Blood Disorders: No Adverse Reaction/Blood Tranf: No Family Medical History No Pertinent Family Hx Physical Exam Vital Signs Vital Signs - First Documented 05/26/19 22:55 Temp 97.0 Pulse 82 Resp 18 B/P (MAP) 123/73 (90) Pulse Ox 97 Capillary Refill : Less Than 3 Seconds Height, Weight, BMI Height: 5'10.00" Weight: 210lbs. 0.0oz. 95.326759lu; 30.1 BMI Method:Stated Procedures/Interventions Suture Size: 5-0 Progress/Results/Core Measures Results/Orders My Orders Orders - BHAVYA ESCOBAR DO Shoulder, Left, 3 Views (05/26/19 22:57) Vital Signs/I&O 05/26/19 22:55 Temp 97.0 Pulse 82 Resp 18 B/P (MAP) 123/73 (90) Pulse Ox 97 Blood Pressure Mean: 90 Departure Impression Primary Impression: Strain of left trapezius muscle Disposition: HOME, SELF-CARE Condition: Stable Departure-Patient Inst. Referrals: SWAPNIL SAWANT APRN (PCP/Family) Primary Care Physician Patient Instructions: Muscle Spasms (DC), Muscle Strain (DC), Muscle and Bone Pain (DC) Add. Discharge Instructions: MOIST HEAT TO SORE AREA AT 20 MINUTE INTERVALS TAKE YOUR IBUPROFEN AND PERCOCET PRESCRIBED DO NOT TAKE FLEXERIL WHILE ON ROBAXIN FOLLOW UP WITH YOUR DR NEXT WEEK FOR FURTHER CARE All discharge instructions reviewed with patient and/or family. Voiced understanding. Scripts Methocarbamol (Robaxin) 500 Mg Tablet 500 MG PO QID for Muscle Spasms, #20 TAB Prov: BHAVYA ESCOBAR DO 05/26/19 Methylprednisolone (Medrol) 4 Mg Tab.ds.pk 4 MG PO UD, #1 PKG Prov: BHAVYA ESCOBAR DO 05/26/19 BHAVYA ESCOBAR DO May 26, 2019 23:29
[2019-05-26] MEDS ORDERED: KETOROLAC 60 MG/2 ML VIAL IM ONE (23:30)
[2019-05-26 23:40] VITALS: BP 123/73
--- NOTE | 2019-05-27 06:41 | Diagnostic Imaging Report ---
INDICATION: Left shoulder pain COMPARISON: None. FINDINGS: 2 views left shoulder demonstrate no fracture or dislocation. Articular surfaces are normal. No osseous lesion. IMPRESSION: Negative left shoulder. Dictated by: Dictated on workstation # [id number]
== END 2019-05-26 23:40 | disposition home or self-care (01) ==
LOC: EDUNIT# 21:47 → ER 21:50
DX: S29.012A Strain of muscle and tendon of back wall of thorax, initial encounter (principal); J44.9 Chronic obstructive pulmonary disease, unspecified; I10 Essential (primary) hypertension; E78.00 Pure hypercholesterolemia, unspecified; G40.909 Epilepsy, unspecified, not intractable, without status epilepticus; K21.9 Gastro-esophageal reflux disease without esophagitis; F41.9 Anxiety disorder, unspecified; Z86.010 Personal history of colon polyps; Z87.19 Personal history of other diseases of the digestive system; Z87.442 Personal history of urinary calculi; Z88.2 Allergy status to sulfonamides; Z88.1 Allergy status to other antibiotic agents; Z88.5 Allergy status to narcotic agent; Z77.22 Contact with and (suspected) exposure to environmental tobacco smoke (acute) (chronic); Z90.49 Acquired absence of other specified parts of digestive tract; X58.XXXA Exposure to other specified factors, initial encounter
CPT/HCPCS: 73030

== ENCOUNTER 2019-06-09 12:06 | Emergency (ER) | payer MEDICAID ==
[~2019-06-09] VITALS: Ht 177.8 cm; Wt 97.5 kg
[2019-06-09] MEDS ORDERED: KETOROLAC 30 MG/ML VIAL IVP ONE (12:30)
[2019-06-09] MEDS ORDERED: ONDANSETRON 4 MG/2 ML (SDV) Z0FRAN IVP ONE (12:30)
--- NOTE | 2019-06-09 12:33 | NUR ---
lLAB HERE TO DRAW BLOOD
[2019-06-09] MEDS ORDERED: HOLD METFORMIN - RECEIVED CONTRAST 20 ML VIAL IV SCH (12:45)
[2019-06-09] MEDS ORDERED: IOHEXOL 350 MG/ML 100 ML (OMNIPAQUE 350) VIAL IV ONE (12:45)
[2019-06-09] MEDS ORDERED: NS 100 ML (IVPB) BAG IV ONE (12:45)
[2019-06-09 12:51] LABS: BASOPHILS % (AUTO) 0 % (0-10); EOSINOPHILS # (AUTO) 0.4 10^3/uL (0.0-0.3); EOSINOPHILS % (AUTO) 5 % (0-10); HEMATOCRIT 45 % (40-54); HEMOGLOBIN 15.6 G/DL (13.3-17.7); LYMPHOCYTES # (AUTO) 1.9 X 10^3 (1.0-4.0); LYMPHOCYTES % (AUTO) 23 % (12-44); MEAN CORPUSCULAR HEMOGLOBIN 33 PG (25-34); MEAN CORPUSCULAR HGB CONC 35 G/DL (32-36); MEAN CORPUSCULAR VOLUME 94 FL (80-99); MEAN PLATELET VOLUME 10.8 FL (7.4-10.4); MONOCYTES # (AUTO) 0.9 X 10^3 (0.0-1.0); MONOCYTES % (AUTO) 11 % (0-12); NEUTROPHILS # (AUTO) 4.8 X 10^3 (1.8-7.8); NEUTROPHILS % (AUTO) 61 % (42-75); PLATELET COUNT 146 10^3/uL (130-400); RED CELL DISTRIBUTION WIDTH 13.6 % (10.0-14.5)
[2019-06-09 13:01] LABS: BILIRUBIN,URINE NEGATIVE (NEGATIVE); CLARITY,URINE CLEAR; COLOR,URINE YELLOW; GLUCOSE, URINE (UA) NEGATIVE (NEGATIVE); KETONES,URINE NEGATIVE (NEGATIVE); LEUKOCYTE ESTERASE ,URINE 1+ (NEGATIVE); NITRITE,URINE NEGATIVE (NEGATIVE); PH,URINE 6 (5-9); PROTEIN,URINE NEGATIVE (NEGATIVE); UROBILINOGEN,URINE NORMAL (NORMAL)
[2019-06-09 13:02] LABS: ALANINE AMINOTRANSFERASE 27 U/L (0-55); ALBUMIN 3.7 GM/DL (3.2-4.5); ALKALINE PHOSPHATASE 95 U/L (40-136); BILIRUBIN,TOTAL 0.3 MG/DL (0.1-1.0); BUN/CREATININE RATIO 16; CALCIUM 8.7 MG/DL (8.5-10.1); CARBON DIOXIDE 21 MMOL/L (21-32); CHLORIDE 112 MMOL/L (98-107); CREATININE SERUM 1.03 MG/DL (0.60-1.30); GFR ESTIMATED > 60; GLUCOSE 85 MG/DL (70-105); SODIUM 139 MMOL/L (135-145); TOTAL PROTEIN 6.4 GM/DL (6.4-8.2)
--- NOTE | 2019-06-09 13:08 | ED GU-Male ---
General Chief Complaint: Abdominal/GI Problems Stated Complaint: R SIDE ABD PAIN Nursing Triage Note: TO TRIAGE WITH COMPLAINTS OF RIGHT LOWER ABD PAIN SINCE YESTERDAY EVENING. N/D ALSO. Source: patient Exam Limitations: no limitations History of Present Illness Date Seen by Provider: Jun 09, 2019 Time Seen by Provider: 13:03 Initial Comments To ER with c/o diarrhea x7 days. RLQ abdominal pain began yesterday associated with right testicular pain. Sexual active but in the monogamous relationship with his for 18 years. Denies any penile discharge. Timing/Duration: constant Severity/Quality: moderate Location: RLQ Radiation: suprapubic Activities at Onset: none Prior Genitourinary Problems: none Associated Symptoms: abdominal pain; No dysuria, No nausea/vomiting, No urinary frequency Allergies and Home Medications Allergies Coded Allergies: Sulfa (Sulfonamide Antibiotics) (Verified Allergy, Unknown, 06/28/17) clarithromycin (Verified Allergy, Unknown, 06/28/17) levetiracetam (Verified Allergy, Unknown, 06/28/17) morphine (Verified Allergy, Unknown, 06/28/17) codeine (Verified Adverse Reaction, Unknown, VOMITING, 10/18/18) Home Medications Atenolol 50 Mg Tablet, 50 MG PO HS, (Reported) Cyclobenzaprine HCl 10 Mg Tablet, 10 MG PO Q8H PRN for SPASMS Prescribed by: XENIA GARCIA on 11/11/18 0049 Ibuprofen 800 Mg Tablet, 800 MG PO Q8H PRN for PAIN-MILD, (Reported) Lisinopril 20 Mg Tablet, 20 MG PO DAILY, (Reported) Methocarbamol 500 Mg Tablet, 500 MG PO QID Prescribed by: BHAVYA ESCOBAR on 05/26/192325 Methylprednisolone 4 Mg Tab.ds.pk, 4 MG PO UD Prescribed by: BHAVYA ESCOBAR on 05/26/192325 Oxycodone HCl/Acetaminophen 1 Each Tablet, 1 TAB PO Q8H PRN for PAIN-MODERATE, (Reported) Topiramate 50 Mg Tablet, 100 MG PO BID, (Reported) TAKES 2 (50MG) TABLETS Patient Home Medication List Home Medication List Reviewed: Yes Review of Systems Review of Systems Constitutional: see HPI EENTM: see HPI Respiratory: no symptoms reported Gastrointestinal: abdominal pain Genitourinary: no symptoms reported Musculoskeletal: no symptoms reported Skin: no symptoms reported Psychiatric/Neurological: No Symptoms Reported Endocrine: No Symptoms Reported Hematologic/Lymphatic: No Symptoms Reported Past Pgozyea-Jstmsi-Secucu Hx Patient Social History Alcohol Use: Denies Use Recreational Drug Use: No Smoking Status: Current Everyday Smoker Type Used: Cigarettes 2nd Hand Smoke Exposure: Yes Recent Foreign Travel: No Contact w/Someone Who Travel: No Recent Infectious Disease Expo: No Recent Hopitalizations: No Immunizations Up To Date Tetanus Booster (TDap): Less than 5yrs PED Vaccines UTD: Yes Seasonal Allergies Seasonal Allergies: Yes Past Medical History Surgeries: Yes (BACK SURGERY) Abdominal, Appendectomy, Gallbladder, Orthopedic, Vasectomy Respiratory: Yes Chronic Bronchitis, COPD Cardiac: Yes High Cholesterol, Hypertension Neurological: Yes (BACK SURGERY WITH NERVE DAMAGE--BOWEL/BLADDER INCONTINENCE. ) Seizure Disorder Reproductive Disorders: No Genitourinary: Yes (Incontinence urine from back surgery') Kidney Stones, Neurogenic Bladder Gastrointestinal: No Colitis, Gastroesophageal Reflux, Diverticulosis, Polyps Musculoskeletal: Yes (CHRONIC NECK PAIN) Degenerate Disk Disease, Arthritis, Chronic Back Pain Endocrine: No HEENT: No Cancer: No Psychosocial: Yes Anxiety Integumentary: No Blood Disorders: No Adverse Reaction/Blood Tranf: No Family Medical History No Pertinent Family Hx Physical Exam Vital Signs Vital Signs - First Documented 06/09/19 12:08 Temp 98.2 Pulse 60 Resp 16 Pulse Ox 98 O2 Delivery Room Air Capillary Refill : Less Than 3 Seconds Height, Weight, BMI Height: 5'10.00" Weight: 215lbs. 0.0oz. 97.751745ut; 30.1 BMI Method:Stated General Appearance: WD/WN, no apparent distress HEENT: PERRL/EOMI, normal ENT inspection Respiratory: no respiratory distress, no accessory muscle use Gastrointestinal: normal bowel sounds, soft, tenderness (RLQ) Genital/Rectal: other (Right posterior testicular tenderness. pain improves with elevation of testicle. ) Extremities: normal range of motion, non-tender Neurologic/Psychiatric: alert, normal mood/affect, oriented x 3 Skin: normal color, warm/dry Procedures/Interventions Suture Size: 5-0 Progress/Results/Core Measures Suspected Sepsis Recent Fever Within 48 Hours: No Infection Criteria Present: Suspected New Infection New/Unexplained Altered Menta: No Sepsis Screen: No Definite Risk SIRS Temperature:98.2 Pulse: 60 Respiratory Rate: 16 Laboratory Tests 06/09/19 12:33: White Blood Count 8.0 Blood Pressure / Mean: Laboratory Tests 06/09/19 12:33: Creatinine 1.03, Platelet Count 146, Total Bilirubin 0.3 Results/Orders Lab Results Laboratory Tests Test 06/09/19 12:33 06/09/19 12:41 Range/Units White Blood Count 8.0 4.3-11.0 10^3/uL Red Blood Count 4.75 4.35-5.85 10^6/uL Hemoglobin 15.6 13.3-17.7 G/DL Hematocrit 45 40-54 % Mean Corpuscular Volume 94 80-99 FL Mean Corpuscular Hemoglobin 33 25-34 PG Mean Corpuscular Hemoglobin Concent 35 32-36 G/DL Red Cell Distribution Width 13.6 10.0-14.5 % Platelet Count 146 130-400 10^3/uL Mean Platelet Volume 10.8 H 7.4-10.4 FL Neutrophils (%) (Auto) 61 42-75 % Lymphocytes (%) (Auto) 23 12-44 % Monocytes (%) (Auto) 11 0-12 % Eosinophils (%) (Auto) 5 0-10 % Basophils (%) (Auto) 0 0-10 % Neutrophils # (Auto) 4.8 1.8-7.8 X 10^3 Lymphocytes # (Auto) 1.9 1.0-4.0 X 10^3 Monocytes # (Auto) 0.9 0.0-1.0 X 10^3 Eosinophils # (Auto) 0.4 H 0.0-0.3 10^3/uL Basophils # (Auto) 0.0 0.0-0.1 10^3/uL Sodium Level 139 135-145 MMOL/L Potassium Level 4.0 3.6-5.0 MMOL/L Chloride Level 112 H 98-107 MMOL/L Carbon Dioxide Level 21 21-32 MMOL/L Anion Gap 6 5-14 MMOL/L Blood Urea Nitrogen 16 7-18 MG/DL Creatinine 1.03 0.60-1.30 MG/DL Estimat Glomerular Filtration Rate > 60 BUN/Creatinine Ratio 16 Glucose Level 85 70-105 MG/DL Calcium Level 8.7 8.5-10.1 MG/DL Corrected Calcium 8.9 8.5-10.1 MG/DL Total Bilirubin 0.3 0.1-1.0 MG/DL Aspartate Amino Transf (AST/SGOT) 15 5-34 U/L Alanine Aminotransferase (ALT/SGPT) 27 0-55 U/L Alkaline Phosphatase 95 40-136 U/L Total Protein 6.4 6.4-8.2 GM/DL Albumin 3.7 3.2-4.5 GM/DL Urine Color YELLOW Urine Clarity CLEAR Urine pH 6 5-9 Urine Specific [place] 1.020 1.016-1.022 Urine Protein NEGATIVE NEGATIVE Urine Glucose (UA) NEGATIVE NEGATIVE Urine Ketones NEGATIVE NEGATIVE Urine Nitrite NEGATIVE NEGATIVE Urine Bilirubin NEGATIVE NEGATIVE Urine Urobilinogen NORMAL NORMAL MG/DL Urine Leukocyte Esterase 1+ H NEGATIVE Urine RBC (Auto) NEGATIVE NEGATIVE Urine RBC NONE /HPF Urine WBC 0-2 /HPF Urine Crystals NONE /LPF Urine Bacteria TRACE /HPF Urine Casts NONE /LPF Urine Mucus MODERATE H /LPF Urine Culture Indicated NO My Orders Orders - TERRANCE JAEGER SENIOR PRODUCT DEVELOPMENT MANAGER Cbc With Automated Diff (06/09/19 12:29) Comprehensive Metabolic Panel (06/09/19 12:29) Ua Culture If Indicated (06/09/19 12:29) Ed Iv/Invasive Line Start (06/09/19 12:29) Ketorolac Injection (Toradol Injection) (06/09/19 12:30) Ondansetron Injection (Zofran Injectio (06/09/19 12:30) Ct Abd/Pelv W (Appendicitis) (06/09/19 12:31) Iohexol Injection (Omnipaque 350 Mg/Ml 1 (06/09/19 12:45) Received Contrast (Hold Metformin- Contr (06/09/19 12:45) Ns (Ivpb) (Sodium Chloride 0.9% Ivpb Bag (06/09/19 12:45) Neis Hardik Dna Urine Test (06/09/19 13:12) Chlamydia Trachomatis Urine (06/09/19 13:12) Medications Given in ED Current Medications Medications Dose Ordered Sig/Teri Route Start Time Stop Time Status Last Admin Dose Admin Iohexol 100 ml ONCE ONCE IV 06/09/19 12:45 06/09/19 12:46 DC 06/09/19 12:57 100 ML Ketorolac Tromethamine 15 mg ONCE ONCE IVP 06/09/19 12:30 06/09/19 12:31 DC 06/09/19 12:39 15 MG Ondansetron HCl 4 mg ONCE ONCE IVP 06/09/19 12:30 06/09/19 12:31 DC 06/09/19 12:38 4 MG Vital Signs/I&O 06/09/19 12:08 Temp 98.2 Pulse 60 Resp 16 B/P (MAP) Pulse Ox 98 O2 Delivery Room Air Capillary Refill : Less Than 3 Seconds Departure Impression Primary Impression: Epididymitis Disposition: HOME, SELF-CARE Condition: Stable Departure-Patient Inst. Decision time for Depature: 13:13 Referrals: SWAPNIL SAWANT APRN (PCP/Family) Primary Care Physician Patient Instructions: Epididymitis Add. Discharge Instructions: All discharge instructions reviewed with patient and/or family. Voiced understanding. Scripts Ciprofloxacin HCl (Ciprofloxacin HCl) 500 Mg Tablet 500 MG PO BID, #14 TAB Prov: TERRANCE JAEGER APRN 06/09/19 TERRANCE JAEGER APRN Jun 09, 2019 13:08
[2019-06-09 13:09] LABS: BACTERIA,URINE TRACE /HPF; WBC,URINE 0-2 /HPF
--- NOTE | 2019-06-09 13:25 | Diagnostic Imaging Report ---
PROCEDURE: CT abdomen and pelvis with contrast, rule out appendicitis. TECHNIQUE: Multiple contiguous axial images were obtained through the abdomen and pelvis after the administration of intravenous contrast. INDICATION: Right lower quadrant pain with nausea, vomiting and diarrhea. COMPARISON: 09/08/2018 FINDINGS: The lung bases are clear. The heart is normal in size. There is no pericardial effusion. The liver demonstrates no focal lesions. The spleen appears normal. The pancreas is normal. Cholecystectomy clips are noted. Adrenal glands appear normal. The kidneys demonstrate no acute abnormality. The bowel loops are nondistended without obstruction seen. There is no enlargement of the appendix. No free fluid or free air is seen. No lymphadenopathy is seen. The aorta is unremarkable. No acute osseous abnormality is seen. There is fusion hardware at the lumbosacral junction. IMPRESSION: 1. No acute abdominopelvic abnormality is seen. Dictated by: Dictated on workstation # [id number]
[2019-06-09] MEDS ORDERED: CIPR500T4 PO (13:28)
[2019-06-09] MEDS ORDERED: cefTRIAXone FOR IV USE 1,000 MG in WATER (STERILE) FOR INJECTION 10 ML IV ONE (13:30)
[2019-06-09 14:07] VITALS: BP 135/79
== END 2019-06-09 14:10 | disposition home or self-care (01) ==
LOC: EDUNIT# 12:06 → ER 12:08
DX: N45.1 Epididymitis (principal); J44.9 Chronic obstructive pulmonary disease, unspecified; I10 Essential (primary) hypertension; E78.00 Pure hypercholesterolemia, unspecified; G40.909 Epilepsy, unspecified, not intractable, without status epilepticus; K21.9 Gastro-esophageal reflux disease without esophagitis; F41.9 Anxiety disorder, unspecified; F17.210 Nicotine dependence, cigarettes, uncomplicated; Z86.010 Personal history of colon polyps; Z87.442 Personal history of urinary calculi; Z88.2 Allergy status to sulfonamides; Z88.1 Allergy status to other antibiotic agents; Z88.5 Allergy status to narcotic agent; Z88.8 Allergy status to other drugs, medicaments and biological substances; Z90.49 Acquired absence of other specified parts of digestive tract
CPT/HCPCS: 36415; 74177; 80053; 81000; 85025; 87491; 87591; 96365; 96375

== ENCOUNTER 2019-07-29 22:18 | Emergency (ER) | payer SELFPAY ==
[~2019-07-29] VITALS: Ht 177.8 cm; Wt 95.3 kg
[~2019-07-29 22:18] MED LIST changes: +CIPR500T4 PO
[2019-07-29] MEDS ORDERED: PERM60CR4 TP (22:40)
--- NOTE | 2019-07-29 22:40 | ED General ---
General Stated Complaint: RASH, FEVER Source of Information: Patient Exam Limitations: No Limitations History of Present Illness Date Seen by Provider: Jul 29, 2019 Time Seen by Provider: 22:37 Initial Comments And across his chest present for one month. He's tried oral steroids, antibiotics with no improvement. Sleeps with his in bed, she has no rash. The rash is very itchy. Today he developed some chills associated with rhinorrhea cough and shortness of breath. No measured fever. He also has a sore throat. Timing/Duration: 1-2 Days Severity: Moderate Associated Systoms: Cough, Fever/Chills Allergies and Home Medications Allergies Coded Allergies: Sulfa (Sulfonamide Antibiotics) (Verified Allergy, Unknown, 06/28/17) clarithromycin (Verified Allergy, Unknown, 06/28/17) levetiracetam (Verified Allergy, Unknown, 06/28/17) morphine (Verified Allergy, Unknown, 06/28/17) codeine (Verified Adverse Reaction, Unknown, VOMITING, 10/18/18) Home Medications Atenolol 50 Mg Tablet, 50 MG PO HS, (Reported) Ciprofloxacin HCl 500 Mg Tablet, 500 MG PO BID Prescribed by: TERRANCE JAEGER on 06/09/19 1328 Cyclobenzaprine HCl 10 Mg Tablet, 10 MG PO Q8H PRN for SPASMS Prescribed by: XENIA GARCIA on 11/11/18 0049 Ibuprofen 800 Mg Tablet, 800 MG PO Q8H PRN for PAIN-MILD, (Reported) Lisinopril 20 Mg Tablet, 20 MG PO DAILY, (Reported) Methocarbamol 500 Mg Tablet, 500 MG PO QID Prescribed by: BHAVYA ESCOBAR on 05/26/19 232 Methylprednisolone 4 Mg Tab.ds.pk, 4 MG PO UD Prescribed by: BHAVYA ESCOBAR on 05/26/192325 Oxycodone HCl/Acetaminophen 1 Each Tablet, 1 TAB PO Q8H PRN for PAIN-MODERATE, (Reported) Topiramate 50 Mg Tablet, 100 MG PO BID, (Reported) TAKES 2 (50MG) TABLETS Patient Home Medication List Home Medication List Reviewed: Yes Review of Systems Review of Systems Constitutional: see HPI, chills EENTM: see HPI, nose congestion Respiratory: see HPI, cough Cardiovascular: no symptoms reported Genitourinary: no symptoms reported Musculoskeletal: no symptoms reported Skin: no symptoms reported Psychiatric/Neurological: No Symptoms Reported Hematologic/Lymphatic: No Symptoms Reported Immunological/Allergic: no symptoms reported Past Tulwdjm-Vtevrf-Gbcztn Hx Patient Social History Type Used: Cigarettes 2nd Hand Smoke Exposure: Yes Recent Foreign Travel: No Contact w/Someone Who Travel: No Recent Hopitalizations: No Immunizations Up To Date Tetanus Booster (TDap): Less than 5yrs PED Vaccines UTD: Yes Seasonal Allergies Seasonal Allergies: Yes Past Medical History Surgeries: Yes (BACK SURGERY) Abdominal, Appendectomy, Gallbladder, Orthopedic, Vasectomy Respiratory: Yes Chronic Bronchitis, COPD Cardiac: Yes High Cholesterol, Hypertension Neurological: Yes (BACK SURGERY WITH NERVE DAMAGE--BOWEL/BLADDER INCONTINENCE. ) Seizure Disorder Reproductive Disorders: No Genitourinary: Yes (Incontinence urine from back surgery') Kidney Stones, Neurogenic Bladder Gastrointestinal: No Colitis, Gastroesophageal Reflux, Diverticulosis, Polyps Musculoskeletal: Yes (CHRONIC NECK PAIN) Degenerate Disk Disease, Arthritis, Chronic Back Pain Endocrine: No HEENT: No Cancer: No Psychosocial: Yes Anxiety Integumentary: No Blood Disorders: No Adverse Reaction/Blood Tranf: No Family Medical History No Pertinent Family Hx Physical Exam Vital Signs Capillary Refill : Height, Weight, BMI Height: 5'10.00" Weight: 215lbs. 0.0oz. 97.154032uh; 30.1 BMI Method:Stated General Appearance: No Apparent Distress, WD/WN Eyes: Bilateral Eye Normal Inspection, Bilateral Eye PERRL, Bilateral Eye EOMI HEENT: PERRL/EOMI, TMs Normal, Normal ENT Inspection, Pharynx Normal Neck: Full Range of Motion, Normal Inspection Respiratory: Normal Breath Sounds, No Accessory Muscle Use, No Respiratory Distress Cardiovascular: Regular Rate, Rhythm, Normal Peripheral Pulses Gastrointestinal: Normal Bowel Sounds, Non Tender, Soft Extremity: Normal Capillary Refill, Normal Inspection Neurologic/Psychiatric: Alert, Oriented x3, No Motor/Sensory Deficits Skin: Normal Color, Warm/Dry, Other (erythematous papular rash with some excor iation to the left upper arm, left lower abdomen) Procedures/Interventions Suture Size: 5-0 Progress/Results/Core Measures Suspected Sepsis SIRS Temperature: Pulse: Respiratory Rate: Blood Pressure / Mean: Results/Orders My Orders Orders - TERRANCE JAEGER APRN Chest Pa/Lat (2 View) (07/29/19 22:36) Rapid Strep A Screen (07/29/19 22:36) Vital Signs/I&O Capillary Refill : Departure Impression Primary Impression: Viral syndrome Additional Impression: Rash and nonspecific skin eruption Disposition: 01 HOME, SELF-CARE Condition: Stable Departure-Patient Inst. Decision time for Depature: 22:39 Referrals: SWAPNIL SAWANT APRN (PCP/Family) Primary Care Physician Patient Instructions: Skin Rash Scripts Permethrin (Permethrin) 60 Gm Cream..g. 60 GM TP ONCE, #1 TUBE Prov: TERRANCE JAEGER APRN 07/29/19 TERRANCE JAEGER APRN Jul 29, 2019 22:40
[2019-07-29 23:04] VITALS: BP 135/93
--- NOTE | 2019-07-30 08:03 | Diagnostic Imaging Report ---
INDICATION: Rash, cough, congestion. COMPARISON: 12/16/2016 TECHNIQUE: Two radiographs of the chest dated 07/29/2019. FINDINGS: The cardiac silhouette is within normal limits in size. No significant pulmonary vascular congestion. The lungs are clear. No pleural effusion. No pneumothorax. No acute osseous abnormality. IMPRESSION: Stable examination without acute cardiopulmonary abnormality. Dictated by: Dictated on workstation # [id number]
== END 2019-07-29 23:04 | disposition home or self-care (01) ==
LOC: EDUNIT# 22:18 → ER 22:19
DX: B34.9 Viral infection, unspecified (principal); R21 Rash and other nonspecific skin eruption; J44.9 Chronic obstructive pulmonary disease, unspecified; G40.909 Epilepsy, unspecified, not intractable, without status epilepticus; K21.9 Gastro-esophageal reflux disease without esophagitis; F41.9 Anxiety disorder, unspecified; Z87.19 Personal history of other diseases of the digestive system; Z86.010 Personal history of colon polyps; Z87.442 Personal history of urinary calculi; Z88.2 Allergy status to sulfonamides; Z88.1 Allergy status to other antibiotic agents; Z88.5 Allergy status to narcotic agent; Z88.8 Allergy status to other drugs, medicaments and biological substances; Z77.22 Contact with and (suspected) exposure to environmental tobacco smoke (acute) (chronic); Z90.49 Acquired absence of other specified parts of digestive tract
CPT/HCPCS: 71046; 87081; 87430

== ENCOUNTER 2021-06-14 12:14 | Emergency (ER) | payer OTHER ==
[~2021-06-14] VITALS: Ht 177 cm; Wt 107.0 kg
[~2021-06-14 12:14] MED LIST changes: +ALPR.25T PO; -ALPR0.254 PO; -CIPR500T4 PO; +CIPR500T5 PO; -CLON0.5T13; +CLON0.5T4; -LISI-552 PO; +LISI20TA26 PO; -OXYC-464 PO; +OXYC1TAB15 PO; +PERM60CR4 TP
[2021-06-14 12:47] LABS: HEMATOCRIT 51 % (40-54); HEMOGLOBIN 17.5 g/dL (13.3-17.7); MEAN CORPUSCULAR HEMOGLOBIN 33 pg (25-34); MEAN CORPUSCULAR HGB CONC 34 g/dL (32-36); MEAN CORPUSCULAR VOLUME 95 fL (80-99); MEAN PLATELET VOLUME 10.6 fL (9.0-12.2); PLATELET COUNT 172 10^3/uL (130-400); WHITE BLOOD COUNT 6.5 10^3/uL (4.3-11.0)
--- NOTE | 2021-06-14 12:49 | ED Back Pain ---
General Chief Complaint: Back Problems Stated Complaint: BACK PAIN Nursing Triage Note: PT TO ED W/ C/O LOW BACK PAIN ONSET THIS AM. DENIED INJURY Source of Information: Patient Exam Limitations: No Limitations History of Present Illness Date Seen by Provider: Jun 14, 2021 Time Seen by Provider: 12:46 Initial Comments To ER with reports of low back pain onset this morning. This is right low back radiates around to the right thigh and down the right leg. No fevers chills or injury though he did just return from a trip to [place]. This was a car ride and he spent most of the time in the car. There were few breaks for him to get out and walk around. Upon arrival to [place] he felt that both legs were swollen though that feeling seems to have subsided. Location: Lumbar Spine Timing/Duration: 1-2 Days Severity: Moderate Associated Symptoms: denies symptoms Allergies and Home Medications Allergies Coded Allergies: Sulfa (Sulfonamide Antibiotics) (Verified Allergy, Unknown, 06/28/17) clarithromycin (Verified Allergy, Unknown, 06/28/17) levetiracetam (Verified Allergy, Unknown, 06/28/17) morphine (Verified Allergy, Unknown, 06/28/17) codeine (Verified Adverse Reaction, Unknown, VOMITING, 10/18/18) Home Medications Atenolol 50 Mg Tablet, 50 MG PO HS, (Reported) Ciprofloxacin HCl 500 Mg Tablet, 500 MG PO BID Prescribed by: TERRANCE JAEGER on 06/09/19 1328 Cyclobenzaprine HCl 10 Mg Tablet, 10 MG PO Q8H PRN for SPASMS Prescribed by: XENIA GARCIA on 11/11/18 0049 Ibuprofen 800 Mg Tablet, 800 MG PO Q8H PRN for PAIN-MILD, (Reported) Lisinopril 20 Mg Tablet, 20 MG PO DAILY, (Reported) Methocarbamol 500 Mg Tablet, 500 MG PO QID Prescribed by: BHAVYA ESCOBAR on 05/26/19 2326 Methocarbamol 500 Mg Tablet, 1,000 MG PO Q6-8HR Prescribed by: TERRANCE JAEGER on 06/14/21 1254 Methylprednisolone 4 Mg Tab.ds.pk, 4 MG PO UD Prescribed by: BHAVYA ESCOBAR on 05/26/19 2326 Naproxen 500 Mg Tablet, 500 MG PO BID PRN for PAIN-MODERATE (5-7) Prescribed by: TERRANCE JAEGER on 06/14/21 1254 Oxycodone HCl/Acetaminophen 1 Each Tablet, 1 TAB PO Q8H PRN for PAIN-MODERATE, (Reported) Permethrin 60 Gm Cream..g., 60 GM TP ONCE Prescribed by: TERRANCE AJEGER on 07/29/19 2240 Topiramate 50 Mg Tablet, 100 MG PO BID, (Reported) TAKES 2 (50MG) TABLETS Patient Home Medication List Home Medication List Reviewed: Yes Review of Systems Constitutional: see HPI EENTM: see HPI Respiratory: no symptoms reported Cardiovascular: no symptoms reported Genitourinary: no symptoms reported Musculoskeletal: no symptoms reported Skin: no symptoms reported Psychiatric/Neurological: No Symptoms Reported Past Qmphybu-Vbmypu-Fhgymx Hx Patient Social History Tobacco Use?: Yes Tobacco type used: Cigarettes Smoking Status: Current Everyday Smoker Use of E-Cig and/or Vaping dev: No Substance use?: No Alcohol Use?: No Pt feels they are or have been: No Immunizations Up To Date Tetanus Booster (TDap): Less than 5yrs PED Vaccines UTD: Yes Seasonal Allergies Seasonal Allergies: Yes Past Medical History Surgery/Hospitalization HX: BACK SURGERY Surgeries: Yes (BACK SURGERY; EGD/COLONOSCOPIES/POLYPECTOMIES) Abdominal, Appendectomy, Gallbladder, Orthopedic, Vasectomy Respiratory: Yes Chronic Bronchitis, COPD Cardiac: Yes High Cholesterol, Hypertension Neurological: Yes (BACK SURGERY WITH NERVE DAMAGE--BOWEL/BLADDER INCONTINENCE. ) Seizure Disorder Reproductive Disorders: No Genitourinary: Yes (Incontinence urine from back surgery') Kidney Stones, Neurogenic Bladder Gastrointestinal: Yes (INCONTINENT OF BOWELS SINCE BACK SURGERY) Colitis, Gastroesophageal Reflux, Chronic Constipation, Diverticulosis, Polyps Musculoskeletal: Yes (CHRONIC NECK PAIN) Degenerate Disk Disease, Arthritis, Chronic Back Pain Endocrine: No HEENT: Yes Dysphagia Cancer: No Psychosocial: Yes Anxiety Integumentary: No Recent Skin Changes Blood Disorders: No Adverse Reaction/Blood Tranf: No Family Medical History No Pertinent Family Hx Physical Exam Vital Signs Vital Signs - First Documented 06/14/21 12:22 Temp 36.8 Pulse 86 Resp 20 B/P (MAP) 158/86 (110) Pulse Ox 97 O2 Delivery Room Air Capillary Refill : Less Than 3 Seconds Height, Weight, BMI Height: 5'10.00" Weight: 210lbs. 0.0oz. 95.186157ol; 34.00 BMI Method:Stated General Appearance: No Apparent Distress, WD/WN HEENT: PERRL/EOMI, TMs Normal Neck: Full Range of Motion, Normal Inspection Cardiovascular: Regular Rate, Rhythm, Normal Peripheral Pulses Respiratory: Normal Breath Sounds, No Accessory Muscle Use, No Respiratory Distress Gastrointestinal: Normal Bowel Sounds, Non Tender, Soft Extremity: Normal Capillary Refill, Normal Inspection Neurologic/Psychiatric: Alert, Oriented x3 Skin: Normal Color, Warm/Dry Procedures/Interventions Suture Size: 5-0 Progress/Results/Core Measures Results/Orders Lab Results Laboratory Tests Test 06/14/21 12:45 Range/Units White Blood Count 6.5 4.3-11.0 10^3/uL Red Blood Count 5.39 4.30-5.52 10^6/uL Hemoglobin 17.5 13.3-17.7 g/dL Hematocrit 51 40-54 % Mean Corpuscular Volume 95 80-99 fL Mean Corpuscular Hemoglobin 33 25-34 pg Mean Corpuscular Hemoglobin Concent 34 32-36 g/dL Red Cell Distribution Width 13.2 10.0-14.5 % Platelet Count 172 130-400 10^3/uL Mean Platelet Volume 10.6 9.0-12.2 fL D-Dimer < 0.27 0.00-0.49 UG/ML Sodium Level 140 135-145 MMOL/L Potassium Level 4.1 3.6-5.0 MMOL/L Chloride Level 110 H 98-107 MMOL/L Carbon Dioxide Level 19 L 21-32 MMOL/L Anion Gap 11 5-14 MMOL/L Blood Urea Nitrogen 14 7-18 MG/DL Creatinine 1.02 0.60-1.30 MG/DL Estimat Glomerular Filtration Rate > 60 BUN/Creatinine Ratio 14 Glucose Level 97 70-105 MG/DL Calcium Level 8.9 8.5-10.1 MG/DL My Orders Orders - TERRANCE JAEGER APRN Cbc No Diff (06/14/21 12:31) Basic Metabolic Panel (06/14/21 12:31) Fibrin Degradation Products (06/14/21 12:31) Ketorolac Injection (Toradol Injection) (06/14/21 13:00) Orphenadrine Inj (Ed Only) (Norflex Inje (06/14/21 13:00) Medications Given in ED Current Medications Medications Dose Ordered Sig/Teri Route Start Time Stop Time Status Last Admin Dose Admin Ketorolac Tromethamine 60 mg ONCE ONCE IM 06/14/21 13:00 06/14/21 13:01 DC 06/14/21 13:18 60 MG Orphenadrine Citrate 60 mg ONCE ONCE IM 06/14/21 13:00 06/14/21 13:01 DC 06/14/21 13:18 60 MG Vital Signs/I&O 06/14/21 12:22 Temp 36.8 Pulse 86 Resp 20 B/P (MAP) 158/86 (110) Pulse Ox 97 O2 Delivery Room Air Blood Pressure Mean: 110 Departure Impression Primary Impression: Lumbar radiculopathy Disposition: HOME, SELF-CARE Condition: Stable Departure-Patient Inst. Decision time for Depature: 12:53 Referrals: NO,LOCAL PHYSICIAN (PCP/Family) Primary Care Physician Patient Instructions: Radiculopathy Add. Discharge Instructions: 1. Medication as directed 2. Follow-up with your doctor next week 3. All discharge instructions reviewed with patient and/or family. Voiced understanding. Scripts Naproxen (Naprosyn) 500 Mg Tablet 500 MG PO BID PRN for PAIN-MODERATE (5-7), #30 TAB 0 Refills Prov: TERRANCE JAEGER CONTINUOUS LOFT OPERATOR 06/14/21 Methocarbamol (Methocarbamol) 500 Mg Tablet 1000 MG PO Q6-8HR for Back Pain, #30 TAB Prov: TERRANCE JAEGER CONTINUOUS LOFT OPERATOR 06/14/21 TERRANCE JAEGER CONTINUOUS LOFT OPERATOR Jun 14, 2021 12:49
[2021-06-14] MEDS ORDERED: NAPR-1071 PO (12:54)
[2021-06-14] MEDS ORDERED: METH-731 PO (12:54)
[2021-06-14] MEDS ORDERED: KETOROLAC 60 MG/2 ML VIAL IM ONE (13:00)
[2021-06-14] MEDS ORDERED: ORPHENADRINE 60 MG/2 ML (NORFLEX) AMP (ED ONLY) IM ONE (13:00)
[2021-06-14 13:08] LABS: CHLORIDE 110 MMOL/L (98-107); POTASSIUM 4.1 MMOL/L (3.6-5.0); SODIUM 140 MMOL/L (135-145)
[2021-06-14 13:09] LABS: CALCIUM 8.9 MG/DL (8.5-10.1)
[2021-06-14 13:10] LABS: GLUCOSE 97 MG/DL (70-105)
[2021-06-14 13:11] LABS: CARBON DIOXIDE 19 MMOL/L (21-32)
[2021-06-14 13:14] LABS: CREATININE SERUM 1.02 MG/DL (0.60-1.30); GFR ESTIMATED > 60
[2021-06-14 13:15] LABS: BUN/CREATININE RATIO 14
[2021-06-14 13:44] VITALS: BP 150/86
== END 2021-06-14 13:44 | disposition home or self-care (01) ==
LOC: EDUNIT# 12:14 → ER 12:16
DX: M54.16 Radiculopathy, lumbar region (principal); J44.9 Chronic obstructive pulmonary disease, unspecified; I10 Essential (primary) hypertension; G89.29 Other chronic pain; F17.210 Nicotine dependence, cigarettes, uncomplicated; Z79.52 Long term (current) use of systemic steroids; Z79.891 Long term (current) use of opiate analgesic; Z79.899 Other long term (current) drug therapy
CPT/HCPCS: 36415; 80048; 85027; 85379; 99284

== ENCOUNTER 2023-05-15 21:13 | Emergency (ER) | payer MEDICAID, OTHER ==
[~2023-05-15 21:13] MED LIST changes: +ALBU8.5H6 IH; +CYCL10TA25 PO; -CYCL10TA9 PO; -DOXY100C2 PO; +DOXY100C5 PO; +METH-731 PO; -RT-ALBUINH IH; +TOPI-241 PO; -TOPI50TA13 PO
[2023-05-15] MEDS ORDERED: RX-NAPROXEN (NAPROSYN) 250 MG TAB PPK#4 PO STA (22:23)
[2023-05-15] MEDS ORDERED: NAPR500T8 PO (22:27)
--- NOTE | 2023-05-15 22:27 | ED Upper Extremity ---
General Chief Complaint: Upper Extremity Stated Complaint: INJ LEFT WRIST Nursing Triage Note: TO ED VIA POV AND AMBULATORY TO TRIAGE WITH C/O LEFT WRIST PAIN. PT STATES HE FELL WHILE ROLLER SKATING A WEEK AGO. PT STATES HE WAS SEEN IN [place] HAD XRAY AND "THE DOCTOR TOLD ME IT WAS TOO SWOLLEN TO DO ANYTHING". PT HAS NOT TAKEN ANYTHING FOR PAIN. Allergies and Home Medications Allergies Coded Allergies: Sulfa (Sulfonamide Antibiotics) (Verified Allergy, Unknown, 06/28/17) clarithromycin (Verified Allergy, Unknown, 06/28/17) levetiracetam (Verified Allergy, Unknown, 06/28/17) morphine (Verified Allergy, Unknown, 06/28/17) codeine (Verified Adverse Reaction, Unknown, VOMITING, 10/18/18) Patient Home Medication List Atenolol (Atenolol) 50 Mg Tablet, 50 MG PO HS, (Reported) Entered as Reported by: DUY SHETTY on 01/28/16 1613 Ciprofloxacin HCl (Ciprofloxacin HCl) 500 Mg Tablet, 500 MG PO BID Prescribed by: TERRANCE JAEGER on 06/09/19 1328 Clonazepam (Clonazepam) 0.5 Mg Tablet, (Reported) Entered as Reported by: JENNIFER TOWNSEND on 10/18/18 1011 Cyclobenzaprine HCl (Cyclobenzaprine HCl) 10 Mg Tablet, 10 MG PO Q8H PRN for SPASMS Prescribed by: XENIA GARCIA on 11/11/18 0049 Ibuprofen (Ibuprofen) 800 Mg Tablet, 800 MG PO Q8H PRN for PAIN-MILD, (Reported) Entered as Reported by: TAYLER LEMUS on 12/16/162008 Lisinopril (Lisinopril) 20 Mg Tablet, 20 MG PO DAILY, (Reported) Entered as Reported by: AZAR GUNTER on 05/16/17 2353 Methocarbamol (Robaxin) 500 Mg Tablet, 500 MG PO QID Prescribed by: BHAVYA ESCOBAR on 05/26/19 2326 Methocarbamol (Methocarbamol) 500 Mg Tablet, 1,000 MG PO Q6-8HR Prescribed by: TERRANCE JAEGER on 06/14/21 1254 Methylprednisolone (Medrol) 4 Mg Tab.ds.pk, 4 MG PO UD Prescribed by: BHAVYA ESCOBAR on 05/26/19 232 Naproxen (Naprosyn) 500 Mg Tablet, 500 MG PO BID PRN for PAIN-MODERATE (5-7) Prescribed by: TERRANCE JAEGER on 06/14/21 1254 Oxycodone HCl/Acetaminophen (Oxycodon-Acetaminophen 7.5-325) 1 Each Tablet, 1 TAB PO Q8H PRN for PAIN-MODERATE, (Reported) Entered as Reported by: AZAR GUNTER on 04/21/172004 Permethrin (Permethrin) 60 Gm Cream..g., 60 GM TP ONCE Prescribed by: TERRANCE JAEGER on 07/29/19 2240 Topiramate (Topiramate) 50 Mg Tablet, 100 MG PO BID, (Reported) Entered as Reported by: DUY SHETTY on 01/28/16 1613 Past Mruvcob-Jbdxsd-Lwqceb Hx Patient Social History Tobacco Use?: Yes Smoking Status: Current Everyday Smoker Substance use?: No Alcohol Use?: No Immunizations Up To Date Tetanus Booster (TDap): Less than 5yrs PED Vaccines UTD: Yes Seasonal Allergies Seasonal Allergies: Yes Past Medical History Surgery/Hospitalization HX: BACK SURGERY Surgeries: Yes (BACK SURGERY; EGD/COLONOSCOPIES/POLYPECTOMIES) Abdominal, Appendectomy, Gallbladder, Orthopedic, Vasectomy Respiratory: Yes Chronic Bronchitis, COPD Cardiac: Yes High Cholesterol, Hypertension Neurological: Yes (BACK SURGERY WITH NERVE DAMAGE--BOWEL/BLADDER INCONTINENCE. ) Seizure Disorder Reproductive Disorders: No Genitourinary: Yes (Incontinence urine from back surgery') Kidney Stones, Neurogenic Bladder Gastrointestinal: Yes (INCONTINENT OF BOWELS SINCE BACK SURGERY) Colitis, Gastroesophageal Reflux, Chronic Constipation, Diverticulosis, Polyps Musculoskeletal: Yes (CHRONIC NECK PAIN) Degenerate Disk Disease, Arthritis, Chronic Back Pain Endocrine: No HEENT: Yes Dysphagia Cancer: No Psychosocial: Yes Anxiety Integumentary: No Recent Skin Changes Blood Disorders: No Adverse Reaction/Blood Tranf: No Family Medical History No Pertinent Family Hx Physical Exam Vital Signs Vital Signs - First Documented 05/15/23 21:30 Temp 36.9 Pulse 81 Resp 16 B/P (MAP) 139/76 (97) Pulse Ox 98 O2 Delivery Room Air Capillary Refill : Less Than 3 Seconds Height, Weight, BMI Height: 5'10.00" Weight: 210lbs. 0.0oz. 95.652288hp; 34.00 BMI Method:Stated Procedures/Interventions Suture Size: 5-0 Progress/Results/Core Measures Results/Orders My Orders Orders - BHAVYA ESCOBAR DO Forearm, Left, 2 Views (05/15/23 21:58) Wrist, Left, 3 Views Or More (05/15/23 21:58) Wrist-Geff (05/15/23 22:23) Rx-Naproxen (Rx-Naprosyn) (05/15/23 22:23) Vital Signs/I&O 05/15/23 21:30 Temp 36.9 Pulse 81 Resp 16 B/P (MAP) 139/76 (97) Pulse Ox 98 O2 Delivery Room Air Blood Pressure Mean: 97 Departure Impression Primary Impression: Left wrist pain Disposition: HOME, SELF-CARE Condition: Stable Departure-Patient Inst. Decision time for Depature: 22:25 Referrals: NO,LOCAL PHYSICIAN (PCP) Primary Care Physician GIORGI CASTRO MD, MICHAEL P MD Patient Instructions: Common Wrist Injuries (DC), Splint Care Add. Discharge Instructions: ICE TO AREA AT 20 MINUTE INTERVALS WEAR SPLINT AT ALL TIMES ELEVATE LEFT HAND MUCH POSSIBLE FOLLOW UP WITH DR. MICHAEL OR DR. CASTRO, [facility], FOR FURTHER CARE--CALL ON TUESDAY TO SCHEDULE AN APPOINTMENT All discharge instructions reviewed with patient and/or family. Voiced understanding. Scripts Naproxen (Naproxen) 500 Mg Tablet. 500 MG PO BID, #20 TAB Prov: BHAVAY ESCOBAR DO 05/15/23 BHAVYA ESCOBAR DO May 15, 2023 22:27
[2023-05-15] MEDS ORDERED: NAPROXEN 250 MG (NAPROSYN) TABLET PO ONE (22:45)
[2023-05-15 22:49] VITALS: BP 139/76
--- NOTE | 2023-05-16 08:14 | Diagnostic Imaging Report ---
Indication: Fall , pain Findings: 3 view left wrist performed. No fracture, dislocation or acute-appearing abnormality identified. Impression: No acute-appearing pathology. Dictated by: Dictated on workstation # [id number]
--- NOTE | 2023-05-16 08:20 | Diagnostic Imaging Report ---
Indication: Pain. Two-view left forearm performed. No fracture or dislocation identified. Impression: No acute-appearing abnormality. Dictated by: Dictated on workstation # [id number]
== END 2023-05-15 22:49 | disposition home or self-care (01) ==
LOC: EDUNIT# 21:13 → ER 21:17
DX: M25.532 Pain in left wrist (principal); F17.200 Nicotine dependence, unspecified, uncomplicated; V00.131A Fall from skateboard, initial encounter; Y92.331 Roller skating rink as the place of occurrence of the external cause; Y93.51 Activity, roller skating (inline) and skateboarding
CPT/HCPCS: 73090; 73110